=== PATIENT | female | born 1950 | race Caucasian/White ===

== ENCOUNTER → 2016-11-12 | Day surgery (SDC) | payer MEDICARE, MEDICAID ==
[~2016-11-12] VITALS: Ht 152.4 cm; Wt 55.3 kg
[~2016-11-12] MED LIST: AMOXIL500 MG PO; ANTIVERT GENERI25 MG PO; ASPIRIN81 MG PO; ATORVASTATIN CA40 MG PO; CIPRO 500MG TA500 MG PO; CLARITIN 10MG T10 MG PO; CLONAZEPAM1 M1 PO; DARVOCET-N 1001 EACH PO; DICLOFENAC SODI75 M2 PO; HYDROCODONE-APA1 TA1 PO; HYZAAR 12.5 MG-1 TA1 PO; K-DUR 20MEQ TA20 MEQ PO; LIDODERM 5% PA1 EACH TD; MECLIZINE HYD12.5 MG PO; MECLIZINE25 MG PO; MEDROL 4MG. DOSE4 MG PO; MELOXICAM7.5 MG PO; METAXALONE800 MG PO; METFORMIN 500M500 MG PO; MULTI VITAMINS1 TA1 PO; NEURONTIN400 MG PO; NEXIUM40 MG PO; PAXIL CR37.5 MG PO; POTASSIUM CHELA99 MG PO; POTASSIUM CHLO10 ME3 PO; ROBITUSSIN120 ML/BOT PO; TRAMADOL 50MG T1 PAK PO; TRAMADOL HYDROC50 M1 PO; VALIUM2 MG PO; VOLTAREN100 GM TP; ZOFRAN4 MG PO
[2016-11-12 09:50] VITALS: BP 116/50
[2016-11-12 10:36] VITALS: BP 116/50; BP 147/81
--- NOTE | 2016-11-12 10:39 | Procedure Note ---
Procedure detail Date of procedure: 11/12/16 Anesthesiologist: Jose Francisco rain CRNA Complications: None Pre-procedure diagnosis: Bilateral sacroiliitis. Post-procedure diagnosis: Same. Indications for procedure: Patient's a very pleasant 66-year-old white female that we've been treating her pain clinic for chronic cervical neck pain due to cervical disc degeneration. She's had cervical epidural steroid injections in the past with significant improvement. However, today her main complaint is lumbar back pain that she describes as constant, dull, aching. She rates her low back pain a 10/10. She also has extreme point tenderness over the bilateral SI joints. Unfortunately, her only lumbar imaging we have is a MRI from 2011. We will seek approval for an updated lumbar MRI. Also, we'll have her return to our clinic this Tuesday if possible for bilateral SI joint injections. Currently wearing a TENS unit to help with the pain. Typically she does not walk with a cane although today she is using a cane because of pain for stability. Procedure detail: Informed consent was obtained and the risks and benefits of the procedure were explained to the patient. The patient was taken to the procedure room and noninvasive monitors were placed including a noninvasive blood pressure cuff and pulse oximeter. The patient was placed prone on the procedure table. Both hips were cleansed using Betadine as a cleansing solution. C-arm fluoroscopy was used to view the right sacroiliac joint. The skin and subcutaneous tissues were anesthetized using lidocaine 1.5% and a 25-gauge needle. After this, a 22-gauge spinal needle was inserted under fluoroscopic guidance into the inferior aspect of the right sacroiliac joint. Omnipaque dye was injected and good spread was seen throughout the joint. After this, approximately 5 mL of bupivacaine, 0.25% and Depo-Medrol, 40 mg was incrementally injected into the right sacroiliac joint. We then moved to the left sacroiliac joint. The skin and subcutaneous tissues were anesthetized using lidocaine 1.5% and a 25-gauge needle. After this, a 22- gauge spinal needle was inserted under fluoroscopic guidance into the inferior aspect of the left sacroiliac joint. Omnipaque dye was injected and good spread was seen throughout the joint. After this, approximately 5 mL of bupivacaine, 0.25% and Depo-Medrol, 40 mg was incrementally injected into the left sacroiliac joint. The patient tolerated the procedure well with no complications. The patient was observed in the Pain Clinic and then was discharged home neurologically intact. Plan and disposition: Patient was reevaluated 10 minutes post procedure. Patient reports 80-90 percent improvement terms of her bilateral hip pain. She'll continue to follow up with us in the pain clinic for further evaluation. at [id number]
[2016-11-12 10:47] VITALS: BP 134/85
== END ==
LOC: PM 09:33
PROC: 3E0U33Z Introduction of Anti-inflammatory into Joints, Percutaneous Approach (ICD-10-PCS; principal; 2016-11-12)
PROC: 3E0U3BZ Introduction of Anesthetic Agent into Joints, Percutaneous Approach (ICD-10-PCS; 2016-11-12)
DX: M46.1 Sacroiliitis, not elsewhere classified (principal)
CPT/HCPCS: G0260; J1030

== ENCOUNTER → 2016-11-22 | Outpatient (CLI) | payer MEDICARE, MEDICAID ==
--- NOTE | 2016-11-22 22:39 | RADIOLOGY REPORT PS360 ---
DEXA SCAN.-BONE DENSITY STUDY HIPS AND LUMBAR SPINE HISTORY: Postmenopausal female 66-year-old previous fracture when I can't TECHNIQUE: DEXA scan hip and lumbar spine The most complete data summary and color graphic presentation of the today's ( and any prior ) DEXA findings are available in PACS. Definition and treatment guidelines included. COMPARISON: None listed LUMBAR SPINE: Osteopenia Overall mean lumbar L1-L4 T score -2.0 with BMD0 .944 g/cm sq . = Osteopenia L4 vertebral body demonstrates the lowest T score -2.1 with BMD0.945 g/cm sq L1 vertebral body demonstrates a lowest BMD 0.894 with T score -2.0 . . HIPS: Osteopenia Femoral neck density is best predictor of hip fracture risk . Right femoral neck demonstrates the lowest T score -1.9 with BMD0.78 g/cm sq . Today's today's Hip Mean T score -1.6 with BMD0.809 g/cm sq . = Osteopenia. IMPRESSION 1. LUMBAR SPINE: Osteopenia. Overall T score -2.0 2. HIPS: Osteopenia. Overall T score -1.6 WHO criteria for post-menopausal, Women: Normal: T-score at or above -1 SD Osteopenia: T-score between -1 and -2.5 SD Osteoporosis: T-score at or below -2.5 SD
== END ==
LOC: RAD 08:30
DX: Z78.0 Asymptomatic menopausal state (principal)

== ENCOUNTER 2017-07-22 08:50 | Emergency (ER) | payer MEDICARE, MEDICAID ==
[~2017-07-22] VITALS: Ht 152.4 cm; Wt 54.0 kg
--- NOTE | 2017-07-22 08:55 | Emergency Room Report ---
History of Present Illness Time Seen by MD [email or web address] Presenting Problem in Triage Pt arrived:Wheelchair Presenting Problem:PT REPORTS PAIN ON L SIDE OF CHEST FOR "A COUPLE DAYS", PT STATES PAIN RADIATES TO LEGS AND STOMACH INTERMITTENTLY. PT DENIES N/V/D, DIZZINESS, SOA. 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 N Clinical Suspician of Infection? N Mental Status: 1 - Regular (Normal Baseline) Sepsis Risk:Low Sepsis Risk Have you (or family members/close friends) recently traveled outside the [place]? N If Yes, where/when: Have you had exposure to infectious disease within the past month? N TB? Other? Specify: Comment The patient complains of chest pain. She says that she was supposed to have an epidural injection in her neck today by pain management, but they would not do it because she told them she had been having chest pain and they wanted her to have that checked. She says that she has pain in her LEFT anterior chest "in the muscle" off and on for the past couple of days. She says the pain increases with movement. She says it lasts about an hour at a time. She also says that her LEFT thoracic back area is sore as well. She denies trouble breathing, nausea, vomiting, diaphoresis. She denies abdominal pain currently but says that she has a history of vertebral bowel syndrome and had some colon spasms "a few days ago ". She says she has mitral valve prolapse and has seen Dr. Ross. No pain currently. ALLERGIES Coded Allergies: gabapentin (Intermediate, NA-HALLUCINATIONS 09/23/15) Home Medications Active Scripts HYDROCODONE 5MG/APAP 325MG (Hydrocodon-Acetaminophen 5-325) 1 TAB PO DAILY PRN pain #30 TAB Prov: 06/27/17 ONDANSETRON HCL (Zofran 4MG Tab) 4 MG PO Q8HP PRN NAUSEA AND VOMITING #6 TAB Prov: 06/11/17 Reported Medications LOSARTAN/HYDROCHLOROTHIAZIDE (Hyzaar 100-25 Tablet) 1 PO DAILY METFORMIN HCL (Metformin 500MG) 1 TAB PO BID Paroxetine (Paxil Cr) 1 TAB PO DAILY Clonazepam 1 TAB PO TID Loratadine (Claritin 10MG) 10 MG PO DAILY #30 Esomeprazole Magnesium (Nexium 40MG Cap) 40 MG PO DAILY #30 Atorvastatin Calcium 40 MG PO QHS #30 MULTIVITAMIN (One Daily Multivitamin) 1 TAB PO DAILY MECLIZINE HCL (Meclizine Hydrochloride) 12.5 MG PO PRN PRN DIZZINESS History Medical History General CAD? Yes Angina: Yes [place]: No Hypertension? Yes Hyperlipidemia? Yes CHF? No DVT? No PE? No COPD? No Asthma? No Anemia? No GERD? Yes Gastric ulcers? No GI Bleed? No Hernia? No Thyroid Problems? No Hypothyroidism? No CVA? No Seizures? No Diabetes? Yes Insulin Dependent: No Insulin Pump: No Home FSBS? Yes Renal Insuffiency? No End Stage Renal Disease? No UTI? No Stones? No BPH? No GB Disease: Yes Nephritic Syndrome? No Asplenia? No Hepatitis? No Sickle Cell Disease? No Arthritis? Yes Migraines? No Cataracts? Yes Glaucoma? No MRSA? No HIV? No TB? No Anxiety? Yes Depression? Yes Cancer? No More? Yes Additional hx: VERTIGO,MVP Immunization Hx DT/Tetanus NOT SURE Flu LAST YEAR Pneumonia NEVER Surgical Hx Previous Surgery?Y GALL BLADDER OVERACTIVE BALDDER X3 Cataract(s) BLADDER CATARACTS BILAT Family History Family Hx Diabetes Yes CAD Yes Hypertension Yes Hyperlipidemia Yes Cancer No TB No Social History Smoking Hx Packs/day < 1 Pack Alcohol Alcohol: No Additionial History Additional History Stress test 06/09/14 showed low likelihood of stress-induced ischemia. Review of Systems All Other Systems Reviewed and Negative Constitutional denies diaphoresis, denies fever Respiratory denies cough, denies shortness of breath Cardiovascular chest pain Gastrointestinal see HPI, denies nausea, denies vomiting Musculoskeletal back pain Physical Exam Vital Signs Vital Signs Date Time Temp Pulse Resp B/P Pulse O2 O2 Flow FiO2 Ox Delivery Rate 07/22 1022 97.8 63 18 105/60 99 07/22 0941 59 18 94/60 95 07/22 0851 98.0 63 18 133/61 97 General Appearance normal appearance, WD/WN Eye Exam - bilateral eye normal exam, bilateral eye PERRL, bilateral eye EOMI Ear, Nose, Throat hearing grossly normal, normal ENT inspection Neck normal inspection, non-tender, supple, full range of motion Respiratory Status Yes: trachea midline, chest symmetrical, tender on palpation (LEFT anterior, reproducible). No: respiratory distress. Lung Sounds bilateral: normal breath sounds, lungs clear. Cardiovascular normal exam, regular rate/rhythm, no peripheral edema, no gallop, no JVD, no murmur, no rub, normal peripheral pulses Peripheral Pulses Pulses normal Yes Gastrointestinal normal bowel sounds, normal exam, non tender, soft, no organomegaly Back LEFT periscapular tenderness Extremities non-tender, normal range of motion, normal inspection Neurologic alert, normal exam, oriented x 3 Mental status normal mood/affect Skin intact, normal color, warm/dry Medical Decision Making LABS/Meds/Orders Pt receiving controlled substance in ED? No Results/Orders Laboratory Tests 07/22/17 08: Amylase 29, Lipase 139 07/22/17 0855: Sodium 136, Potassium 3.2 L, Chloride 100, Carbon Dioxide 28, BUN 10, Creatinine 0.8, Estimated Creat Clear 58, Estimated GFR (MDRD) 72, Glucose 108 H, Calcium 8.9, Total Bilirubin 0.6, AST 20, ALT 23, Alkaline Phosphatase 70, Creatine Kinase 133, CK-MB (CK-2) Rel Index 0.8, CK and CKMB Interp 1.0, Troponin I < 0.02, Total Protein 7.3, Albumin 3.7, Globulin 3.6 H, Albumin/ Globulin Ratio 1.0 L, WBC 6.9, RBC 4.56, Hgb 11.8 L, Hct 36.0 L, MCV 79.0 L, RDW 13.5, Plt Count 248, MPV 8.2, Gran % 38.5, Gran # 2.7, Lymphocytes % 47.6, Monocytes % 5.8, Eosinophils % 7.4, Basophils % 0.6, Lymphocytes # 3.3, Monocytes # 0.4, Eosinophils # 0.5 H, Basophils # 0.0, PUBS MCHC 33.1, MCH 26.2 L Current Medication Orders Sig/Drew Start time Last Medication Dose Route Stop Time Status Admin Sodium Chloride 10 ML PRN PRN 07/22 900 DCD IV 07/23 858 Orders Procedure Date/time Status LIPASE 07/22 907 Complete AMYLASE 07/22 907 Complete 12 LEAD EKG-LANNY (INITIAL) 07/22 900 Active ELECTROCARDIOGRAM REQUEST 07/22 858 Active IV SALINE LOCK 07/22 858 Active SHRIMP TRAWLER CAPTAIN 07/22 858 Active CBC WITH AUTO DIFF 07/22 858 Complete CARDIAC ENZYMES 07/22 858 Complete CHEM 12 PROFILE 07/22 858 Complete CM/EKG CM/EKG Comments EKG interpreted by Omkar Reyez MD: Rhythm: sinus bradycardia Rate: 58 [place]: normal Ectopy: none Conduction: normal ST Segment Changes: none T Wave Changes: none Q Waves: none No evidence of acute ischemia or injury Prior electrocardiagrams reviewed. No change from prior tracings. XRAY/CT/US XRAY/CT/US XRAY chest Comment X-ray interpreted by radiologist: Slightly elevated LEFT hemidiaphragm with mild LEFT basilar atelectasis Progress - 10:05 AM: I estimate there is LOW risk for PULMONARY EMBOLISM, ACUTE CORONARY SYNDROME, OR THORACIC AORTIC DISSECTION, thus I consider the discharge disposition reasonable. Departure Departure Disposition DC Home or Self Care(routine) Clinical Impression Primary Impression: Atypical chest pain Condition STABLE Referrals Magnus Tesfaye MD (Family) Patient Instructions DI for Atypical Chest Pain Additional Instructions Additional instructions for CHEST PAIN: See your physician as soon as possible for further evaluation. Return immediately if worsening chest pain, vomiting, shortness of breath, fever, coughing of blood. ED Critical Care Critical Care No at 1120
[2017-07-22 09:03] LABS: LYMPH # 3.3 K/mm3 (0.7-4.5); LYMPH % 47.6 % (10-50.0)
[2017-07-22 09:13] LABS: HEMOGLOBIN 11.8 g/dL (12.2-16.2)
[2017-07-22 09:29] LABS: BUN 10 mg/dL (7-18)
[2017-07-22 09:31] LABS: GFR (ESTIMATED) 72 ML/MIN (59-)
--- NOTE | 2017-07-22 09:39 | RADIOLOGY REPORT PS360 ---
CHEST(2 VIEWS-NOT PORTABLE) HISTORY: CHEST PAIN ORDERING PHYSICIAN: Omkar Reyez MD PATIENT AGE: 67 years COMPARISON: To 9:15 FINDINGS: The cardiomediastinal silhouette and pulmonary vascularity are within normal limits. Left hemidiaphragm is somewhat elevated. There is some increased density in the retrocardiac region probably related to vascular crowding and atelectatic changes. Please correlate clinically. Calcified granulomas present in the right midlung laterally. No acute bony anomalies. Mild gaseous distention noted of the colon IMPRESSION: Slightly elevated left hemidiaphragm with mild left basilar atelectasis
[2017-07-22 10:22] VITALS: BP 105/60
== END 2017-07-22 10:22 | disposition home or self-care (01) ==
LOC: ER 08:50
PROVIDERS: Emergency Medicine
DX: R07.89 Other chest pain (principal); I25.10 Atherosclerotic heart disease of native coronary artery without angina pectoris; Z88.6 Allergy status to analgesic agent; Z79.84 Long term (current) use of oral hypoglycemic drugs; I10 Essential (primary) hypertension; K21.9 Gastro-esophageal reflux disease without esophagitis; E11.9 Type 2 diabetes mellitus without complications; F41.8 Other specified anxiety disorders

== ENCOUNTER → 2017-07-22 | Day surgery (SDC) | payer MEDICARE, MEDICAID ==
[~2017-07-22] MED LIST changes: -HYZAAR 12.5 MG-1 TA1 PO; +HYZAAR1 TAB PO
== END ==
LOC: PM 08:33
DX: M54.12 Radiculopathy, cervical region (principal)

== ENCOUNTER → 2017-08-16 | Outpatient (CLI) | payer MEDICARE, MEDICAID ==
--- NOTE | 2017-08-16 19:40 | RADIOLOGY REPORT PS360 ---
PROCEDURE: 2-D M-mode and color Doppler study INDICATIONS FOR THE TEST: Chest pain COPD Heart Murmur Tobacco Smoking Palpitations Fatigue Syncope Edema HypertensionXDiabetes MellitusX Rheumatic Fever SOBXDOE Obesity Hyperlipidemia Family History HD Additional History PATIENT INFORMATION HEIGHT: 61 WEIGHT:120 GENDER: Female B/P:130/70 2-D/M-MODE INTERPRETATION: 2-D MEASUREMENTS OBSERVED VALUES IN CMS Right Ventricular Dimension (RVDd) 1.2 Interventricular Septum (Thickness)(IVsd) .7 Left Ventricular Internal Dimensions(LVIDd) 4.8 Left Ventricular Posterior Wall (Thickness)(LVPWd) .7 Aortic Root 3.1 Aortic Cusp Separation 2.0 Left Atrial Dimensions (LAD) 3.3 2D 1. Left atrium is qualitatively mildly enlarged, left ventricle is normal size, there is mild concentric left ventricular hypertrophy present, visually estimated ejection fraction of 55% with no obvious regional wall motion abnormality. 2. The right atrium and right ventricle are normal size and contractility. 3. The aortic valve is minimally thickened and fibrosed. 4. The mitral and tricuspid valvular minimally thickened. 5. No significant pericardial effusion noted. 6. Pulmonic valve is poorly visualized. DOPPLER INTERROGATION: Doppler interrogation of the aortic, mitral and tricuspid valvular presence of mild mitral and tricuspid regurgitation, calculated right ventricular systolic pressure is 42 mmHg consistent with moderate pulmonary hypertension, grade 1 diastolic dysfunction seen without tissue Doppler evidence of raised left atrial pressure. CONCLUSION: 1. Mildly enlarged left atrium, normal left ventricular size, visually estimated ejection fraction 55% with no obvious regional wall motion abnormality, grade 1 diastolic dysfunction seen without tissue Doppler evidence of raised left atrial pressure. Mild concentric left ventricular hypertrophy seen. 2. Mild mitral and tricuspid regurgitation calculated right ventricular systolic pressure is 42 mmHg consistent with moderate pulmonary hypertension. 3. No significant pericardial effusion noted.
== END ==
LOC: RT 07:50
DX: I34.1 Nonrheumatic mitral (valve) prolapse (principal); I34.0 Nonrheumatic mitral (valve) insufficiency; R06.00 Dyspnea, unspecified; R07.89 Other chest pain

== ENCOUNTER 2017-09-16 07:40 | Day surgery (SDC) | payer MEDICARE, MEDICAID ==
[~2017-09-16] VITALS: Ht 152.4 cm; Wt 54.4 kg
[2017-09-16 08:52] VITALS: BP 111/79
[2017-09-16 10:09] VITALS: BP 111/79
[2017-09-16 10:10] VITALS: BP 135/105
--- NOTE | 2017-09-16 10:16 | Procedure Note ---
Procedure detail Date of procedure: 09/16/17 Anesthesiologist: Pepe Guzmán M.D. Complications: None Pre-procedure diagnosis: Degenerative disc disease of cervical spine with cervical spondylosis and facet arthropathy Post-procedure diagnosis: Same Indications for procedure: This patient is a pleasant 67-year-old white female who is well known to us being treated for neck pain with cervical radiculopathy symptoms and now cervical spondylosis. She has had some benefit from cervical epidural steroid injections however has continued neck pain. She is tender over the facet joints of C5-6, C6-7 and C7-T1. She has increased pain with extension. It does seem that her neck pain is facet mediated. We will do cervical medial branch blocks of C5-6, C6-7 and C7-T1 today. Procedure detail: Informed consent was obtained and the risks and benefits of the procedure was when the patient. Patient was taken to the procedure room. Neck was prepped using ChloraPrep. The skin and septated tissues were anesthetized using lidocaine. I placed a 22-gauge spinal needles into the facet joints of C5-6, C6- 7 and C7-T1 bilaterally. Needle placement was confirmed with dye. After this we injected 3 mL bupivacaine 0.25 percent and Depo-Medrol 13 mg into each facet joint. I used a total of 80 mg Depo-Medrol for bilateral facet joints of C5-6, C6-7 and C7-T1. Patient tolerated the procedure well with no complications. Plan and disposition: We will follow-up with her in 2 weeks. We'll reevaluate her symptoms at that time. at 1016
[2017-09-16 10:24] VITALS: BP 168/92
== END 2017-09-16 10:26 | disposition home or self-care (01) ==
LOC: PM 07:40
PROC: 3E0T3BZ Introduction of Anesthetic Agent into Peripheral Nerves and Plexi, Percutaneous Approach (ICD-10-PCS; principal; 2017-09-16)
PROC: 3E0T33Z Introduction of Anti-inflammatory into Peripheral Nerves and Plexi, Percutaneous Approach (ICD-10-PCS; 2017-09-16)
PROC: BR141ZZ Fluoroscopy of Cervical Facet Joint(s) using Low Osmolar Contrast (ICD-10-PCS; 2017-09-16)
DX: M50.10 Cervical disc disorder with radiculopathy, unspecified cervical region (principal); M47.892 Other spondylosis, cervical region; M12.88 Other specific arthropathies, not elsewhere classified, other specified site; E11.9 Type 2 diabetes mellitus without complications
CPT/HCPCS: J1030; Q9966

== ENCOUNTER 2017-10-11 12:48 | Emergency (ER) | payer MEDICARE, MEDICAID ==
[~2017-10-11] VITALS: Ht 152.4 cm; Wt 54.4 kg
--- NOTE | 2017-10-11 13:16 | Emergency Room Report ---
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 N Clinical Suspician of Infection? N Mental Status: 1 - Regular (Normal Baseline) Sepsis Risk:Low Sepsis Risk Have you (or family members/close friends) recently traveled outside the [place]? N If Yes, where/when: Have you had exposure to infectious disease within the past month? N TB? Other? Specify: Source patient, RN notes reviewed, family, RN/MD Exam Limitations no limitations Comment This is a 67-year-old lady sent to the emergency room from the pain clinic, by Dr. Guzmán, or evaluation of her chest pain, that has been bothering her , off-and-on for the past 3 days. Patient appears to be midsternal, radiating to both shoulders, neck, denies any diaphoresis or dyspnea. Patient denies any previous cardiac problems. Patient is in pain management due to chronic neck pain, thoracic pain, lumbar pain. ALLERGIES Coded Allergies: gabapentin (Intermediate, NA-HALLUCINATIONS 09/23/15) Home Medications Active Scripts HYDROCODONE 5MG/APAP 325MG (Hydrocodon-Acetaminophen 5-325) 1 TAB PO DAILY PRN pain #30 TAB Prov: 10/03/17 Reported Medications LOSARTAN/HYDROCHLOROTHIAZIDE (Hyzaar 100-25 Tablet) 1 PO DAILY METFORMIN HCL (Metformin 500MG) 1 TAB PO BID Paroxetine (Paxil Cr) 1 TAB PO DAILY Clonazepam 1 TAB PO TID Loratadine (Claritin 10MG) 10 MG PO DAILY #30 Esomeprazole Magnesium (Nexium 40MG Cap) 40 MG PO DAILY #30 Atorvastatin Calcium 40 MG PO QHS #30 MULTIVITAMIN (One Daily Multivitamin) 1 TAB PO DAILY History Medical History General CAD? Yes Angina: Yes [place]: No Hypertension? Yes Hyperlipidemia? Yes CHF? No DVT? No PE? No COPD? No Asthma? No Anemia? No GERD? Yes Gastric ulcers? No GI Bleed? No Hernia? No Thyroid Problems? No Hypothyroidism? No CVA? No Seizures? No Diabetes? Yes Insulin Dependent: No Insulin Pump: No Home FSBS? Yes Renal Insuffiency? No End Stage Renal Disease? No UTI? No Stones? No BPH? No GB Disease: Yes Nephritic Syndrome? No Asplenia? No Hepatitis? No Sickle Cell Disease? No Arthritis? Yes Migraines? No Cataracts? Yes Glaucoma? No MRSA? No HIV? No TB? No Anxiety? Yes Depression? Yes Cancer? No More? Yes Additional hx: VERTIGO,MVP Immunization Hx DT/Tetanus NOT SURE Flu LAST YEAR Pneumonia NEVER Surgical Hx Previous Surgery?Y GALL BLADDER OVERACTIVE BALDDER X3 Cataract(s) BLADDER CATARACTS BILAT Family History Family Hx Diabetes Yes CAD Yes Hypertension Yes Hyperlipidemia Yes Cancer No TB No Social History Smoking Hx Smoker: Never Smoker Tobacco: No Packs/day < 1 Pack Alcohol Alcohol: No Review of Systems All Other Systems Reviewed and Negative Cardiovascular chest pain Musculoskeletal see HPI, back pain, neck pain Physical Exam Vital Signs Vital Signs Date Time Temp Pulse Resp B/P Pulse O2 O2 Flow FiO2 Ox Delivery Rate 10/11 1456 98.2 63 18 140/85 97 10/11 1413 63 18 140/85 97 10/11 1252 98.2 72 18 143/84 96 General Appearance normal appearance, WD/WN, no apparent distress Neck normal inspection, non-tender, supple, full range of motion Respiratory Status Yes: trachea midline, chest symmetrical, non tender chest. No: respiratory distress. Lung Sounds bilateral: normal breath sounds, lungs clear. 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 No Comment 1430-upon reevaluation patient appears medically stable, no acute distress. Advised patient results obtained, needs to follow-up with a local measuring machine tender, Dr. Jarek Blue, for mandatory reevaluation. Results/Orders Laboratory Tests 10/11/17 1255: B-Natriuretic Peptide 21 10/11/17 1255: Amylase 40, Lipase 120 10/11/17 1255: Sodium 138, Potassium 3.2 L, Chloride 100, Carbon Dioxide 31, BUN 10, Creatinine 0.8, Estimated Creat Clear 59, Estimated GFR (MDRD) 72, Glucose 176 H, Calcium 9.1, Total Bilirubin 0.3, AST 25, ALT 27, Alkaline Phosphatase 74, Creatine Kinase 157, CK-MB (CK-2) Rel Index 1.1, CK and CKMB Interp 1.8, Troponin I < 0.02, Total Protein 7.2, Albumin 3.9, Globulin 3.3 H, Albumin/ Globulin Ratio 1.2, D-Dimer < 100, WBC 9.4, RBC 4.74, Hgb 12.2, Hct 38.1, MCV 80.4 L, RDW 14.3, Plt Count 236, MPV 8.4, Gran % 57.8, Gran # 5.4, Lymphocytes % 33.3, Monocytes % 3.4, Eosinophils % 4.8, Basophils % 0.7, Lymphocytes # 3.1, Monocytes # 0.3, Eosinophils # 0.5 H, Basophils # 0.1, PUBS MCHC 31.9, MCH 25.6 L Current Medication Orders Sig/Drew Start time Last Medication Dose Route Stop Time Status Admin Ondansetron HCl 0 .STK-MED ONE 10/11 1447 DC .ROUTE Hydromorphone HCl 0 .STK-MED ONE 10/11 1446 DC .ROUTE Hydromorphone HCl 0.25 MG ONCE ONE 10/11 1430 DC IV 10/11 1431 Ondansetron HCl 4 MG ONCE ONE 10/11 1430 DC IV 10/11 1431 Potassium Chloride 0 .STK-MED ONE 10/11 1426 DC PO Potassium Chloride 40 MEQ ONCE ONE 10/11 1400 DC 10/11 PO 10/11 1401 1428 Aspirin 325 MG ONCE ONE 10/11 1315 DC 10/11 PO 10/11 1316 1330 Sodium Chloride 10 ML PRN PRN 10/11 1315 DCD IV 10/12 1312 Aspirin 0 .STK-MED ONE 10/11 1255 DC .ROUTE Orders Procedure Date/time Status LIPASE 10/11 1315 Complete AMYLASE 10/11 1315 Complete D-DIMER 10/11 1314 Complete BRAIN NATRIURETIC PEPTIDE 10/11 1314 Complete ELECTROCARDIOGRAM REQUEST 10/11 1312 Active IV SALINE LOCK 10/11 131 Active 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 of ischemic chgs, no ectopy, normal QRS, normal [place], no EKG for comparison, non-spec. ST/Twave chgs, ST elevation, ST depression, LBBB, RBBB, ectopy, abnormal Q waves XRAY/CT/US XRAY/CT/US XRAY chest XR interpretation by reviewed by me Xray Results no infiltrates, normal heart size, normal lung inflation morgan JERONIMO Score for N-Stemi/Angina JERONIMO N-STEMI SCORE JERONIMO N-STEMI SCORE Response Value Age of patient 65 yrs or more 1 Number of risk factors for CAD Presence of less than 3 0 Prior coronary artery stenosis (seen in angiography) Less than 50% 0 ST-Segment deviation on ECG (>1 min) Absent 0 Prior aspirin intake No ASA in the last 7 days 0 Severe anginal chest pain No or 1 episode in 24h 0 Elevated cardiac markers(CK-MB or troponin) Absent 0 Total 1 Departure Departure Time of Disposition 1444 Disposition DC Home or Self Care(routine) Clinical Impression Primary Impression: Chest pain Qualifiers: Chest pain type: chest pain on breathing Qualified Code: R07.1 - Chest pain on breathing Secondary Impressions: Chronic pain Qualifiers: Chronic pain type: chronic pain syndrome Qualified Code: G89.4 - Chronic pain syndrome Condition STABLE Referrals Ramirez ROBBINS,Pepe Tesfaye MD,Magnus (Family) Jarek Blue MD Patient Instructions DI for Chest Pain, DI for Chronic Pain -- Adult Additional Instructions Please follow-up with Dr. Guzmán regarding her chronic pain needs. Follow-up with Dr. Blue regarding your chest pain. Take all your other previously prescribed medications as instructed. Discharge Counseling Counseled pt/family regarding diagnosis, test results, medications/RX, home care, follow up needs Comment Please follow-up with Dr. Guzmán regarding her chronic pain needs. Follow-up with Dr. Blue regarding your chest pain. Take all your other previously prescribed medications as instructed. ED Critical Care Critical Care No at [id number]
--- NOTE | 2017-10-11 13:16 | Emergency Room Report ---
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 N Clinical Suspician of Infection? N Mental Status: 1 - Regular (Normal Baseline) Sepsis Risk:Low Sepsis Risk Have you (or family members/close friends) recently traveled outside the [place]? N If Yes, where/when: Have you had exposure to infectious disease within the past month? N TB? Other? Specify: Source patient, RN notes reviewed, family, RN/MD Exam Limitations no limitations Comment This is a 67-year-old lady sent to the emergency room from the pain clinic, by Dr. Guzmán, or evaluation of her chest pain, that has been bothering her , off-and-on for the past 3 days. Patient appears to be midsternal, radiating to both shoulders, neck, denies any diaphoresis or dyspnea. Patient denies any previous cardiac problems. Patient is in pain management due to chronic neck pain, thoracic pain, lumbar pain. ALLERGIES Coded Allergies: gabapentin (Intermediate, NA-HALLUCINATIONS 09/23/15) Home Medications Active Scripts HYDROCODONE 5MG/APAP 325MG (Hydrocodon-Acetaminophen 5-325) 1 TAB PO DAILY PRN pain #30 TAB Prov: 10/03/17 Reported Medications LOSARTAN/HYDROCHLOROTHIAZIDE (Hyzaar 100-25 Tablet) 1 PO DAILY METFORMIN HCL (Metformin 500MG) 1 TAB PO BID Paroxetine (Paxil Cr) 1 TAB PO DAILY Clonazepam 1 TAB PO TID Loratadine (Claritin 10MG) 10 MG PO DAILY #30 Esomeprazole Magnesium (Nexium 40MG Cap) 40 MG PO DAILY #30 Atorvastatin Calcium 40 MG PO QHS #30 MULTIVITAMIN (One Daily Multivitamin) 1 TAB PO DAILY History Medical History General CAD? Yes Angina: Yes [place]: No Hypertension? Yes Hyperlipidemia? Yes CHF? No DVT? No PE? No COPD? No Asthma? No Anemia? No GERD? Yes Gastric ulcers? No GI Bleed? No Hernia? No Thyroid Problems? No Hypothyroidism? No CVA? No Seizures? No Diabetes? Yes Insulin Dependent: No Insulin Pump: No Home FSBS? Yes Renal Insuffiency? No End Stage Renal Disease? No UTI? No Stones? No BPH? No GB Disease: Yes Nephritic Syndrome? No Asplenia? No Hepatitis? No Sickle Cell Disease? No Arthritis? Yes Migraines? No Cataracts? Yes Glaucoma? No MRSA? No HIV? No TB? No Anxiety? Yes Depression? Yes Cancer? No More? Yes Additional hx: VERTIGO,MVP Immunization Hx DT/Tetanus NOT SURE Flu LAST YEAR Pneumonia NEVER Surgical Hx Previous Surgery?Y GALL BLADDER OVERACTIVE BALDDER X3 Cataract(s) BLADDER CATARACTS BILAT Family History Family Hx Diabetes Yes CAD Yes Hypertension Yes Hyperlipidemia Yes Cancer No TB No Social History Smoking Hx Smoker: Never Smoker Tobacco: No Packs/day < 1 Pack Alcohol Alcohol: No Review of Systems All Other Systems Reviewed and Negative Cardiovascular chest pain Musculoskeletal see HPI, back pain, neck pain Physical Exam Vital Signs Vital Signs Date Time Temp Pulse Resp B/P Pulse O2 O2 Flow FiO2 Ox Delivery Rate 10/11 1456 98.2 63 18 140/85 97 10/11 1413 63 18 140/85 97 10/11 1252 98.2 72 18 143/84 96 General Appearance normal appearance, WD/WN, no apparent distress Neck normal inspection, non-tender, supple, full range of motion Respiratory Status Yes: trachea midline, chest symmetrical, non tender chest. No: respiratory distress. Lung Sounds bilateral: normal breath sounds, lungs clear. 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 No Comment 1430-upon reevaluation patient appears medically stable, no acute distress. Advised patient results obtained, needs to follow-up with a local line welder, Dr. Jarek Blue, for mandatory reevaluation. Results/Orders Laboratory Tests 10/11/17 1255: B-Natriuretic Peptide 21 10/11/17 1255: Amylase 40, Lipase 120 10/11/17 1255: Sodium 138, Potassium 3.2 L, Chloride 100, Carbon Dioxide 31, BUN 10, Creatinine 0.8, Estimated Creat Clear 59, Estimated GFR (MDRD) 72, Glucose 176 H, Calcium 9.1, Total Bilirubin 0.3, AST 25, ALT 27, Alkaline Phosphatase 74, Creatine Kinase 157, CK-MB (CK-2) Rel Index 1.1, CK and CKMB Interp 1.8, Troponin I < 0.02, Total Protein 7.2, Albumin 3.9, Globulin 3.3 H, Albumin/ Globulin Ratio 1.2, D-Dimer < 100, WBC 9.4, RBC 4.74, Hgb 12.2, Hct 38.1, MCV 80.4 L, RDW 14.3, Plt Count 236, MPV 8.4, Gran % 57.8, Gran # 5.4, Lymphocytes % 33.3, Monocytes % 3.4, Eosinophils % 4.8, Basophils % 0.7, Lymphocytes # 3.1, Monocytes # 0.3, Eosinophils # 0.5 H, Basophils # 0.1, PUBS MCHC 31.9, MCH 25.6 L Current Medication Orders Sig/Drew Start time Last Medication Dose Route Stop Time Status Admin Ondansetron HCl 0 .STK-MED ONE 10/11 1447 DC .ROUTE Hydromorphone HCl 0 .STK-MED ONE 10/11 1446 DC .ROUTE Hydromorphone HCl 0.25 MG ONCE ONE 10/11 1430 DC IV 10/11 1431 Ondansetron HCl 4 MG ONCE ONE 10/11 1430 DC IV 10/11 1431 Potassium Chloride 0 .STK-MED ONE 10/11 1426 DC PO Potassium Chloride 40 MEQ ONCE ONE 10/11 1400 DC 10/11 PO 10/11 1401 1428 Aspirin 325 MG ONCE ONE 10/11 1315 DC 10/11 PO 10/11 1316 1330 Sodium Chloride 10 ML PRN PRN 10/11 1315 DCD IV 10/12 1312 Aspirin 0 .STK-MED ONE 10/11 1255 DC .ROUTE Orders Procedure Date/time Status LIPASE 10/11 1315 Complete AMYLASE 10/11 1315 Complete D-DIMER 10/11 1314 Complete BRAIN NATRIURETIC PEPTIDE 10/11 1314 Complete ELECTROCARDIOGRAM REQUEST 10/11 1312 Active IV SALINE LOCK 10/11 131 Active MERCHANT SEAMAN 10/11 131 Active COMPLETE METABOLIC PANEL 10/11 131 Complete CBC WITH AUTO DIFF 10/11 1312 Complete CARDIAC ENZYMES 10/11 131 Complete 12 LEAD EKG - NO READING 10/11 UNK Active CM/EKG 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 of ischemic chgs, no ectopy, normal QRS, normal [place], no EKG for comparison, non-spec. ST/Twave chgs, ST elevation, ST depression, LBBB, RBBB, ectopy, abnormal Q waves XRAY/CT/US XRAY/CT/US XRAY chest XR interpretation by reviewed by me Xray Results no infiltrates, normal heart size, normal lung inflation morgan JERONIMO Score for N-Stemi/Angina JERONIMO N-STEMI SCORE JERONIMO N-STEMI SCORE Response Value Age of patient 65 yrs or more 1 Number of risk factors for CAD Presence of less than 3 0 Prior coronary artery stenosis (seen in angiography) Less than 50% 0 ST-Segment deviation on ECG (>1 min) Absent 0 Prior aspirin intake No ASA in the last 7 days 0 Severe anginal chest pain No or 1 episode in 24h 0 Elevated cardiac markers(CK-MB or troponin) Absent 0 Total 1 Departure Departure Time of Disposition 1444 Disposition DC Home or Self Care(routine) Clinical Impression Primary Impression: Chest pain Qualifiers: Chest pain type: chest pain on breathing Qualified Code: R07.1 - Chest pain on breathing Secondary Impressions: Chronic pain Qualifiers: Chronic pain type: chronic pain syndrome Qualified Code: G89.4 - Chronic pain syndrome Condition STABLE Referrals Ramirez ROBBINS,Pepe Tesfaye MD,Magnus (Family) Jarek Blue MD Patient Instructions DI for Chest Pain, DI for Chronic Pain -- Adult Additional Instructions Please follow-up with Dr. Guzmán regarding her chronic pain needs. Follow-up with Dr. Blue regarding your chest pain. Take all your other previously prescribed medications as instructed. Discharge Counseling Counseled pt/family regarding diagnosis, test results, medications/RX, home care, follow up needs Comment Please follow-up with Dr. Guzmán regarding her chronic pain needs. Follow-up with Dr. Blue regarding your chest pain. Take all your other previously prescribed medications as instructed. ED Critical Care Critical Care No at [id number]
--- OUTSIDE RECORDS SUMMARY | 2017-10-11 13:31 | External Medical Summary Rpt | CCD ---
Author Author , ANUP Baker ANUP Address Unknown Phone [email or web address] Care Team Providers Care Ladle Patcher Name Role Phone Buster MONTENEGRO MD PSC, A Unavailable Unavailable Stanley MONTENEGRO MD PSC LATHAM NAHED, LATHAM Unavailable Unavailable NAHED LATHAM, ROBYN D, Unavailable Unavailable LATHAM, ROBYN D ALFARIS MOH, ALFARIS Unavailable Unavailable MOH ALFARIS MOH, ALFARIS Unavailable Unavailable MOH COLLEEN BRICEÑO MD, PSC, Unavailable Unavailable COLLEEN BRICEÑO MD, PSC [facility] Unavailable Unavailable [facility] BESSON CHE, BESSON Unavailable Unavailable CHE DAVID ULYSSES, Unavailable Unavailable DAVID ULYSSES DAVID ULYSSES, Unavailable Unavailable DAVID ULYSSES [facility] Unavailable [facility]available [facility] GRANT, GRANT Unavailable Unavailable GRANT ALL, GRANT ALL Unavailable Unavailable BUX, BUX Unavailable Unavailable BUX ANJ, BUX ANJ Unavailable Unavailable [facility], Unavailable Unavailable [facility] CAB, CITY CAB Unavailable Unavailable TIFFANY FUENTES Unavailable Unavailable KEYSHA RYAN, Unavailable Unavailable KEYSHA ALLEN BRITTNEY ALVARADO, Unavailable Unavailable BRITTNEY ALVARADO BRITTNEYJUS CHAVEZLAS, Unavailable Unavailable BRITTNEY, PHYLLIS [facility], Unavailable Unavailable [facility] STELLA VISION, Unavailable Unavailable STELLA VISION DUFF, DUFF Unavailable Unavailable DUFF ULYSSES, DUFF ULYSSES Unavailable Unavailable [facility] Unavailable [place]available [place], [facility] [place] [facility] [place] ROCIO JULIEN, Unavailable Unavailable ROCIO JULIEN ROCIO JULIEN, Unavailable Unavailable ROCIO JULIEN [facility], [facility] Unavailable Unavailable [facility], [facility] Unavailable Unavailable FALLUJI EFRAIN, FALLUJI Unavailable Unavailable EFRAIN FALLUJI EFRAIN, FALLUJI Unavailable Unavailable EFRAIN [facility] Unavailable Unavailable SERVBLUEGRAS, [facility] TRANS [facility] Unavailable Unavailable TRANSPORTATION SER, [facility] FIELD AMB, FIELD AMB Unavailable Unavailable GAY, KALA P, Unavailable Unavailable GAY, KALA P NAWAF FRAZIER, Unavailable Unavailable NAWAF FRAZIER, NINI Unavailable Unavailable RAJ GASTONEY TANMAY, TUNDE Unavailable Unavailable TANMAY TUNDE, LYNETTE S, Unavailable Unavailable TUNDE, LYNETTE S [facility] Unavailable Unavailable HOSPITA, [facility] Unavailable Unavailable HOSPITAL, [facility] Unavailable Unavailable HOSPITA, [facility] TASIA, DON G, Unavailable Unavailable TASIA, DON G [facility] Unavailable Unavailable [place], [facility] Unavailable Unavailable INC, [facility] Unavailable Unavailable HOSPITAL P, [facility] SHARP PACO, SHARP PACO Unavailable Unavailable SHARP PACO, SHARP PACO Unavailable Unavailable SHARP, KIARRA A, Unavailable Unavailable SHARP, KIARRA A [facility], Unavailable Unavailable [facility] Unavailable Unavailable IMAGING ASS, [facility] KILPELA JEA, KILPELA Unavailable Unavailable JEA KILPELA JEA, KILPELA Unavailable Unavailable JEA [facility] Unavailable Unavailable [facility]SC, [facility] Unavailable Unavailable HOLDING, [facility] Unavailable Unavailable HOLDINGS, [facility] Unavailable Unavailable HOLDINGS, [facility], Unavailable Unavailable [facility], Unavailable Unavailable [facility] LAB[facility] DAVID, LABRON Unavailable Unavailable DAVID ANALI CRI, ANALI CRI Unavailable Unavailable ZAK BERMUDEZ, Unavailable Unavailable ZAK BERMUDEZ LANNY JR, LANNY JR Unavailable Unavailable LANNY JR DWI, LANNY Unavailable Unavailable JR DWI LANNY JR DWI, LANNY Unavailable Unavailable JR DWI [facility] Unavailable Unavailable ACTION, [facility] JENN ANTJENN ANT Unavailable Unavailable M E D SUPPLIES, M E D Unavailable Unavailable SUPPLIES RAMESH BRICEÑO MD, RAMESH Unavailable Unavailable KEYANNA SANTIAGO, Unavailable Unavailable NABIL GONG JR, JR Unavailable Unavailable F, NABIL GONZALEZ JR F SUSHANT SMITH, Unavailable Unavailable SUSHANT SMITH MOSES Unavailable Unavailable KERI CHE, KERI CHE Unavailable Unavailable KERI CHE, KERI CHE Unavailable Unavailable PALOMINO GILLIAN, Unavailable Unavailable PALOMINO GILLIAN PALOMINO GILLIAN, Unavailable Unavailable PALOMINO GILLIAN [facility] Unavailable Unavailable LAB, [facility] Unavailable Unavailable LAB, [facility] LAB PETTEY JAM, PETTEY Unavailable Unavailable JAM PICKLESIMER JR PANDA, Unavailable Unavailable PICKLESIMER JR PANDA PICKLESIMER JR PANDA, Unavailable Unavailable PICKLESIMER JR PANDA [facility], Unavailable Unavailable [facility], Unavailable Unavailable [facility] GLORIA MAGAN, GLORIA Unavailable Unavailable MAGAN GLORIA MAGAN, GLORIA Unavailable Unavailable MAGAN BORGES EAR, BORGES Unavailable Unavailable EAR RECIO, ANDREA L, Unavailable Unavailable RECIO, ANDREA L SIMÓN, PRADEEP S, SIMÓN, Unavailable Unavailable PRADEEP S SCIFRES ANG, SCIFRES Unavailable Unavailable ANG SCIFRES ANG, SCIFRES Unavailable Unavailable ANG SHASHY DORITA, SHASHY Unavailable Unavailable DORITA SHASHY DORITA, SHASHY Unavailable Unavailable DORITA SOKAN BAB, SOKAN BAB Unavailable Unavailable [facility] Unavailable Unavailable EQUIP. L, [facility] Unavailable Unavailable [facility], [facility] Unavailable Unavailable EQUIPME, [facility] HANS MILLER E, Unavailable Unavailable HANS MILLER E [facility], Unavailable Unavailable [facility] GILLIAN, Unavailable Unavailable [place] GILLIAN [facility] Unavailable Unavailable [place] [facility]IA, [facility] P[facility]IA VASCELLO NATHEN, Unavailable Unavailable VASCELLO NATHEN VASCELLO NATHEN, Unavailable Unavailable VASCELLO NATHEN [facility] Unavailable Unavailable DEPT [facility], [facility] DEPT [facility] Unavailable Unavailable DEPT [facility] DEPT JOSÉ WEHRMAN III PAMELA, Unavailable Unavailable WEHRMAN III PAMELA WEHRMAN III PAMELA, Unavailable Unavailable WEHRMAN III SONIDO BLOCK, Unavailable Unavailable SONIDO BURR AMB, Unavailable Unavailable [facility], Unavailable Unavailable [facility] ZEE DRAPER, Unavailable Unavailable ZEE DRAPER [facility] Unavailable Unavailable OF [place], [facility] [place] Goins, LAN A Unavailable Unavailable Buster MONTENEGRO WRIGHT, Unavailable Unavailable A C ZIEMBROSKI JR EDW, Unavailable Unavailable CARISA PARR EDW Purpose Continuity of Care Document - 11-02-2007 through 2016 Problems Code Diagnosis DOS Provider Status [id number] ASHD SAC AND FOX NATION 07-22-2017 [place] CORONARY [facility] ARTERY W/O HOSPITAL P ANGINA [place] R0789 OTHER CHEST 07-22-2017 [place] PAIN [facility] P R079 CHEST PAIN 07-22-2017 [place] UNSPECIFIED [facility] IM[facility]ING ASS Z7984 SLITTER PROCESSED FILM 07-22-2017 [place] USE OF ORAL [facility] P HYPOGLYCEMI C DRUGS Z886 ALLERGY 07-22-2017 [facility] STATUS TO [facility] P AGENT STATUS [id number] SPONDYLOSIS 06-27-2017 COLLEEN BRICEÑO, W/O MD, PSC MYELOPATH/R ADICULOPATH Y CERV RGN M5010 CERVICAL 06-27-2017 COLLEEN BRICEÑO, DISC D/O MD, PSC W/RADICULOP ATHY UNS CERV RGN M5412 RADICULOPAT 06-27-2017 [facility] HY CERVICAL [facility] REGION INC M542 CERVICALGIA 04-19-2017 [facility] [id number] OTHER LONG 04-19-2017 [facility] TERM [facility] CURRENT INC DRUG THERAPY M5136 OT 01-03-2017 [facility] INTERVERTEB [facility] RAL DISC INC DEGEN LUMBAR REGION M5116 INTERVERTEB 12-21-2016 [facility] RAL DISC [facility] D/O INC W/RADICULOP ATHY LUMB RGN M461 SACROILIITI 11-12-2016 [facility] S NOT [facility] H[facility] ELSEWHERE INC CLASSIFIED [id number] SPONDYLOSIS 11-09-2016 [place] W/O MEDICAL MYELOPATH/R IMAGING ASS ADICULPATHY LS RGN M5127 OT 11-09-2016 [place] INTERVERTEB MEDICAL RAL DISC IMAGING ASS DISPLACEMEN T LS REGION M545 LOW BACK 11-09-2016 [facility] PAIN [facility] INC H8112 BENIGN 11-08-2016 Buster MITCHELL MD PSC VERTIGO LEFT EAR M5030 OT 11-02-2016 COLLEEN BRICEÑO CERVICAL , PSC DISC DEGENERATIO N UNS CERV REGION M5416 RADICULOPAT 11-02-2016 [facility] HY LUMBAR [facility]ION INC E119 TYPE 2 08-18-2016 [facility] DIABETES HOME MELLITUS MEDICAL WITHOUT EQUIPME COMPLICATIO NS R0602 SHORTNESS 07-26-2016 [facility] PEDIA R0609 OTHER FORMS 07-26-2016 [facility] OF DYSPNEA [facility] INC [id number] OTHER 06-24-2016 SCIFRES ANG SECONDARY CATARACT LEFT EYE M5430 SCIATICA 05-10-2016 COLLEEN BRICEÑO, UNSPECIFIED , [facility] SIDE M797 FIBROMYALGI 05-10-2016 [facility] A [facility] INC M791 MYALGIA 12-22-2015 COLLEEN BRICEÑO MD, [facility] E1149 TYPE 2 11-14-2015 A Stanley MONTENEGRO DIABETES PSC MELLITUS W/OTH DIAB NEURO COMP E782 MIXED 11-14-2015 A Stanley MONTENEGRO HYPERLIPIDE [facility] ZACKERY G894 CHRONIC 11-14-2015 A Stanley MONTENEGRO PAIN PSC SYNDROME Z720 TOBACCO USE 11-14-2015 A Stanley MONTENEGRO MD [facility] M7651 PATELLAR 09-30-2015 [facility] TENDINITIS [facility] RIGHT KNEE INC C79665 PAIN IN 08-29-2015 [place] RIGHT KNEE MEDICAL IMAGING ASS S5539GW UNS INJURY 08-29-2015 [place] RT LOWER MEDICAL LEG INITIAL IMAGING ASS ENCOUNTER 7231 CERVICALGIA 07-09-2015 [facility] 7242 LUMBAGO 07-09-2015 [facility] INC 7210 CERVICAL 06-03-2015 [place] SPONDYLOSIS MEDICAL WITHOUT IMAGING ASS MYELOPATHY 7220 DISPLCMT 06-03-2015 [place] CERV MEDICAL INTERVERT IMAGING ASS DISC WITHOUT MYELOPATHY 7234 BRACHIAL 06-03-2015 [facility] NEURITIS OR [facility] INC RADICULITIS NOS 31990 DIAB 05-29-2015 A Stanley Epps/NEURO PSC MANIFESTS TYPE II/UNS NOT UNCNTRL 2722 MIXED 05-29-2015 A Stanley MONTENEGRO HYPERLIPIDE PSC ZACKERY 3384 CHRONIC 05-29-2015 A Stanley MCKINNEY MD PSC SYNDROME 7291 UNSPECIFIED 05-29-2015 A Stanley MONTENEGRO MYALGIA PSC AND MYOSITIS 12411 PAIN IN 04-10-2015 [place] JOINT, MEDICAL LOWER LEG IMAGING ASS 7224 DEGENERATIO 04-10-2015 [facility] N OF [facility] HOS[facility] CERVICAL INC INTERVERTEB RAL DISC 71319 OSTEOARTHRO 04-07-2015 RAMESH BRICEÑO SIS UNSPEC MD WHETHER GEN/LOC LOWER LEG 41894 DIAB W/O 03-18-2015 ARON ANTONIO COMP TYPE II/UNS NOT STATED UNCNTRL 62751 AFTER-CATAR 03-18-2015 [facility] PACO ACT, OBSCURING VISION 7177 CHONDROMALA 02-26-2015 [facility] OF PHYSICIANS P[place]A GROUP 80250 02-26-2015 [facility] TRANSPORT[facility] ION SER 83603 ABDOMINAL 02-25-2015 A Stanley MCKINNEY MD PSC UNSPECIFIED SITE 7243 SCIATICA 02-17-2015 RAMESH BRICEÑO MD 7804 DIZZINESS 12-13-2014 A Stanley MONTENEGRO AND PSC GIDDINESS 7862 COUGH 12-09-2014 [facility] 51997 OTHER 12-05-2014 A Stanley MONTENEGRO MALAISE AND PSC FATIGUE 61026 OTHER 11-25-2014 A Stanley MONTENEGRO CHRONIC PSC PAIN 40562 APHONIA 11-14-2014 A Stanley MONTENEGRO MD PSC 7245 UNSPECIFIED 10-11-2014 A Stanley MONTENEGRO BACKACHE PSC V0382 NEED PROPH 10-08-2014 [facility] DEPT STREP JOSÉ PNEUMONE 4659 ACUTE URIS 09-16-2014 A Stanley COSME PSC UNSPECIFIED SITE 3572 POLYNEUROPA 09-11-2014 [facility] DI[facility]ES C[facility] SHRUTHI V0481 NEED 08-15-2014 A Stanley MONTENEGRO PROPHYLACTI PSC C VACCINATION &INOCULATIO N FLU 7248 OTHER 07-26-2014 A Stanley MONTENEGRO SYMPTOMS PSC REFERABLE TO BACK 7881 DYSURIA 07-26-2014 A Stanley MONTENEGRO MD PSC 63031 CHEST PAIN 05-29-2014 LANNY PARR UNSPECIFIED DWI 4011 ESSENTIAL 05-16-2014 FALLUJI EFRAIN HYPERTENSIO N, BENIGN 4240 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 EFRAIN VALVE DISORDERS 61233 PRECORDIAL 05-16-2014 FALLUJI EFRAIN PAIN 4019 UNSPECIFIED 05-10-2014 [facility] ESSENTIAL [facility] HYPERTENSIO INC N 4139 OTHER AND 05-10-2014 [facility] UNSPECIFIED [facility] HOS[facility] ANGINA INC PECTORIS 5641 IRRITABLE 05-10-2014 [facility] BOWEL [facility] SYNDROME INC 5758 OTHER 05-10-2014 [facility] SPECIFIED [facility]OS[facility] DISORDER OF INC GALLBLADDER 43610 GENERALIZED 05-10-2014 ALFARIS MOH PAIN 09185 DIAB W/O 04-08-2014 [facility] COMP TYPE II/UNS TYPE UNCNTRL 2724 OTHER AND 04-08-2014 KERI CHE UNSPECIFIED HYPERLIPIDE ZACKERY 49920 GENERALIZED 01-15-2014 KERI CHE ANXIETY DISORDER 2768 HYPOPOTASSE 10-12-2013 KERI CHE ZACKERY 7295 PAIN IN 10-12-2013 LAB DIMAS OF SOFT RONNA TISSUES OF HOLDINGS LIMB 7812 ABNORMALITY 09-26-2013 ROCIO OF GAIT JULIEN 73674 CRAMP OF 09-13-2013 [facility] 6228 OTHER 08-15-2013 PICKLESIMER SPECIFIED JR PANDA NONINFLAMMA TORY DISORDER CERVIX V7231 ROUTINE 08-15-2013 [facility] GYNECOLOGIC JR PANDA AL EXAMINATION V5869 LONG-TERM 06-22-2013 A Stanley MONTENGERO (CURRENT) PSC USE OF OTHER MEDICATIONS 30043 NUCLEAR 04-24-2013 DAVID SCLEROSIS ULYSSES 3669 UNSPECIFIED 04-24-2013 [facility] CATARACT [facility] INC 33660 ABDOMINAL 03-05-2013 A Stanley MCKINNEY, PSC GENERALIZED 66339 DIAB 02-20-2013 DAVID W/OPHTH ULYSSES MANIFESTS TYPE II/UNS NOT UNCNTRL 3688 OTHER 02-20-2013 DAVID SPECIFIED ULYSSES VISUAL DISTURBANCE S 9975 URINARY 02-07-2013 A Stanley MONTENEGRO COMPLICATIO PSC NS NEC V7612 OTHER 12-19-2012 [facility] SCREENING [facility] MAMMOGRAM INC 7080 ALLERGIC 12-18-2012 KERI CHE URTICARIA 18423 SWELLING OF 12-11-2012 [facility] LIMB [facility] INC V7281 PRE-OPERATI 11-14-2012 KERI BOLTON VE CARDIOVASCU LAR EXAMINATION 4660 ACUTE 11-03-2012 KILPELA JEA BRONCHITIS 5990 URINARY 09-08-2012 KILPELA JEA TRACT INFECTION SITE NOT SPECIFIED V720 EXAMINATION 09-07-2012 SCIFRES ANG OF EYES AND VISION 7218 OTHER 08-30-2012 [place] ALLIED MEDICAL DISORDERS IMAGING ASS OF SPINE 04561 DEGEN 08-30-2012 [place] THORACIC/TH MEDICAL ORACOLUMBAR IMAGING ASS INTERVERTEB RAL DISC V571 OTHER 08-30-2012 [facility] PHYSICAL [facility] THERAPY INC 08615 BENIGN 07-10-2012 KERI [place]TON PAROXYSMAL POSITIONAL VERTIGO 3319 UNSPECIFIED 07-07-2012 [place] CEREBRAL MEDICAL DEGENERATIO IMAGING ASS N 7840 HEADACHE 07-07-2012 WEHRMAN III PAMELA 7842 SWELLING 07-07-2012 [place] MASS OR MEDICAL LUMP IN IMAGING ASS HEAD AND NECK 03277 NAUSEA 07-07-2012 WEHRMAN III ALONE PAMELA 4439 UNSPECIFIED 07-06-2012 [place] PERIPHERAL MEDICAL VASCULAR IMAGING ASS DISEASE 7852 UNDIAGNOSED 07-06-2012 FALLUJI EFRAIN CARDIAC MURMURS 07930 OTHER CHEST 07-06-2012 FALLUJI EFRAIN PAIN 66746 ESOPHAGEAL 04-13-2012 GLORIA MAGAN REFLUX E9479 UNSPEC 04-07-2012 GLORIA MAGAN RX/MEDICINA L SBSTNC CAUS ADVRS EFF TX USE 4548 VARICOSE 03-29-2012 GLORIA MAGAN VEINS LOWER EXTREMITIES W/OTH COMPS 74490 UNSPECIFIED 03-16-2012 VASCELLO NATHEN ARTHROPATHY OTHER SPECIFIED SITES 92823 DISPLCMT 03-16-2012 VASCELLO LUMBAR NATHEN INTERVERT DISC W/O MYELOPATHY 42849 SPINAL STEN 03-16-2012 VAS[facility]LLO LUMB REG NATHEN W/O NEUROGENIC CLAUDICATIO N 42993 PLANTAR 03-16-2012 [facility] FIBROMATOSI S 50966 PAIN IN 02-22-2012 GLORIA MAGAN JOINT, MULTIPLE SITES 74917 DEGEN 01-13-2012 [place] LUMBAR/LUMB MEDICAL OSACRAL IMAGING ASS INTERVERTEB RAL DISC 70408 SPASM OF 01-11-2012 GLORIA MAGAN MUSCLE 3559 MONONEURITI 01-05-2012 GLORIA MAGAN S OF UNSPECIFIED SITE 3569 UNSPEC 12-27-2011 GLROIA MAGAN HEREDIT&IDI OPATHIC PERIPHERAL NEUROPATHY 4650 ACUTE 10-30-2011 KERI CHE LARYNGOPHAR YNGITIS 06868 MIXED 10-28-2011 [facility] INCONTINENC AMB E URGE AND STRESS 44421 URINARY 10-28-2011 [facility] FREQUENCY AMB V5399 FITTING AND 10-13-2011 PATHOLOGY & ADJUSTMENT CYTOLOGY OTHER LAB DEVICE V5882 ENCOUNTER 10-13-2011 [place] FITTING&ADJ ANESTHESIA GROUP PSC NON-VASCULA R CATHETER NEC V7283 OTHER 10-12-[address] [facility]SE SPECIFIED COMMUNTIY PRE-OPERATI HOSPITA VE EXAMINATION 35618 URGENCY OF 09-28-2011 [facility] URINATION AMB 50023 OTH COMPS 09-28-2011 [facility] DUE AMB GENITOURINA RY DEVICE IMPLANT&[place] [address] UNSPECIFIED 08-17-2011 A Stanley MONTENEGRO MD PSC CONSTIPATIO N 7873 FLATULENCE 08-17-2011 A Stanley MONTENEGRO ERUCTATION PSC AND GAS PAIN 88613 INSOMNIA 08-12-2011 A Stanley MONTENEGRO UNSPECIFIED PSC 3670 HYPERMETROP 07-30-2011 [place] VISION 04819 UNSPECIFIED 06-08-2011 LISANDRA KEVIN SENSORINEUR AL HEARING LOSS 5305 DYSKINESIA 05-18-2011 [facility] ESOPHAGUS HOSPITA 5368 DYSPEPSIA&O 05-18-2011 [facility] [place] THER SPEC GASTROENT DISORDERS FUNCTION STOMACH 5369 UNSPECIFIED 05-18-2011 [facility] [place] FUNCTIONAL GASTROENT DISORDER OF STOMACH 7871 HEARTBURN 05-18-2011 [facility] [place] GASTR[facility]ENT V7651 SPECIAL 05-18-2011 [place] SCREENING ANESTHESIA FOR GROUP PSC MALIGNANT NEOPLASMS COLON 3813 OTHER&UNSPE 05-17-2011 LISANDRA Angel CHRONIC NONSUPPURAT SANDY OTITIS MEDIA 27913 UNSPECIFIED 05-17-2011 LISANDRA KEVIN TINNITUS 2449 UNSPECIFIED 05-14-2011 A Stanley MONTENEGRO MD PSC HYPOTHYROID ISM 93888 DYSFUNCTION 04-29-2011 A Stanley COSME PSC EUSTACHIAN TUBE 5952 OTHER 04-13-2011 [facility] P 1369 UNSPECIFIED 03-17-2011 [facility] OF INFECTIOUS [place] INC AND PARASITIC DISEASES 6923 [facility] 02-22-2011 A Stanley MONTENEGRO DERMATITIS& PSC OTH ECZEMA-RX&M EDS [facility] W/SKN 230 CARCINOMA 02-11-2011 A Stanley MONTENEGRO IN SITU OF PSC DIGESTIVE ORGANS 6271 POSTMENOPAU 01-15-2011 [facility] B[facility]ED[facility] [place] 7238 OTHER 12-30-2010 PAL[facility] SYNDROMES GILLIAN AFFECTING CERVICAL REGION 7241 PAIN IN 12-16-2010 [place] THORACIC MEDICAL SPINE IMAGING ASS 7244 THORACIC/ELICIA 12-16-2010 [facility] NEURITIS/RA INC DICULITIS UNSPEC 7820 DISTURBANCE 12-16-2010 PALOMINO OF SKIN GILLIAN SENSATION 6259 UNSPEC 12-14-2010 [facility] SYMPTOM AMB ASSOC W/FEMALE GENITAL ORGANS V1302 PERSONAL 12-14-2010 [facility] HISTORY OF AMB URINARY TRACT INFECTION 1121 CANDIDIASIS 12-05-2010 A Stanley MONTENEGRO OF VULVA PSC AND VAGINA 55265 PAIN IN 11-19-2010 [place] JOINT MEDICAL PELVIC IMAGING ASS REGION AND THIGH 29195 UNSPECIFIED 08-20-2010 Buster MONTENEGRO SLEEP PSC DISTURBANCE 91316 OBSTRUCTIVE 09-09-2009 [facility] SLEEP [facility] APNEA 85643 UNSPECIFIED 09-09-2009 [facility] INCONTINENC E 90280 URGE 09-09-2009 ANESTHESIA INCONTINENC ASSOCIATES, E PSC 74069 OTHER 08-26-2009 NEW SPECIFIED [facility]IN[facility] PSC DYSRHYTHMIA S 98341 OTHER 08-18-2009 [facility] LUNG NOT HOSPITAL ELSEWHERE CLASSIFIED 50070 ACUT 07-31-2009 [facility] TIS W/O LES INC RENAL MEDULRY NECROS 00378 UNSPECIFIED 07-31-2009 [facility] P[facility] TIS ASSOCIATES 4580 ORTHOSTATIC 06-16-2009 A Stanley MONTENEGRO MD PSC HYPOTENSION 2511 OTHER 06-11-2009 A Stanley SCHMIDT MD PSC HYPOGLYCEMI A 9115 TRUNK 05-20-2009 A Stanley MONTENEGRO INSECT BITE PSC NONVENOMOUS INFECTED 5950 ACUTE 04-01-2009 [facility] CYSTITIS H UROLOGY PSC 38265 HYPERTONICI 04-01-2009 [facility] TY OF H UROLOGY BLADDER PSC 77824 HEMATURIA 03-25-2009 [facility] UNSPECIFIED MEM HOS[facility] INC 00724 PAIN IN 01-18-2009 [facility] JOINT, MEM HOSP UPPER ARM INC 7292 UNSPECIFIED 11-25-2008 A Stanley MONTENEGRO NEURALGIA PSC NEURITIS AND RADICULITIS 06326 MEMORY LOSS 09-12-2008 PHYLLIS LUGO V726 LABORATORY 09-10-2008 [facility] EXAMINATION [facility] INC 4619 ACUTE 07-24-2008 A Stanley MONTENEGRO SINUSITISMD PSC UNSPECIFIED 68020 SHORTNESS 03-02-2008 [facility] MEDICAL IMAGING ASSOCIATES 96605 OTHER 03-01-2008 [facility], VITREOUS KIARRA A OPACITIES 46077 UNSPECIFIED 02-23-2008 A Stanley MONTENEGRO VIRAL PSC WARTS 40751 UNSPECIFIED 01-09-2008 ZAK BERMUDEZ OBSTRUCTION OF EUSTACHIAN TUBE 470 DEVIATED 01-09-2008 RIZWAN BERMUDEZ SEPTUM 4739 UNSPECIFIED 01-09-2008 LIZ BERMUDEZ 20902 UNSPECIFIED 11-27-2007 Buster MONTENEGRO MD PSC ARTHROPATHY SITE UNSPECIFIED 59075 UNSPECIFIED 11-16-2007 [facility] V6700 FOLLOW-UP 11-16-2007 [facility] EXAM[facility]ATION [facility] FOLLOWING CLINIC OF UNSPEC [facility] 6210 POLYP OF 11-03-2007 [facility] 92261 UNSPECIFIED 11-02-2007 [facility] 6238 OTHER 11-02-2007 [facility] SPECIFIED [place] INC NONINFLAMMA TORY DISORDER VAGINA M25.561 PAIN IN RIGHT KNEE R07.89 OTHER CHEST PAIN Allergies, Adverse Reactions, Alerts Clinical Alert Notifications Alert Diabetes: no A1C in the last 6 months Diabetes: no eye exam in the last 365 days Diabetes: no influenza vaccine in the last 365 days Diabetes: no lipid panel in the last 365 days Diabetes: no urine protein screening in the last 365 days Medications Na ND Rx Da Fi Fi Am Da Di Ph RX Ph St me C No te ll ll ou ys ag ar # ys at rm s nt no ma ic us Or Da si cy ia de te s n re d LO 16 11 12 30 30 00 EA Ac RA 71 -1 -[address] ti TA 40 3- 8- 00 00 SI ve DI 48 20 20 47 DE NE 20 17 17 26 3 75 PH 10 AR MA MG CY TA OF BL CY ET NT HI AN A IN C LO 16 08 10 30 30 00 EA Ac RA 71 -1 -[address] ti TA 40 3- 0- 00 00 SI ve DI 48 20 20 47 DE NE 20 17 17 26 3 75 PH 10 AR MA MG CY TA OF BL CY ET NT HI AN A IN C LO 16 09 30 30 00 EA Ac RA 71 -1 -[address] ti TA 40 4- 3- 00 00 SI ve DI 48 20 20 47 DE NE 20 17 17 26 3 75 PH 10 AR MA MG CY TA OF BL CY ET NT HI AN A IN C LO 16 08 09 30 30 00 EA Ac RA 71 -1 -[address] ti TA 40 4- 8- 00 00 SI ve DI 48 20 20 47 DE NE 20 17 17 26 3 75 PH 10 AR MA MG CY TA OF BL CY ET NT HI AN A IN C LO 16 07 08 30 30 00 EA Ac RA 71 -1 -[address] ti TA 40 4- 1- 00 00 SI ve DI 48 20 20 47 DE NE 20 17 17 26 3 75 PH 10 AR MA MG CY TA OF BL CY ET NT HI AN A IN C LO 16 06 07 30 30 00 EA Ac RA 71 -1 -[address] ti TA 40 5- 4- 00 00 SI ve DI 48 20 20 47 DE NE 20 17 17 26 3 75 PH 10 AR MA MG CY TA OF BL CY ET NT HI AN A IN [facility] 16 03 05 30 30 00 EA Ac RA 71 -1 -[address] ti TA 40 5- 9- 00 00 SI ve DI 48 20 20 47 DE NE 20 17 17 26 3 75 PH 10 AR MA MG CY TA OF BL CY ET NT HI AN A IN [facility] 16 02 02 30 30 00 EA Ac RA 71 -1 -[address] ti TA 40 4- 2- 00 00 SI ve DI 48 20 20 47 DE NE 20 17 17 26 3 75 PH 10 AR MA MG CY TA OF BL CY ET NT HI AN A IN [facility] 16 01 01 30 30 00 EA Ac RA 71 -1 -[address] ti TA 40 4- 7- 00 00 SI ve DI 48 20 20 47 DE NE 20 17 17 26 3 75 PH 10 AR MA MG CY TA OF BL CY ET NT HI AN A IN [facility] 16 12 03 29 30 00 EA Ac RA 71 -1 -[address] ti TA 40 4- 0- 00 00 SI ve DI 48 20 20 47 DE NE 20 17 17 26 3 75 PH 10 AR MA MG CY TA OF BL CY ET NT HI AN A IN [facility] 16 11 01 29 30 00 EA Ac RA 71 -1 -[address] ti TA 40 7- 0- 00 00 SI ve DI 48 20 20 47 DE NE 20 17 17 26 3 75 PH 10 AR MA MG CY TA OF BL CY ET NT HI AN A IN [facility] 16 09 30 30 30 00 EA Ac RA 71 -2 -[address] ti TA 40 2- 0- 00 00 SI ve DI 48 20 20 44 DE NE 20 16 17 54 3 69 PH 10 AR MA MG CY TA OF BL CY ET NT HI AN A IN [facility] 00 12 01 30 10 00 EA Ac CL 53 -2 -[address] ti IZ 61 2- 0- 00 00 SI ve IN 01 20 20 46 DE E 70 16 17 99 12 1 39 PH .5 AR MA MG CY CA OF PL CY ET NT HI AN A IN 00 04 10 11 30 30 EA 22 RI Ac 37 -1 -[address] 15 SH ti 82 8- 8- 00 SI 53 ER ve 00 20 20 DE 69 11 11 RI 3 PH CH AR AR MA D CY OF CY NT HI AN A NE 00 10 10 5 30 30 EA 24 RI Ac XI 18 -1 -[address] 49 SH ti UM 65 3- 3- 00 SI 05 ER ve [address] 03 11 11 RI 1 PH CH 40 AR AR MA D MG CY CA OF PS UL CY E NT HI AN A LI 00 10 10 2 30 30 EA 24 RI Ac PI 07 -1 -[address] 47 SH ti TO 10 2- 2- 00 SI 43 ER ve R 15 20 20 DE 40 72 11 11 RI 3 PH CH MG AR AR MA D TA CY BL ET OF CY NT HI AN A FR 99 03 10 5 10 30 EA 21 RI Ac EE 07 -2 -[address] 30 8- 0- 00 SI 92 ER ve YL 70 20 20 0 DE E 82 11 11 RI LI 7 PH CH TE AR AR MA D TE CY ST OF ST RI CY P NT HI AN A SM 38 03 10 5 10 30 EA 21 RI Ac 39 -2 -[address] 88 SH ti TH 60 8- 0- 00 SI 02 ER ve IN 71 20 20 0 DE 33 11 11 RI LA 9 PH CH NC AR AR ET MA D S CY 26 G OF CY NT HI AN A LO 16 10 10 5 30 30 EA 24 RI Ac SA 71 -1 -[address] 45 SH ti RT 40 0- 0- 00 SI 23 ER ve AN 22 20 20 DE -H [address] 1 PH CH Z AR AR 10 MA D 0- CY 25 OF MG CY TA NT B HI AN A PO 00 06 10 11 30 30 EA 23 RI Ac TA 78 -2 -[address] 12 SH ti SS 15 9- 6- 00 SI 67 ER ve IU 72 20 20 DE M 00 11 11 RI CL 5 PH CH AR AR ER MA D CY 20 OF ME Q CY TA NT BL HI ET AN A ME 00 09 10 1 60 30 EA 23 RI Ac TF 09 -0 -[address] 99 SH ti OR 31 7- 6- 00 SI 08 ER ve CA 04 20 20 DE N 81 11 11 RI HC 0 PH CH L AR AR 50 MA D 0 CY MG OF TA BL CY ET NT HI AN A CL 16 10 10 2 90 30 EA 24 RI Ac ON 72 -0 -[address] 34 SH ti AZ 90 3- 3- 00 SI 27 ER ve EP 13 20 20 DE AM 70 11 11 RI 1 0 PH CH AR AR MG MA D CY TA BL OF ET CY NT HI AN A 00 04 09 11 30 30 EA 22 RI Ac 37 -1 -[address] 15 SH ti 82 8- 0- 00 SI 53 ER ve 00 20 20 DE 69 11 11 RI 3 PH CH AR AR MA D CY OF CY NT HI AN A LI 00 07 09 2 30 30 EA 23 RI Ac PI 07 -1 -[address] 26 SH ti TO 10 2- 2- 00 SI 49 ER ve R 15 20 20 DE 40 72 11 11 RI 3 PH CH MG AR AR MA D TA CY BL ET OF CY NT HI AN A LO 16 07 09 2 30 30 EA 23 RI Ac SA 71 -1 -[address] 24 SH ti RT 40 1- 0- 00 SI 30 ER ve AN 22 20 20 DE -H [address] 1 PH CH Z AR AR 10 MA D 0- CY 25 OF MG CY TA NT B HI AN A RA 53 08 09 11 60 30 EA 23 RI Ac NI 74 -0 -[address] 53 SH ti TI 60 4- 0- 00 SI 20 ER ve DI 25 20 20 DE NE 31 11 11 RI 0 PH CH 15 AR AR 0 MA D MG CY TA OF BL ET CY NT HI AN A ME 00 09 09 1 60 30 EA 23 RI Ac TF 09 -0 -[address] 99 SH ti OR 31 7- 7- 00 SI 08 ER ve CA 04 20 20 DE N 81 11 11 RI HC 0 PH CH L AR AR 50 MA D 0 CY MG OF TA BL CY ET NT HI AN A CL 00 09 09 0 90 30 EA 23 RI Ac ON 37 -0 -[address] 95 SH ti AZ 81 3- 3- 00 SI 78 ER ve EP 91 20 20 DE AM 20 11 11 RI 1 1 PH CH AR AR MG MA D CY TA BL OF ET CY NT HI AN A AM 64 07 08 5 60 30 EA 23 RO Ac IT 76 -2 -[address] 36 BB ti IZ 40 0- 5- 00 SI 26 IN ve A 24 20 20 DE S 24 06 11 11 II 0 PH MC AR EA G MA RL CA CY G PS UL OF ES CY NT HI AN A 00 04 08 11 30 30 EA 22 RI Ac 37 -1 -[address] 15 SH ti 82 8- 2- 00 SI 53 ER ve 00 20 20 DE 69 11 11 RI 3 PH CH AR AR MA D CY OF CY NT HI AN A PO 00 06 08 11 30 30 EA 23 RI Ac TA 78 -2 -[address] 12 SH ti SS 15 9- 7- 00 SI 67 ER ve IU 72 20 20 DE M 00 11 11 RI CL 5 PH CH AR AR ER MA D CY 20 OF ME Q CY TA NT BL HI ET AN A LO 16 07 08 2 30 30 EA 23 RI Ac SA 71 -1 -[address] 24 SH ti RT 40 1- 1- 00 SI 30 ER ve AN 22 20 20 DE -H [address] 1 PH CH Z AR AR 10 MA D 0- CY 25 OF MG CY TA NT B HI AN A LI 00 07 08 2 30 30 EA 23 RI Ac PI 07 -1 -[address] 26 SH ti TO 10 2- 1- 00 SI 49 ER ve R 15 20 20 DE 40 72 11 11 RI 3 PH CH MG AR AR MA D TA CY BL ET OF CY NT HI AN A ME 00 05 08 3 60 30 EA 22 RI Ac TF 09 -0 -[address] 40 SH ti OR 31 5- 6- 00 SI 02 ER ve CA 04 20 20 DE N 81 11 11 RI HC 0 PH CH L AR AR 50 MA D 0 CY MG OF TA BL CY ET NT HI AN A 00 02 08 1 90 30 EA 21 OC Ac 59 -1 -[address] 27 ON ti 10 6- 5- 00 SI 76 NE ve 85 20 20 DE LL 30 11 11 1 PH TYRA AR HN MA CY OF CY NT HI AN A RA 53 08 08 11 60 30 EA 23 RI Ac NI 74 -0 -[address] 53 SH ti TI 60 4- 4- 00 SI 20 ER ve DI 25 20 20 DE NE 31 11 11 RI 0 PH CH 15 AR AR 0 MA D MG CY TA OF BL ET CY NT HI AN A CL 16 05 07 2 90 30 EA 22 RI Ac ON 72 -1 -[address] 47 SH ti AZ 90 1- 0- 00 SI 62 ER ve EP 13 20 20 DE AM 71 11 11 RI 1 6 PH CH AR AR MG MA D CY TA BL OF ET CY NT HI AN A 00 04 07 11 30 30 EA 22 RI Ac 37 -1 -[address] 15 SH ti 82 8- 0- 00 SI 53 ER ve 00 20 20 DE 69 11 11 RI 3 PH CH AR AR MA D CY OF CY NT HI AN A AM 64 07 07 5 60 30 EA 23 RO Ac IT 76 -2 -[address] 36 BB ti IZ 40 0- 0- 00 SI 26 IN ve A 24 20 20 DE S 24 06 11 11 II 0 PH MC AR EA G MA RL CA CY G PS UL OF ES CY NT HI AN A 00 07 07 3 90 30 EA 23 RO Ac 07 -2 -[address] 36 BB ti 46 0- 0- 00 SI 25 IN ve 32 20 20 DE S 61 11 11 II 3 PH AR EA MA RL CY G OF CY NT HI AN A NA 00 07 07 6 17 30 EA 23 SH Ac SO 08 -1 -[address] 34 ti NE 51 8- 8- 00 SI 20 HY ve X 28 20 20 DE 50 80 11 11 RO 1 PH NA MC AR LD G MA G NA CY SA L OF SP RA CY Y NT HI AN A NI 47 06 07 1 30 30 EA 22 AD Ac TR 78 -1 -[address] 93 KI ti OF 10 4- 6- 00 SI 87 NS ve UR 30 20 20 DE AN 30 11 11 TI TO 1 PH MO IN AR TH MA Y MO CY D NO -M OF CR CY 10 NT 0 HI MG AN A MO 65 06 07 0 1. 1 EA 23 RO Ac 64 -2 -[address] 31 BB ti WI 90 3- 5- 0 SI 28 IN ve EP 20 20 20 DE S 17 11 11 II PO 5 PH WD AR EA ER MA RL CY G PA CK OF ET CY NT HI AN A FR 99 03 07 5 10 30 EA 21 RI Ac EE 07 -2 -[address] 30 8- 2- 00 SI 92 ER ve YL 70 20 20 0 DE E 82 11 11 RI LI 7 PH CH TE AR AR MA D TE CY ST OF ST RI CY P NT HI AN A SM 38 03 07 5 10 30 EA 21 RI Ac 39 -2 -[address] 88 SH ti TH 60 8- 2- 00 SI 02 ER ve IN 71 20 20 0 DE 33 11 11 RI LA 9 PH CH NC AR AR ET MA D S CY 26 G OF CY NT HI AN A LI 00 07 07 2 30 30 EA 23 RI Ac PI 07 -1 -[address] 26 SH ti TO 10 2- 2- 00 SI 49 ER ve R 15 20 20 DE 40 72 11 11 RI 3 PH CH MG AR AR MA D TA CY BL ET OF CY NT HI AN A LO 16 07 07 2 30 30 EA 23 RI Ac SA 71 -1 -[address] 24 SH ti RT 40 1- 1- 00 SI 30 ER ve AN 22 20 20 DE -H [address] 1 PH CH Z AR AR 10 MA D 0- CY 25 OF MG CY TA NT B HI AN A ME 00 05 07 3 60 30 EA 22 RI Ac TF 09 -0 -[address] 40 SH ti OR 31 5- 8- 00 SI 02 ER ve CA 04 20 20 DE N 81 11 11 RI HC 0 PH CH L AR AR 50 MA D 0 CY MG OF TA BL CY ET NT HI AN A RA 53 12 07 5 60 30 EA 20 RI Ac NI 74 -0 -[address] 27 SH ti TI 60 6- 5- 00 SI 99 ER ve DI 25 20 20 DE NE 31 10 11 RI 0 PH CH 15 AR AR 0 MA D MG CY TA OF BL ET CY NT HI AN A PO 00 06 06 11 30 30 EA 23 RI Ac TA 78 -2 -[address] 12 SH ti SS 15 9- 9- 00 SI 67 ER ve IU 72 20 20 DE M 00 11 11 RI CL 5 PH CH AR AR ER MA D CY 20 OF ME Q CY TA NT BL HI ET AN A CL 00 05 06 2 90 30 EA 22 RI Ac ON 09 -1 -[address] 47 SH ti AZ 30 1- 0- 00 SI 62 ER ve EP 83 20 20 DE AM 30 11 11 RI 1 1 PH CH AR AR MG MA D CY TA BL OF ET CY NT HI AN A 00 04 06 11 30 30 EA 22 RI Ac 37 -1 -[address] 15 SH ti 82 8- 0- 00 SI 53 ER ve 00 20 20 DE 69 11 11 RI 3 PH CH AR AR MA D CY OF CY NT HI AN A LO 16 04 06 2 30 30 EA 22 RI Ac SA 71 -1 -[address] 10 SH ti RT 40 3- 4- 00 SI 28 ER ve AN 22 20 20 DE -H [address] 1 PH CH Z AR AR 10 MA D 0- CY 25 OF MG CY TA NT B HI AN A NI 47 06 06 1 30 30 EA 22 AD Ac TR 78 -1 -[address] 93 KI ti OF 10 4- 4- 00 SI 87 NS ve UR 30 20 20 DE AN 30 11 11 TI TO 1 PH MO IN AR TH MA Y MO CY D NO -M OF CR CY 10 NT 0 HI MG AN A LI 00 06 06 0 30 30 EA 22 RI Ac PI 07 -1 -[address] 89 SH ti TO 10 0- 0- 00 SI 17 ER ve R 15 20 20 DE 40 72 11 11 RI 3 PH CH MG AR AR MA D TA CY BL ET OF CY NT HI AN A ME 00 05 06 3 60 30 EA 22 RI Ac TF 09 -0 -[address] 40 SH ti OR 31 SI 02 ER ve CA 04 20 20 DE N 81 11 11 RI HC 0 PH CH L AR AR 50 MA D 0 CY MG OF TA BL CY ET NT HI AN A 00 04 05 11 30 30 EA 22 RI Ac 37 -1 -[address] 15 SH ti 82 8 SI 53 ER ve 00 20 20 DE 69 11 11 RI 3 PH CH AR AR MA D CY OF CY NT HI AN A ME 50 05 05 0 20 10 EA 22 RI Ac TR 11 -1 -[address] 58 SH ti ON 10 SI 91 ER ve ID 33 20 20 DE AZ 40 11 11 RI OL 1 PH CH E AR AR 50 MA D 0 CY MG OF TA BL CY ET NT HI AN A NI 47 05 05 0 20 10 EA 22 RI Ac TR 78 -1 -[address] 58 SH ti OF SI 92 ER ve UR 30 20 20 DE AN 30 11 11 RI TO 1 PH CH IN AR AR MA D MO CY NO -M OF CR CY 10 NT 0 HI MG AN A LO 16 04 05 2 30 30 EA 22 RI Ac SA 71 -1 -[address] 10 SH ti RT 40 3 00 SI 28 ER ve AN 22 20 20 DE -H [address] 1 PH CH Z AR AR 10 MA D 0- CY 25 OF MG CY TA NT B HI AN A CL 00 05 05 2 90 30 EA 22 RI Ac ON 09 -[address] 47 SH ti AZ 30 SI 62 ER ve EP 83 20 20 DE AM 30 11 11 RI 1 1 PH CH AR AR MG MA D CY TA BL OF ET CY NT HI AN A DI 00 02 05 5 30 30 EA 21 OC Ac CL 78 -1 -[address] 28 ON ti OF SI 56 NE ve EN 78 20 20 DE LL AC 90 11 11 1 PH TYRA SO AR HN D MA EC CY 75 OF MG CY NT TA HI B AN A RA 53 12 05 5 60 30 EA 20 RI Ac NI 74 -0 -[address] 27 SH ti TI 60 6- 1- 00 SI 99 ER ve DI 25 20 20 DE NE 31 10 11 RI 0 PH CH 15 AR AR 0 MA D MG CY TA OF BL ET CY NT HI AN A ME 00 05 05 3 60 30 EA 22 RI Ac TF 09 -0 -[address] 40 SH ti OR 31 5- 5- 00 SI 02 ER ve CA 04 20 20 DE N 81 11 11 RI HC 0 PH CH L AR AR 50 MA D 0 CY MG OF TA BL CY ET NT HI AN A LI 00 02 04 2 30 30 EA 21 RI Ac PI 07 -0 -[address] 07 SH ti TO 10 3- 7- 00 SI 53 ER ve R 15 20 20 DE 40 72 11 11 RI 3 PH CH MG AR AR MA D TA CY BL ET OF CY NT HI AN A PO 00 03 04 1 30 30 EA 21 RI Ac TA 78 -2 -[address] 79 SH ti SS 15 2- 5- 00 SI 73 ER ve IU 72 20 20 DE M 00 11 11 RI CL 5 PH CH AR AR ER MA D CY 20 OF ME Q CY TA NT BL HI ET AN A NY 51 04 04 0 30 5 EA [address] 67 -2 -[address] 24 SH ti AT 21 5- 5- 00 SI 93 ER ve IN 28 20 20 DE 90 11 11 RI 10 2 PH CH 0, AR AR 00 MA D 0 CY UN IT OF /G M CY CR NT EA HI M AN A CI 16 04 04 0 14 7 EA 22 RI Ac WI 71 -2 -[address] 24 SH ti OF 40 5- 5- 00 SI 94 ER ve LO 65 20 20 DE XA 10 11 11 RI CI 2 PH CH N AR AR HC MA D L CY 25 0 OF MG CY TA NT B HI AN A 00 04 04 11 30 30 EA 22 RI Ac 37 -1 -[address] 15 SH ti 82 8- 8- 00 SI 53 ER ve 00 20 20 DE 69 11 11 RI 3 PH CH AR AR MA D CY OF CY NT HI AN A LO 16 04 04 2 30 30 EA 22 RI Ac SA 71 -1 -[address] 10 SH ti RT 40 3- 3- 00 SI 28 ER ve AN 22 20 20 DE -H [address] 1 PH CH Z AR AR 10 MA D 0- CY 25 OF MG CY TA NT B HI AN A CL 00 02 04 2 90 30 EA 21 RI Ac ON 09 -0 -[address] 05 SH ti AZ 30 1- 1- 00 SI 17 ER ve EP 83 20 20 DE AM 30 11 11 RI 1 1 PH CH AR AR MG MA D CY TA BL OF ET CY NT HI AN A ME 00 02 04 2 60 30 EA 21 RI Ac TF 09 -0 -[address] 11 SH ti OR 31 5- 7- 00 SI 17 ER ve CA 04 20 20 DE N 81 11 11 RI HC 0 PH CH L AR AR 50 MA D 0 CY MG OF TA BL CY ET NT HI AN A SM 38 03 03 5 10 30 EA 21 RI Ac 39 -2 -[address] 88 SH ti TH 60 8- 8- 00 SI 02 ER ve IN 71 20 20 0 DE 33 11 11 RI LA 9 PH CH NC AR AR ET MA D S CY 26 G OF CY NT HI AN A FR 99 03 03 0 1. 1 EA 21 RI Ac EE 07 -2 -[address] 30 8- 8- 0 SI 97 ER ve YL 70 20 20 DE E 80 11 11 RI LI 5 PH CH TE AR AR MA D ME CY TE R OF CY NT HI AN A FR 99 03 03 5 10 30 EA 21 RI Ac EE 07 -2 -[address] 30 8- 8- 00 SI 92 ER ve YL 70 20 20 0 DE E 82 11 11 RI LI 7 PH CH TE AR AR MA D TE CY ST OF ST RI CY P NT HI AN A PO 00 03 03 1 30 30 EA 21 RI Ac TA 78 -2 -[address] 79 SH ti SS 15 2- 2- 00 SI 73 ER ve IU 72 20 20 DE M 00 11 11 RI CL 5 PH CH AR AR ER MA D CY 20 OF ME Q CY TA NT BL HI ET AN A RA 00 12 03 5 60 30 EA 20 RI Ac NI 78 -0 -[address] 27 SH ti TI 11 6- 1- 00 SI 99 ER ve DI 88 20 20 DE NE 31 10 11 RI 0 PH CH 15 AR AR 0 MA D MG CY TA OF BL ET CY NT HI AN A LI 00 02 03 2 30 30 EA 21 RI Ac PI 07 -0 -[address] 07 SH ti TO 10 3- 1- 00 SI 53 ER ve R 15 20 20 DE 40 72 11 11 RI 3 PH CH MG AR AR MA D TA CY BL ET OF CY NT HI AN A 00 01 03 2 30 30 EA 20 RI Ac 37 -1 -[address] 78 SH ti 82 3- 7- 00 SI 73 ER ve 00 20 20 DE 69 11 11 RI 3 PH CH AR AR MA D CY OF CY NT HI AN A LO 16 01 03 2 30 30 EA 20 RI Ac SA 71 -1 -[address] 78 SH ti RT 40 3- 7- 00 SI 74 ER ve AN 22 20 20 DE -H [address] 1 PH CH Z AR AR 10 MA D 0- CY 25 OF MG CY TA NT B HI AN A ME 00 02 03 2 60 30 EA 21 RI Ac TF 09 -0 -[address] 11 SH ti OR 31 5- 9- 00 SI 17 ER ve CA 04 20 20 DE N 81 11 11 RI HC 0 PH CH L AR AR 50 MA D 0 CY MG OF TA BL CY ET NT HI AN A CL 00 02 03 2 90 30 EA 21 RI Ac ON 09 -0 -[address] 05 SH ti AZ 30 1- 9- 00 SI 17 ER ve EP 83 20 20 DE AM 30 11 11 RI 1 1 PH CH AR AR MG MA D CY TA BL OF ET CY NT HI AN A 00 02 03 1 90 30 EA 21 OC Ac 59 -1 -[address] 27 ON ti 10 6- 4- 00 SI 76 NE ve 85 20 20 DE LL 30 11 11 1 PH TYRA AR HN MA CY OF CY NT HI AN A LI 63 03 03 4 30 30 EA 21 OC Ac DO 48 -0 -[address] 51 ON ti DE 10 3- 3- 00 SI 51 NE ve RM 68 20 20 DE LL 70 11 11 5% 6 PH TYRA AR HN PA MA TC CY H OF CY NT HI AN A FL 00 03 03 2 2. 2 EA 21 CL Ac UC 17 -0 -[address] 51 AR ti ON 25 3- 3- 0 SI 70 KE ve AZ 41 20 20 DE OL 27 11 11 DE E 9 PH RE 15 AR K 0 MA J MG CY TA OF BL ET CY NT HI AN A DI 00 02 02 5 30 30 EA 21 OC Ac CL 78 -1 -[address] 28 ON ti OF 11 7- 7- 00 SI 56 NE ve EN 78 20 20 DE LL AC 90 11 11 1 PH TYRA SO AR HN D MA EC CY 75 OF MG CY NT TA HI B AN A 00 01 02 2 30 30 EA 20 RI Ac 37 -1 -[address] 78 SH ti 82 3- 2- 00 SI 73 ER ve 00 20 20 DE 69 11 11 RI 3 PH CH AR AR MA D CY OF CY NT HI AN A LO 16 01 02 2 30 30 EA 20 RI Ac SA 71 -1 -[address] 78 SH ti RT 40 3- 2- 00 SI 74 ER ve AN 22 20 20 DE -H [address] 1 PH CH Z AR AR 10 MA D 0- CY 25 OF MG CY TA NT B HI AN A RA 53 12 02 5 60 30 EA 20 RI Ac NI 74 -0 -[address] 27 SH ti TI 60 6- 5- 00 SI 99 ER ve DI 25 20 20 DE NE 31 10 11 RI 0 PH CH 15 AR AR 0 MA D MG CY TA OF BL ET CY NT HI AN A FL 00 02 02 0 6. 6 EA 21 RI Ac UC 17 -0 -[address] 11 SH ti ON 25 5- 5- 0 SI 16 ER ve AZ 41 20 20 DE OL 27 11 11 RI E 9 PH CH 15 AR AR 0 MA D MG CY TA OF BL ET CY NT HI AN A ME 00 02 02 2 60 30 EA 21 RI Ac TF 09 -0 -[address] 11 SH ti OR 31 5- 5- 00 SI 17 ER ve CA 04 20 20 DE N 81 11 11 RI HC 0 PH CH L AR AR 50 MA D 0 CY MG OF TA BL CY ET NT HI AN A LI 00 02 02 2 30 30 EA 21 RI Ac PI 07 -0 -[address] 07 SH ti TO 10 3- 3- 00 SI 53 ER ve R 15 20 20 DE 40 72 11 11 RI 3 PH CH MG AR AR MA D TA CY BL ET OF CY NT HI AN A CL 00 02 02 2 90 30 EA 21 RI Ac ON 09 -0 -[address] 05 SH ti AZ 30 1- 1- 00 SI 17 ER ve EP 83 20 20 DE AM 30 11 11 RI 1 1 PH CH AR AR MG MA D CY TA BL OF ET CY NT HI AN A 00 01 01 0 30 7 EA 20 RI Ac 59 -2 -[address] 93 SH ti 10 4- 4- 00 SI 04 ER ve 34 20 20 DE 90 11 11 RI 1 PH CH AR AR MA D CY OF CY NT HI AN A NI 00 01 01 0 20 10 EA 20 RI Ac TR 18 -2 -[address] 93 SH ti OF 50 4- 4- 00 SI 02 ER ve UR 12 20 20 DE AN 20 11 11 RI TO 1 PH CH IN AR AR MA D MO CY NO -M OF CR CY 10 NT 0 HI MG AN A 00 01 01 2 30 30 EA 20 RI Ac 37 -1 -[address] 78 SH ti 82 3- 3- 00 SI 73 ER ve 00 20 20 DE 69 11 11 RI 3 PH CH AR AR MA D CY OF CY NT HI AN A LO 16 01 01 2 30 30 EA 20 RI Ac SA 71 -1 -[address] 78 SH ti RT 40 3- 3- 00 SI 74 ER ve AN 22 20 20 DE -H [address] 1 PH CH Z AR AR 10 MA D 0- CY 25 OF MG CY TA NT B HI AN A PO 51 02 01 2 52 20 EA 16 WI Ac LY 99 -1 -[address] 31 ND ti ET 10 0- 8- 00 SI 59 IS ve HY 45 20 20 0 DE CH LE 75 10 11 NE 7 PH AM AR BE GL MA RL YC CY Y OL K OF 33 50 CY NT PO HI WD AN A ME 00 11 01 2 60 30 EA 19 RI Ac TF 09 -0 -[address] 82 SH ti OR 31 4- 5- 00 SI 24 ER ve CA 04 20 20 DE N 81 10 11 RI HC 0 PH CH L AR AR 50 MA D 0 CY MG OF TA BL CY ET NT HI AN A RA 53 12 01 5 60 30 EA 20 RI Ac NI 74 -0 -[address] 27 SH ti TI 60 6- 5- 00 SI 99 ER ve DI 25 20 20 DE NE 30 10 11 RI 5 PH CH 15 AR AR 0 MA D MG CY TA OF BL ET CY NT HI AN A LI 00 10 01 2 30 30 EA 19 RI Ac PI 07 -2 -[address] 71 SH ti TO 10 7- 4- 00 SI 05 ER ve R 15 20 20 DE 40 72 10 11 RI 3 PH CH MG AR AR MA D TA CY BL ET OF CY NT HI AN A CI 16 12 12 0 14 7 EA 20 RI Ac WI 71 -3 -[address] 60 SH ti OF 40 0- 0- 00 SI 40 ER ve LO 65 20 20 DE XA 10 10 10 RI CI 2 PH CH N AR AR HC MA D L CY 25 0 OF MG CY TA NT B HI AN A CL 00 11 12 1 90 30 EA 19 RI Ac ON 09 -0 -[address] 80 SH ti AZ 30 2- 8- 00 SI 19 ER ve EP 83 20 20 DE AM 30 10 10 RI 1 1 PH CH AR AR MG MA D CY TA BL OF ET CY NT HI AN A LO 16 10 12 2 30 30 EA 19 RI Ac SA 71 -1 -[address] 60 SH ti RT 40 9- 4- 00 SI 72 ER ve AN 22 20 20 DE -H [address] 1 PH CH Z AR AR 10 MA D 0- CY 25 OF MG CY TA NT B HI AN A 00 12 12 0 30 30 EA 20 RI Ac 37 -1 -[address] 38 SH ti 82 4- 4- 00 SI 94 ER ve 00 20 20 DE 69 10 10 RI 3 PH CH AR AR MA D CY OF CY NT HI AN A 00 12 12 0 30 8 EA 20 RI Ac 59 -0 -[address] 27 SH ti 10 6- 6- 00 SI 98 ER ve 34 20 20 DE 90 10 10 RI 1 PH CH AR AR MA D CY OF CY NT HI AN A RA 53 12 12 5 60 30 EA 20 RI Ac NI 74 -0 -[address] 27 SH ti TI 60 6- 6- 00 SI 99 ER ve DI 25 20 20 DE NE 30 10 10 RI 5 PH CH 15 AR AR 0 MA D MG CY TA OF BL ET CY NT HI AN A LI 00 10 12 2 30 30 EA 19 RI Ac PI 07 -2 -[address] 71 SH ti TO 10 7- 5- 00 SI 05 ER ve R 15 20 20 DE 40 72 10 10 RI 3 PH CH MG AR AR MA D TA CY BL ET OF CY NT HI AN A ME 00 11 12 2 60 30 EA 19 RI Ac TF 09 -0 -[address] 82 SH ti OR 31 4- 3- 00 SI 24 ER ve CA 04 20 20 DE N 81 10 10 RI HC 0 PH CH L AR AR 50 MA D 0 CY MG OF TA BL CY ET NT HI AN A CL 00 11 11 1 90 30 EA 19 RI Ac ON 09 -0 -[address] 80 SH ti AZ 30 2- 1- 00 SI 19 ER ve EP 83 20 20 DE AM 30 10 10 RI 1 1 PH CH AR AR MG MA D CY TA BL OF ET CY NT HI AN A LO 00 10 11 2 30 30 EA 19 RI Ac SA 09 -1 -[address] 60 SH ti RT 37 9- 7- 00 SI 72 ER ve AN 36 20 20 DE -H [address] 6 PH CH Z AR AR 10 MA D 0- CY 25 OF MG CY TA NT B HI AN A 00 11 11 0 40 10 EA 20 RI Ac 59 -1 -[address] 00 SH ti 10 6- 6- 00 SI 65 ER ve 34 20 20 DE 90 10 10 RI 1 PH CH AR AR MA D CY OF CY NT HI AN A IB 53 08 11 11 90 30 EA 18 RI Ac UP 74 -1 -[address] 68 SH ti RO 60 2- 2- 00 SI 27 ER ve FE 46 20 20 DE N 60 10 10 RI 80 5 PH CH 0 AR AR MG MA D CY TA BL OF ET CY NT HI AN A 00 11 11 0 26 16 EA 19 RI Ac 14 -1 -[address] 95 SH ti 31 2- 2- 00 SI 02 ER ve 47 20 20 DE 70 10 10 RI 5 PH CH AR AR MA D CY OF CY NT HI AN A 00 06 11 5 30 30 EA 17 RI Ac 37 -1 -[address] 96 SH ti 82 4- 1- 00 SI 58 ER ve 00 20 20 DE 69 10 10 RI 3 PH CH AR AR MA D CY OF CY NT HI AN A ME 00 11 11 2 60 30 EA 19 RI Ac TF 09 -0 -[address] 82 SH ti OR 31 4- 4- 00 SI 24 ER ve CA 04 20 20 DE N 81 10 10 RI HC 0 PH CH L AR AR 50 MA D 0 CY MG OF TA BL CY ET NT HI AN A LI 00 10 10 2 30 30 EA 19 RI Ac PI 07 -2 -[address] 71 SH ti TO 10 7- 7- 00 SI 05 ER ve R 15 20 20 DE 40 72 10 10 RI 3 PH CH MG AR AR MA D TA CY BL ET OF CY NT HI AN A ME 00 10 10 0 21 6 EA 19 SO Ac TH 78 -2 -[address] 68 KA ti YL 15 5- 5- 00 SI 16 N ve WI 02 20 20 DE BA ED 20 10 10 BA NI 7 PH TU SO AR ND LO MA E NE CY O 4 OF MG CY DO NT SE HI PK AN A ME 00 10 10 0 12 4 EA 19 SO Ac CL 53 -2 -[address] 68 KA ti IZ 63 5- 5- 00 SI 17 N ve IN 99 20 20 DE BA E 00 10 10 BA 25 1 PH TU AR ND MG MA E CY O TA BL OF ET CY CH NT EW HI AN A DI 00 10 10 0 6. 3 EA 19 SO Ac AZ 17 -2 -[address] 68 KA ti EP 23 5- 5- 0 SI 18 N ve AM 92 20 20 DE BA 2 56 10 10 BA 0 PH TU MG AR ND MA E TA CY O BL ET OF CY NT HI AN A HY 00 10 10 2 30 30 EA 19 RI Ac ZA 00 -1 -[address] 60 SH ti AR 60 9- 9- 00 SI 72 ER ve 74 20 20 DE 10 73 10 10 RI 0- 1 PH CH 25 AR AR MA D TA CY BL ET OF CY NT HI AN A CL 00 09 10 2 90 30 EA 19 RI Ac ON 09 -1 -[address] 11 SH ti AZ 30 3- 6- 00 SI 19 ER ve EP 83 20 20 DE AM 30 10 10 RI 1 1 PH CH AR AR MG MA D CY TA BL OF ET CY NT HI AN A 00 06 10 5 30 30 EA 17 RI Ac 37 -1 -[address] 96 SH ti 82 4- 3- 00 SI 58 ER ve 00 20 20 DE 69 10 10 RI 3 PH CH AR AR MA D CY OF CY NT HI AN A 00 09 10 1 60 30 EA 18 RI Ac 90 -0 -[address] 99 SH ti 45 3- 5- 00 SI 01 ER ve 84 20 20 DE 98 10 10 RI 0 PH CH AR AR MA D CY OF CY NT HI AN A LI 00 09 09 0 30 30 EA 19 RI Ac PI 07 -2 -[address] 24 SH ti TO 10 2- 2- 00 SI 63 ER ve R 15 20 20 DE 40 72 10 10 RI 3 PH CH MG AR AR MA D TA CY BL ET OF CY NT HI AN A HY 00 06 09 3 30 30 EA 18 RI Ac ZA 00 -2 -[address] 04 SH ti AR 60 1- 0- 00 SI 83 ER ve 74 20 20 DE 10 73 10 10 RI 0- 1 PH CH 25 AR AR MA D TA CY BL ET OF CY NT HI AN A 00 06 09 5 30 30 EA 17 RI Ac 37 -1 -[address] 96 SH ti 82 4- 3- 00 SI 58 ER ve 00 20 20 DE 69 10 10 RI 3 PH CH AR AR MA D CY OF CY NT HI AN A CL 00 09 09 2 90 30 EA 19 RI Ac ON 09 -1 -[address] 11 SH ti AZ 30 3- 3- 00 SI 19 ER ve EP 83 20 20 DE AM 30 10 10 RI 1 1 PH CH AR AR MG MA D CY TA BL OF ET CY NT HI AN A RA 53 11 09 11 60 30 EA 15 RI Ac NI 74 -2 -[address] 29 SH ti TI 60 5- 0- 00 SI 79 ER ve DI 25 20 20 DE NE 30 09 10 RI 5 PH CH 15 AR AR 0 MA D MG CY TA OF BL ET CY NT HI AN A NI 00 09 09 0 20 10 EA 18 RI Ac TR 18 -0 -[address] 99 SH ti OF 50 3- 3- 00 SI 00 ER ve UR 12 20 20 DE AN 20 10 10 RI TO 1 PH CH IN AR AR MA D MO CY NO -M OF CR CY 10 NT 0 HI MG AN A ME 00 09 09 1 60 30 EA 18 RI Ac TF 09 -0 -[address] 99 SH ti OR 31 3- 3- 00 SI 01 ER ve CA 04 20 20 DE N 81 10 10 RI HC 0 PH CH L AR AR 50 MA D 0 CY MG OF TA BL CY ET NT HI AN A HY 00 06 08 3 30 30 EA 18 RI Ac ZA 00 -2 -[address] 04 SH ti AR 60 1- 1- 00 SI 83 ER ve 74 20 20 DE 10 73 10 10 RI 0- 1 PH CH 25 AR AR MA D TA CY BL ET OF CY NT HI AN A LI 00 06 08 2 30 30 EA 17 RI Ac PI 07 -1 -[address] 98 SH ti TO 10 5- 8- 00 SI 40 ER ve R 15 20 20 DE 40 72 10 10 RI 3 PH CH MG AR AR MA D TA CY BL ET OF CY NT HI AN A 00 06 08 5 30 30 EA 17 RI Ac 37 -1 -[address] 96 SH ti 82 4- 4- 00 SI 58 ER ve 00 20 20 DE 69 10 10 RI 3 PH CH AR AR MA D CY OF CY NT HI AN A IB 53 08 08 11 90 30 EA 18 RI Ac UP 74 -1 -[address] 68 SH ti RO 60 2- 2- 00 SI 27 ER ve FE 46 20 20 DE N 60 10 10 RI 80 5 PH CH 0 AR AR MG MA D CY TA BL OF ET CY NT HI AN A RA 53 11 08 11 60 30 EA 15 RI Ac NI 74 -2 -[address] 29 SH ti TI 60 5- 9- 00 SI 79 ER ve DI 25 20 20 DE NE 30 09 10 RI 5 PH CH 15 AR AR 0 MA D MG CY TA OF BL ET CY NT HI AN A CL 00 06 08 2 90 30 EA 17 MO Ac ON 09 -0 -[address] 90 SE ti AZ 30 8- 9- 00 SI 51 S ve EP [address] AM 30 10 10 EP 1 1 PH HE AR N MG MA A CY TA BL OF ET CY NT HI AN A ME 00 05 08 3 60 30 EA 17 RI Ac TF 09 -0 -[address] 46 SH ti OR 31 4- 4- 00 SI 55 ER ve CA 04 20 20 DE N 81 10 10 RI HC 0 PH CH L AR AR 50 MA D 0 CY MG OF TA BL CY ET NT HI AN A HY 00 06 07 3 30 30 EA 18 RI Ac ZA 00 -2 -[address] 04 SH ti AR 60 1- 4- 00 SI 83 ER ve 74 20 20 DE 10 73 10 10 RI 0- 1 PH CH 25 AR AR MA D TA CY BL ET OF CY NT HI AN A LI 00 06 07 2 30 30 EA 17 RI Ac PI 07 -1 -[address] 98 SH ti TO 10 5- 9- 00 SI 40 ER ve R 15 20 20 DE 40 72 10 10 RI 3 PH CH MG AR AR MA D TA CY BL ET OF CY NT HI AN A 00 06 07 5 30 30 EA 17 RI Ac 37 -1 -[address] 96 SH ti 82 4- 6- 00 SI 58 ER ve 00 20 20 DE 69 10 10 RI 3 PH CH AR AR MA D CY OF CY NT HI AN A RA 53 11 07 11 60 30 EA 15 RI Ac NI 74 -2 -[address] 29 SH ti TI 60 5- 7- 00 SI 79 ER ve DI 25 20 20 DE NE 30 09 10 RI 5 PH CH 15 AR AR 0 MA D MG CY TA OF BL ET CY NT HI AN A CL 00 06 07 2 90 30 EA 17 MO Ac ON 09 -0 -[address] 90 SE ti AZ 30 8- 7- 00 SI 51 S ve EP [address] AM 30 10 10 EP 1 1 PH HE AR N MG MA A CY TA BL OF ET CY NT HI AN A ME 00 05 07 3 60 30 EA 17 RI Ac TF 09 -0 -[address] 46 SH ti OR 31 4- 6- 00 SI 55 ER ve CA 04 20 20 DE N 81 10 10 RI HC 0 PH CH L AR AR 50 MA D 0 CY MG OF TA BL CY ET NT HI AN A IB 53 06 06 0 90 30 EA 18 RI Ac UP 74 -2 -[address] 11 SH ti RO 60 5- 5- 00 SI 09 ER ve FE 46 20 20 DE N 60 10 10 RI 80 5 PH CH 0 AR AR MG MA D CY TA BL OF ET CY NT HI AN A HY 00 06 06 3 30 30 EA 18 RI Ac ZA 00 -2 -[address] 04 SH ti AR 60 1- 1- 00 SI 83 ER ve 74 20 20 DE 10 73 10 10 RI 0- 1 PH CH 25 AR AR MA D TA CY BL ET OF CY NT HI AN A WI 00 06 06 0 20 5 EA 18 RI Ac OM 78 -2 -[address] 04 SH ti ET 11 1- 1- 00 SI 87 ER ve GALLEGOS 83 20 20 DE ZI 01 10 10 RI NE 0 PH CH AR AR 25 MA D CY MG OF TA BL CY ET NT HI AN A LI 00 06 06 2 30 30 EA 17 RI Ac PI 07 -1 -[address] 98 SH ti TO 10 5- 5- 00 SI 40 ER ve R 15 20 20 DE 40 72 10 10 RI 3 PH CH MG AR AR MA D TA CY BL ET OF CY NT HI AN A 00 06 06 5 30 30 EA 17 RI Ac 37 -1 -[address] 96 SH ti 82 4- 4- 00 SI 58 ER ve 00 20 20 DE 69 10 10 RI 3 PH CH AR AR MA D CY OF CY NT HI AN A RA 53 11 06 11 60 30 EA 15 RI Ac NI 74 -2 -[address] 29 SH ti TI 60 5- 8- 00 SI 79 ER ve DI 25 20 20 DE NE 30 09 10 RI 5 PH CH 15 AR AR 0 MA D MG CY TA OF BL ET CY NT HI AN A CL 00 06 06 2 90 30 EA 17 MO Ac ON 09 -0 -[address] 90 SE ti AZ 30 8- 8- 00 SI 51 S ve EP [address] AM 30 10 10 EP 1 1 PH HE AR N MG MA A CY TA BL OF ET CY NT HI AN A ME 00 05 06 3 60 30 EA 17 RI Ac TF 09 -0 -[address] 46 SH ti OR 31 4- 4- 00 SI 55 ER ve CA 04 20 20 DE N 81 10 10 RI HC 0 PH CH L AR AR 50 MA D 0 CY MG OF TA BL CY ET NT HI AN A LO 00 12 05 5 30 30 EA 15 RI Ac SA 09 -2 -[address] 74 SH ti RT 37 8- 4- 00 SI 85 ER ve AN 36 20 20 DE -H [address] 6 PH CH Z AR AR 10 MA D 0- CY 25 OF MG CY TA NT B HI AN A 00 12 05 5 30 30 EA 15 RI Ac 37 -0 -[address] 47 SH ti 82 8- 3- 00 SI 58 ER ve 00 20 20 DE 69 09 10 RI 3 PH CH AR AR MA D CY OF CY NT HI AN A LI 00 04 05 1 30 30 EA 17 RI Ac PI 07 -1 -[address] 15 SH ti TO 10 2- 3- 00 SI 74 ER ve R 15 20 20 DE 40 72 10 10 RI 3 PH CH MG AR AR MA D TA CY BL ET OF CY NT HI AN A IB 53 09 05 2 90 30 EA 14 RI Ac UP 74 -2 -[address] 34 SH ti RO 60 1- 4- 00 SI 94 ER ve FE 46 20 20 DE N 60 09 10 RI 80 5 PH CH 0 AR AR MG MA D CY TA BL OF ET CY NT HI AN A RA 53 11 05 11 60 30 EA 15 RI Ac NI 74 -2 -[address] 29 SH ti TI 60 5- 4- 00 SI 79 ER ve DI 25 20 20 DE NE 30 09 10 RI 5 PH CH 15 AR AR 0 MA D MG CY TA OF BL ET CY NT HI AN A ME 00 05 05 3 60 30 EA 17 RI Ac TF 09 -0 -[address] 46 SH ti OR 31 4- 4- 00 SI 55 ER ve CA 04 20 20 DE N 81 10 10 RI HC 0 PH CH L AR AR 50 MA D 0 CY MG OF TA BL CY ET NT HI AN A CL 00 05 05 0 90 30 EA 17 MO Ac ON 09 -0 -[address] 44 SE ti AZ 30 3- 3- 00 SI 69 S ve EP [address] AM 30 10 10 EP 1 1 PH HE AR N MG MA A CY TA BL OF ET CY NT HI AN A LO 00 12 04 5 30 30 EA 15 RI Ac SA 09 -2 -[address] 74 SH ti RT 37 8- 3- 00 SI 85 ER ve AN 36 20 20 DE -H [address] 6 PH CH Z AR AR 10 MA D 0- CY 25 OF MG CY TA NT B HI AN A BA 16 04 04 0 30 10 EA 17 RI Ac CL 71 -1 -[address] 23 SH ti OF 40 7- 7- 00 SI 80 ER ve EN 07 20 20 DE 10 10 10 RI 10 6 PH CH AR AR MG MA D CY TA BL OF ET CY NT HI AN A NA 00 04 04 1 30 15 EA 17 RI Ac WI 09 -1 -[address] 23 SH ti OX 30 7- 7- 00 SI 81 ER ve EN 14 20 20 DE 90 10 10 RI 50 1 PH CH 0 AR AR MG MA D CY TA BL OF ET CY NT HI AN A 00 12 04 5 30 30 EA 15 RI Ac 37 -0 -[address] 47 SH ti 82 8- 2- 00 SI 58 ER ve 00 20 20 DE 69 09 10 RI 3 PH CH AR AR MA D CY OF CY NT HI AN A LI 00 04 04 1 30 30 EA 17 RI Ac PI 07 -1 -[address] 15 SH ti TO 10 2- 2- 00 SI 74 ER ve R 15 20 20 DE 40 72 10 10 RI 3 PH CH MG AR AR MA D TA CY BL ET OF CY NT HI AN A LO 45 04 04 5 30 30 EA 17 RI Ac RA 80 -0 -[address] 06 SH ti TA 20 5- 5- 00 SI 81 ER ve DI 65 20 20 DE NE 08 10 10 RI 7 PH CH 10 AR AR MA D MG CY TA OF BL ET CY NT HI AN A ME 00 04 04 0 60 30 EA 17 RI Ac TF 09 -0 -[address] 06 SH ti OR 31 5- 5- 00 SI 83 ER ve CA 04 20 20 DE N 81 10 10 RI HC 0 PH CH L AR AR 50 MA D 0 CY MG OF TA BL CY ET NT HI AN A HY 00 12 03 5 30 30 EA 15 RI Ac ZA 00 -2 -[address] 74 SH ti AR 60 8- 6- 00 SI 85 ER ve 74 20 20 DE 10 73 09 10 RI 0- 1 PH CH 25 AR AR MA D TA CY BL ET OF CY NT HI AN A LI 00 02 03 2 30 30 EA 16 RI Ac PI 07 -1 -[address] 39 SH ti TO 10 6- 6- 00 SI 14 ER ve R 15 20 20 DE 80 82 10 10 RI 3 PH CH MG AR AR MA D TA CY BL ET OF CY NT HI AN A RA 53 11 03 11 60 30 EA 15 RI Ac NI 74 -2 -[address] 29 SH ti TI 60 5- 6- 00 SI 79 ER ve DI 25 20 20 DE NE 30 09 10 RI 5 PH CH 15 AR AR 0 MA D MG CY TA OF BL ET CY NT HI AN A CL 00 03 03 0 90 30 EA 16 MO Ac ON 09 -2 -[address] 95 SE ti AZ 30 6- 6- 00 SI 57 S ve EP [address] AM 30 10 10 EP 1 1 PH HE AR N MG MA A CY TA BL OF ET CY NT HI AN A 00 12 03 5 30 30 EA 15 RI Ac 37 -0 -[address] 47 SH ti 82 8- 4- 00 SI 58 ER ve 00 20 20 DE 69 09 10 RI 3 PH CH AR AR MA D CY OF CY NT HI AN A ME 00 01 03 2 60 30 EA 15 RI Ac TF 09 -0 -[address] 84 SH ti OR 31 5- 5- 00 SI 92 ER ve CA 04 20 20 DE N 81 10 10 RI HC 0 PH CH L AR AR 50 MA D 0 CY MG OF TA BL CY ET NT HI AN A 55 03 03 3 32 8 EA 16 WI Ac 56 -0 -[address] 62 ND ti 68 4- 4- 00 SI 62 IS ve 10 20 20 DE CH 10 10 10 1 PH AM AR BE MA RL CY Y K OF CY NT HI AN A LO 45 01 03 2 30 30 EA 15 RI Ac RA 80 -0 -[address] 84 SH ti TA 20 5- 3- 00 SI 93 ER ve DI 65 20 20 DE NE 08 10 10 RI 7 PH CH 10 AR AR MA D MG CY TA OF BL ET CY NT HI AN A LI 00 02 02 00 30 30 EA 16 RI Ac PI 07 -1 -[address] 39 SH ti TO 10 6- 6- 00 SI 14 ER ve R 15 20 20 DE 80 82 10 10 RI 3 PH CH MG AR AR MA D TA CY BL ET OF CY NT HI AN A 00 12 02 02 30 30 EA 15 RI Ac 37 -0 -[address] 47 SH ti 82 8- 6- 00 SI 58 ER ve 00 20 20 DE 69 09 10 RI 3 PH CH AR AR MA D CY OF CY NT HI AN A PO 51 02 02 00 52 16 EA 16 No Ac LY 99 -1 -[address] 31 t ti ET 10 0- 6- 00 SI 59 Av ve HY 45 20 20 0 DE ai LE 75 10 10 la NE 7 PH bl AR e GL MA YC CY OL OF 33 CY 50 NT HI PO AN WD A BA 00 09 02 02 90 30 EA 14 No Ac CL 17 -1 -[address] 30 t ti OF 24 7- 6 00 SI 06 Av ve EN 09 20 20 DE ai 66 09 10 la 10 0 PH bl AR e MG MA CY TA BL OF ET CY NT HI AN A HY 00 12 02 01 30 30 EA 15 RI Ac ZA 00 -2 -[address] 74 SH ti AR 60 8- 1- 00 SI 85 ER ve 74 20 20 DE 10 73 09 10 RI 0- 1 PH CH 25 AR AR MA D TA CY BL ET OF CY NT HI AN A IB 53 09 02 01 90 30 EA 14 RI Ac UP 74 -2 -[address] 34 SH ti RO 60 1- 1- 00 SI 94 ER ve FE 46 20 20 DE N 60 09 10 RI 80 5 PH CH 0 AR AR MG MA D CY TA BL OF ET CY NT HI AN A CL 00 12 02 01 90 30 EA 15 RI Ac ON 09 -2 -[address] 66 SH ti AZ 30 1- 1- 00 SI 30 ER ve EP 83 20 20 DE AM 30 09 10 RI 1 1 PH CH AR AR MG MA D CY TA BL OF ET CY NT HI AN A CI 16 02 02 00 7. 7 EA 16 RI Ac WI 71 -0 -[address] 25 SH ti OF 40 5- 1- 0 SI 94 ER ve LO 65 20 20 DE XA 20 10 10 RI CI 2 PH CH N AR AR HC MA D L CY 50 0 OF MG CY NT TA HI B AN A LO 45 01 02 01 30 30 EA 15 RI Ac RA 80 -0 -[address] 84 SH ti TA 20 5- 1- 00 SI 93 ER ve DI 65 20 20 DE NE 08 10 10 RI 7 PH CH 10 AR AR MA D MG CY TA OF BL CY ET NT HI AN A 00 02 02 00 60 12 EA 16 RI Ac 09 -0 -[address] 25 SH ti 30 5- 1- 00 SI 95 ER ve 89 20 20 DE 00 10 10 RI 5 PH CH AR AR MA D CY OF CY NT HI AN A ME 00 01 02 01 60 30 EA 15 RI Ac TF 09 -0 -[address] 84 SH ti OR 31 5- 1- 00 SI 92 ER ve CA 04 20 20 DE N 81 10 10 RI HC 0 PH CH L AR AR 50 MA D 0 CY MG OF TA CY BL NT ET HI AN A RA 53 11 01 01 60 30 EA 15 RI Ac NI 74 -2 -[address] 29 SH ti TI 60 5- 8- 00 SI 79 ER ve DI 25 20 20 DE NE 30 09 10 RI 5 PH CH 15 AR AR 0 MA D MG CY TA OF BL CY ET NT HI AN A 00 12 01 01 30 30 EA 15 RI Ac 37 -0 -[address] 47 SH ti 82 8- 8- 00 SI 58 ER ve 00 20 20 DE 69 09 10 RI 3 PH CH AR AR MA D CY OF CY NT HI AN A LI 00 01 01 00 30 30 EA 16 RI Ac PI 07 -1 -[address] 00 SH ti TO 10 8- 8- 00 SI 30 ER ve R 15 20 20 DE 80 82 10 10 RI 3 PH CH MG AR AR MA D TA CY BL ET OF CY NT HI AN A ME 00 01 01 00 60 30 EA 15 RI Ac TF 09 -0 -[address] 84 SH ti OR 31 5- 4- 00 SI 92 ER ve CA 04 20 20 DE N 81 10 10 RI HC 0 PH CH L AR AR 50 MA D 0 CY MG OF TA CY BL NT ET HI AN A LO 45 01 01 00 30 30 EA 15 RI Ac RA 80 -0 -[address] 84 SH ti TA 20 5- 4- 00 SI 93 ER ve DI 65 20 20 DE NE 08 10 10 RI 7 PH CH 10 AR AR MA D MG CY TA OF BL CY ET NT HI AN A NI 00 12 01 00 20 10 EA 15 RI Ac TR 09 -2 -[address] 74 SH ti OF 32 8- 4- 00 SI 86 ER ve UR 13 20 20 DE AN 10 09 10 RI TO 1 PH CH IN AR AR MA D MC CY R 10 OF 0 CY MG NT HI CA AN P A HY 00 12 01 00 30 30 EA 15 RI Ac ZA 00 -2 -[address] 74 SH ti AR 60 8- 4- 00 SI 85 ER ve 74 20 20 DE 10 73 09 10 RI 0- 1 PH CH 25 AR AR MA D TA CY BL ET OF CY NT HI AN A LI 00 08 12 03 30 30 EA 14 RI Ac PI 07 -3 -[address] 05 SH ti TO 10 1- 1- 00 SI 65 ER ve R 15 20 20 DE 80 82 09 09 RI 3 PH CH MG AR AR MA D TA CY BL ET OF CY NT HI AN A CL 00 12 12 00 90 30 EA 15 RI Ac ON 09 -2 -[address] 66 SH ti AZ 30 1- 1- 00 SI 30 ER ve EP 83 20 20 DE AM 30 09 09 RI 1 1 PH CH AR AR MG MA D CY TA BL OF ET CY NT HI AN A 49 12 12 00 60 30 EA 15 RI Ac 34 -1 -[address] 51 SH ti 80 0- 7- 00 SI 62 ER ve 61 20 20 DE 61 09 09 RI 0 PH CH AR AR MA D CY OF CY NT HI AN A FL 00 12 12 00 2. 2 EA 15 RI Ac UC 17 -0 -[address] 44 SH ti ON 25 5- 7- 0 SI 46 ER ve AZ 41 20 20 DE OL 21 09 09 RI E 1 PH CH 15 AR AR 0 MA D MG CY TA OF BL CY ET NT HI AN A 00 12 12 00 30 30 EA 15 RI Ac 37 -0 -[address] 47 SH ti 82 8- 7- 00 SI 58 ER ve 00 20 20 DE 69 09 09 RI 3 PH CH AR AR MA D CY OF CY NT HI AN A HY 00 10 12 02 30 30 EA 14 RI Ac ZA 00 -0 -[address] 54 SH ti AR 60 3- 7- 00 SI 26 ER ve 74 20 20 DE 10 73 09 09 RI 0- 1 PH CH 25 AR AR MA D TA CY BL ET OF CY NT HI AN A LO 45 09 12 03 30 30 EA 14 RI Ac RA 80 -0 -[address] 13 SH ti TA 20 4- 7- 00 SI 36 ER ve DI 65 20 20 DE NE 08 09 09 RI 7 PH CH 10 AR AR MA D MG CY TA OF BL CY ET NT HI AN A ME 00 11 12 00 60 30 EA 15 RI Ac TF 09 -3 -[address] 34 SH ti OR 31 0- 7- 00 SI 55 ER ve CA 04 20 20 DE N 81 09 09 RI HC 0 PH CH L AR AR 50 MA D 0 CY MG OF TA CY BL NT ET HI AN A CI 00 12 12 00 6. 3 EA 15 RI Ac WI 14 -1 -[address] 51 SH ti OF 39 0- 7- 0 SI 64 ER ve LO 92 20 20 DE XA 80 09 09 RI CI 1 PH CH N AR AR HC MA D L CY 50 0 OF MG CY NT TA HI B AN A RA 53 11 12 00 60 30 EA 15 RI Ac NI 74 -2 -[address] 29 SH ti TI 60 5- 3- 00 SI 79 ER ve DI 25 20 20 DE NE 30 09 09 RI 5 PH CH 15 AR AR 0 MA D MG CY TA OF BL CY ET NT HI AN A CL 00 09 12 02 90 30 EA 14 RI Ac ON 09 -0 -[address] 13 SH ti AZ 30 4- 3- 00 SI 37 ER ve EP 83 20 20 DE AM 30 09 09 RI 1 1 PH CH AR AR MG MA D CY TA BL OF ET CY NT HI AN A LI 00 08 11 02 30 30 EA 14 RI Ac PI 07 -3 -[address] 05 SH ti TO 10 1- 9- 00 SI 65 ER ve R 15 20 20 DE 80 82 09 09 RI 3 PH CH MG AR AR MA D TA CY BL ET OF CY NT HI AN A HY 00 10 11 01 30 30 EA 14 RI Ac ZA 00 -0 -[address] 54 SH ti AR 60 3- 9- 00 SI 26 ER ve 74 20 20 DE 10 73 09 09 RI 0- 1 PH CH 25 AR AR MA D TA CY BL ET OF CY NT HI AN A LO 60 09 11 02 30 30 EA 14 RI Ac RA 50 -0 -[address] 13 SH ti TA 50 4- 9- 00 SI 36 ER ve DI 14 20 20 DE NE 70 09 09 RI 8 PH CH 10 AR AR MA D MG CY TA OF BL CY ET NT HI AN A 00 09 11 02 30 30 EA 14 MO Ac 37 -1 -[address] 21 SE ti 82 1- 9- 00 SI 72 S ve [address] 69 09 09 EP 3 PH HE AR N MA A CY OF CY NT HI AN A DE 00 11 11 00 7. 7 CV 30 No Ac TR 00 -1 -1 00 S 09 t ti OL 95 0- 9- 0 PH 15 Av ve 19 20 20 AR ai LA 10 09 09 MA la 4 1 CY bl e MG 23 32 CA PS UL E DO 00 11 11 00 14 7 CV 30 No Ac CU 53 -1 -1 .0 S 09 t ti SA 63 0- 9- 00 PH 16 Av ve TE 75 20 20 AR ai 60 09 09 MA la SO 1 CY bl DI e UM 23 32 10 0 MG CA PS UL E 00 11 11 00 24 4 CV 30 No Ac 40 -1 -1 .0 S 09 t ti 60 0- 9- 00 PH 14 Av ve 35 20 20 AR ai 70 09 09 MA la 5 CY bl e 23 32 BA 00 09 11 01 90 30 EA 14 No Ac CL 17 -1 -[address] 30 t ti OF 24 7- 5- 00 SI 06 Av ve EN 09 20 20 DE ai 66 09 09 la 10 0 PH bl AR e MG MA CY TA BL OF ET CY NT HI AN A 63 10 11 00 24 2 CV 29 No Ac 30 -2 -0 .0 S 47 t ti 40 7- 5- 00 PH 30 Av ve 56 20 20 AR ai 00 09 09 MA la 5 CY bl e 23 32 ME 00 08 11 02 60 30 EA 14 RI Ac TF 09 -2 -[address] 00 SH ti OR 31 7- 5- 00 SI 61 ER ve CA 04 20 20 DE N 81 09 09 RI HC 0 PH CH L AR AR 50 MA D 0 CY MG OF TA CY BL NT ET HI AN A 64 08 11 02 60 30 EA 13 RI Ac 67 -1 -[address] 88 SH ti 90 8- 5- 00 SI 90 ER ve 90 20 20 DE 60 09 09 RI 3 PH CH AR AR MA D CY OF CY NT HI AN A HY 00 10 10 00 30 30 EA 14 RI Ac ZA 00 -0 -[address] 54 SH ti AR 60 3- 2- 00 SI 26 ER ve 74 20 20 DE 10 73 09 09 RI 0- 1 PH CH 25 AR AR MA D TA CY BL ET OF CY NT HI AN A CL 00 09 10 01 90 30 EA 14 RI Ac ON 09 -0 -[address] 13 SH ti AZ 30 4- 2- 00 SI 37 ER ve EP 83 20 20 DE AM 30 09 09 RI 1 1 PH CH AR AR MG MA D CY TA BL OF ET CY NT HI AN A LO 60 09 10 01 30 30 EA 14 RI Ac RA 50 -0 -[address] 13 SH ti TA 50 4- 2- 00 SI 36 ER ve DI 14 20 20 DE NE 70 09 09 RI 8 PH CH 10 AR AR MA D MG CY TA OF BL CY ET NT HI AN A LA 00 10 10 00 47 14 EA [address] 12 -0 -[address] 54 SH ti UL 10 3- 2- 00 SI 27 ER ve OS 57 20 20 0 DE E 71 09 09 RI 10 6 PH CH AR AR GM MA D /1 CY 5 ML OF CY SO NT ELICIA HI TI AN ON A 00 09 10 01 30 30 EA 14 MO Ac 37 -1 -[address] 21 SE ti 82 1- 2- 00 SI 72 S ve [address] 69 09 09 EP 3 PH HE AR N MA A CY OF CY NT HI AN A 00 09 10 00 60 10 EA 14 RI Ac 60 -2 -[address] 46 SH ti 35 9- 8- 00 SI 78 ER ve 46 20 20 DE 82 09 09 RI 8 PH CH AR AR MA D CY OF CY NT HI AN A 64 08 10 01 60 30 EA 13 RI Ac 67 -1 -[address] 88 SH ti 90 8- 8- 00 SI 90 ER ve 90 20 20 DE 60 09 09 RI 3 PH CH AR AR MA D CY OF CY NT HI AN A IB 53 09 10 00 90 30 EA 14 RI Ac UP 74 -2 -[address] 34 SH ti RO 60 1- 8- 00 SI 94 ER ve FE 46 20 20 DE N 60 09 09 RI 80 5 PH CH 0 AR AR MG MA D CY TA BL OF ET CY NT HI AN A ME 00 08 10 01 60 30 EA 14 RI Ac TF 09 -2 -[address] 00 SH ti OR 31 7- 8- 00 SI 61 ER ve CA 04 20 20 DE N 81 09 09 RI HC 0 PH CH L AR AR 50 MA D 0 CY MG OF TA CY BL NT ET HI AN A LI 00 08 10 01 30 30 EA 14 RI Ac PI 07 -3 -[address] 05 SH ti TO 10 1- 8- 00 SI 65 ER ve R 15 20 20 DE 80 82 09 09 RI 3 PH CH MG AR AR MA D TA CY BL ET OF CY NT HI AN A BA 00 09 09 00 90 30 EA 14 No Ac CL 17 -1 -[address] 30 t ti OF 24 7- 4- 00 SI 06 Av ve EN 09 20 20 DE ai 66 09 09 la 10 0 PH bl AR e MG MA CY TA BL OF ET CY NT HI AN A 00 09 09 00 30 30 EA 14 MO Ac 37 -1 -[address] 21 SE ti 82 1- 4- 00 SI 72 S ve [address] 69 09 09 EP 3 PH HE AR N MA A CY OF CY NT HI AN A LO 60 09 09 00 30 30 EA 14 RI Ac RA 50 -0 -[address] 13 SH ti TA 50 4- 0- 00 SI 36 ER ve DI 14 20 20 DE NE 70 09 09 RI 8 PH CH 10 AR AR MA D MG CY TA OF BL CY ET NT HI AN A LI 00 08 09 00 30 30 EA 14 RI Ac PI 07 -3 -[address] 05 SH ti TO 10 1- 0- 00 SI 65 ER ve R 15 20 20 DE 80 82 09 09 RI 3 PH CH MG AR AR MA D TA CY BL ET OF CY NT HI AN A CL 00 09 09 00 90 30 EA 14 RI Ac ON 09 -0 -[address] 13 SH ti AZ 30 4- 0- 00 SI 37 ER ve EP 83 20 20 DE AM 30 09 09 RI 1 1 PH CH AR AR MG MA D CY TA BL OF ET CY NT HI AN A ME 00 08 09 00 60 30 EA 14 RI Ac TF 09 -2 -[address] 00 SH ti OR 31 7- 0- 00 SI 61 ER ve CA 04 20 20 DE N 81 09 09 RI HC 0 PH CH L AR AR 50 MA D 0 CY MG OF TA CY BL NT ET HI AN A HY 00 06 09 03 30 30 EA 13 RI Ac ZA 00 -0 -[address] 01 SH ti AR 60 4- 0- 00 SI 14 ER ve 74 20 20 DE 10 73 09 09 RI 0- 1 PH CH 25 AR AR MA D TA CY BL ET OF CY NT HI AN A 64 08 08 00 60 30 EA 13 RI Ac 67 -1 -[address] 88 SH ti 90 8- 7- 00 SI 90 ER ve 90 20 20 DE 60 09 09 RI 3 PH CH AR AR MA D CY OF CY NT HI AN A 00 05 08 03 30 30 EA 12 RI Ac 37 -1 -[address] 74 SH ti 82 4- 7- 00 SI 23 ER ve 00 20 20 DE 69 09 09 RI 3 PH CH AR AR MA D CY OF CY NT HI AN A ST 00 08 08 00 90 30 EA 13 RI Ac AR 07 -1 -[address] 83 SH ti LI 80 3- 7- 00 SI 07 ER ve X 35 20 20 DE 60 10 09 09 RI 5 PH CH MG AR AR MA D TA CY BL ET OF CY NT HI AN A GL 00 08 08 00 30 30 EA 13 RI Ac IM 09 -0 -[address] 70 SH ti EP 37 3- 3- 00 SI 57 ER ve IR 25 20 20 DE ID 50 09 09 RI E 1 PH CH 2 AR AR MG MA D CY TA BL OF ET CY NT HI AN A CL 00 05 08 02 90 30 EA 12 RI Ac ON 09 -2 -[address] 81 SH ti AZ 30 0- 3- 00 SI 95 ER ve EP 83 20 20 DE AM 30 09 09 RI 1 1 PH CH AR AR MG MA D CY TA BL OF ET CY NT HI AN A LO 60 06 08 02 30 30 EA 13 RI Ac RA 50 -0 -[address] 01 SH ti TA 50 4- 3- 00 SI 15 ER ve DI 14 20 20 DE NE 70 09 09 RI 8 PH CH 10 AR AR MA D MG CY TA OF BL CY ET NT HI AN A HY 00 06 08 02 30 30 EA 13 RI Ac ZA 00 -0 -[address] 01 SH ti AR 60 4- 3- 00 SI 14 ER ve 74 20 20 DE 10 73 09 09 RI 0- 1 PH CH 25 AR AR MA D TA CY BL ET OF CY NT HI AN A IB 53 03 07 02 90 30 EA 12 RI Ac UP 74 -2 -[address] 04 SH ti RO 60 4- 0- 00 SI 27 ER ve FE 46 20 20 DE N 60 09 09 RI 80 5 PH CH 0 AR AR MG MA D CY TA BL OF ET CY NT HI AN A 64 05 07 02 60 30 EA 12 RI Ac 67 -0 -[address] 63 SH ti 90 6- 0- 00 SI 67 ER ve 90 20 20 DE 60 09 09 RI 3 PH CH AR AR MA D CY OF CY NT HI AN A MU 45 07 07 00 22 10 EA 13 RI Ac PI 80 -2 -[address] 57 SH ti RO 20 1- 0- 00 SI 17 ER ve CI 11 20 20 DE N 22 09 09 RI 2% 2 PH CH AR AR OI MA D NT CY ME NT OF CY NT HI AN A 00 05 07 02 30 30 EA 12 RI Ac 37 -1 -[address] 74 SH ti 82 4- 0- 00 SI 23 ER ve 00 20 20 DE 69 09 09 RI 3 PH CH AR AR MA D CY OF CY NT HI AN A LI 00 06 07 01 30 30 EA 13 RI Ac PI 07 -2 -[address] 26 SH ti TO 10 4- 0- 00 SI 22 ER ve R 15 20 20 DE 80 82 09 09 RI 3 PH CH MG AR AR MA D TA CY BL ET OF CY NT HI AN A LO 60 06 07 01 30 30 EA 13 RI Ac RA 50 -0 -[address] 01 SH ti TA 50 4- 6- 00 SI 15 ER ve DI 14 20 20 DE NE 70 09 09 RI 8 PH CH 10 AR AR MA D MG CY TA OF BL CY ET NT HI AN A GL 00 07 07 00 30 30 EA 13 RI Ac IM 09 -0 -[address] 40 SH ti EP 37 7- 6- 00 SI 90 ER ve IR 25 20 20 DE ID 50 09 09 RI E 1 PH CH 2 AR AR MG MA D CY TA BL OF ET CY NT HI AN A HY 00 06 07 01 30 30 EA 13 RI Ac ZA 00 -0 -[address] 01 SH ti AR 60 4- 6- 00 SI 14 ER ve 74 20 20 DE 10 73 09 09 RI 0- 1 PH CH 25 AR AR MA D TA CY BL ET OF CY NT HI AN A CL 00 05 07 01 90 30 EA 12 RI Ac ON 09 -2 -[address] 81 SH ti AZ 30 0- 2- 00 SI 95 ER ve EP 83 20 20 DE AM 30 09 09 RI 1 1 PH CH AR AR MG MA D CY TA BL OF ET CY NT HI AN A LI 00 06 07 00 30 30 EA 13 RI Ac PI 07 -2 -[address] 26 SH ti TO 10 4- 2- 00 SI 22 ER ve R 15 20 20 DE 80 82 09 09 RI 3 PH CH MG AR AR MA D TA CY BL ET OF CY NT HI AN A GL 00 06 06 00 30 30 EA 13 RI Ac IM 09 -0 -[address] 04 SH ti EP 37 6- 8- 00 SI 04 ER ve IR 25 20 20 DE ID 50 09 09 RI E 1 PH CH 2 AR AR MG MA D CY TA BL OF ET CY NT HI AN A 49 05 06 01 60 30 EA 12 RI Ac 88 -0 -[address] 63 SH ti 40 6- 8- 00 SI 67 ER ve 54 20 20 DE 41 09 09 RI 0 PH CH AR AR MA D CY OF CY NT HI AN A HY 00 06 06 00 30 30 EA 13 RI Ac ZA 00 -0 -[address] 01 SH ti AR 60 4- 8- 00 SI 14 ER ve 74 20 20 DE 10 73 09 09 RI 0- 1 PH CH 25 AR AR MA D TA CY BL ET OF CY NT HI AN A LO 60 06 06 00 30 30 EA 13 RI Ac RA 50 -0 -[address] 01 SH ti TA 50 4- 8- 00 SI 15 ER ve DI 14 20 20 DE NE 70 09 09 RI 8 PH CH 10 AR AR MA D MG CY TA OF BL CY ET NT HI AN A 00 05 06 01 30 30 EA 12 RI Ac 37 -1 -[address] 74 SH ti 82 4- 8- 00 SI 23 ER ve 00 20 20 DE 69 09 09 RI 3 PH CH AR AR MA D CY OF CY NT HI AN A NI 00 05 06 00 14 7 EA 12 RI Ac TR 18 -2 -[address] 81 SH ti OF 50 0- 4- 00 SI 94 ER ve UR 12 20 20 DE AN 20 09 09 RI TO 1 PH CH IN AR AR MA D MO CY NO -M OF CR CY NT 10 HI 0 AN MG A CL 00 05 06 00 90 30 EA 12 RI Ac ON 09 -2 -[address] 81 SH ti AZ 30 0- 4- 00 SI 95 ER ve EP 83 20 20 DE AM 30 09 09 RI 1 1 PH CH AR AR MG MA D CY TA BL OF ET CY NT HI AN A LI 00 05 06 00 30 30 EA 12 RI Ac PI 07 -2 -[address] 90 SH ti TO 10 7- 4- 00 SI 37 ER ve R 15 20 20 DE 80 82 09 09 RI 3 PH CH MG AR AR MA D TA CY BL ET OF CY NT HI AN A DO 53 05 06 00 30 30 EA 12 AD Ac XY 48 -2 -[address] 92 KI ti CY 90 8- 4- 00 SI 35 NS ve CL 11 20 20 DE IN 90 09 09 TI E 5 PH MO HY AR TH CL MA Y AT CY D E 10 OF 0 CY MG NT HI CA AN P A 60 05 06 00 30 15 EA 12 AD Ac 50 -2 -[address] 90 KI ti 51 7- 4- 00 SI 25 NS ve 30 20 20 DE 90 09 09 TI 1 PH MO AR TH MA Y CY D OF CY NT HI AN A HY 00 03 05 02 30 30 EA 11 RI Ac ZA 00 -1 -[address] 82 SH ti AR 60 0- 1- 00 SI 12 ER ve 74 20 20 DE 10 73 09 09 RI 0- 1 PH CH 25 AR AR MA D TA CY BL ET OF CY NT HI AN A GL 00 03 05 02 30 30 EA 11 RI Ac IM 09 -1 -[address] 84 SH ti EP 37 0- 1- 00 SI 18 ER ve IR 25 20 20 DE ID 50 09 09 RI E 1 PH CH 2 AR AR MG MA D CY TA BL OF ET CY NT HI AN A IB 53 03 05 01 90 30 EA 12 RI Ac UP 74 -2 -[address] 04 SH ti RO 60 4- 1- 00 SI 27 ER ve FE 46 20 20 DE N 60 09 09 RI 80 5 PH CH 0 AR AR MG MA D CY TA BL OF ET CY NT HI AN A 49 05 05 00 60 30 EA 12 RI Ac 88 -0 -[address] 63 SH ti 40 6- 1- 00 SI 67 ER ve 54 20 20 DE 41 09 09 RI 0 PH CH AR AR MA D CY OF CY NT HI AN A LO 45 03 05 02 30 30 EA 11 RI Ac RA 80 -1 -[address] 82 SH ti TA 20 0- 1- 00 SI 13 ER ve DI 65 20 20 DE NE 08 09 09 RI 7 PH CH 10 AR AR MA D MG CY TA OF BL CY ET NT HI AN A MANUEL 53 05 05 00 14 7 EA 12 RI Ac LF 48 -1 -[address] 74 SH ti AM 90 4- 1- 00 SI 22 ER ve ET 14 20 20 DE HO 60 09 09 RI XA 1 PH CH ZO AR AR LE MA D -T CY MP OF DS CY NT TA HI BL AN ET A 00 05 05 00 30 30 EA 12 RI Ac 37 -1 -[address] 74 SH ti 82 4- 1- 00 SI 23 ER ve 00 20 20 DE 69 09 09 RI 3 PH CH AR AR MA D CY OF CY NT HI AN A ME 00 05 05 00 30 8 EA 12 RI Ac CL 53 -0 -[address] 57 SH ti IZ 63 1- 7- 00 SI 12 ER ve IN 99 20 20 DE E 00 09 09 RI 25 1 PH CH AR AR MG MA D CY TA BL OF ET CY NT CH HI EW AN A LI 00 02 05 02 30 30 EA 11 RI Ac PI 07 -1 -[address] 47 SH ti TO 10 3- 7- 00 SI 54 ER ve R 15 20 20 DE 80 82 09 09 RI 3 PH CH MG AR AR MA D TA CY BL ET OF CY NT HI AN A LO 60 03 04 01 30 30 EA 11 RI Ac RA 50 -1 -[address] 82 SH ti TA 50 0- 3- 00 SI 13 ER ve DI 14 20 20 DE NE 70 09 09 RI 1 PH CH 10 AR AR MA D MG CY TA OF BL CY ET NT HI AN A HY 00 03 04 01 30 30 EA 11 RI Ac ZA 00 -1 -[address] 82 SH ti AR 60 0- 3- 00 SI 12 ER ve 74 20 20 DE 10 73 09 09 RI 0- 1 PH CH 25 AR AR MA D TA CY BL ET OF CY NT HI AN A GL 00 03 04 01 30 30 EA 11 RI Ac IM 09 -1 -[address] 84 SH ti EP 37 0- 3- 00 SI 18 ER ve IR 25 20 20 DE ID 50 09 09 RI E 1 PH CH 2 AR AR MG MA D CY TA BL OF ET CY NT HI AN A CL 00 02 04 02 60 30 EA 11 RI Ac ON 09 -1 -[address] 47 SH ti AZ 30 3- 3- 00 SI 53 ER ve EP 83 20 20 DE AM 30 09 09 RI 1 1 PH CH AR AR MG MA D CY TA BL OF ET CY NT HI AN A 00 02 04 02 30 30 EA 11 RI Ac 37 -1 -[address] 47 SH ti 82 3- 3- 00 SI 55 ER ve 00 20 20 DE 69 09 09 RI 3 PH CH AR AR MA D CY OF CY NT HI AN A IB 53 03 04 00 90 30 EA 12 RI Ac UP 74 -2 -[address] 04 SH ti RO 60 4- 9- 00 SI 27 ER ve FE 46 20 20 DE N 60 09 09 RI 80 5 PH CH 0 AR AR MG MA D CY TA BL OF ET CY NT HI AN A 49 10 04 05 60 30 EA 99 RI Ac 88 -0 -[address] 78 SH ti 40 8- 9- 00 SI 72 ER ve 54 20 20 DE 41 08 09 RI 0 PH CH AR AR MA D CY OF CY NT HI AN A 00 03 04 00 60 10 EA 12 RI Ac 60 -2 -[address] 02 SH ti 35 3- 9- 00 SI 08 ER ve 46 20 20 DE 82 09 09 RI 8 PH CH AR AR MA D CY OF CY NT HI AN A GL 00 03 03 00 30 30 EA 11 RI Ac IM 09 -1 -[address] 84 SH ti EP 37 0- 6- 00 SI 18 ER ve IR 25 20 20 DE ID 50 09 09 RI E 1 PH CH 2 AR AR MG MA D CY TA BL OF ET CY NT HI AN A 00 02 03 01 30 30 EA 11 RI Ac 37 -1 -[address] 47 SH ti 82 3- 6- 00 SI 55 ER ve 00 20 20 DE 69 09 09 RI 3 PH CH AR AR MA D CY OF CY NT HI AN A HY 00 03 03 00 30 30 EA 11 RI Ac ZA 00 -1 -[address] 82 SH ti AR 60 0- 6- 00 SI 12 ER ve 74 20 20 DE 10 73 09 09 RI 0- 1 PH CH 25 AR AR MA D TA CY BL ET OF CY NT HI AN A CL 00 02 03 01 60 30 EA 11 RI Ac ON 09 -1 -[address] 47 SH ti AZ 30 3- 6- 00 SI 53 ER ve EP 83 20 20 DE AM 30 09 09 RI 1 1 PH CH AR AR MG MA D CY TA BL OF ET CY NT HI AN A LO 60 03 03 00 30 30 EA 11 RI Ac RA 50 -1 -[address] 82 SH ti TA 50 0- 6- 00 SI 13 ER ve DI 14 20 20 DE NE 70 09 09 RI 1 PH CH 10 AR AR MA D MG CY TA OF BL CY ET NT HI AN A LI 00 02 03 01 30 30 EA 11 RI Ac PI 07 -1 -[address] 47 SH ti TO 10 3- 6- 00 SI 54 ER ve R 15 20 20 DE 80 82 09 09 RI 3 PH CH MG AR AR MA D TA CY BL ET OF CY NT HI AN A CY 00 03 03 00 60 20 EA 11 RI Ac CL 59 -0 -[address] 71 SH ti OB 15 3- 2- 00 SI 42 ER ve EN 65 20 20 DE ZA 80 09 09 RI WI 1 PH CH IN AR AR E MA D 10 CY MG OF CY TA NT BL HI ET AN A OX 00 03 03 00 60 30 EA 11 RI Ac AP 18 -0 -[address] 71 SH ti RO 50 3- 2- 00 SI 43 ER ve ZI 14 20 20 DE N 10 09 09 RI 60 1 PH CH 0 AR AR MG MA D CY TA BL OF ET CY NT HI AN A CL 00 02 02 00 60 30 EA 11 RI Ac ON 09 -1 -[address] 47 SH ti AZ 30 3- 6- 00 SI 53 ER ve EP 83 20 20 DE AM 30 09 09 RI 1 1 PH CH AR AR MG MA D CY TA BL OF ET CY NT HI AN A 49 10 02 04 60 30 EA 99 RI Ac 88 -0 -[address] 78 SH ti 40 8- 6- 00 SI 72 ER ve 54 20 20 DE 41 08 09 RI 0 PH CH AR AR MA D CY OF CY NT HI AN A LI 00 02 02 00 30 30 EA 11 RI Ac PI 07 -1 -[address] 47 SH ti TO 10 3- 6- 00 SI 54 ER ve R 15 20 20 DE 80 82 09 09 RI 3 PH CH MG AR AR MA D TA CY BL ET OF CY NT HI AN A GL 00 01 02 01 30 30 EA 11 RI Ac IM 09 -0 -[address] 03 SH ti EP 37 9- 6- 00 SI 56 ER ve IR 25 20 20 DE ID 50 09 09 RI E 1 PH CH 2 AR AR MG MA D CY TA BL OF ET CY NT HI AN A 00 02 02 00 30 30 EA 11 RI Ac 37 -1 -[address] 47 SH ti 82 3- 6- 00 SI 55 ER ve 00 20 20 DE 69 09 09 RI 3 PH CH AR AR MA D CY OF CY NT HI AN A LO 60 01 02 01 30 30 EA 11 RI Ac RA 50 -0 -[address] 03 SH ti TA 50 9- 6- 00 SI 55 ER ve DI 14 20 20 DE NE 70 09 09 RI 1 PH CH 10 AR AR MA D MG CY TA OF BL CY ET NT HI AN A 00 01 02 00 30 7 EA 11 RI Ac 60 -2 -[address] 24 SH ti 35 6- 2- 00 SI 14 ER ve 46 20 20 DE 82 09 09 RI 8 PH CH AR AR MA D CY OF CY NT HI AN A HY 00 09 02 05 30 30 EA 99 RI Ac ZA 00 -0 -[address] 37 SH ti AR 60 6- 2- 00 SI 28 ER ve 74 20 20 DE 10 73 08 09 RI 0- 1 PH CH 25 AR AR MA D TA CY BL ET OF CY NT HI AN A SE 00 02 02 00 60 30 EA 11 RI Ac RO 31 -0 -[address] 36 SH ti QU 00 6- 2- 00 SI 97 ER ve EL 27 20 20 DE 81 09 09 RI 50 0 PH CH AR AR MG MA D CY TA BL OF ET CY NT HI AN A 00 07 01 06 30 30 EA 98 RI Ac 37 -2 -[address] 78 SH ti 82 1- 0- 00 SI 69 ER ve 00 20 20 DE 69 08 09 RI 3 PH CH AR AR MA D CY OF CY NT HI AN A HY 00 09 01 04 30 30 EA 99 RI Ac ZA 00 -0 -[address] 37 SH ti AR 60 6- 5- 00 SI 28 ER ve 74 20 20 DE 10 73 08 09 RI 0- 1 PH CH 25 AR AR MA D TA CY BL ET OF CY NT HI AN A CL 00 10 01 02 90 30 EA 99 RI Ac ON 09 -2 -[address] 97 SH ti AZ 30 3- 5- 00 SI 29 ER ve EP 83 20 20 DE AM 30 08 09 RI 1 1 PH CH AR AR MG MA D CY TA BL OF ET CY NT HI AN A 49 10 01 03 60 30 EA 99 RI Ac 88 -0 -[address] 78 SH ti 40 8- 5- 00 SI 72 ER ve 54 20 20 DE 41 08 09 RI 0 PH CH AR AR MA D CY OF CY NT HI AN A LO 60 01 01 00 30 30 EA 11 RI Ac RA 50 -0 -[address] 03 SH ti TA 50 9- 5- 00 SI 55 ER ve DI 14 20 20 DE NE 70 09 09 RI 1 PH CH 10 AR AR MA D MG CY TA OF BL CY ET NT HI AN A GL 00 01 01 00 30 30 EA 11 RI Ac IM 09 -0 -[address] 03 SH ti EP 37 9- 5- 00 SI 56 ER ve IR 25 20 20 DE ID 50 09 09 RI E 1 PH CH 2 AR AR MG MA D CY TA BL OF ET CY NT HI AN A LI 00 01 01 00 30 30 EA 10 RI Ac PI 07 -0 -[address] 97 SH ti TO 10 6- 5- 00 SI 42 ER ve R 15 20 20 DE 80 82 09 09 RI 3 PH CH MG AR AR MA D TA CY BL ET OF CY NT HI AN A 00 07 01 05 30 30 EA 98 RI Ac 37 -2 -[address] 78 SH ti 82 1- 1- 00 SI 69 ER ve 00 20 20 DE 69 08 09 RI 3 PH CH AR AR MA D CY OF CY NT HI AN A CL 00 10 12 01 90 30 EA 99 RI Ac ON 09 -2 -[address] 97 SH ti AZ 30 3- 8- 00 SI 29 ER ve EP 83 20 20 DE AM 30 08 08 RI 1 1 PH CH AR AR MG MA D CY TA BL OF ET CY NT HI AN A 49 10 12 02 60 30 EA 99 RI Ac 88 -0 -[address] 78 SH ti 40 8- 8- 00 SI 72 ER ve 54 20 20 DE 41 08 08 RI 0 PH CH AR AR MA D CY OF CY NT HI AN A LO 60 12 12 00 30 30 EA 10 RI Ac RA 50 -0 -[address] 60 SH ti TA 50 9- 8- 00 SI 21 ER ve DI 14 20 20 DE NE 70 08 08 RI 1 PH CH 10 AR AR MA D MG CY TA OF BL CY ET NT HI AN A GL 00 12 12 00 30 30 EA 10 RI Ac IM 09 -0 -[address] 60 SH ti EP 37 9- 8- 00 SI 20 ER ve IR 25 20 20 DE ID 50 08 08 RI E 1 PH CH 2 AR AR MG MA D CY TA BL OF ET CY NT HI AN A LI 00 12 12 00 30 30 EA 10 RI Ac PI 07 -0 -[address] 56 SH ti TO 10 5- 8- 00 SI 11 ER ve R 15 20 20 DE 80 82 08 08 RI 3 PH CH MG AR AR MA D TA CY BL ET OF CY NT HI AN A HY 00 09 12 03 30 30 EA 99 RI Ac ZA 00 -0 -[address] 37 SH ti AR 60 6- 8- 00 SI 28 ER ve 74 20 20 DE 10 73 08 08 RI 0- 1 PH CH 25 AR AR MA D TA CY BL ET OF CY NT HI AN A IB 53 11 12 00 90 30 EA 10 RI Ac UP 74 -1 -[address] 34 SH ti RO 60 9- 4- 00 SI 69 ER ve FE 46 20 20 DE N 60 08 08 RI 80 5 PH CH 0 AR AR MG MA D CY TA BL OF ET CY NT HI AN A 00 07 11 04 30 30 EA 98 RI Ac 37 -2 -[address] 78 SH ti 82 1- 0- 00 SI 69 ER ve 00 20 20 DE 69 08 08 RI 3 PH CH AR AR MA D CY OF CY NT HI AN A 64 10 11 01 60 30 EA 99 RI Ac 67 -0 -[address] 78 SH ti 90 8- 0- 00 SI 72 ER ve 90 20 20 DE 60 08 08 RI 3 PH CH AR AR MA D CY OF CY NT HI AN A LI 00 10 11 01 30 30 EA 99 RI Ac PI 07 -0 -[address] 70 SH ti TO 10 2- 0- 00 SI 62 ER ve R 15 20 20 DE 80 82 08 08 RI 3 PH CH MG AR AR MA D TA CY BL ET OF CY NT HI AN A HY 00 09 11 02 30 30 EA 99 RI Ac ZA 00 -0 -[address] 37 SH ti AR 60 6- 0- 00 SI 28 ER ve 74 20 20 DE 10 73 08 08 RI 0- 1 PH CH 25 AR AR MA D TA CY BL ET OF CY NT HI AN A GL 00 09 11 02 30 30 EA 99 RI Ac IM 09 -1 -[address] 43 SH ti EP 37 1- 0- 00 SI 57 ER ve IR 25 20 20 DE ID 50 08 08 RI E 1 PH CH 2 AR AR MG MA D CY TA BL OF ET CY NT HI AN A LO 60 06 11 05 30 30 EA 98 RI Ac RA 50 -0 -[address] 26 SH ti TA 50 6- 0- 00 SI 84 ER ve DI 14 20 20 DE NE 70 08 08 RI 1 PH CH 10 AR AR MA D MG CY TA OF BL CY ET NT HI AN A CL 00 10 11 00 90 30 EA 99 RI Ac ON 09 -2 -[address] 97 SH ti AZ 30 3- 7- 00 SI 29 ER ve EP 83 20 20 DE AM 30 08 08 RI 1 1 PH CH AR AR MG MA D CY TA BL OF ET CY NT HI AN A 00 07 10 03 30 30 EA 98 RI Ac 37 -2 -[address] 78 SH ti 82 1- 3- 00 SI 69 ER ve 00 20 20 DE 69 08 08 RI 3 PH CH AR AR MA D CY OF CY NT HI AN A 49 10 10 00 60 30 EA 99 No Ac 88 -0 -[address] 78 t ti 40 8- 3- 00 SI 72 Av ve 54 20 20 DE ai 40 08 08 la 2 PH bl AR e MA CY OF CY NT HI AN A LO 60 06 10 04 30 30 EA 98 No Ac RA 50 -0 -[address] 26 t ti TA 50 6- 3- 00 SI 84 Av ve DI 14 20 20 DE ai NE 70 08 08 la 1 PH bl 10 AR e MA MG CY TA OF BL CY ET NT HI AN A GL 00 09 10 01 30 30 EA 99 No Ac IM 09 -1 -[address] 43 t ti EP 37 1- 3 00 SI 57 Av ve IR 25 20 20 DE ai ID 50 08 08 la E 1 PH bl 2 AR e MG MA CY TA BL OF ET CY NT HI AN A HY 00 09 10 01 30 30 EA 99 No Ac ZA 00 -0 -[address] 37 t ti AR 60 6- 3- 00 SI 28 Av ve 74 20 20 DE ai 10 73 08 08 la 0- 1 PH bl 25 AR e MA TA CY BL ET OF CY NT HI AN A LI 00 10 10 00 30 30 EA 99 No Ac PI 07 -0 -[address] 70 t ti TO 10 9 SI 62 Av ve R 15 20 20 DE ai 80 82 08 08 la 3 PH bl MG AR e MA TA CY BL ET OF CY NT HI AN A CL 00 09 10 00 90 30 EA 99 No Ac ON 09 -2 -[address] 55 t ti AZ 30 2- 9- 00 SI 75 Av ve EP 83 20 20 DE ai AM 30 08 08 la 1 1 PH bl AR e MG MA CY TA BL OF ET CY NT HI AN A 00 09 10 00 12 3 EA 99 No Ac 60 -2 -[address] 63 t ti 35 8- 9- 00 SI 93 Av ve 46 20 20 DE ai 82 08 08 la 8 PH bl AR e MA CY OF CY NT HI AN A 00 07 09 02 30 30 EA 98 No Ac 37 -2 -[address] 78 t ti 82 1- 6- 00 SI 69 Av ve 00 20 20 DE ai 69 08 08 la 3 PH bl AR e MA CY OF CY NT HI AN A LO 60 06 09 03 30 30 EA 98 No Ac RA 50 -0 -[address] 26 t ti TA 50 6- 6- 00 SI 84 Av ve DI 14 20 20 DE ai NE 70 08 08 la 1 PH bl 10 AR e MA MG CY TA OF BL CY ET NT HI AN A HY 00 09 09 00 30 30 EA 99 No Ac ZA 00 -0 -[address] 37 t ti AR 60 6- 6- 00 SI 28 Av ve 74 20 20 DE ai 10 73 08 08 la 0- 1 PH bl 25 AR e MA TA CY BL ET OF CY NT HI AN A GL 00 09 09 00 30 30 EA 99 No Ac IM 09 -1 -[address] 43 t ti EP 37 1- 6- 00 SI 57 Av ve IR 25 20 20 DE ai ID 50 08 08 la E 1 PH bl 2 AR e MG MA CY TA BL OF ET CY NT HI AN A CL 00 08 09 00 90 30 EA 99 No Ac ON 09 -2 -[address] 20 t ti AZ 30 5- 1- 00 SI 99 Av ve EP 83 20 20 DE ai AM 30 08 08 la 1 1 PH bl AR e MG MA CY TA BL OF ET CY NT HI AN A 49 08 09 00 60 30 EA 99 No Ac 88 -2 -[address] 20 t ti 40 5- 1- 00 SI 97 Av ve 54 20 20 DE ai 40 08 08 la 2 PH bl AR e MA CY OF CY NT HI AN A LI 00 08 09 00 30 30 EA 99 No Ac PI 07 -2 -[address] 20 t ti TO 10 5- 1- 00 SI 98 Av ve R 15 20 20 DE ai 80 82 08 08 la 3 PH bl MG AR e MA TA CY BL ET OF CY NT HI AN A HY 00 08 08 00 60 [address] 55 -1 -[address] 12 t ti OX 50 8- 8- 00 SI 29 Av ve YZ 32 20 20 DE ai IN 30 08 08 la E 4 PH bl PA AR e M MA 25 CY MG OF CY CA NT P HI AN A 00 07 08 01 30 30 EA 98 No Ac 37 -2 -[address] 78 t ti 82 1- 8- 00 SI 69 Av ve 00 20 20 DE ai 69 08 08 la 3 PH bl AR e MA CY OF CY NT HI AN A GL 00 05 08 03 30 30 EA 97 No Ac IM 09 -1 -[address] 97 t ti EP 37 3- 8- 00 SI 20 Av ve IR 25 20 20 DE ai ID 50 08 08 la E 1 PH bl 2 AR e MG MA CY TA BL OF ET CY NT HI AN A LO 60 06 08 02 30 30 EA 98 No Ac RA 50 -0 -[address] 26 t ti TA 50 6- 4- 00 SI 84 Av ve DI 14 20 20 DE ai NE 70 08 08 la 1 PH bl 10 AR e MA MG CY TA OF BL CY ET NT HI AN A 00 07 08 00 30 30 EA 98 No Ac 07 -2 -[address] 87 t ti 80 9- 4- 00 SI 94 Av ve 42 20 20 DE ai 01 08 08 la 5 PH bl AR e MA CY OF CY NT HI AN A HY 00 05 08 03 30 30 EA 97 No Ac ZA 00 -0 -[address] 90 t ti AR 60 7- 4- 00 SI 30 Av ve 74 20 20 DE ai 10 73 08 08 la 0- 1 PH bl 25 AR e MA TA CY BL ET OF CY NT HI AN A 49 08 08 10 60 30 EA 94 No Ac 88 -1 -[address] 31 t ti 40 3- 1- 00 SI 75 Av ve 54 20 20 DE ai 40 07 08 la 2 PH bl AR e MA CY OF CY NT HI AN A GL 00 05 08 02 30 30 EA 97 No Ac IM 09 -1 -[address] 97 t ti EP 37 3- 1- 00 SI 20 Av ve IR 25 20 20 DE ai ID 50 08 08 la E 1 PH bl 2 AR e MG MA CY TA BL OF ET CY NT HI AN A CL 00 07 08 00 90 30 EA 98 No Ac ON 09 -2 -[address] 83 t ti AZ 30 5- 1- 00 SI 72 Av ve EP 83 20 20 DE ai AM 30 08 08 la 1 1 PH bl AR e MG MA CY TA BL OF ET CY NT HI AN A 00 07 08 00 30 30 EA 98 No Ac 37 -2 -[address] 78 t ti 82 1- 1- 00 SI 69 Av ve 00 20 20 DE ai 69 08 08 la 3 PH bl AR e MA CY OF CY NT HI AN A LI 00 07 08 00 30 30 EA 98 No Ac PI 07 -2 -[address] 83 t ti TO 10 5- 1- 00 SI 71 Av ve R 15 20 20 DE ai 80 82 08 08 la 3 PH bl MG AR e MA TA CY BL ET OF CY NT HI AN A HY 00 05 07 02 30 30 EA 97 No Ac ZA 00 -0 -[address] 90 t ti AR 60 7- 7- 00 SI 30 Av ve 74 20 20 DE ai 10 73 08 08 la 0- 1 PH bl 25 AR e MA TA CY BL ET OF CY NT HI AN A LO 60 06 07 01 30 30 EA 98 No Ac RA 50 -0 -[address] 26 t ti TA 50 6- 7- 00 SI 84 Av ve DI 14 20 20 DE ai NE 70 08 08 la 1 PH bl 10 AR e MA MG CY TA OF BL CY ET NT HI AN A LI 00 03 07 03 30 30 EA 97 No Ac PI 07 -0 -[address] 09 t ti TO 10 5 3- 00 SI 56 Av ve R 15 20 20 DE ai 80 82 08 08 la 3 PH bl MG AR e MA TA CY BL ET OF CY NT HI AN A CL 00 06 07 00 90 30 EA 98 No Ac ON 09 -1 -[address] 40 t ti AZ 30 7- 3- 00 SI 48 Av ve EP 83 20 20 DE ai AM 30 08 08 la 1 1 PH bl AR e MG MA CY TA BL OF ET CY NT HI AN A GL 00 05 07 01 30 30 EA 97 No Ac IM 09 -1 -[address] 97 t ti EP 37 3- 3- 00 SI 20 Av ve IR 25 20 20 DE ai ID 50 08 08 la E 1 PH bl 2 AR e MG MA CY TA BL OF ET CY NT HI AN A 00 04 07 02 30 30 EA 97 No Ac 07 -1 -[address] 59 t ti 80 2- 3- 00 SI 02 Av ve 42 20 20 DE ai 01 08 08 la 5 PH bl AR e MA CY OF CY NT HI AN A RA 00 08 07 09 60 30 EA 94 No Ac NI 78 -1 -[address] 31 t ti TI 11 3- 3- 00 SI 75 Av ve DI 88 20 20 DE ai NE 31 07 08 la 0 PH bl 15 AR e 0 MA MG CY TA OF BL CY ET NT HI AN A 00 01 07 05 30 30 EA 96 No Ac 37 -1 -[address] 40 t ti 82 8- 3- 00 SI 52 Av ve 00 20 20 DE ai 69 08 08 la 3 PH bl AR e MA CY OF CY NT HI AN A HY 00 05 06 01 30 30 EA 97 No Ac ZA 00 -0 -[address] 90 t ti AR 60 7- 2- 00 SI 30 Av ve 74 20 20 DE ai 10 73 08 08 la 0- 1 PH bl 25 AR e MA TA CY BL ET OF CY NT HI AN A 60 06 06 00 14 7 EA 98 No Ac 50 -0 -[address] 27 t ti 51 6- 2- 00 SI 87 Av ve 30 20 20 DE ai 90 08 08 la 1 PH bl AR e MA CY OF CY NT HI AN A LO 60 06 06 00 30 30 EA 98 No Ac RA 50 -0 -[address] 26 t ti TA 50 6- 2- 00 SI 84 Av ve DI 14 20 20 DE ai NE 70 08 08 la 1 PH bl 10 AR e MA MG CY TA OF BL CY ET NT HI AN A MANUEL 53 05 06 00 14 7 EA 98 No Ac LF 48 -2 -[address] 10 t ti AM 90 3- 5- 00 SI 26 Av ve ET 14 20 20 DE ai HO 60 08 08 la XA 1 PH bl ZO AR e LE MA -T CY MP OF DS CY NT TA HI BL AN ET A 00 04 06 01 30 30 EA 97 No Ac 07 -1 -[address] 59 t ti 80 2- 5- 00 SI 02 Av ve 42 20 20 DE ai 01 08 08 la 5 PH bl AR e MA CY OF CY NT HI AN A 00 01 06 04 30 30 EA 96 No Ac 02 -1 -[address] 40 t ti 93 8- 5- 00 SI 52 Av ve 20 20 20 DE ai 81 08 08 la 3 PH bl AR e MA CY OF CY NT HI AN A HY 00 05 05 00 30 30 EA 97 No Ac ZA 00 -0 -[address] 90 t ti AR 60 7- 2- 00 SI 30 Av ve 74 20 20 DE ai 10 73 08 08 la 0- 1 PH bl 25 AR e MA TA CY BL ET OF CY NT HI AN A 49 08 05 08 60 30 EA 94 No Ac 88 -1 -[address] 31 t ti 40 3- 2- 00 SI 75 Av ve 54 20 20 DE ai 40 07 08 la 2 PH bl AR e MA CY OF CY NT HI AN A LO 60 02 05 03 30 30 EA 96 No Ac RA 50 -0 -[address] 70 t ti TA 50 7- 2- 00 SI 42 Av ve DI 14 20 20 DE ai NE 70 08 08 la 1 PH bl 10 AR e MA MG CY TA OF BL CY ET NT HI AN A LI 00 03 05 02 30 30 EA 97 No Ac PI 07 -0 -[address] 09 t ti TO 10 - 2 00 SI 56 Av ve R 15 20 20 DE ai 80 82 08 08 la 3 PH bl MG AR e MA TA CY BL ET OF CY NT HI AN A GL 00 05 05 00 30 30 EA 97 No Ac IM 09 -1 -[address] 97 t ti EP 37 3- 2- 00 SI 20 Av ve IR 25 20 20 DE ai ID 50 08 08 la E 1 PH bl 2 AR e MG MA CY TA BL OF ET CY NT HI AN A CL 00 05 05 00 90 30 EA 97 No Ac ON 09 -1 -[address] 96 t ti AZ 30 2- 2- 00 SI 48 Av ve EP 83 20 20 DE ai AM 30 08 08 la 1 1 PH bl AR e MG MA CY TA BL OF ET CY NT HI AN A MANUEL 53 04 05 00 14 7 EA 97 No Ac LF 48 -2 -[address] 77 t ti AM 90 8 8 SI 17 Av ve ET 14 20 20 DE ai HO 60 08 08 la XA 1 PH bl ZO AR e LE MA -T CY MP OF DS CY NT TA HI BL AN ET A ME 50 04 05 00 14 7 EA 97 No Ac TR 11 -2 -[address] 77 t ti ON 10 8 8 SI 18 Av ve ID 33 20 20 DE ai AZ 40 08 08 la OL 1 PH bl E AR e 50 MA 0 CY MG OF TA CY BL NT ET HI AN A KE 00 04 05 00 30 5 EA 97 No Ac TO 09 -2 -[address] 74 t ti CO 30 5- 8- 00 SI 58 Av ve NA 84 20 20 DE ai ZO 03 08 08 la LE 0 PH bl AR e 2% MA CY CR EA OF M CY NT HI AN A 00 01 05 03 30 30 EA 96 No Ac 02 -1 -[address] 40 t ti 93 8- 8- 00 SI 52 Av ve 20 20 20 DE ai 81 08 08 la 3 PH bl AR e MA CY OF CY NT HI AN A CL 00 04 05 00 90 30 EA 97 No Ac ON 09 -2 -[address] 71 t ti AZ 30 3- 8- 00 SI 89 Av ve EP 83 20 20 DE ai AM 20 08 08 la 1 PH bl 0. AR e 5 MA MG CY TA OF BL CY ET NT HI AN A OX 00 01 05 01 60 30 EA 96 No Ac AP 18 -2 -[address] 53 t ti RO 50 8- 8- 00 SI 70 Av ve ZI 14 20 20 DE ai N 10 08 08 la 60 1 PH bl 0 AR e MG MA CY TA BL OF ET CY NT HI AN A 00 04 04 00 30 30 EA 97 No Ac 07 -1 -[address] 59 t ti 80 2- 4- 00 SI 02 Av ve 42 20 20 DE ai 01 08 08 la 5 PH bl AR e MA CY OF CY NT HI AN A 49 08 04 07 60 30 EA 94 No Ac 88 -1 -[address] 31 t ti 40 3- 4- 00 SI 75 Av ve 54 20 20 DE ai 40 07 08 la 2 PH bl AR e MA CY OF CY NT HI AN A LO 60 02 04 02 30 30 EA 96 No Ac RA 50 -0 -[address] 70 t ti TA 50 7- 4- 00 SI 42 Av ve DI 14 20 20 DE ai NE 70 08 08 la 1 PH bl 10 AR e MA MG CY TA OF BL CY ET NT HI AN A HY 00 04 04 00 30 30 EA 97 No Ac ZA 00 -0 -[address] 49 t ti AR 60 6- 4- 00 SI 60 Av ve 74 20 20 DE ai 10 73 08 08 la 0- 1 PH bl 25 AR e MA TA CY BL ET OF CY NT HI AN A LI 00 03 04 01 30 30 EA 97 No Ac PI 07 -0 -[address] 09 t ti TO 10 5- 4- 00 SI 56 Av ve R 15 20 20 DE ai 80 82 08 08 la 3 PH bl MG AR e MA TA CY BL ET OF CY NT HI AN A ME 00 04 04 00 21 6 EA 97 No Ac TH 78 -1 -[address] 64 t ti YL 15 7- 4- 00 SI 78 Av ve WI 02 20 20 DE ai ED 20 08 08 la NI 7 PH bl SO AR e LO MA NE CY 4 OF MG CY NT DO HI SE AN PK A GL 00 04 04 00 30 30 EA 97 No Ac IM 09 -[address] 61 t ti EP 37 5- 4- 00 SI 69 Av ve IR 25 20 20 DE ai ID 50 08 08 la E 1 PH bl 2 AR e MG MA CY TA BL OF ET CY NT HI AN A GL 00 01 04 02 30 30 EA 96 No Ac IM 09 -[address] 36 t ti EP 37 5- 7- 00 SI 41 Av ve IR 25 20 20 DE ai ID 50 08 08 la E 1 PH bl 2 AR e MG MA CY TA BL OF ET CY NT HI AN A 00 01 04 02 30 30 EA 96 No Ac 02 -[address] 40 t ti 93 8- 7- 00 SI 52 Av ve 20 20 20 DE ai 81 08 08 la 3 PH bl AR e MA CY OF CY NT HI AN A NA 00 03 04 00 17 25 EA 97 No Ac SO 08 - -[address] 18 t ti NE 51 2- 7- 00 SI 32 Av ve X 28 20 20 DE ai 50 80 08 08 la 1 PH bl MC AR e G MA NA CY SA L OF SP CY RA NT Y HI AN A LY 00 03 04 00 14 7 EA 97 No Ac RI 07 -2 -[address] 38 t ti CA 11 7- 0- 00 SI 05 Av ve 01 20 20 DE ai 75 46 08 08 la 8 PH bl MG AR e MA CA CY PS UL OF E CY NT HI AN A CL 00 01 04 02 90 30 EA 96 No Ac ON 09 -[address] 36 t ti AZ 30 5- 0- 00 SI 42 Av ve EP 83 20 20 DE ai AM 20 08 08 la 1 PH bl 0. AR e 5 MA MG CY TA OF BL CY ET NT HI AN A 49 08 04 06 60 30 EA 94 No Ac 88 -1 -[address] 31 t ti 40 3- 7- 00 SI 75 Av ve 54 20 20 DE ai 40 07 08 la 2 PH bl AR e MA CY OF CY NT HI AN A LO 60 02 04 01 30 30 EA 96 No Ac RA 50 -0 -[address] 70 t ti TA 50 7- 7- 00 SI 42 Av ve DI 14 20 20 DE ai NE 70 08 08 la 1 PH bl 10 AR e MA MG CY TA OF BL CY ET NT HI AN A LI 00 03 04 00 30 30 EA 97 No Ac PI 07 -0 -[address] 09 t ti TO 10 5- 7- 00 SI 56 Av ve R 15 20 20 DE ai 80 82 08 08 la 3 PH bl MG AR e MA TA CY BL ET OF CY NT HI AN A HY 00 01 04 02 30 30 EA 96 No Ac ZA 00 -0 -[address] 24 t ti AR 60 7- 7- 00 SI 13 Av ve 74 20 20 DE ai 10 73 08 08 la 0- 1 PH bl 25 AR e MA TA CY BL ET OF CY NT HI AN A HY 00 01 03 01 30 30 EA 96 No Ac ZA 00 -0 -[address] 24 t ti AR 60 7- 6- 00 SI 13 Av ve 74 20 20 DE ai 10 73 08 08 la 0- 1 PH bl 25 AR e MA TA CY BL ET OF CY NT HI AN A 49 08 03 05 60 30 EA 94 No Ac 88 -1 -[address] 31 t ti 40 3- 6- 00 SI 75 Av ve 54 20 20 DE ai 40 07 08 la 2 PH bl AR e MA CY OF CY NT HI AN A LO 60 02 03 00 30 30 EA 96 No Ac RA 50 -0 -[address] 70 t ti TA 50 7- 6- 00 SI 42 Av ve DI 14 20 20 DE ai NE 70 08 08 la 1 PH bl 10 AR e MA MG CY TA OF BL CY ET NT HI AN A OX 00 01 03 00 60 30 EA 96 No Ac AP 18 -2 -[address] 53 t ti RO 50 8- 6- 00 SI 70 Av ve ZI 14 20 20 DE ai N 10 08 08 la 60 1 PH bl 0 AR e MG MA CY TA BL OF ET CY NT HI AN A CY 00 01 03 00 90 30 EA 96 No Ac CL 59 -2 -[address] 53 t ti OB 15 8- 6- 00 SI 71 Av ve EN 65 20 20 DE ai ZA 80 08 08 la WI 1 PH bl IN AR e E MA 10 CY MG OF CY TA NT BL HI ET AN A GL 00 01 03 01 30 30 EA 96 No Ac IM 09 -1 -[address] 36 t ti EP 37 5- 6- 00 SI 41 Av ve IR 25 20 20 DE ai ID 50 08 08 la E 1 PH bl 2 AR e MG MA CY TA BL OF ET CY NT HI AN A CL 00 01 03 90 30 EA 96 No Ac ON 09 -[address] 36 t ti AZ 30 5- 6- 00 SI 42 Av ve EP 83 20 20 DE ai AM 20 08 08 la 1 PH bl 0. AR e 5 MA MG CY TA OF BL CY ET NT HI AN A LI 00 02 03 30 30 EA 96 No Ac PI 07 -0 -[address] 70 t ti TO 10 7- 6- 00 SI 44 Av ve R 15 20 20 DE ai 80 82 08 08 la 3 PH bl MG AR e MA TA CY BL ET OF CY NT HI AN A 00 11 02 00 30 30 EA 96 No Ac 02 - -[address] 40 t ti 93 8- 6- 00 SI 52 Av ve 20 20 20 DE ai 81 08 08 la 3 PH bl AR e MA CY OF CY NT HI AN A ME 49 02 03 00 60 15 EA 96 No Ac CL 88 -1 -[address] 75 t ti IZ 40 1- 6- 00 SI 92 Av ve IN 03 20 20 DE ai E 50 08 08 la 25 1 PH bl AR e MG MA CY TA BL OF ET CY NT HI AN A DE 00 11 02 99 30 30 EA 96 No Ac TR 00 -2 -[address] 50 t ti OL 95 5- 5- 00 SI 18 Av ve 19 20 20 DE ai LA 10 08 08 la 4 1 PH bl AR e MG MA CY CA PS OF UL CY E NT HI AN A CL 00 01 90 30 EA 96 No Ac ON -[address] 36 t ti AZ 30 5- 5- 00 SI 42 Av ve EP 83 20 20 DE ai AM 20 08 08 la 1 PH bl 0. AR e 5 MA MG CY TA OF BL CY ET NT HI AN A GL 00 01 03 30 30 EA 96 No Ac IM 09 - -[address] 36 t ti EP 37 5- 5- 00 SI 41 Av ve IR 25 20 20 DE ai ID 50 08 08 la E 1 PH bl 2 AR e MG MA CY TA BL OF ET CY NT HI AN A 00 01 03 00 30 30 EA 96 No Ac 02 -1 -[address] 40 t ti 93 8- 5- 00 SI 52 Av ve 20 20 20 DE ai 81 08 08 la 3 PH bl AR e MA CY OF CY NT HI AN A LO 60 11 03 02 30 30 EA 95 No Ac RA 50 -0 -[address] 42 t ti TA 50 5- 4- 00 SI 26 Av ve DI 14 20 20 DE ai NE 70 07 08 la 1 PH bl 10 AR e MA MG CY TA OF BL CY ET NT HI AN A 00 01 03 00 20 4 EA 96 No Ac 59 -0 -[address] 21 t ti 10 4- 4- 00 SI 86 Av ve 34 20 20 DE ai 90 08 08 la 1 PH bl AR e MA CY OF CY NT HI AN A HY 00 01 03 00 30 30 EA 96 No Ac ZA 00 -0 -[address] 24 t ti AR 60 7- 4- 00 SI 13 Av ve 74 20 20 DE ai 10 73 08 08 la 0- 1 PH bl 25 AR e MA TA CY BL ET OF CY NT HI AN A Immunization Name Date Rout CVX Reac Dose Comm Prov Is Faci e tion ent ider Refu lity Give sed n PPSV 12-0 33 [facility] No [facility] 23 9-20 O O VACC 14 DIST DIST INE RICT RICT 2 YRS [facility] OR [facility]DE DEPT DEPT R JOSÉ JOSÉ FOR SUBQ /IM USE IIV3 07-31 141 INGRID No A C 6-20 S WRIG VACC 14 CHE HT INE MD SPLI PSC T VIRU S 0.5 ML DOSA GE IM USE IIV3 07-31 141 LISA No LISA 0-20 REGINA REGINA VACC 13 CO CO INE HEAL HEAL SPLI TH TH T CENT CENT VIRU ER ER S 0.5 ML DOSA GE IM USE IIV3 10 141 LISA No LISA 9-20 REGINA REGINA VACC 12 CO CO INE HEAL HEAL SPLI TH TH T CENT CENT VIRU ER ER S 0.5 ML DOSA GE IM USE IIV3 10-0 141 LISA No LISA 4-20 REGINA REGINA VACC 10 CO CO INE HEAL HEAL SPLI TH TH T CENT CENT VIRU ER ER S 0.5 ML DOSA GE IM USE IIV3 09-3 141 LISA No DHS/ 0-20 REGINA CO VACC 09 CO HEAL INE HEAL TH SPLI TH CENT T CENT RAL VIRU ER BANK S 0.5 ACCT ML DOSA GE IM USE IIV3 10- 141 LISA No DHS/ 0-20 REGINA CO VACC 08 CO HEAL INE HEAL TH SPLI TH CENT T CENT RAL VIRU ER BANK S 0.5 ACCT ML DOSA GE IM USE Results Labs Lab Lab Date Result Refere Interp Status Commen Order Detail nces retati t Range on Glucose capillary blood glucometer (09-16-2017 08:45) Glucose = 100 70-110 complet 017 mg/dl ed capilla 08:[address] Opiates and Oxycodone(GC/MS),U (08-29-2017 08:29) Opiates 10-30-2 Positiv . complet 017 e ed 08:29 Comment: Opiate test includes Codeine, Morphine, Hydromorphone, Hydrocodone. Hydroco 10-30-2 Positiv . complet done 017 e ed 08:29 Hydromo 10-30-2 136 Cutoff= complet rphone 017 ng/mL 100 ed GC/MS, 08:29 Urine Hydromo 10-30-2 Positiv . complet rphone 017 e ed 08:29 Morphin 10-30-2 Negativ Cutoff= complet e 017 e 100 ed 08:29 Codeine 10-30-2 Negativ Cutoff= complet 017 e 100 ed 08:29 Oxycodo 10-30-2 Negativ Cutoff= complet ne/Oxym 017 e 100 ed orph 08:29 Comment: Test includes Oxycodone and Oxymorphone Comment: Performed at: [facility] Comment: [address], [facility], [place] [id number] Comment: Application Consultant: Lynette Gallego MD, Phone: [phone] Hydroco 10-30-2 690 Cutoff= complet done 017 ng/mL 100 ed GC/MS, 08:29 Urine Urine 9-analyte drugs of abuse screening (08-29-2017 08:29) Comment: Positive urine drug screen samples are stored for 7 days. Comment: Contact the Lab if confirmation of positives is needed. Opiates 10-30-2 = <300 complet 017 POSITIV ed measure 08:29 E ng/mL ment (mass/v olume) Comment: This is an UNCONFIRMED result. This result is for medical Comment: purposes and/or treatment only. Methado 10-30-2 = <300 complet ne 017 NEGATIV ed measure 08:29 E ng/mL ment (mass/v olume) Cocaine 10-30-2 = <300 complet 017 NEGATIV ed measure 08:29 E ng/g ment (mass/v olume) Serum 08-29- = 200 complet or 017 POSITIV ng/mL ed plasma 08:29 E ng/mL benzodi azepine s measure m Comment: This is an UNCONFIRMED result. This result is for medical Comment: purposes and/or treatment only. Urine = <200 complet barbitu 017 NEGATIV ed rates 08:29 E ng/mL measure ment by screen Urine NEGATIV <1000 complet ampheta 017 E ed mine 08:29 NEGATIV screeni E L ng test ng/mL Phencyc = <25 complet lidine 017 NEGATIV ed measure 08:29 E ng/mL ment (mass/v olume) 11-hydr NEGATIV <50 complet oxy 017 E ed delta-9 08:29 NEGATIV E L tetrahy ng/mL drocann abinol Drugs identified in Urine by Screen method (08-29-2017 08:29) Ampheta 08-29-2 NEGATIV <1000 complet mine 017 E ed [Presen 08:29 ce] in Urine by Screen method 11-Hydr NEGATIV <50 complet oxy 017 E ed delta-9 08:29 tetrahy drocann abinol [Presen ce] in Unspeci fied specime n Urinalysis macro (dipstick) panel in Urine (06-11-2017 16:08) Appeara CLEAR CLEAR complet nce of 017 ed Urine 16:08 Bilirub NEGATIV NEG complet in 017 E ed [Presen 16:08 ce] in Urine by Test strip Erythro SMALL NEG complet cytes 017 ed [Presen 16:08 ce] in Urine Color YELLOW YELLOW complet of 017 ed Urine 16:08 Ketones NEGATIV NEG complet 017 E ed [Presen 16:08 ce] in Urine by Automat ed test strip Leukocy TRACE NEG Abnorma complet te 017 l ed esteras 16:08 e [Presen ce] in Urine by Automat ed test strip Nitrite NEGATIV NEG complet 017 E ed [Presen 16:08 ce] in Urine by Test strip Urobili 0.2 NEG complet nogen 017 ed [Presen 16:08 ce] in Urine by Test strip Drugs identified in Urine by Screen method (04-19-2017 08:36) Ampheta NEGATIV <1000 complet mine 017 E ed [Presen 08:36 ce] in Urine by Screen method 11-Hydr NEGATIV <50 complet oxy 017 E ed delta-9 08:36 tetrahy drocann abinol [Presen ce] in Unspeci fied specime n Procedures Procedure DOS Code Location Performer Comment ECG 39724 SHIVANI CA JR ROUTINE 7 [facility] W/LEAST P 12 LDS I&R ONLY RADIOLOGI 75713 [facility] EXAM 7 MEDICAL CHEST 2 IMAGING VIEWS ASS FRONTAL&L ATERAL DRUG 22097 SHIVANI PARRSIH SCREENING 7 [facility] OPIOIDS INC INC & OPIATE ANALOGS 5/MORE DRUG TEST 59725 SHIVANI PARRISH PRSMV 7 [facility] QUAL DIR INC INC OPTICAL OBS PER DAY NJX 08159 COLLEEN DUFF DX/THER 7 MD KEYANNA, SBST PSC INTRLMNR CRV/THRC W/IMG GDN NJX 53749 SHIVANI PARRISH DX/THER 7 [facility] SBST INC INC INTRLMNR CRV/THRC W/O IMG GDN NJX 43187 SHIVANI PARRISH DX/THER 7 [facility] SBST INC INC INTRLMNR LMBR/SAC W/O IMG GDN NJX 09676 COLLEEN DUFF DX/THER 7 MD KEYANNA, SBST PSC INTRLMNR [place]BR/S[place] [address] SHIVANI PARRISH JOINT 7 [facility] ARTHRGRPH INC INC Y&/ANES/S TEROID W/AMANDA 3D 61430 SHIVANI PARRISH RENDERING 7 [facility] W/INTERP INC INC & POSTPROCE SS SUPERVISI ON MRI 74427 SHIVANI PARRISH SPINAL 7 [facility] CANAL INC INC LUMBAR W/O CONTRAST MATERIAL DRUG TEST 97264 SHIVANI PARRISH PRSMV 7 [facility] QUAL DIR INC INC OPTICAL OBS PER DAY BLD GLU A4253 ANNA MARIE ANNA MARIE TEST/REAG 6 HOME HOME T STRIPS MEDICAL MEDICAL HOME BLD EQUIPME EQUIPME GLU MON-50 LANCETS A4259 ANNA MARIE ANNA MARIE PER BOX 6 HOME HOME OF 100 MEDICAL MEDICAL EQUIPME EQUIPME ECHO 79688 SHIVANI PARRISH TTHRC R-T 6 [facility] 2D INC INC W/WOM-MOD E COMPL SPEC&COLR D DRUG 85784 SHIVANI SHIVANI SCREEN 6 [facility] LIST A INC INC SINGLE DRUG CLASS METHOD TOBACCO 94809 SCIFRES SCIFRES USE 6 ANG ANG CESSATION INTERMEDI ATE 3-10 MINUTES DRUG 68788 SHIVANI PARRISH SCREEN 6 [facility] LIST A INC INC SINGLE DRUG CLASS METHOD NJX 69114 SHIVANI PARRISH DX/THER 6 [facility] SBST INC INC EPIDURAL/ SUBRACH CERV/[place] NJX 10493 SHIVANI PARRISH DX/THER 6 [facility] SBST INC INC EPIDURAL/ [place] CERV/[place] NJX 32427 COLLEEN RAIN ULYSSES DX/THER 6 MD KEYANNA, SBST PSC EPIDURAL/ SUBRACH CERV/THOR ACIC DILAT 2022F A Stanley BOLTON RETINAL 6 LAN ROBBINS EYE EXAM PSC W/INTERP OPHTHAL/O PTOM BMI DOC G8420 A Stanley BOLTON W/I 6 LAN ROBBINS NORMAL PSC RENEE & NO F/U PLAN REQUIRED FOOT G9226 A Stanley BOLTON EXAMINATI 6 LAN ROBBINS ON PSC PERFORMED NEGATIVE 3061F A Stanley BOLTON MICROALBU 6 LAN ROBBINS MINURIA PSC TEST RESULT DOC&REV PT FALLS 1101F A Stanley BOLTON ASSESS 6 LAN ROBBINS DOCD W/O PSC FALL/INJU RY PAST YEAR GLUCOSE 92800 A Stanley BOLTON QUANTITAT 6 LAN ROBBINS SANDY BLOOD PSC XCPT REAGENT STRIP HEMOGLOBI 78464 A Stanley SAAVEDRA CHE N 6 LAN ROBBINS GLYCOSYLA PSC KYMBERLY A1C ALBUMIN 81697 A Stanley BOLTON URINE 6 LAN ROBBINS MICROALBU PSC MIN SEMIQUANT ITATIVE MOST 3046F A Stanley BOLTON RECENT 6 LAN ROBBINS HEMOGLOBI PSC N A1C LEVEL >9.0% ELIG CLIN G8427 A Stanley BOLOTN ATTSTS 6 LAN ROBBINS DOC M REC PSC OBTD UPD/REV PT MEDS SCREENING G8510 A Stanley SAAVEDRA CHE 6 LAN ROBBINS DEPRESSIO PSC N DOC NEG A F/U PLAN NOT RQR NORMAL G8783 A Stanley BOLTON BLOOD 6 LAN ROBBINS PRESS PSC READING DOC F/U NOT REQUIRED HOME E0607 ANNA MARIE THRASHER BLOOD 6 HOME HOME GLUCOSE MEDICAL MEDICAL MONITOR EQUIPME EQUIPME THERAPEUT 02398 SHIVANI PARRISH IC PX 1/> 5 [facility] AREAS INC INC EACH 15 MIN EXERCISES APPL 30353 SHIVANI TRIPLETT MODALITY 5 [facility] DAVID 1/> AREAS INC 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 E-STIM G0283 SHIVANI TERRAZAS 1/> AREAS 5 [facility] RAJ OTH THAN INC WND CARE PART TX PLAN E-STIM G0283 SHIVANI TERRAZAS 1/> AREAS 5 [facility] RAJ OTH THAN INC WND CARE PART TX PLAN APPL 95928 SHIVANI PARRISH MODALITY 5 [facility] 1/> AREAS INC INC 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 THERAPEUT 39326 SHIVANI PARRISH IC PX 1/> 5 [facility] AREAS INC INC EACH 15 MIN EXERCISES THERAPEUT 77038 SHIVANI PARRISH IC PX 1/> 5 [facility] AREAS INC INC EACH 15 MIN EXERCISES APPL 39392 SHIVANI PARRISH MODALITY 5 [facility] 1/> AREAS INC INC 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 APPL 51216 SHIVANI PARRISH MODALITY 5 [facility] 1/> AREAS INC INC ULTRASOUN D EA 15 MIN E-STIM G0283 SHIVANI PARRISH 1/> AREAS 5 [facility] OTH THAN INC INC WND CARE PART TX PLAN APPL 89692 SHIVANI PARRISH [facility]/> AREAS INC INC ULTRASOUN D EA 15 MIN E-STIM G0283 SHIVANI PARRISH 1/> [facility] OTH THAN INC INC WND CARE PART TX PLAN APPL 63563 SHIVANI PARRISH MODALITY 5 [facility] AREAS INC INC 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 APPL 71521 SHIVANI PARRISH [facility]ALITY 5 [facility] AREAS INC INC 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 THERAPEUT 35659 SHIVANI PARRISH IC PX 1/> 5 [facility] AREAS INC INC EACH 15 MIN EXERCISES E-STIM G0283 SH[facility] P[facility]ISH 1/> [facility]AS [facility] OTH THAN INC INC WND CARE PART TX PLAN THERAPEUT 57622 SHIVANI PARRISH IC PX 1/> 5 [facility] AREAS INC INC EACH 15 MIN EXERCISES APPL 75011 SHIVANI PARRISH MODALITY 5 [facility]/> AREAS INC INC 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 E-STIM G0283 SH[facility] PARRISH 1/> AREAS 5 [facility] OTH THAN INC INC WND CARE PART TX PLAN E-STIM G0283 SHIVANI PARRISH 1/> AREAS 5 [facility] OTH THAN INC INC WND CARE PART TX PLAN APPL 31144 SHIVANI PARRISH MODALITY 5 [facility]/> AREAS INC INC 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 THERAPEUT 38160 SHIVANI PARRISH IC PX 1/> 5 [facility] AREAS INC INC EACH 15 MIN EXERCISES APPL 73215 SHIVANI PARRISH MODALITY 5 [facility]/> AREAS INC INC ULTRASOUN D EA 15 MIN APPL 04882 SHIVANI PARRISH MODALITY 5 [facility]/> AREAS INC INC ULTRASOUN D EA 15 MIN THERAPEUT 25437 SHIVANI PARRISH IC PX 1/> 5 [facility] AREAS INC INC EACH 15 MIN EXERCISES APPL 58431 SHIVANI PARRISH MODALITY 5 [facility] 1/> AREAS INC INC 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 E-STIM G0283 SHIVANI PARRISH 1/> AREAS 5 [facility] OTH THAN INC INC WND CARE PART TX PLAN THERAPEUT 19398 SHIVANI PARRISH IC PX 1/> 5 [facility] AREAS INC INC EACH 15 MIN EXERCISES PHYSICAL 23606 SHIVANI PARRISH THERAPY 5 [facility] EVALUATIO INC INC N RADIOLOGI 37574 [place] GRANT ALL C 5 MEDICAL EXAMINATI IMAGING ON KNEE 3 ASS VIEWS ELECTRICA A4595 EMPI INC EMPI INC L 5 STIMULATO R SUPPLIES 2 LEAD PER MONTH ELECTRICA A4595 EMPI INC EMPI INC L 5 STIMULATO R SUPPLIES 2 LEAD PER MONTH 3D 53875 [place] BR[place] RENDERING 5 [facility] W/INTERP IMAGING & ASS POSTPROCE SS SUPERVISI [place] MRI 80690 [place] SPINAL 5 [facility] CANAL IMAGING CERVICAL ASS W/O CONTRAST MATRL RADIOLOGI 09887 SHIVANI PARRISH C 5 [facility] EXAMINATI INC INC ON KNEE 3 VIEWS ELECTRICA A4595 EMPI INC EMPI INC L 5 STIMULATO R SUPPLIES 2 LEAD PER MONTH OPHTH 51501 [facility] 5 XM&EVAL COMPRHNSV ESTAB PT 1/> ELECTRICA A4595 EMPI INC EMPI INC L 5 STIMULATO R SUPPLIES 2 LEAD PER MONTH RADIOLOGI 56625 [place] BRITTNEY C EXAM 5 [facility] KNEE IMAGING COMPLETE ASS 4/MORE VIEWS NONEMERG A0120 FEDERATED FEDERATED TRNSPRT: 5 [facility] TRANSPORT TRANSPORT MTN ATION SER ATION SER AREA/OTH SYS URINLS 77714 A C KERI CHE DIP 5 LAN ROBBINS STICK/TAB PSC LET REAGNT NON-AUTO MICRSCPY NONEMERG A0120 FEDERATED FEDERATED TRNSPRT: 5 [facility] TRANSPORT TRANSPORT MTN ATION SER [facility] SER AREA/OTH SYS NONEMERG A0120 FEDERATED FEDERATED TRNSPRT: 5 [facility] TRANSPORT TRANSPORT MTN ATION SER [facility] SER AREA/OTH SYS NONEMERGE A0100 FEDERATED FEDERATED NCY 5 TRANSPORT TRANSPORT TRANSPORT ATION; ATION SER ATION SER TAXI ELECTRICA A4595 EMPI INC EMPI INC L 5 STIMULATO R SUPPLIES 2 LEAD PER MONTH RADIOLOGI 46680 SHIVANI SHIVANI C EXAM 5 [facility] CHEST 2 INC INC VIEWS FRONTAL&L ATERAL ELECTRICA A4595 EMPI INC EMPI INC L 5 STIMULATO R SUPPLIES 2 LEAD PER MONTH HEMOGLOBI 74021 A Stanley BOLTON N 5 LAN ROBBINS GLYCOSYLA PSC KYMBERLY A1C BASIC 40812 [facility] METABOLIC 5 DIAGNOSTI DIAGNOSTI PANEL CS CS CALCIUM TOTAL ELECTRICA A4595 EMPI INC EMPI INC L 4 STIMULATO R SUPPLIES 2 LEAD PER MONTH PPSV23 61488 [facility] VACCINE 2 [facility] YRS OR HLTH DEPT HLTH DEPT OLDER FOR [facility] JOSÉ SUBQ/IM USE NONEMERG A0120 FEDERATED FEDERATED TRNSPRT: 4 TRANS [facility] TRANSPORT SERVBLUEG MTN [facility] SER [facility] AREA/OTH SYS IIV3 26702 A Stanley BOLTON VACCINE 4 LAN ROBBINS SPLIT PSC VIRUS 0.5 ML DOSAGE IM USE IM ADM 34842 A Stanley BOLTON PRQ ID 4 LAN ROBBINS SUBQ/IM PSC NJXS 1 VACCINE URINLS 05289 A Stanley BOLTON DIP 4 LAN ROBBINS STICK/TAB PSC LET REAGNT NON-AUTO MICRSCPY NONEMERG A0120 FEDERATED FEDERATED TRNSPRT: 4 TRANS [facility]-BUS TRANSPORT SERVBLUEG MTN [facility] AREA/OTH SYS MYOCARDIA 07897 BRITTNEY BRITTNEY L SPECT 4 ALVARAD[facility] ALVARADO MULTIPLE STUDIES CV STRS 95607 SHIVANI PARRISH TST 4 [facility] XERS&/OR INC INC RX CONT ECG TRCG ONLY INJECTION J2785 SHIVANI PARRISH 4 [facility] REGADENOS INC INC ON 0.1 MG ECHO 71174 SHIVANI PARRISH TTHRC R-T 4 [facility] 2D INC INC W/WOM-MOD E COMPL SPEC&COLR D CV STRS 62820 LANNY CA JR TST 4 DWI DWI XERS&/OR RX CONT ECG I&R ONLY ELECTRICA A4595 EMPI INC EMPI INC L 4 STIMULATO R SUPPLIES 2 LEAD PER MONTH THERAPEUT 13592 KERI CELAYA CHE IC 4 PROPHYLAC TIC/DX INJECTION SUBQ/IM INJECTION J1885 KERI CELAYA CHE 4 KETOROLAC TROMETHAM INE PER 15 MG BASIC 85208 [facility] METABOLIC 4 DIAGNOSTI DIAGNOSTI PANEL CS CS CALCIUM TOTAL HEMOGLOBI 00472 KERI CELAYA CHE N 4 GLYCOSYLA KYMBERLY A1C GLUCOSE 48875 KERI CELAYA CHE QUANTITAT 4 SANDY BLOOD XCPT REAGENT STRIP TRANSFERA 84652 KERI CELAYA CHE SE 4 ALANINE AMINO ALT SGPT TRANSFERA 20158 KERI CELAYA CHE SE 4 ASPARTATE AMINO AST SGOT ELECTRICA A4595 EMPI INC EMPI INC L 4 STIMULATO R SUPPLIES 2 LEAD PER MONTH NONEMERG A0120 FEDERATED FEDERATED TRNSPRT: 4 TRANS MINI-BUS TRANSPORT SERVBLUEG MTN ATION SER JASMIN AREA/OTH SYS ELECTRICA A4595 EMPI INC EMPI INC L 4 STIMULATO R SUPPLIES 2 LEAD PER MONTH THERAPEUT 99883 KERI CHE KERI CHE IC 4 PROPHYLAC TIC/DX INJECTION SUBQ/IM INJECTION J1885 KERI CHE KERI CHE 4 KETOROLAC TROMETHAM INE PER 15 MG ELECTRICA A4595 EMPI INC EMPI INC L 4 STIMULATO R SUPPLIES 2 LEAD PER MONTH GLUCOSE 92253 KERI CELAYA CHE QUANTITAT 4 SANDY BLOOD XCPT REAGENT STRIP ELECTRICA A4595 EMPI INC EMPI INC L 4 STIMULATO R SUPPLIES 2 LEAD PER MONTH HEMOGLOBI 69055 KERI CELAYA CHE N 4 GLYCOSYLA KYMBERLY A1C ELECTRICA A4595 EMPI INC EMPI INC L 3 STIMULATO R SUPPLIES 2 LEAD PER MONTH POTASSIUM 25021 LAB DIMAS LAB DIMAS SERUM 3 OF RONNA PLASMA/WH RONNA HOLDINGS OLE BLOOD HOLDINGS ELECTRICA A4595 EMPI INC EMPI INC L 3 STIMULATO R SUPPLIES 2 LEAD PER MONTH BASIC 07818 [facility] METABOLIC 3 DIAGNOSTI DIAGNOSTI PANEL CS CS CALCIUM TOTAL ELECTRICA A4595 EMPI INC EMPI INC L 3 STIMULATO R SUPPLIES 2 LEAD PER MONTH URNLS DIP 80873 TIFFANY ALLEN 3 CORRINA CORRINA STICK/TAB LET RGNT NON-AUTO W/O MICRSCP CYTP C/V 87615 PICKLESIM PICKLESIM AUTO THIN 3 ER JR PANDA ER JR PANDA LYR PREPJ SCR MNL RESCR PHYS IIV3 28830 SHIVANI PARRISH VACCINE [address] [facility] VIRUS 0.5 ML DOSAGE IM USE ELECTRICA A4595 EMPI INC EMPI INC L 3 STIMULATO R SUPPLIES 2 LEAD PER MONTH TRANSFERA 50588 A Stanley BOLTON SE 3 LAN ROBBINS [place] [address] A Stanley BOLTON TRIGLYCER 3 LAN ROBBINS IDES PSC TRANSFERA 40888 A Stanley BOLTON SE 3 LAN ROBBINS ASPARTATE PSC AMINO AST SGOT COLLECTIO 74026 A Stanley BOLTON N VENOUS 3 LAN ROBBINS BLOOD PSC VENIPUNCT URE LIPOPROTE 62154 A Stanley BOLTON IN DIR 3 LAN ROBBINS EMMANUEL HIGH PSC DENSITY CHOLESTER OL BASIC 91116 A Stanley BOLTON METABOLIC 3 LAN ROBBINS PANEL PSC CALCIUM TOTAL GLUCOSE 85237 A Stanley BOLTON QUANTITAT 3 LAN ROBBINS SANDY BLOOD PSC XCPT REAGENT STRIP CHOLESTER 51871 A Stanley BOLTON OL 3 LAN ROBBINS SERUM/WHO PSC LE BLOOD TOTAL ELECTRICA A4595 EMPI INC EMPI INC L 3 STIMULATO R SUPPLIES 2 LEAD PER MONTH HEMOGLOBI 33653 Buster BOLTON N 3 LAN ROBBINS GLYCOSYLA PSC KYMBERLY A1C ALBUMIN 65086 Buster BOLTON URINE 3 LAN ROBBINS MICROALBU PSC MIN SEMIQUANT ITATIVE PHYSICAL 48472 SHIVANI PARRISH THERAPY 3 [facility] EVALUATIO INC INC N POSTERIOR V2632 SHIVANI AVALOSON CHAMBER 3 [facility] INTRAOCUL INC INC AR LENS GLUC BLD 58273 SHIVANI PARRISH GLUC MNTR 3 [facility] DEV INC INC CLEARED FDA SPEC HOME USE CATARACT 61086 SHIVANI PARRISH REMOVAL 3 [facility] INSERTION INC INC OF LENS CATARACT 42909 SHIVANI PARRISH REMOVAL 3 [facility] INSERTION INC INC OF LENS GLUC BLD 12211 SHIVANI PARRISH GLUC MNTR 3 [facility] DEV INC INC CLEARED FDA SPEC HOME USE OPH BMTRY 96305 [facility] 3 ULYSSES ULYSSES ECHOGRAPY A-SCAN IO LENS PWR JUAN POSTERIOR V2632 SHIVANI PARRISH CHAMBER 3 [facility] INTRAOCUL INC INC AR LENS ELECTRICA A4595 EMPI INC EMPI INC L 3 STIMULATO R SUPPLIES 2 LEAD PER MONTH OPHTH 53289 [facility] 3 ULYSSES ULYSSES XM&EVAL COMPRHNSV ESTAB PT 1/> OPH BMTRY 22690 [facility] 3 ULYSSES ULYSSES ECHOGRAPY A-SCAN IO LENS PWR JUAN ELECTRICA A4595 EMPI INC EMPI INC L 3 STIMULATO R SUPPLIES 2 LEAD PER MONTH URINLS 97586 Buster SANDERS DIP 3 LAN ROBBINS JEA STICK/TAB PSC LET REAGNT NON-AUTO MICRSCPY HEMOGLOBI 07301 SHIVANI PARRISH N 3 [facility] GLYCOSYLA INC INC KYMBERLY A1C NONEMERG A0120 LKLP LKLP TRNSPRT: 3 [facility] MINI-BUS ACTION ACTION [facility] AREA/OTH SYS CYANOCOBA 88319 SHIVANI PARRISH MICHELLE 3 [facility] VITAMIN INC INC B-12 COMPUTER- 51344 BRITTNEY BRITTNEY AIDED 3 ALVARADO ALVARADO DETECTION SCREENING MAMMOGRAP HY NONEMERG A0120 [facility] TRNSPRT: 3 [facility] MINI-BUS ACTION ACTION [facility]/OT SYS SCREENING G0202 BRITTNEY BRITTNEY 3 ALVARADO ALVARADO MAMMOGRAP HY RONALD INCL CAD WHEN PERFORMD INJ J0702 KERI CHE KERI CHE BETAMETHA 3 SONE ACETATE & PHOSPHATE 3 MG THERAPEUT 68840 KERI CHE KERI CHE IC 3 PROPHYLAC TIC/DX INJECTION SUBQ/IM DUP-SCAN 93709 SHIVANI PARRISH XTR VEINS 3 [facility] INC INC UNILATERA L/LIMITED STUDY TRANSFERA 71399 KILPELA KILPELA SE 3 JEA JEA ALANINE AMINO ALT SGPT LIPID 09266 KILPELA KILPELA PANEL 3 JEA JEA TRANSFERA 37188 KILPELA KILPELA SE 3 JEA JEA ASPARTATE AMINO AST SGOT BASIC 27011 LAB DIMAS LAB DIMAS METABOLIC 3 RONNA RONNA PANEL [employer]INGS CALCIUM TOTAL HEMOGLOBI 43150 KILPELA KILPELA N 3 JEA YAZMIN GLYCOSYLA KYMBERLY A1C GLUCOSE 16075 KILPELA KILPELA QUANTITAT 3 JEA JEA SANDY BLOOD XCPT REAGENT STRIP URINLS 27069 KILPELA KILPELA DIP 3 JEA JEA STICK/TAB LET REAGNT NON-AUTO MICRSCPY NONEMERG A0120 [facility] TRNSPRT: 2 [facility] MINI-BUS ACTION ACTION [facility] AREA/OTH SYS OPH BMTRY 44775 [facility] 2 ULYSSES ULYSSES ECHOGRAPY A-SCAN IO LENS PWR JUAN OPHTH 29261 [facility] 2 ULYSSES ULYSSES XM&EVAL COMPRE NEW PT 1/> VST COMPREHEN 64587 SHIVANI PARRISH SIVE 2 [facility] METABOLIC INC INC PANEL BLOOD 56535 SHIVANI PARRISH COUNT 2 [facility] COMPLETE INC INC AUTO&[place] [address] SHIVANI PARRISH INFUSION 2 [facility] THERAPY/P INC INC ROPHYLAXI S /DX 1ST TO 1 HR THERAPEUT 82617 SHIVANI PARRISH IC 2 [facility] INJECTION INC INC IV PUSH EACH NEW DRUG URINLS 92189 KILPELA KILPELA DIP 2 JEA JEA STICK/TAB LET REAGNT NON-AUTO MICRSCPY OPHTH 19139 [facility] SCIFRES MEDICAL 2 ANG ANG XM&EVAL COMPRHNSV ESTAB PT 1/> DETERMINA 52450 SCIFRES SCIFRES TION 2 ANG ANG REFRACTIV E STATE INDIV 25397 [facility] PSYCTX 2 REG REG MEN OFFICE/OU MH/MR [facility] INC TPATIENT BOARD 20-30 MIN 3D 79139 SHIVANI PARRISH RENDERING 2 [facility] W/INTERP INC INC & POSTPROCE SS SUPERVISI ON MRI 93298 SHIVANI PARRISH SPINAL 2 [facility] CANAL INC INC THORACIC W/O CONTRAST MATRL APPL 71309 SHIVANI PARRISH MODALITY 2 [facility] 1/> AREAS INC INC ELEC STIMJ EA 15 MIN MRI 61237 SHIVANI PARRISH SPINAL 2 [facility] CANAL INC INC CERVICAL W/O CONTRAST MATRL NONEMERG A0120 LKLP LKLP TRNSPRT: 2 [facility] ACTION ACTION MTN AREA/OTH SYS URINLS 66327 KERI CHE KERI CHE DIP 2 STICK/TAB LET REAGNT NON-AUTO MICRSCPY IIV3 86835 SHIVANI PARRISH VACCINE 2 [facility] VIRUS 0.5 ML DOSAGE IM USE ECG 99716 SHIVANI GONZALEZ ROUTINE 2 [facility] ER W/LEAST P 12 LDS I&R ONLY CREATINE 41205 SHIVANI PARRISH KINASE MB 2 [facility] FRACTION INC INC ONLY 3D 69800 SHIVANI PARRISH RENDERING 2 [facility] W/INTERP INC INC & POSTPROCE SS SUPERVISI ON ECG 50366 SHIVANI PARRISH ROUTINE 2 [facility] ECG INC INC W/LEAST 12 LDS TRCG ONLY W/O I&R COMPREHEN 65174 SHIVANI PARRISH SIVE 2 [facility] METABOLIC INC INC PANEL CREATINE 36383 SHIVANI PARRISH KINASE 2 [place] [address] SHIVANI PARRISH HEAD/BRAI 2 [facility] N W/[place] [address] MARCOS LUGO MAXILLOFA 2 MEDICAL [facility] CIAL W/[place] [address] SHIVANIKARAN PARRISH INFUSION 2 [facility] THERAPY/P INC INC ROPHYLAXI S /DX 1ST TO 1 HR THERAPEUT 67214 SHIVANI PARRISH IC 2 [facility] INJECTION INC INC IV PUSH EACH NEW DRUG BLOOD 49611 SHIVANIKARAN AVALOSON COUNT 2 [facility] COMPLETE INC INC AUTO&[place] [address] SHIVANI PARRISH TROPONIN 2 [facility] QUANTITAT INC INC SANDY N-INVAS 26120 SHIVANI PARRISH PHYSIOLOG 2 [facility] IC STD INC INC LXTR ART COMPL BI MYOCARDIA 85264 SHIVANI PARRISH L SPECT 2 [facility] MULTIPLE INC INC STUDIES CV STRS 71210 [facility] TST 2 PHYSICIAN PHYSICIAN XERS&/OR S GROUP S GROUP RX CONT ECG W/O I&R CV STRS 51211 SHIVANI PARRISH TST 2 [facility] XERS&/OR INC INC RX CONT ECG TRCG ONLY CV STRS 02200 SHIVANI GONZALEZ TST 2 [facility] XERS&/OR HOSPITAL RX CONT P ECG I&R ONLY NON-INVAS 27474 MARCOS LUGO 2 MEDICAL [facility] PHYSIOLOG IMAGING IC STD ASS EXTREMITY ART 2 LEVEL ECHO 29358 SHIVANI PARRISH TTHRC R-T 2 [facility] 2D INC INC W/WOM-MOD E COMPL SPEC&COLR D TECHNETIU A9500 SHIVANI Nath TC-99M 2 [facility] SESTAMIBI INC INC DX PER STUDY DOSE NONEMERG A0120 LKLP LKLP TRNSPRT: 2 [facility] MINI-BUS ACTION ACTION MTN AREA/OTH SYS NONEMERG A0120 LKLP LKLP TRNSPRT: 2 [facility] MINI-BUS ACTION ACTION MTN AREA/OTH SYS INDIV 67469 [facility] PSYCTX 2 REG REG MEN OFFICE/OU MH/MR [facility] INC TPATIENT BOARD 20-30 MIN APPL 65075 SHIVANI PARRISH MODALITY 2 [facility] 1/> AREAS INC INC ELEC STIMJ UNATTENDE D APPLICATI 39741 SHIVANI PARRISH ON 2 [facility] MODALITY INC INC 1/> AREAS HOT/COLD PACKS APPLICATI 59113 SHIVANI PARRISH ON 2 [facility] MODALITY INC INC 1/> AREAS HOT/COLD PACKS APPL 16739 SHIVANI PARRISH MODALITY 2 [facility] 1/> AREAS INC INC TRACTION MECHANICA L THERAPEUT 40571 SHIVANI PARRISH IC PX 1/> 2 [facility] AREAS INC INC EACH 15 MIN EXERCISES THERAPEUT 89180 SHIVANI PARRISH IC PX 1/> 2 [facility] AREAS INC INC EACH 15 MIN EXERCISES APPL 87682 SHIVANI PARRISH MODALITY 2 [facility] 1/> AREAS INC INC ELEC STIMJ UNATTENDE D APPLICATI 06532 SHIVANI PARRISH ON 2 [facility] MODALITY INC INC 1/> AREAS HOT/COLD PACKS APPLICATI 42499 SHIVANI PARRISH ON 2 [facility] MODALITY INC INC 1/> AREAS HOT/COLD PACKS NONEMERG A0120 LKLP LKLP TRNSPRT: 2 [facility] MINI-BUS ACTION ACTION MTN AREA/OTH SYS APPL 37094 SHIVANI PARRISH MODALITY 2 [facility] 1/> AREAS INC INC ELEC STIMJ UNATTENDE D APPL 68163 SHIVANI SHIVANI MODALITY 2 [facility] 1/> AREAS INC INC TRACTION MECHANICA L APPL 60470 SHIVANI SHIVANI MODALITY 2 [facility] 1/> AREAS INC INC TRACTION MECHANICA L APPL 96483 SHIVANI SHIVANI MODALITY 2 [facility] 1/> AREAS INC INC ELEC STIMJ UNATTENDE D THERAPEUT 28263 SHIVANI SHIVANI IC PX 1/> 2 [facility] AREAS INC INC EACH 15 MIN EXERCISES APPLICATI 67760 SHIVANI PARRISH ON 2 [facility] MODALITY INC INC 1/> AREAS HOT/COLD PACKS APPLICATI 33306 SHIVANI PARRISH ON 2 [facility] MODALITY INC INC 1/> AREAS HOT/COLD PACKS APPL 23640 SHIVANI SHIVANI MODALITY 2 [facility] 1/> AREAS INC INC ELEC STIMJ UNATTENDE D APPL 08403 SHIVANI SHIVANI MODALITY 2 [facility] 1/> AREAS INC INC TRACTION MECHANICA L PHYSICAL 82183 SHIVANI SHIVANI THERAPY 2 [facility] EVALUATIO INC INC N NONEMERG A0120 LKLP LKLP TRNSPRT: 2 [facility] MINI-BUS ACTION ACTION MTN AREA/OTH SYS RHYTHM 74759 SHIVANI PARRISH ECG 1-3 2 [facility] LEADS INC INC TRACING ONLY W/O I&[place] [address] SHIVANI PARRISH TROPONIN 2 [facility] QUANTITAT INC INC SANDY BLOOD 96946 SHIVANI PARRISH COUNT 2 [facility] COMPLETE INC INC AUTO&AUTO DIFRNTL WBC RADIOLOGI 36879 SHIVANI PARRISH C 2 [facility] EXAMINATI INC INC ON CHEST SINGLE VIEW FRONTAL CREATINE 71035 SHIVANI PARRISH KINASE 2 [facility] TOTAL INC INC COMPREHEN 85964 SHIVANI PARRISH SIVE 2 [facility] METABOLIC INC INC PANEL ECG 21329 SHIVANI PARRISH ROUTINE 2 [facility] ECG INC INC W/LEAST 12 LDS TRCG ONLY W/O I&R ECG 62617 CLEMENTINA MCRAE ROUTINE 2 CHE CHE ECG W/LEAST 12 LDS I&R ONLY CREATINE 18052 SHIVANI PARRISH KINASE MB 2 [facility] FRACTION INC INC ONLY TRANSFERA 94211 [facility] SE 2 DIAGNOSTI DIAGNOSTI ASPARTATE CS CS AMINO AST SGOT LIPID 20040 [facility] PANEL 2 DIAGNOSTI DIAGNOSTI CS CS COLLECTIO 31405 GLORIA GLORIA N VENOUS 2 MAGAN MAGAN BLOOD VENIPUNCT URE BASIC 35890 [facility] METABOLIC 2 DIAGNOSTI DIAGNOSTI PANEL CS CS CALCIUM TOTAL HEMOGLOBI 18950 [facility] N 2 DIAGNOSTI DIAGNOSTI GLYCOSYLA CS CS KYMBERLY A1C NONEMERG A0120 [facility] TRNSPRT: 2 [facility] MINI-BUS ACTION ACTION MTN AREA/OTH SYS NONEMERG A0120 [facility] TRNSPRT: 2 [facility] MINI-BUS ACTION ACTION MTN AREA/OTH SYS NONEMERG A0120 [facility] TRNSPRT: 2 [facility] MINI-BUS ACTION ACTION MTN AREA/OTH SYS NONEMERG A0120 [facility] TRNSPRT: 2 [facility] MINI-BUS ACTION ACTION MTN AREA/OTH SYS MRI 80290 [facility] SPINAL 2 MEDICAL [facility] CANAL IMAGING LUMBAR ASS W/O CONTRAST MATERIAL MRI 98432 SHIVANI PARRISH SPINAL 2 [facility] CANAL INC INC LUMBAR W/O & W/CONTR MATRL 3D 48759 SHIVANI PARRISH RENDERING 2 [facility] W/INTERP INC INC & POSTPROCE SS SUPERVISI ON CREATININ 10798 SHIVANI PARRISH E BLOOD 2 [facility] INC INC INJECTION A9576 SHIVANI PARRISH 2 [facility] GADOTERID INC INC [place] [address] SHIVANI PARRISH UREA 2 [facility] NITROGEN INC INC QUANTITAT SANDY LIPID 77932 [facility] PANEL 2 DIAGNOSTI DIAGNOSTI CS CS TRANSFERA 95405 [facility] SE 2 DIAGNOSTI DIAGNOSTI ASPARTATE CS CS AMINO AST SGOT THERAPEUT 98647 SHIVANI PARRISH IC 2 [facility] PROPHYLAC INC INC TIC/DX INJECTION SUBQ/IM COLLECTIO 07168 GLORIA GLORIA N VENOUS 2 MAGAN MAGAN BLOOD VENIPUNCT URE INJECTION J0595 SHIVANI PARRISH 2 [facility] BUTORPHAN INC INC OL TARTRATE 1 MG BASIC 50961 [facility] METABOLIC 2 DIAGNOSTI DIAGNOSTI PANEL CS CS CALCIUM TOTAL HEMOGLOBI 13250 [facility] N 2 DIAGNOSTI DIAGNOSTI GLYCOSYLA CS CS KYMBERLY A1C EMMANUEL 67940 [facility] WINDIS[facility] POST-VOID 1 AMB AMB ING RESIDUAL URINE&/BL ADDER CAP URNLS DIP 54026 [facility] WINDISCH 1 AMB AMB STICK/TAB LET RGNT NON-AUTO W/O MICRSCP REVJ/RMVL 85389 [facility] WINDISCH 1 AMB AMB PERIPHERA L NEUROSTIM ULATOR ELECTRODE ANES 66725 [place] CHIP INTEG 1 ANESTHESI I JR EDW EXTREMITI A GROUP ES ANT PSC TRUN[place] & [place] L[place] [address] PATHOLOGY PATHOLOGY SURG 1 & & PATHOLOGY CYTOLOGY CYTOLOGY GROSS LAB LAB EXAMINATI ON ONLY ECG 73155 [facility] ROUTINE 1 N N ECG COMMUNTIY COMMUNTIY W/LEAST HOSPITA HOSPITA 12 LDS TRCG ONLY W/O I&R COLLECTIO 64680 [facility] N VENOUS 1 N N BLOOD COMMUNTIY COMMUNTIY VENIPUNCT HOSPITA HOSPITA URE RADIOLOGI 84128 [facility] JUAN FRANCISOC Angel EXAM 1 RADIOLOGY GILLIAN CHEST 2 VIEWS FRONTAL&L ATERAL BLOOD 71198 [facility] COUNT 1 N N COMPLETE COMMUNTIY COMMUNTIY AUTO&AUTO HOSPITA HOSPITA DIFRNTL WBC BASIC 20664 [facility] METABOLIC 1 N N PANEL COMMUNTIY COMMUNTIY CALCIUM HOSPITA HOSPITA TOTAL EMMANUEL 22131 [facility] POST-VOID 1 AMB AMB ING RESIDUAL URINE&/BL ADDER CAP URNLS DIP 38605 [facility] 1 AMB AMB STICK/TAB LET RGNT NON-AUTO W/O MICRSCP OPHTH 91834 [facility] MEDICAL 1 VISION XM&EVAL COMPRHNSV ESTAB PT 1/> NONEMERGE A0100 [facility] NCY 1 COMMUNITY TRANSPORT ACTION ATION; TAXI NONEMERGE A0100 [facility] NCY 1 COMMUNITY TRANSPORT ACTION ATION; TAXI COLONOSCO 37041 [facility] PY FLX DX 1 [place] EAR W/COLLJ GASTROENT SPEC [place] PFRMD EGD 60068 [facility] TRANSORAL 1 [place] E[place] BIOPSY GASTROENT SINGLE/MU LTIPLE GLUC BLD 26175 [facility] GLUC MNTR 1 N N DEV [facility] CLEARED HOSPITA HOSPITA FDA SPEC HOME USE ANTIBODY 11564 [facility] HELICOBAC [address] [facility] PYLORI HOSPITA HOSPITA RINGERS J7120 [facility] LACTATE 1 N N INFUSION [facility] UP TO HOSPITA HOSPITA 1000 CC ANES 53633 [place]ENN ANT LOWER 1 ANESTHESI INTESTINE A GROUP PSC ENDOSCOPY DISTAL DUODENUM LIPID 65528 [facility] PANEL 1 DIAGNOSTI DIAGNOSTI CS CS TRANSFERA 07149 [facility] SE 1 DIAGNOSTI DIAGNOSTI ASPARTATE CS CS AMINO AST SGOT HEMOGLOBI 72051 [facility] QUEST N 1 DIAGNOSTI DIAGNOSTI GLYCOSYLA CS CS KYMBERLY A1C BASIC 26959 [facility] METABOLIC 1 DIAGNOSTI DIAGNOSTI PANEL CS CS CALCIUM TOTAL NONEMERGE A0100 [facility] NCY 1 COMMUNITY TRANSPORT ACTION ATION; TAXI NONEMERGE A0100 [facility] NC[facility] 1 COMMUNITY TRANSPORT ACTION ATION; TAXI NONEMERGE A0100 [facility] NCY 1 COMMUNITY TRANSPORT ACTION ATION; TAXI 3D 03488 [place] [facility] 1 [facility] IMAGING W/INTERP& [place] [address] [facility]OM[facility] & 1 [facility] PELVIS IMAGING W/O ASS CONTRAST MATERIAL URNLS DIP 63778 SHIVANI [place]ATH[place] 1 [facility] STICK/[facility] HOSPITAL LET RGNT P NON-AUTO W/O MICRSCP INSJ 43145 SHIVANI LATH[place] NON-NDWEL 1 [facility] BLADDER P CATHETER NONEMERGE A0100 [facility] 1 COMMUNITY TRANSPORT ACTION ATION; TAXI URINLS 66381 A C [place] A DIP 1 [facility] STICK/TAB PSC LET REAGNT NON-AUTO MICRSCPY CULTURE 11638 [facility] BACTERIAL 1 [place] QUANTTATI VE COLONY COUNT URINE CULTURE 82892 [facility] BCT 1 [place] ISOL&PRSM PTV ID ISOLATE EA URINE CULTURE 32408 [facility] TYPING 1 [place] IMMUNOLOG IC OTH/THN IMMUNOFLU ORES OVA&JACKSON 16769 [facility] ITES 1 [place] DIRECT SMEARS CONCENTRA TION & ID NONEMERGE A0100 [facility] 1 COMMUNITY TRANSPORT ACTION ATION; TAXI NONEMERGE A0100 [place] [address] COMMUNITY TRANSPORT ACTION ATION; TAXI NONEMERGE A0100 [place] [address] COMMUNITY TRANSPORT ACTION ATION; TAXI CYTP C/V 89176 PATHOLOGY PATHOLOGY AUTO THIN 1 & & LYR CYTOLOGY CYTOLOGY PREPJ SCR LAB LAB MNL RESCR PHYS SUSCEPTIB 15523 [facility] LTY STDY 1 [place] ANTIMICRB IAL MICRO/AGA R DILUTJ URINLS 49311 A C MONTENEGRO A DIP 1 [facility] [place] STICK/TAB PSC LET REAGNT NON-AUTO MICRSCPY CULTURE 32847 [facility] BCT 1 [place] ISOL&PRSM PTV ID ISOLATE EA URINE CULTURE 97767 [facility] BACTERIAL 1 [facility] QUANTTATI VE COLONY COUNT URINE CUL BACT 30340 [facility] AEROBIC 1 [facility] ADDL METHS DEFINITIV E EA ISOL BASIC 65733 [facility] MET[facility]OLIC 1 [facility] [facility] PANEL CALCIUM TOTAL HEMOGLOBI 36136 [facility] N 1 [facility] GLYCOSYLA KYMBERLY A1C LIPID 27701 [facility] PANEL 1 [facility] TRANSFERA 04628 [facility] SE 1 [facility] [place] [address] [facility] THYROID 1 [facility] STIMULATI NG HORMONE TSH CREATINE 70774 SHIVANI PARRISH KINASE MB 1 [facility] FRACTION INC INC ONLY ECG 01054 SHIVANI BESSON ROUTINE 1 [facility] W/LEAST P 12 LDS I&R ONLY IAADI 27914 SH[facility] INFLUENZA 1 [facility] B VIRUS INC INC IAADI 71923 SH[facility]ISH INFFLUENZ 1 [facility] A A VIRUS INC INC ECG 74661 SHIVANI PARRISH ROUTINE 1 [facility] ECG INC INC W/LEAST 12 LDS TRCG ONLY W/O I&R COMPREHEN 11250 SHIVANI PARRISH SIVE 1 [facility] METABOLIC INC INC PANEL CREATINE 65924 SHIVANI PARRISH KINASE 1 [facility] [place] [address] SHIVANI PARRISH TROPONIN 1 [facility] QUANTITAT INC INC SANDY GLUC BLD 84324 SHIVANI PARRISH GLUC MNTR 1 [facility] DEV INC INC CLEARED FDA SPEC HOME USE RADIOLOGI 85125 [place] C EXAM 1 [facility] CHEST 2 IMAGING VIEWS ASS FRONTAL&L ATERAL BLOOD 36813 SHIVANI PARRISH COUNT 1 [facility] COMPLETE INC INC AUTO&AUTO DIFRNTL WBC SALINE 40332 [facility] W/COLOR DOPPLER CATH & 24809 [facility] SALINE/CO 1 [facility] R/HYSTERO SALPI NONEMERGE A0100 [facility] 1 COMMUNITY TRANSPORT ACTION ATION; TAXI NONEMERGE A0100 [facility] 1 COMMUNITY TRANSPORT ACTION ATION; TAXI 3D 40060 [facility] REND[facility] 1 [facility] W/INTERP IMAGING & [place] [address] [facility] CERVICAL 1 [facility] SPINE W/O IMAGING CONTRAST ASS MATERIAL 3D 04237 SHIVANI PARRISH RENDERING 1 [facility] INC INC W/INTERP& [place] [address] [facility] THORACIC 1 [facility] SPINE W/O IMAGING CONTRAST ASS MATERIAL EMMANUEL 60940 WINDISCH WINDISCH POST-VOID 1 AMB AMB ING RESIDUAL URINE&/BL ADDER CAP URINLS 89823 A C MONTENEGRO A DIP 1 LAN ROBBINS STICK/TAB [place] [address] [facility] YANGBRITTNEY HEAD/BRAI 1 [facility] N W/O IMAGING CONTRAST ASS MATERIAL CT LUMBAR 29660 [facility] SPINE 1 [facility] W/O IMAGING CONTRAST ASS MATERIAL 3D 38452 [facility] RENDERING 1 [facility] W/INTERP IMAGING & [place] 3D 66627 SHIVANI PARRISH RENDERING 1 [facility] HOS[facility] INC INC W/INTERP& POSTPROC DIFF WORK STATION NDL EMG 4 21434 PALOMINO PALOMINO XTR W/WO 1 GILLIAN FRENCH RELATED PARASPINA L AREAS NRV CNDJ 57101 PALOMINO PALOMINO AMPLT&LAT 1 GILLIAN FRENCH ENCY EA NRV MOTOR W/F-WAVE STD NRV CNDJ 10321 PALOMINO PALOMINO AMPLITUDE 1 GILLIAN FRENCH & LATENCY EACH NERVE SENSORY CULTURE 88602 [facility] BCT 1 [employer] [facility] [employer] [facility] ISOL&PRSM PTV ID ISOLATE EA URINE CULTURE 96103 [facility] BACTERIAL 1 [facility] [facility] [employer] [facility] QUANTTATI VE COLONY COUNT URINE URINLS 04309 A C MONTENEGRO A DIP 1 MONTENEGRO MD STICK/TAB PSC LET REAGNT NON-AUTO MICRSCPY RADIOLOGI 73241 [facility] YANGBRITTNEY C EXAM 1 [facility] PELVIS IMAGING COMPL ASS MINIMUM 3 VIEWS NONEMERGE A0100 [facility] NC[facility] 1 COMMUNITY TRANSPORT ACTION ATION; TAXI URINLS 62782 A C MONTENEGRO A DIP 0 MONTENEGRO MD STICK/TAB PSC LET REAGNT NON-AUTO MICRSCPY CULTURE 97804 [facility] BACTERIAL 0 [facility] [employer] [facility] QUANTTATI VE COLONY COUNT URINE CUL BACT 50939 [facility] AEROBIC 0 [employer] [facility] [employer] [facility] ADDL METHS DEFINITIV E EA ISOL CULTURE 47668 [facility] BCT 0 [employer] [facility] [employer] [facility] ISOL&PRSM PTV ID ISOLATE EA URINE SUSCEPTIB 91253 [facility] LTY STDY 0 [employer] [facility] [employer] [facility] ANTIMICRB IAL MICRO/AGA R DILUTJ CANALITH 79145 SHASHY SHASHY REPOSITIO 0 DORITA WALLACEG PROCEDURE COMPRE 12525 REGSHDavid FINNEYSHY AUDIOMETR 0 DORITA KEVIN Y THRESHOLD EVAL SP RECOGNIJ DISTORT 90270 SHASHY SHASHY PRODUCT 0 DORITA KEVIN EVOKED OTOACOUST IC EMISNS LIMITD TYMPANOME 97835 REGSHY SHASHY TRY 0 DORITA KEVIN CANE E0105 ANNA MARIE HTRASHER QUAD/3-WI 0 HOME MED HOME MED NATHALIE ALL EQUIP. L EQUIP. L MATL ADJUSTBL/ FIX W/TIPS NONEMERGE A0100 [facility] 0 COMMUNITY TRANSPORT ACTION ATION; TAXI BLOOD 44764 [facility] PARRISH COUNT 0 [facility] COMPLETE INC INC AUTO&[place] [address] SHIVANI PARRISH TROPONIN 0 [facility] QUANTITAT INC INC SANDY CREATINE 75629 SHIVANI PARRISH KINASE MB 0 [facility] [place] [address] SHIVANI PARRISH AMYLASE 0 [facility] INC INC ECG 41919 SHIVANI MCRAE ROUTINE 0 [facility] W/LEAST P 12 LDS I&[place] [address] SHIVANI PARRISH INFUSION 0 [facility] THER INC INC PROPH ADDL SEQUENTIA L TO 1 HR COMPREHEN 85571 SH[facility]ANI PARRISH SIVE 0 [facility] METABOLIC INC INC PANEL ECG 05655 SHIVANI PARRISH ROUTINE 0 [facility] ECG INC INC W/LEAST 12 LDS TRCG ONLY W/O I&R CREATINE 35283 SH[facility]ANI P[facility]ISH KINASE 0 [facility] [place] [address] SHIVANI PARRISH LIPASE 0 [facility] INC INC IIV3 95904 SHIVANI PARRISH VACCINE 0 [facility] VIRUS 0.5 ML DOSAGE IM USE LANCETS A4259 M E D M E D PER BOX 0 SUPPLIES SUPPLIES OF 100 BLD GLU A4253 M E D M E D TEST/REAG 0 SUPPLIES SUPPLIES T STRIPS HOME BLD GLU MON-50 NONEMERGE A0100 [facility] 0 COMMUNITY TRANSPORT ACTION ATION; TAXI URINLS 65217 A C MONTENEGRO A DIP 0 MONTENEGRO MD STICK/TAB PSC LET REAGNT NON-AUTO MICRSCPY CULTURE 65636 [facility] BACTERIAL 0 [place] QUANTTATI VE COLONY COUNT URINE CULTURE 35597 [facility] BCT 0 [place] ISOL&PRSM PTV ID ISOLATE EA URINE LANCETS A4259 M E D M E D PER BOX 0 SUPPLIES SUPPLIES OF 100 BLD GLU A4253 M E D M E D TEST/REAG 0 SUPPLIES SUPPLIES T STRIPS HOME BLD GLU MON-50 URNLS DIP 87019 WINDISCH WINDISCH 0 AMB AMB STICK/TAB LET RGNT AUTO W/O MICROSCOP Y ELEC INGE 19920 [facility] NSTIM 0 AMB AMB PLS GEN CPLX SC/PERPH W/PRGRMG EMMANUEL 22481 [facility] POST-VOID 0 AMB AMB ING RESIDUAL URINE&/BL ADDER CAP LIPID 95202 [facility] PANEL 0 [facility] TRANSFERA 32673 [facility] SE 0 [facility] ASPARTATE AMINO AST SGOT BASIC 18187 [facility] METABOLIC 0 [facility] PANEL CALCIUM TOTAL HEMOGLOBI 73679 [facility] N 0 [facility] GLYCOSYLA KYMBERLY A1C BLD GLU A4253 M E D M E D TEST/REAG 0 SUPPLIES SUPPLIES T STRIPS HOME BLD GLU LANCETS A4259 M E D M E D PER BOX 0 SUPPLIES SUPPLIES OF 100 NONEMERGE A0100 [facility] NCY 0 COMMUNITY TRANSPORT ACTION ATION; TAXI LANCETS A4259 M E D M E D PER BOX 0 SUPPLIES SUPPLIES OF 100 BLD GLU A4253 M E D M E D TEST/REAG 0 SUPPLIES SUPPLIES T STRIPS HOME BLD GLU TUE-50 OPHTH 90298 STELLA SHARP, MEDICAL 0 VISION KIARRA A XM&EVAL COMPRHNSV ESTAB PT 1/> LANCETS A4259 M E D M E D PER BOX 0 SUPPLIES SUPPLIES OF 100 BLD GLU A4253 M E D M E D TEST/REAG 0 SUPPLIES SUPPLIES T STRIPS HOME BLD GLU 50 CYTP C/V 95840 PATHOLOGY PATHOLOGY AUTO THIN 0 & & LYR CYTOLOGY CYTOLOGY PREPJ SCR LAB LAB MNL RESCR PHYS BLD GLU A4253 M E D M E D TEST/REAG 0 SUPPLIES SUPPLIES T STRIPS HOME BLD GLU 50 LANCETS A4259 M E D M E D PER BOX 0 SUPPLIES SUPPLIES OF 100 HEMOGLOBI 77812 [facility] N 0 [facility] GLYCOSYLA KYMBERLY A1C BASIC 63228 [facility] METABOLIC 0 [facility] PANEL CALCIUM TOTAL TRANSFERA 87990 [facility] SE 0 [facility] ASPARTATE AMINO AST SGOT LIPID 80994 [facility] PANEL 0 [facility] LANCETS A4259 M E D M E D PER BOX 0 SUPPLIES SUPPLIES OF 100 BLD GLU A4253 M E D M E D TEST/REAG 0 SUPPLIES SUPPLIES T STRIPS HOME BLD GLU MON-50 CULTURE 62809 LAB DIMSA LAB DIMAS BACTERIAL 0 [employer] QUANTTATI VE COLONY COUNT URINE EMMANUEL 62144 BONNY DRAPER, POST-VOID 0 ZEE ZEE ING K K RESIDUAL URINE&/BL ADDER CAP URINLS 37402 A Buster MOBLEY DIP 0 LAN Angel STICK/TAB PSC LET REAGNT NON-AUTO MICRSCPY URNLS DIP 77107 BONNY DRAPER, 0 ZEE ZEE STICK/TAB K K LET RGNT NON-AUTO W/O MICRSCP URINLS 27233 A Buster MOBLEY DIP 0 LAN Angel STICK/TAB PSC LET REAGNT NON-AUTO MICRSCPY CULTURE 27608 LAB DIMAS LAB DIMAS BACTERIAL 0 [employer] QUANTTATI VE COLONY COUNT URINE URINLS 80068 Buster FARIAS DIP 9 LAN Angel STICK/TAB PSC LET REAGNT NON-AUTO MICRSCPY BLD GLU A4253 M E D M E D TEST/REAG 9 SUPPLIES SUPPLIES T STRIPS HOME BLD GLU MON-50 LANCETS A4259 M E D M E D PER BOX 9 SUPPLIES SUPPLIES OF 100 URINLS 49051 Buster FARIAS DIP 9 LAN Angel STICK/TAB PSC LET REAGNT NON-AUTO MICRSCPY URINLS 58998 Buster FARIAS DIP 9 LAN Angel STICK/TAB PSC LET REAGNT NON-AUTO MICRSCPY URNLS DIP 15179 BONNY DRAPER 9 ZEE ZEE STICK/TAB K K LET RGNT NON-AUTO W/O MICRSCP EMMANUEL 28509 BONNY DRAPER, POST-VOID 9 ZEE ZEE ING K K RESIDUAL URINE&/BL ADDER CAP BLD GLU A4253 M E D M E D TEST/REAG 9 SUPPLIES SUPPLIES T STRIPS HOME BLD GLU MON-50 LANCETS A4259 M E D M E D PER BOX 9 SUPPLIES SUPPLIES OF [address] CITRATE 0.1 MG INJECTION J0[address] CEFOXITIN SODIUM 1 G ANES 96289 ANESTHESI JAGDISH FRAZIER 9 A NAWAF KOHLI & ASSOCIATE NRV HEAD S, PSC NECK&POST ERIOR TRUNK INFUSION J7040 [address] SALINE SOLUTION STERILE POTASSIUM [address] PLASMA/WH OLE BLOOD GLUCOSE [address] REAGENT STRIP INSERTION 34151 BONNY DRAPER, /RPLCMT 9 ZEE ZEE PERIPHERA K K L/GASTRIC NPGR ELEC INGE [address] PLS GEN SMPL SC/PERPH W/PRGRMG ELEC IGNE 40712 [facility] ZEE ZEE PLS GEN K K CPLX SC/PERPH W/PRGRMG INJECTION J[address] [place] HCL PER 1 MG URNLS DIP 99749 BONNY DRAPER, 9 ZEE ZEE STICK/TAB K K LET RGNT NON-AUTO W/O MICRSCP EMMANUEL 85081 BONNY DRAPER, POST-VOID 9 ZEE ZEE ING K K RESIDUAL URINE&/BL ADDER CAP INC 30650 BONNY DRAPER, IMPLTJ 9 ZEE ZEE NEUROSTIM K K ULATOR ELTRD SACRAL NERVE INFUSION J7040 [address] SALINE SOLUTION STERILE ECG [address] [facility] ROUTINE [facility] ECG W/LEAST 12 LDS TRCG ONLY W/O I&R POTASSIUM 14746 [facility] SERUM [address] [place] [address] PLASMA/WH OLE BLOOD GLUCOSE 61283 [facility] BLOOD [address] [place] [address] REAGENT STRIP PRQ 88408 [facility] IMPLTJ [address] [place] [address] NEUROSTIM ELTRD SACRAL NRVE W/IMAGING ANESTHESI 48950 ANESTHESI HEMAL, Buster LUMBAR 9 A ANDREA L [facility] ASSOCIATE NOS S, PSC INJECTION J2250 [address] [place] HCL PER 1 MG ECG 50780 NEW [place]N, ROUTINE 9 [place] [facility] ECG CLINIC W/LEAST PSC 12 LDS I&R ONLY INJECTION J0694 [address] CEFOXITIN SODIUM 1 G INJECTION J3010 [address] CITRATE 0.1 MG BLOOD 14429 [facility] COUNT 9 N N COMPLETE [facility] AUTO&AUTO [facility] DIFRNTL WBC CULTURE 85931 [facility] BACTERIAL 9 N N [facility] VE COLONY COUNT URINE BASIC 15597 [facility] METABOLIC 9 N N PANEL [facility] TOTAL RADIOLOGI 24167 [facility] [place] DOZIER EXAM 9 RADIOLOGY DON G CHEST 2 VIEWS FRONTAL&L ATERAL COLLECTIO 60942 [facility] N VENOUS 9 N N BLOOD [facility] 18480 [facility] ROUTINE 9 N N ECG [facility] W/LEAST HOSPITAL HOSPITAL 12 LDS TRCG ONLY W/O I&R BLD GLU A4253 M E D M E D TEST/REAG 9 SUPPLIES SUPPLIES T STRIPS HOME BLD GLU MON-50 LANCETS A4259 M E D M E D PER BOX 9 SUPPLIES SUPPLIES OF 100 URINLS 14963 Buster FARIAS DIP 9 LAN Angel STICK/TAB [place] [address] SHIVANI AVALOSON INFUSION 9 [facility] THERAPY INC INC PROPHYLAX IS/DX EA HOUR URNLS DIP 95525 [facility] PARRISH 9 [facility] STICK/TAB INC INC LET REAGENT AUTO MICROSCOP Y CULTURE 19675 SHIVANI PARRISH BACTERIAL 9 [facility] INC [place] [address] SHIVANI PARRISH INFUSION 9 [facility] THERAPY/P INC INC ROPHYLAXI S /DX 1ST TO 1 HR BLOOD 90625 SH[facility]ANI PARRISH COUNT 9 [facility] COMPLETE INC INC AUTO&AUTO DIFRNTL WBC COMPREHEN 98106 SH[facility]ANI PARRISH SIVE 9 [facility] METABOLIC INC INC PANEL IIV3 82807 [facility]/CO SHIVANI VACCINE 9 [facility] VIRUS 0.5 BANK ACCT ML DOSAGE IM USE COMPLEX 00990 BONNY DRAPER, UROFLOMET 9 ZEE ZEE RY K K URNLS DIP 24814 BONNY DRAPER, 9 ZEE ZEE STICK/TAB K K LET RGNT NON-AUTO W/O MICRSCP BLADDER 66290 BONNY DRAPER, PRESSURE 9 ZEE ZEE MEASUREME K K NT DURING FILLING EMG STDS 74784 BONNY DRAPER, ANAL/URTL 9 ZEE ZEE SPHNCTR K K OTH/THN NDL VOIDING 02913 BONNY DRAPER, PRESS 9 ZEE ZEE STDS BLDR K K VOIDING PRESS ANY TQ VOID 40511 BONNY DRAPER, PRESSURE 9 ZEE ZEE STUDIES K K INTRAABDO BRITTANY EMMANUEL 55078 BONNY DRAPER, POST-VOID 9 ZEE ZEE ING K K RESIDUAL URINE&/BL ADDER CAP CYSTOURET 02718 BONNY DRAPER, HROSCOPY 9 ZEE ZEE K K NORMAL A4256 M E D M E D LOW AND 9 SUPPLIES SUPPLIES HIGH CALIBRATO R SOLUTION/ CHIPS BLD GLU A4253 M E D M E D TEST/REAG 9 SUPPLIES SUPPLIES T STRIPS HOME BLD GLU MON-50 LANCETS A4259 M E D M E D PER BOX 9 SUPPLIES SUPPLIES OF 100 LANCETS A4259 M E D M E D PER BOX 9 SUPPLIES SUPPLIES OF 100 BLD GLU A4253 M E D M E D TEST/REAG 9 SUPPLIES SUPPLIES T STRIPS HOME BLD GLU MON-50 GLUCOSE 89693 Buster FARIAS QUANTITAT 9 LAN Angel SANDY BLOOD PSC XCPT REAGENT STRIP GLUCOSE 71706 Buster FARIAS QUANTITAT 9 LAN Angel SANDY BLOOD PSC XCPT REAGENT STRIP GLUCOSE 31860 Buster FARIAS POST 9 LAN Angel GLUCOSE PSC DOSE TRANSFERA 06728 Buster FARIAS SE 9 LAN Angel ASPARTATE PSC AMINO AST SGOT TRANSFERA 70227 Buster FARIAS SE 9 LAN Angel ALANINE PSC AMINO ALT SGPT LIPID 77776 Buster FARIAS PANEL 9 LAN Angel PSC GLUCOSE 65807 Buster FARIAS QUANTITAT 9 LAN Angel SANDY BLOOD PSC XCPT REAGENT STRIP LANCETS A4259 M E D M E D PER BOX 9 SUPPLIES SUPPLIES OF 100 BLD GLU A4253 M E D M E D TEST/REAG 9 SUPPLIES SUPPLIES T STRIPS HOME BLD GLU MON-50 EMMANUEL 47703 PRISCILAISCHBONNY, POST-VOID 9 ZEE ZEE ING K K RESIDUAL URINE&/BL ADDER CAP BLD GLU A4253 M E D M E D TEST/REAG 9 SUPPLIES SUPPLIES T STRIPS HOME BLD GLU MON-50 LANCETS A4259 M E D M E D PER BOX 9 SUPPLIES SUPPLIES OF 100 NORMAL A4256 M E D M E D LOW AND 9 SUPPLIES SUPPLIES HIGH CALIBRATO R SOLUTION/ CHIPS CULTURE 18573 SHIVANI PARRISH BACTERIAL 9 [facility] INC INC QUANTTATI VE COLONY COUNT URINE URINLS 10024 Buster FARIAS DIP 9 LAN Angel STICK/TAB PSC LET REAGNT NON-AUTO MICRSCPY BLD GLU A4253 M E D M E D TEST/REAG 9 SUPPLIES SUPPLIES T STRIPS HOME BLD GLU MON-50 LANCETS A4259 M E D M E D PER BOX 9 SUPPLIES SUPPLIES OF 100 URINLS 96508 Buster FARIAS DIP 9 LAN Angel STICK/TAB PSC LET REAGNT NON-AUTO MICRSCPY BASIC 06205 LAB DIMAS LAB DIMAS METABOLIC 9 [employer] PANEL [employer]ING HOLDING CALCIUM TOTAL HEMOGLOBI 77848 LAB DIMAS LAB DIMAS N 9 [employer] GLYCOSYLA HOLDING HOLDING KYMBERLY A1C COLLECTIO 26713 Buster FARIAS VENOUS 9 LAN Angel BLOOD PSC VENIPUNCT URE LIPID 77314 LAB DIMAS LAB DIMAS PANEL 9 [employer] TRANSFERA 58247 LAB DIMAS LAB DIMAS SE 9 [employer] ASPARTATE HOLDING HOLDING AMINO AST SGOT MEDICAL 16035 SHIVANI PARRISH NUTRITION 9 [facility] INC INC RE-ASSMT& IVNTJ INDIV EA 15 M MEDICAL 42850 SHIVANI PARRISH NUTRITION 9 [facility] INC INC ASSMT&IVN TJ INDIV EACH 15 CA BLD GLU A4253 M E D M E D TEST/REAG 9 SUPPLIES SUPPLIES T STRIPS HOME BLD GLU MON-50 LANCETS A4259 M E D M E D PER BOX 9 SUPPLIES SUPPLIES OF 100 GLUCOSE 27623 Buster FARIAS QUANTITAT 9 LAN Angel SANDY BLOOD PSC XCPT REAGENT STRIP SCREENING 71301 [place] BRITT[place], MEDICAL PHYLLIS MAMMOGRAP IMAGING HY 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 COMPUTER- 37280 [place] BRITT[place], AIDED 9 MEDICAL PHYLLIS DETECTION IMAGING ASSOCIATE SCREENING S MAMMOGRAP HY NORMAL A4256 M E D M E D LOW AND 9 SUPPLIES SUPPLIES HIGH CALIBRATO R SOLUTION/ CHIPS LANCETS A4259 M E D M E D PER BOX 9 SUPPLIES SUPPLIES OF 100 BLD GLU A4253 M E D M E D TEST/REAG 9 SUPPLIES SUPPLIES T STRIPS HOME BLD GLU MON-50 CYTP C/V 90998 PATHOLOGY PATHOLOGY AUTO THIN 9 & & LYR CYTOLOGY CYTOLOGY PREPJ SCR LAB LAB MNL RESCR PHYS URNLS DIP [address] J STICK/TAB CLINIC OF LET RGNT NON-AUTO [place] W/O PLLC MICRSCP BLD GLU A4253 M E D M E D TEST/REAG 9 SUPPLIES SUPPLIES T STRIPS HOME BLD GLU MON-50 LANCETS A4259 M E D M E D PER BOX 9 SUPPLIES SUPPLIES OF 100 HEMOGLOBI 93054 LAB DIMAS LAB DIMAS N 9 [employer] GLYCOSYLA HOLD[employer] HOLDING KYMBERLY A1C BASIC 28635 LAB DIMAS LAB DIMAS METABOLIC 9 [employer]IC [employer] PANEL HOLDING HOLDING CALCIUM TOTAL TRANSFERA 29351 LAB DIMAS LAB DIMAS SE 9 [employer] ASPARTATE HOLDING HOLDING AMINO AST SGOT COLLECTIO 02887 Buster FARIAS VENOUS 9 LAN Angel BLOOD PSC VENIPUNCT URE LIPID 31335 LAB DIMAS LAB DIMAS PANEL 9 [employer] LANCETS A4259 M E D M E D PER BOX 9 SUPPLIES SUPPLIES OF 100 BLD GLU A4253 M E D M E D TEST/REAG 9 SUPPLIES SUPPLIES T STRIPS HOME BLD GLU MON-50 BLD GLU A4253 M E D M E D TEST/REAG 8 SUPPLIES SUPPLIES T STRIPS HOME BLD GLU MON-50 NORMAL A4256 M E D M E D LOW AND 8 SUPPLIES SUPPLIES HIGH CALIBRATO R SOLUTION/ CHIPS LANCETS A4259 M E D M E D PER BOX 8 SUPPLIES SUPPLIES OF 100 GLUCOSE 56760 Buster FARIAS QUANTITAT 8 LAN Angel SANDY BLOOD PSC XCPT REAGENT STRIP MRI BRAIN 63539 PHYLLIS LUGO, BRAIN 8 BRITTNEY PHYLLIS STEM W/O W/CONTRAS T MATERIAL CREATININ 04618 SHIVANI PARRISH E BLOOD 8 [place] [address] SHIVANI PARRISH UREA 8 [facility] NITROGEN INC INC QUANTITAT SANDY IIV3 98288 [facility]/CO SHIVANI VACCINE 8 [facility] VIRUS 0.5 BANK ACCT ML DOSAGE IM USE ECG 30773 SHIVANI MCKEMIE ROUTINE 8 [facility] NABIL Angus W/LEAST PROF SERV 12 LDS I&R ONLY RHYTHM 90589 SHIVANI PARRISH ECG 1-3 8 [facility] LEADS INC INC TRACING ONLY W/O I&R CREATINE 27635 SHIVANI PARRISH KINASE MB 8 [facility] FRACTION INC INC ONLY ECG 06943 SH[facility] PARRISH ROUTINE 8 [facility] ECG INC INC W/LEAST 12 LDS TRCG ONLY W/O I&R CREATINE 94796 SH[facility]ANI PARRISH KINASE 8 [facility] TOTAL INC INC RADIOLOGI 29603 SH[facility] C 8 [facility] EXAMINATI INC INC ON CHEST SING[place] FRONTAL BASIC 04784 SHIVANI PARRISH METABOLIC 8 [facility] [place] [address] SHIVANI PARRISH TROPONIN 8 [facility] QUANTITAT INC INC SANDY BLOOD 52043 SHIVANI PARRISH COUNT 8 [facility] COMPLETE INC INC AUTO&AUTO DIFRNTL WBC BASIC 61327 LAB DIMAS LAB DIMAS METABOLIC 8 [employer] AMERIC PANEL HOLDING HOLDING CALCIUM TOTAL HEMOGLOBI 79228 LAB DIMAS LAB DIMAS N 8 AMERIC AMERIC GLYCOSYLA HOLDING HOLDING KYMBERLY A1C COLLECTIO 00256 Busetr FARIAS VENOUS 8 LAN Angel BLOOD PSC VENIPUNCT URE TRANSFERA 09315 LAB DIMAS LAB DIMAS SE 8 AMERIC AMERIC ASPARTATE HOLDING HOLDING AMINO AST SGOT LIPID 29719 LAB DIMAS LAB DIMAS PANEL 8 AMERIC AMERIC HOLDING [place] MRI [address] PHYLLIS C BRITTNEY, SPINAL 8 BRITTNEY PHYLLIS CANAL LUMBAR W/O CONTRAST MATERIAL URINLS 22434 A Buster MOBLEY DIP 8 LAN Angel STICK/TAB PSC LET REAGNT NON-AUTO MICRSCPY CULTURE 98951 LAB DIMAS LAB DIMAS BACTERIAL 8 AMERIC [employer] HOLDING HOLDING QUANTTATI VE COLONY COUNT URINE URINLS 63646 A Stanley MONTENEGRO A DIP 8 LAN Angel STICK/TAB PSC LET REAGNT NON-AUTO MICRSCPY RADIOLOGI 66555 Stanley KUO EXAM 8 MEDICAL PHYLLIS CHEST 2 IMAGING VIEWS ASSOCIATE FRONTAL&L S ATERAL OPHTH 02016 ARON SHARP, [facility] 8 KIARRA A KIARRA A XM&EVAL COMPRHNSV ESTAB PT 1/> URINLS 43354 Buster FARIAS DIP 8 LAN Angel STICK/TAB PSC LET REAGNT NON-AUTO MICRSCPY SHAVING 41114 Buster FARIAS SKIN 8 LAN Angel LESION 1 PSC TRUNK/ARM /LEG DIAM 0.5CM/< COLLECTIO 27688 Buster FARIAS N VENOUS 8 LAN Angel BLOOD PSC VENIPUNCT URE ACOUSTIC 42374 AIDAN BERMUDEZ, REFLEX 8 ZAK Da Silva THRESHOLD TYMPANOME 99569 AIDAN BERMUDEZ TRY 8 ZAK Da Silva COMPRE 91195 AIDAN BERMUDEZ, AUDIOMETR 8 ZAK Avinash ZAK Da Silva [place] [address] [place] LU[place], MAXILLOFA 8 MEDICAL SUSHANT Meyer CIAL W/O IMAGING CONTRAST ASSOCIATE MATERIAL S 3D 13334 [place] LU[place], RENDERING 8 MEDICAL SUSHANT P IMAGING W/INTERP& ASSOCIATE POSTPROC S [place]FF [place] NFUS [address]85 [facility] THER 8 [facility] PROPH/DX INC INC EA [place] THER 57890 [facility] PROPH/DX 8 [facility] NJX EA INC INC SEQL IV PUSH SBST/DRUG HYSTEROSC 98185 [facility]ERNARDINO ALLEN BX 8 [facility] &/POLYP C W/[place] [address] PATHOLOGY PATHOLOGY SURG 8 & & PATHOLOGY CYTOLOGY CYTOLOGY LAB LAB GROSS&TANMAY ROSCOPIC EXAM GLUC BLD 03333 SH[facility] GLUC MNTR 8 [facility] DEV INC INC [place] [address] [facility] THER 8 [facility] PROPH/DX INC INC 1ST >1 HR HYSTEROSC 6812 [facility] OPY 8 [facility] INC INC OTHER 6829 [facility] EXCISION 8 [facility] OR INC INC DESTRUCTI ON LESION UTERUS OTHER 6909 [facility] DILATION 8 [facility] AND INC INC CURETTAGE OF UTERUS BLOOD 92449 [facility] TYPING 8 [facility] SEROLOGIC INC INC RH (D) BLOOD 88336 [facility] COUNT 8 [facility] COMPLETE INC INC AUTO&AUTO DIFRNTL WBC BASIC 29240 [facility] METABOLIC 8 [facility] PANEL INC INC CALCIUM TOTAL ANTIBODY 01060 [facility] SCREEN 8 [facility] RBC EACH INC INC SERUM TECHNIQUE BLOOD 60281 [facility] TYPING 8 [facility] SEROLOGIC INC INC ABO IADNA 87855 [employer] ANGELA, HERPES 8 [place] INC HANS Tran SOMPLX VIRUS AMPLIFIED PROBE TQ Encounters Encounter Start End Date Code Location Performer Type Date HOSPITAL [facility] - 7 7 [facility] OUTPATIEN [facility] T OFFICE 04852 COLLEEN NEAL 7 7 MD KEYANNA, T VISIT [facility] 10 MINUT[facility] HOSPITAL SH[facility] 7 7 [facility] T OFFICE 67818 SHIVANI OUTPATIEN 7 7 [facility] T VISIT INC 10 MINUTES HOSPITAL [facility] - 7 7 [facility] T OFFICE 60681 SHIVANI OUTPATIEN 7 7 [facility] T VISIT INC 10 MINUTES HOSPITAL SH[facility] - 7 7 [facility] OUTPATIEN [facility] T HOSPITAL SHIVANI - 7 7 [facility] OUTPATIEN [facility] [facility] - 7 7 [facility] OUTPATIEN [facility] SH[facility] 7 7 [facility] T OFFICE 41394 Buster NEAL 7 7 LAN ROBBINS T VISIT PSC 15 MINUTES [facility]OSP[facility] - 7 7 [facility] T OFFICE 74194 [facility] OUTPATIEN 7 7 [facility] T VISIT INC 10 MINUTES OFFICE 15275 COLLEEN RAIN OUTPATIEN 7 7 MD KEYANNA, T VISIT PSC 15 MINUTES [facility] - 6 6 [facility] T OFFICE 41891 COLLEEN ANALI CRI OUTPATIEN 6 6 MD KEYANNA, T VISIT PSC 15 MINUTES [facility] - 6 6 [facility] - [facility] 6 [facility] T OFFICE 07398 COLLEENMALI BRIONES CRI OUTPATIEN 6 6 MD KEYANNA, T VISIT PSC 15 MINUTES [facility] - 6 6 [facility] T OFFICE 74348 COLLEENMALI BRICEÑO ANJ OUTPATIEN 6 6 MD KEYANNA, T VISIT PSC 10 MINUTES OFFICE 35163 Buster BOLTON OUTPATIEN 6 6 LAN ROBBINS T VISIT PSC 25 MINUTES OFFICE 40940 COLLEEN BRICEÑO ANJ OUTPATIEN 6 6 MD KEYANNA, T VISIT PSC 10 MINUTES [facility] - [facility] 5 [facility] T [facility] 5 5 [facility] - 5 5 [facility] T OFFICE 80159 Buster SAAVEDRA CHE OUTPATIEN 5 5 LAN ROBBINS T VISIT PSC 25 MINUTES [facility] - 5 5 [facility] T [facility] - 5 5 [facility] T OFFICE 43042 [facility] OUTPATIEN 5 5 [facility] T VISIT INC 10 MINUTES OFFICE 65996 [facility] PETTEY OUTPATIEN 5 5 PHYSICIAN OFELIA T NEW 30 S GROUP MINUTES [facility] - 5 5 [facility] T OFFICE 00487 A C KERI CHE OUTPATIEN 5 5 LAN ROBBINS T VISIT PSC 15 MINUTES [facility] - 5 5 [facility] INC T OFFICE 08794 MADAR BUX BUX ANJ OUTPATIEN 5 5 T VISIT 10 MINUTES OFFICE 97167 MADAR BUX BUX ANJ OUTPATIEN 5 5 T VISIT 10 MINUTES [facility] - 5 5 [facility] T [facility] - 5 5 [facility] T OFFICE 45374 [facility] OUTPATIEN 5 5 [facility] T VISIT 5 INC MINUTES OFFICE 41584 MADAR BUX BUX ANJ OUTPATIEN 5 5 T [facility] MINUTES OFFICE 40616 A Stanley BOLTON OUTPATIEN 5 5 LAN ROBBINS T VISIT PSC 15 MINUTES [facility]OSP[facility] - 5 5 [facility] T OFFICE 91651 A C AMB OUTPATIEN 5 5 LAN ROBBINS T VISIT PSC 15 MINUTES OFFICE 93885 A C TOMMY OUTPATIEN 5 5 LAN ARCE T VISIT PSC 15 MINUTES OFFICE 05558 A Stanley BOLTON OUTPATIEN 5 5 LAN ROBBINS T VISIT PSC 15 MINUTES OFFICE 35697 A C FIELD AMB OUTPATIEN 5 5 LAN ROBBINS T VISIT PSC 15 MINUTES OFFICE 24745 A Stanley CABEZASES CHE OUTPATIEN 5 5 LAN ROBBINS T VISIT PSC 15 MINUTES OFFICE 80786 A Stanley CABEZASES CHE OUTPATIEN 4 4 LAN ROBBINS T VISIT PSC 15 MINUTES OFFICE 88062 A Stanley CABEZASES CHE OUTPATIEN 4 4 LAN ROBBINS T VISIT PSC 15 MINUTES OFFICE 67354 JUDAISMAndra CHAN OUTPATIEN 4 4 NEUROLOGY JULIEN T VISIT CENTER 15 SHRUTHI MINUTES OFFICE 43724 A Stanley CABEZASES CHE OUTPATIEN 4 4 LAN ROBBINS T VISIT PSC 15 MINUTES [facility] - 4 4 [facility] T OFFICE 60908 KERI CHE CABEZASES CHE OUTPATIEN 4 4 T VISIT 15 MINUTES OFFICE 57815 FALLUJI FALLUJI OUTPATIEN 4 4 EFRAIN ZUNIGA T VISIT 25 MINUTES [facility]OSP[facility] - 4 4 [facility] INC T EMERGENCY 45001 [facility] 4 4 [facility] DEPARTMEN INC T VISIT LOW/MODER SEVERITY EMERGENCY 32307 ALFARIS ALFARIS 4 4 [facility] DEPARTMEN T VISIT MODERATE SEVERITY OFFICE 69890 KERI CHE CABEZASES CHE OUTPATIEN 4 4 T VISIT 15 MINUTES OFFICE 39631 KERI CHE CABEZASES CHE OUTPATIEN 4 4 T VISIT 15 MINUTES OFFICE 80575 KERI CHE KERI CHE OUTPATIEN 4 4 T VISIT 15 MINUTES OFFICE 68722 KERI CHE CABEZASES CHE OUTPATIEN 4 4 T VISIT 15 MINUTES OFFICE 92878 KERI CHE CABEZASES CHE OUTPATIEN 4 4 T VISIT 15 MINUTES OFFICE 41565 KERI CHE CABEZASES CHE OUTPATIEN 3 3 T VISIT 15 MINUTES OFFICE 30181 ROCIO ROCIO OUTPATIEN 3 3 JULIEN JULIEN T VISIT 25 MINUTES OFFICE 62012 KERI CALVINES CHE OUTPATIEN 3 3 T VISIT 15 MINUTES [facility] 93396 ALLENMarc ALLEN PREVENTIV 3 3 CORRINA CORRINA E MED EST PATIENT 40-64YRS OFFICE 92358 A C KERI CHE OUTPATIEN 3 3 LAN ROBBINS T VISIT PSC 15 MINUTES [facility]OSP[facility] - 3 3 [facility] OUTPATIEN INC T [facility] - 3 3 [facility]EN INC T [facility] - 3 3 [facility] OUTPATIEN INC T OFFICE 18775 A C KILPELA OUTPATIEN 3 3 LAN ARCE T VISIT PSC 15 MINUTES OFFICE 61440 A C KILPELA OUTPATIEN 3 3 LAN ARCE T VISIT PSC 15 MINUTES OFFICE 64415 A C KILPELA OUTPATIEN 3 3 LAN ARCE T VISIT PSC 15 MINUTES [facility]OSP[facility] - 3 3 [facility] OUTPATIEN INC T OFFICE 06304 ROCIO ROCIO OUTPATIEN 3 3 JULIEN JULIEN T VISIT 25 MINUTES HOSP[facility] - 3 3 [facility] OUTPATIEN INC T OFFICE 51617 KERIMATY CALVINES CHE OUTPATIEN 3 3 T VISIT 15 MINUTES OFFICE 99160 KERI CHE CABEZASES CHE OUTPATIEN 3 3 T VISIT 15 MINUTES [facility] - 3 3 [facility] OUTPATIEN INC T OFFICE 28397 KERI CHE CABEZASES CHE OUTPATIEN 3 3 T VISIT 15 MINUTES OFFICE 18697 KILPELA KILPELA OUTPATIEN 3 3 YAZMIN ARCE T VISIT 15 MINUTES OFFICE 83221 KERI CELAYA CHE OUTPATIEN 2 2 T VISIT 15 MINUTES EMERGENCY 83156 JUAN MAYBERRY DEPT 2 2 EMERGENCY VISIT SERVICES HIGH SEVERITY& THREAT FUN EMERGENCY 86655 [facility] 2 2 [facility] T VISIT MODERATE SEVERITY [facility]OSP[facility] - 2 2 [facility] T OFFICE 59835 JANETTPELA KILPELA OUTPATIEN 2 2 YAZMIN ARCE T VISIT 15 MINUTES [facility]OSP[facility] - 2 2 [facility] T OFFICE 18347 [facility] OUTPATIEN 2 2 EFRAIN ZUNIGA T VISIT 25 MINUTES OFFICE 23596 ROCIO ROCIO OUTPATIEN 2 2 JULIEN JULIEN T VISIT 25 MINUTES OFFICE 97765 KERIMATY CALVINES CHE OUTPATIEN 2 2 T VISIT 15 MINUTES OFFICE 09054 KERIMATY CALVINES CHE OUTPATIEN 2 2 T VISIT 15 MINUTES [facility]OSP[facility] - 2 2 [facility] OUTPATIEN [facility] T EMERGENCY 40521 [facility] 2 2 [facility] T VISIT HIGH/URGE NT SEVERITY EMERGENCY 19065 HARLEY SOUZA DEPT 2 2 III PAMELA III PAMELA VISIT HIGH SEVERITY& THREAT [facility] - 2 2 [facility] T OFFICE 92703 [facility] 2 ALFREDO ZUNIGA ION CARDIOLOG NEW/ESTAB Y CLINIC PATIENT 60 MIN OFFICE 82253 KERI CHE KERI CHE OUTPATIEN 2 2 T VISIT 15 MINUTES [facility] - [facility] 2 [facility] 2 [facility] T OFFICE 48709 GLORIA GLORIA OUTPATIEN 2 2 MAGAN MAGAN T VISIT 15 MINUTES OFFICE 80293 ROCIO ROCIO OUTPATIEN 2 2 JULIEN JULIEN T VISIT 25 MINUTES [facility]OSP[facility] - 2 2 [facility] OUTPATIEN INC T EMERGENCY 85919 JUAN GRIFFITHS DEPT 2 2 EMERGENCY TANMAY VISIT SERVICES HIGH SEVERITY& THREAT FUNJ EMERGENCY 40906 [facility] 2 2 [facility] DEPARTMEN INC T VISIT MODERATE SEVERITY OFFICE 19580 GLORIA GLORIA OUTPATIEN 2 2 MAGAN MAGAN T VISIT 15 MINUTES OFFICE 24812 VASCELLO VASCELLO OUTPATIEN 2 2 NATHEN NATHEN T NEW 30 MINUTES OFFICE 50318 [facility] 2 2 [facility] T VISIT 25 MINUTES [facility] 2 HOSPITAL OUTPATI T OFFICE 97707 GLORIA GLORIA OUTPATIEN 2 2 MAGAN MAGAN T VISIT 15 MINUTES OFFICE 26767 GLORIA GLORIA OUTPATIEN 2 2 MAGAN MAGAN T VISIT 15 MINUTES [facility] - 2 2 [facility]PATIEN INC T OFFICE 44268 GLORIA GLORIA OUTPATIEN 2 2 MAGAN MAGAN T VISIT 15 MINUTES OFFICE 64179 GLORIA GLORIA OUTPATIEN 2 2 MAGAN MAGAN T VISIT 15 MINUTES EMERGENCY 07244 [facility] 2 2 [facility] DEPARTMEN INC T VISIT MODERATE SEVERITY EMERGENCY 47263 JUAN GRIFFITHS 2 2 EMERGENCY TANMAY DEPARTMEN SERVICES T VISIT HIGH/URGE NT SEVERITY [facility] - 2 2 [facility] OUTPATIEN INC T OFFICE 75196 GLORIA GLORIA OUTPATIEN 2 2 MAGAN MAGAN T VISIT 15 MINUTES OFFICE 15600 ROCIO ROCIO OUTPATIEN 2 2 JULIEN JULIEN T NEW 60 MINUTES OFFICE 00775 GLORIA GLORIA OUTPATIEN 2 2 MAGAN MAGAN T VISIT 10 MINUTES OFFICE 61538 KERI CHE KERI CHE OUTPATIEN 1 1 T VISIT 15 MINUTES OFFICE 44251 GLORIA GLORIA OUTPATIEN 1 1 MAGAN MAGAN T VISIT 15 MINUTES [facility] [place] [address] 1 N OUTPATIEN COMMUNTIY T HOSPITA OFFICE 07586 WINDISCH WINDISCH OUTPATIEN 1 1 AMB AMB T VISIT 40 MINUTES OFFICE 47246 ALLEN ALLEN OUTPATIEN 1 1 CORRINA CORRINA T VISIT 15 MINUTES OFFICE 87457 A C GLORIA OUTPATIEN 1 1 LAN ROBBINS MAGAN T VISIT PSC 15 MINUTES OFFICE 28133 A C GLORIA OUTPATIEN 1 1 LAN ROBBINS MAGAN T VISIT PSC 10 MINUTES OFFICE 58363 A C GLORIA OUTPATIEN 1 1 LAN ROBBINS MAGAN T VISIT PSC 15 MINUTES OFFICE 67655 LISANDRA FRY OUTPATIEN 1 1 DORITA KEVIN T VISIT 25 MINUTES [facility] [place] [address]654 1 N OUTPATIEN COMMUNITY T HOSPITA OFFICE 99740 LISANDRA FRY OUTPATIEN 1 1 DORITA KEVIN T NEW 30 MINUTES OFFICE 13897 A C MONTENEGRO A OUTPATIEN 1 1 LAN ROBBINS T VISIT 5 PSC MINUTES OFFICE 78278 A C LAN A OUTPATIEN 1 1 LAN ROBBINS T VISIT PSC 15 MINUTES OFFICE 62336 [facility] [place] OUTPATIEN 1 1 [facility] T VISIT HOSPITAL 25 P MINUTES HOSP[facility] - 1 1 [facility] OUTPATIEN INC T OFFICE 50857 [facility] [place] OUTPATIEN 1 1 [facility] 40 P MINUTES OFFICE 65559 A C MONTENEGRO A OUTPATIEN 1 1 LAN ROBBINS T VISIT PSC 15 MINUTES OFFICE 13489 PALOMINO PALOMINO OUTPATIEN 1 1 [facility] T VISIT 15 MINUTES OFFICE 56784 A C MONTENEGRO A OUTPATIEN 1 1 LAN ROBBINS T VISIT PSC 10 MINUTES PERIODIC 29705 [facility] PREVENTIV 1 1 [facility] CORRINA E MED EST CLINIC OF PATIENT DAISHA 40-64YRS OFFICE 99100 A Stanley MONTENEGRO A OUTPATIEN 1 1 LAN ROBBINS T VISIT PSC 15 MINUTES OFFICE 75208 A C OUTPATIEN 1 1 LAN ROBBINS T VISIT 5 PSC MINUTES OFFICE 56283 A C LAN A OUTPATIEN 1 1 LAN ROBBINS T VISIT PSC 15 MINUTES EMERGENCY 02022 [facility] 1 1 [facility] DEPARTMEN [facility] T VISIT MODERATE SEVERITY EMERGENCY 23438 JUAN RIGGINS [facility] DEPT 1 1 EMERGENCY VISIT SERVICES HIGH SEVERITY& THREAT [facility] - 1 1 [facility] OUTPATIEN INC T OFFICE 52599 PALOMINO PALOMINO OUTPATIEN 1 1 [facility] T VISIT 25 MINUTES OFFICE 88986 PALOMINO PALOMINO OUTPATIEN 1 1 [facility] T VISIT 25 MINUTES [facility]OSP[facility] - 1 1 [facility] OUTPATIEN INC T OFFICE 33304 WINDISCH WINDISCH OUTPATIEN 1 1 AMB AMB T VISIT 40 MINUTES OFFICE 09125 A C MONTENEGRO A OUTPATIEN 1 1 LAN ROBBINS T VISIT PSC 15 MINUTES [facility]OSP[facility] - 1 1 [facility] OUTPATIEN INC T OFFICE 14950 PALOMINO PALOMINO CONSULTAT 1 1 GILLIAN LOVING NEW/ESTAB PATIENT 80 MIN OFFICE 44740 A Stanley MONTENEGRO A OUTPATIEN 1 1 LAN ROBBINS T VISIT PSC 15 MINUTES HOSPITAL [facility] - 1 1 [facility] OUTPATIEN INC T OFFICE 49852 A Stanley MONTENEGRO A OUTPATIEN 0 0 LAN ROBBINS T VISIT PSC 15 MINUTES OFFICE 83107 LISANDRA FRY OUTPATIEN 0 0 DORITA KEVIN T VISIT 25 MINUTES OFFICE 03096 A Stanley MONTENEGRO A OUTPATIEN 0 0 LAN ROBBINS T VISIT PSC 15 MINUTES OFFICE 16702 A Stanley Goins OUTPATIEN 0 0 LAN ROBBINS T VISIT PSC 15 MINUTES OFFICE 42258 LISANDRA FRY CONSULTAT 0 0 DORITA LOVING NEW/ESTAB PATIENT 60 MIN OFFICE 82105 A Stanley MONTENEGRO A OUTPATIEN 0 0 LAN ROBBINS T VISIT PSC 15 MINUTES EMERGENCY 41853 [facility] 0 0 [facility] HIGH/URGE NT SEVERITY EMERGENCY 63303 JUAN MAYBERRY DEPT 0 0 EMERGENCY VISIT SERVICES HIGH SEVERITY& THREAT [facility] - 0 0 [facility] OUTPATIEN INC T OFFICE 87746 A Stanley MONTENEGRO A OUTPATIEN 0 0 LAN ROBBINS T VISIT PSC 15 MINUTES OFFICE 13531 A Stanley Goins OUTPATIEN 0 0 LAN ROBBINS T VISIT PSC 15 MINUTES OFFICE 20030 [facility] OUTPATIEN 0 0 HEALTH CORRINA T VISIT CLINIC OF 15 DAISHA MINUTES OFFICE 77364 A Stanley Goins OUTPATIEN 0 0 LAN ROBBINS T VISIT PSC 15 MINUTES OFFICE 62760 A Stanley Goins OUTPATIEN 0 0 LAN ROBBINS T VISIT PSC 15 MINUTES OFFICE 75136 A Stanley OUTPATIEN 0 0 LAN ROBBINS T VISIT 5 PSC MINUTES OFFICE 59498 A Buster MOBLEY OUTPATIEN 0 0 LAN ROBBINS C T VISIT PSC 15 MINUTES OFFICE 46677 A Buster MOBLEY OUTPATIEN 0 0 LAN ROBBINS C T VISIT PSC 15 MINUTES PERIODIC 38863 WOMEN'S ALLEN, PREVENTIV 0 0 [facility] EST CLINIC OF PATIENT 40-64YRS [facility] OFFICE 64067 A Buster MOBLEY OUTPATIEN 0 0 LAN ROBBINS C T VISIT PSC 15 MINUTES OFFICE 44151 A Buster MOBLEY OUTPATIEN 0 0 LAN ROBBINS C T VISIT 5 PSC MINUTES OFFICE 51342 WINDISCH, WINDISCH, OUTPATIEN 0 0 ZEE ZEE T VISIT K K 25 MINUTES OFFICE 91972 A Buster MOBLEY OUTPATIEN 0 0 LAN ROBBINS C T VISIT PSC 15 MINUTES OFFICE 68917 A Buster MOBLEY OUTPATIEN 0 0 LAN ROBBINS C T VISIT PSC 15 MINUTES OFFICE 59042 Buster FARIAS OUTPATIEN 0 0 LAN ROBBINS C T VISIT PSC 15 MINUTES OFFICE 23506 A Buster MOBLEY OUTPATIEN 0 0 LAN ROBBINS C T VISIT PSC 15 MINUTES OFFICE 94198 Buster FARIAS OUTPATIEN 9 9 LAN ROBBINS C T VISIT PSC 15 MINUTES OFFICE 70213 A Buster MOBLEY OUTPATIEN 9 9 LAN ROBBINS C T VISIT PSC 15 MINUTES OFFICE 64552 Buster FARIAS OUTPATIEN 9 9 MONTENEGRO MD C T VISIT PSC 15 MINUTES HOSPITAL [facility] - 9 [facility] 9 9 [facility] 9 9 [facility] OFFICE 39291 Buster FARIAS OUTPATIEN 9 9 LAN Angel T VISIT PSC 15 MINUTES EMERGENCY 83166 JUAN GAY, DEPT 9 9 EMERGENCY KALA P VISIT SERVICES HIGH SEVERITY& ASSOCIATE THREAT S FUN EMERGENCY 33415 [facility] 9 9 [facility] DEPARTMEN INC T VISIT HIGH/URGE NT SEVERITY [facility]OSPITAL [facility] - 9 9 [facility] OUTPATIEN INC T OFFICE 91356 BONNY DRAPER OUTPATIEN 9 9 EZE KOCH T VISIT K K 25 MINUTES OFFICE 63578 Buster FARIAS OUTPATIEN 9 9 LAN Angel T VISIT PSC 10 MINUTES OFFICE 39496 Buster FARIAS OUTPATIEN 9 9 LAN Angel T VISIT PSC 10 MINUTES OFFICE 28624 Buster FARIAS OUTPATIEN 9 9 LAN Angel T VISIT 5 PSC MINUTES OFFICE 82239 Buster FARIAS OUTPATIEN 9 9 LAN Angel T VISIT PSC 10 MINUTES OFFICE 06083 Buster FARIAS OUTPATIEN 9 9 LAN Angel T VISIT PSC 15 MINUTES OFFICE 63013 Buster FARIAS OUTPATIEN 9 9 LAN Angel T VISIT PSC 15 MINUTES OFFICE 82031 BONNY DRAPER, CONSULTAT 9 9 ZEE KOCH ION K K NEW/ESTAB PATIENT 40 MIN OFFICE 02828 ÁNGEL WAGNER 9 9 [facility] ROBYN Lipscomb T VISIT UROLOGY 25 PSC MINUTES HOSPITAL [facility] - 9 9 [facility] OUTPATIEN INC T OFFICE 26325 ISSAC WAGNER 9 9 [facility] ROBYN LOVING UROLOGY NEW/ESTAB PSC PATIENT 40 MIN OFFICE 58551 Buster FARIAS OUTPATIEN 9 9 LAN Angel T VISIT PSC 15 MINUTES OFFICE 87100 Buster FARIAS OUTPATIZAN 9 9 LAN Angel T VISIT PSC 15 MINUTES OFFICE 58034 Buster FARIAS OUTPATIEN 9 9 LAN Angel T VISIT 5 PSC MINUTES HOSPITAL [facility] - 9 9 [facility] OUTPATIEN INC T OFFICE 91945 Buster FARIAS OUTPATIZAN 9 9 LAN Angel T VISIT PSC 15 MINUTES HOSPITAL [facility] - 9 9 [facility] OUTPATIEN INC T OFFICE 41769 Buster FARIAS OUTPATIZAN 9 9 LAN Angel T VISIT PSC 15 MINUTES HOSPITAL [facility] - 9 9 [facility] OUTPATIEN INC T OFFICE 64970 Buster FARIAS OUTPATIZAN 9 9 LAN Angel T VISIT PSC 15 MINUTES HOSPITAL [facility] - 9 9 [facility] OUTPATIEN INC T EMERGENCY 33541 JUAN GRIFFITHS, 9 9 EMERGENCY [facility] SERVICES T VISIT HIGH/URGE ASSOCIATE NT S SEVERITY EMERGENCY 75094 [facility] 9 9 [facility] DEPARTMEN INC T VISIT LOW/MODER SEVERITY PERIODIC 02009 [facility] 9 9 [facility] EST CLINIC OF PATIENT 40-64YRS [facility] OFFICE 45092 Buster FARIAS OUTPATIZAN 9 9 LAN Angel T VISIT PSC 15 MINUTES OFFICE 35568 Buster FARIAS OUTPATIEN 9 9 LAN Angel T VISIT PSC 15 MINUTES OFFICE 69794 Buster FARIAS OUTPATIEN 9 9 LAN Angel T VISIT 5 PSC MINUTES OFFICE 76514 Buster FARIAS OUTPATIEN 8 8 LAN Angel T VISIT PSC 15 MINUTES HOSPITAL [facility] - 8 8 [facility] OUTPATIEN INC T OFFICE 14040 Buster FARIAS OUTPATIEN 8 8 LAN Angel T VISIT PSC 10 MINUTES OFFICE 07149 Buster FARIAS OUTPATIEN 8 8 LAN Angel T VISIT PSC 15 MINUTES HOSPITAL [facility] - 8 8 [facility] OUTPATIEN INC T EMERGENCY 94254 [facility] 8 8 [facility] DEPARTMEN INC T VISIT MODERATE SEVERITY EMERGENCY 31772 RONEL BURR, 8 8 [facility] T VISIT ON HIGH/URGE NT SEVERITY OFFICE 95004 Buster FARIAS OUTPATIEN 8 8 LAN Angel T VISIT PSC 15 MINUTES OFFICE 11302 Buster FARIAS OUTPATIEN 8 8 LAN Angel T VISIT 5 PSC MINUTES OFFICE 73692 Buster FARIAS OUTPATIEN 8 8 LAN Angel T VISIT PSC 15 MINUTES OFFICE 32957 Buster FARIAS OUTPATIEN 8 8 LAN Angel T VISIT PSC 15 MINUTES OFFICE 21511 Buster FARIAS OUTPATIEN 8 8 LAN Angel T VISIT PSC 15 MINUTES HOSPITAL [facility] - 8 8 [facility] OUTPATIEN INC T OFFICE 49431 Buster FARIAS OUTPATIEN 8 8 LAN Angel T VISIT PSC 15 MINUTES OFFICE 18995 Buster FARIAS OUTPATIEN 8 8 LAN Angel T VISIT PSC 15 MINUTES OFFICE 77966 Buster FARIAS OUTPATIEN 8 8 LAN Silverman VISIT 5 PSC MINUTES OFFICE 41286 Buster FARIAS OUTPATIEN 8 8 LAN Angel T VISIT PSC 15 MINUTES OFFICE 84770 Buster FARIAS OUTPATIEN 8 8 LAN Angel T VISIT PSC 15 MINUTES OFFICE 89644 Buster FARIAS OUTPATIEN 8 8 LAN Angel T VISIT PSC 15 MINUTES OFFICE 33875 AIDAN BERMUDEZ OUTPATIEN 8 8 ZAK Da Silva T VISIT 15 MINUTES HOSPITAL [facility] - 8 8 [facility] OUTPATIEN INC T OFFICE 13752 AIDAN BERMUDEZ OUTPATIEN 8 8 ZAK Silverman NEW 30 MINUTES OFFICE 37199 Buster FARIAS OUTPATIEN 8 8 LAN Angel T VISIT PSC 15 MINUTES OFFICE 14558 Buster FARIAS OUTPATIEN 8 8 LAN Angel T VISIT PSC 15 MINUTES OFFICE 15323 [facility] ALLEN, OUTPATIEN 8 8 HEALTH KEYSHA J T VISIT CLINIC OF 15 MINUTES [facility] - 8 8 [facility] OUTPATIEN [facility] SH[facility] - 8 8 [facility] OUTPATIEN INC T OFFICE 53100 [facility]EN'[facility] ALLEN, OUTPATIEN 8 8 HEALTH KEYSHA J T VISIT CLINIC OF 15 MINUTES [facility]
--- OUTSIDE RECORDS SUMMARY | 2017-10-11 13:31 | External Medical Summary Rpt | CCD ---
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 D EA 15 MIN APPL 09656 SHIVANI PARRISH MODALITY 5 [facility] 1/> AREAS INC INC ULTRASOUN D EA 15 MIN THERAPEUT 33985 SHIVANI PARRISH IC PX 1/> 5 [facility] AREAS INC INC EACH 15 MIN EXERCISES APPL 24044 SHIVANI PARRISH MODALITY 5 [facility] 1/> AREAS INC INC 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 E-STIM G0283 SHIVANI PARRISH 1/> AREAS 5 [facility] OTH THAN INC INC WND CARE PART TX PLAN THERAPEUT 49013 SHIVANI PARRISH IC PX 1/> 5 [facility] AREAS INC INC EACH 15 MIN EXERCISES PHYSICAL 88290 SHIVANI PARRISH THERAPY 5 [facility] EVALUATIO INC INC N RADIOLOGI 84494 [place]IR[place]IA GRANT ALL C 5 MEDICAL EXAMINATI IMAGING ON KNEE 3 ASS VIEWS ELECTRICA A4595 EMPI INC EMPI INC L 5 STIMULATO R SUPPLIES 2 LEAD PER MONTH ELECTRICA A4595 EMPI INC EMPI INC L 5 STIMULATO R SUPPLIES 2 LEAD PER MONTH 3D 74902 [place] BRITTNEY RENDERING 5 MEDICAL [facility] W/INTERP IMAGING & ASS POSTPROCE SS SUPERVISI ON MRI 65117 [place] BRITTNEY SPINAL 5 MEDICAL [facility] CANAL IMAGING CERVICAL ASS W/O CONTRAST MATRL RADIOLOGI 85158 SHIVANI PARRISH C 5 [facility] EXAMINATI INC INC ON KNEE 3 VIEWS ELECTRICA A4595 EMPI INC EMPI INC L 5 STIMULATO R SUPPLIES 2 LEAD PER MONTH OPHTH 18013 [facility] 5 XM&EVAL COMPRHNSV ESTAB PT 1/> ELECTRICA A4595 EMPI INC EMPI INC L 5 STIMULATO R SUPPLIES 2 LEAD PER MONTH RADIOLOGI 47896 [place] BRITTNEY C EXAM 5 MEDICAL [facility] KNEE IMAGING COMPLETE ASS 4/MORE VIEWS NONEMERG A0120 FEDERATED FEDERATED TRNSPRT: 5 [facility] TRANSPORT TRANSPORT MTN ATION SER ATION SER AREA/OTH SYS URINLS 77938 A C KERI CHE DIP 5 LAN ROBBINS STICK/TAB PSC LET REAGNT NON-AUTO MICRSCPY NONEMERG A0120 FEDERATED FEDERATED TRNSPRT: 5 [facility] TRANSPORT TRANSPORT MTN ATION SER [facility] AREA/OTH SYS NONEMERG A0120 FEDERATED FEDERATED TRNSPRT: 5 [facility] TRANSPORT TRANSPORT MTN ATION SER [facility] AREA/OTH SYS NONEMERGE A0100 FEDERATED FEDERATED NCY 5 TRANSPORT TRANSPORT TRANSPORT ATION; ATION SER ATION SER TAXI ELECTRICA A4595 EMPI INC EMPI INC L 5 STIMULATO R SUPPLIES 2 LEAD PER MONTH RADIOLOGI 55375 SHIVANI SHIVANI C EXAM 5 [facility] CHEST 2 INC INC VIEWS FRONTAL&L ATERAL ELECTRICA A4595 EMPI INC EMPI INC L 5 STIMULATO R SUPPLIES 2 LEAD PER MONTH HEMOGLOBI 36266 A Stanley BOLTON N 5 LAN ROBBINS GLYCOSYLA PSC KYMBERLY A1C BASIC 02812 [facility] METABOLIC 5 DIAGNOSTI DIAGNOSTI PANEL CS CS CALCIUM TOTAL ELECTRICA A4595 EMPI INC EMPI INC L 4 STIMULATO R SUPPLIES 2 LEAD PER MONTH PPSV23 52175 [facility] VACCINE 2 [facility] YRS OR HLTH DEPT HLTH DEPT OLDER FOR [facility] JOSÉ SUBQ/IM USE NONEMERG A0120 FEDERATED FEDERATED TRNSPRT: 4 TRANS [facility] TRANSPORT SERVBLUEG MTN [facility] AREA/OTH SYS IIV3 88210 A Stanley BOLTON VACCINE 4 LAN ROBBINS SPLIT PSC VIRUS 0.5 ML DOSAGE IM USE IM ADM 20595 A Stanley BOLTON PRQ ID 4 LAN ROBBINS SUBQ/IM PSC NJXS 1 VACCINE URINLS 61435 A Stanley BOLTON DIP 4 LAN ROBBINS STICK/TAB PSC LET REAGNT NON-AUTO MICRSCPY NONEMERG A0120 FEDERATED FEDERATED TRNSPRT: 4 TRANS [facility] TRANSPORT SERVBLUEG MTN [facility] AREA/OTH SYS MYOCARDIA 09774 BRITTNEY BRITTNEY L SPECT 4 ALVARADO ALVARADO MULTIPLE STUDIES CV STRS 48072 SHIVANI PARRISH TST 4 [facility] XERS&/OR INC INC RX CONT ECG TRCG ONLY INJECTION J2785 SHIVANI PARRISH 4 [facility] REGADENOS INC INC ON 0.1 MG ECHO 68082 SHIVANI PARRISH TTHRC R-T 4 [facility] 2D INC INC W/WOM-MOD E COMPL SPEC&COLR D CV STRS 81427 LANNY CA JR TST 4 DWI DWI XERS&/OR RX CONT ECG I&R ONLY ELECTRICA A4595 EMPI INC EMPI INC L 4 STIMULATO R SUPPLIES 2 LEAD PER MONTH THERAPEUT 10622 KERI CELAYA CHE IC 4 PROPHYLAC TIC/DX INJECTION SUBQ/IM INJECTION J1885 KERI CELAYA CHE 4 KETOROLAC TROMETHAM INE PER 15 MG BASIC 69145 [facility] METABOLIC 4 DIAGNOSTI DIAGNOSTI PANEL CS CS CALCIUM TOTAL HEMOGLOBI 20878 KERI CELAYA CHE N 4 GLYCOSYLA KYMBERLY A1C GLUCOSE 77484 KERI CELAYA CHE QUANTITAT 4 SANDY BLOOD XCPT REAGENT STRIP TRANSFERA 90724 KERI CELAYA CHE SE 4 ALANINE AMINO ALT SGPT TRANSFERA 63310 KERI CELAYA CHE SE 4 ASPARTATE AMINO AST SGOT ELECTRICA A4595 EMPI INC EMPI INC L 4 STIMULATO R SUPPLIES 2 LEAD PER MONTH NONEMERG A0120 FEDERATED FEDERATED TRNSPRT: 4 TRANS MIN[facility]-BUS TRANSPORT SERVBLUEG MTN ATION SER JASMIN AREA/OTH SYS ELECTRICA A4595 EMPI INC EMPI INC L 4 STIMULATO R SUPPLIES 2 LEAD PER MONTH THERAPEUT 42509 KERI CHE KERI CHE IC 4 PROPHYLAC TIC/DX INJECTION SUBQ/IM INJECTION J1885 KERI CHE KERI CHE 4 KETOROLAC TROMETHAM INE PER 15 MG ELECTRICA A4595 EMPI INC EMPI INC L 4 STIMULATO R SUPPLIES 2 LEAD PER MONTH GLUCOSE 23981 KERI CELAYA CHE QUANTITAT 4 SANDY BLOOD XCPT REAGENT STRIP ELECTRICA A4595 EMPI INC EMPI INC L 4 STIMULATO R SUPPLIES 2 LEAD PER MONTH HEMOGLOBI 30290 KERI CELAYA CHE N 4 GLYCOSYLA KYMBERLY A1C ELECTRICA A4595 EMPI INC EMPI INC L 3 STIMULATO R SUPPLIES 2 LEAD PER MONTH POTASSIUM 98563 LAB DIMAS LAB DIMAS SERUM 3 OF RONNA PLASMA/WH RONNA HOLDINGS OLE BLOOD HOLDINGS ELECTRICA A4595 EMPI INC EMPI INC L 3 STIMULATO R SUPPLIES 2 LEAD PER MONTH BASIC 00586 [facility] METABOLIC 3 DIAGNOSTI DIAGNOSTI PANEL CS CS CALCIUM TOTAL ELECTRICA A4595 EMPI INC EMPI INC L 3 STIMULATO R SUPPLIES 2 LEAD PER MONTH URNLS DIP 40485 TIFFANY ALLEN 3 CORRINA CORRINA STICK/TAB LET RGNT NON-AUTO W/O MICRSCP CYTP C/V 86980 PICKLESIM PICKLESIM AUTO THIN 3 ER JR PANDA ER JR PANDA LYR PREPJ SCR MNL RESCR PHYS IIV3 63986 SHIVANI PARRISH VACCINE 3 [facility] VIRUS 0.5 ML DOSAGE IM USE ELECTRICA A4595 EMPI INC EMPI INC L 3 STIMULATO R SUPPLIES 2 LEAD PER MONTH TRANSFERA 03990 A Stanley BOLTON SE 3 LAN ROBBINS [place] [address] A Stanley BOLTON TRIGLYCER 3 LAN ROBBINS IDES PSC TRANSFERA 13108 A Stanley BOLTON SE 3 LAN ROBBINS ASPARTATE PSC AMINO AST SGOT COLLECTIO 86170 A Stanley BOLTON N VENOUS 3 LAN ROBBINS BLOOD PSC VENIPUNCT URE LIPOPROTE 99785 A Stanley BOLTON IN DIR 3 LAN ROBBINS EMMANUEL HIGH PSC DENSITY CHOLESTER OL BASIC 27165 A Stanley BOLTON METABOLIC 3 LAN ROBBINS PANEL PSC CALCIUM TOTAL GLUCOSE 41199 A Stanley BOLTON QUANTITAT 3 LAN ROBBINS SANDY BLOOD PSC XCPT REAGENT STRIP CHOLESTER 83456 A Stanley BOLTON OL 3 LAN ROBBINS SERUM/WHO PSC LE BLOOD TOTAL ELECTRICA A4595 EMPI INC EMPI INC L 3 STIMULATO R SUPPLIES 2 LEAD PER MONTH HEMOGLOBI 58160 Buster BOLTON N 3 LAN ROBBINS GLYCOSYLA PSC KYMBERLY A1C ALBUMIN 81211 Buster BOLTON URINE 3 LAN ROBBINS MICROALBU PSC MIN SEMIQUANT ITATIVE PHYSICAL 22031 SHIVANI PARRISH THERAPY 3 [facility] EVALUATIO INC INC N POSTERIOR V2632 SHIVANI AVALOSON CHAMBER 3 [facility] INTRAOCUL INC INC AR LENS GLUC BLD 42191 SHIVANI PARRISH GLUC MNTR 3 [facility] DEV INC INC CLEARED FDA SPEC HOME USE CATARACT 08499 SHIVANI PARRISH REMOVAL 3 [facility] INSERTION INC INC OF LENS CATARACT 45690 SHIVANI PARRISH REMOVAL 3 [facility] INSERTION INC INC OF LENS GLUC BLD 29039 SHIVANI PARRISH GLUC MNTR 3 [facility] DEV INC INC CLEARED FDA SPEC HOME USE OPH BMTRY 45538 [facility] 3 ULYSSES ULYSSES ECHOGRAPY A-SCAN IO LENS PWR JUAN POSTERIOR V2632 SHIVANI PARRISH CHAMBER 3 [facility] INTRAOCUL INC INC AR LENS ELECTRICA A4595 EMPI INC EMPI INC L 3 STIMULATO R SUPPLIES 2 LEAD PER MONTH OPHTH 98204 [facility] 3 ULYSSES ULYSSES XM&EVAL COMPRHNSV ESTAB PT 1/> OPH BMTRY 51013 [facility] 3 ULYSSES ULYSSES ECHOGRAPY A-SCAN IO LENS PWR JUAN ELECTRICA A4595 EMPI INC EMPI INC L 3 STIMULATO R SUPPLIES 2 LEAD PER MONTH URINLS 84385 Buster SANDERS DIP 3 LAN ROBBINS JEA STICK/TAB PSC LET REAGNT NON-AUTO MICRSCPY HEMOGLOBI 24341 SHIVANI PARRISH N 3 [facility] GLYCOSYLA INC INC KYMBERLY A1C NONEMERG A0120 LKLP LKLP TRNSPRT: 3 [facility] MINI-BUS ACTION ACTION [facility] AREA/OTH SYS CYANOCOBA 61677 SHIVANI PARRISH MICHELLE 3 [facility] VITAMIN INC INC B-12 COMPUTER- 61799 BRITTNEY BIRTTNEY AIDED 3 ALVARADO ALVARADO DETECTION SCREENING MAMMOGRAP HY NONEMERG A0120 [facility] TRNSPRT: 3 [facility] MINI-BUS ACTION ACTION [facility]/OT SYS SCREENING G0202 BRITTNEY BRITTNEY 3 ALVARADO ALVARADO MAMMOGRAP HY RONALD INCL CAD WHEN PERFORMD INJ J0702 KERI CHE KERI CHE BETAMETHA 3 SONE ACETATE & PHOSPHATE 3 MG THERAPEUT 70457 KERI CHE KERI CHE IC 3 PROPHYLAC TIC/DX INJECTION SUBQ/IM DUP-SCAN 34052 SHIVANI PARRISH XTR VEINS 3 [facility] INC INC UNILATERA L/LIMITED STUDY TRANSFERA 70472 KILPELA KILPELA SE 3 JEA JEA ALANINE AMINO ALT SGPT LIPID 95306 KILPELA KILPELA PANEL 3 JEA JEA TRANSFERA 18008 KILPELA KILPELA SE 3 JEA JEA ASPARTATE AMINO AST SGOT BASIC 57252 LAB DIMAS LAB DIMAS METABOLIC 3 RONNA RONNA PANEL [employer] CALCIUM TOTAL HEMOGLOBI 64764 KILPELA KILPELA N 3 JEA YAZMIN GLYCOSYLA KYMBERLY A1C GLUCOSE 40071 KILPELA KILPELA QUANTITAT 3 JEA JEA SANDY BLOOD XCPT REAGENT STRIP URINLS 27295 KILPELA KILPELA DIP 3 JEA JEA STICK/TAB LET REAGNT NON-AUTO MICRSCPY NONEMERG A0120 [facility] TRNSPRT: 2 [facility] MINI-BUS ACTION ACTION [facility] AREA/OTH SYS OPH BMTRY 23154 [facility] 2 ULYSSES ULYSSES ECHOGRAPY A-SCAN IO LENS PWR JUAN OPHTH 63720 [facility] 2 ULYSSES ULYSSES XM&EVAL COMPRE NEW PT 1/> VST COMPREHEN 23301 SHIVANI PARRISH SIVE 2 [facility] METABOLIC INC INC PANEL BLOOD 87351 SHIVANI PARRISH COUNT 2 [facility] COMPLETE INC INC AUTO&[place] [address] SHIVANI PARRISH INFUSION 2 [facility] THERAPY/P INC INC ROPHYLAXI S /DX 1ST TO 1 HR THERAPEUT 31422 SHIVANI PARRISH IC 2 [facility] INJECTION INC INC IV PUSH EACH NEW DRUG URINLS 96777 KILPELA KILPELA DIP 2 JEA JEA STICK/TAB LET REAGNT NON-AUTO MICRSCPY OPHTH 15649 [facility] SCIFRES MEDICAL 2 ANG ANG XM&EVAL COMPRHNSV ESTAB PT 1/> DETERMINA 29854 SCIFRES SCIFRES TION 2 ANG ANG REFRACTIV E STATE INDIV 30750 [facility] PSYCTX 2 REG REG MEN OFFICE/OU MH/MR [facility] INC TPATIENT BOARD 20-30 MIN 3D 53279 SHIVANI PARRISH RENDERING 2 [facility] W/INTERP INC INC & POSTPROCE SS SUPERVISI ON MRI 73773 SHIVANI PARRISH SPINAL 2 [facility] CANAL INC INC THORACIC W/O CONTRAST MATRL APPL 94660 SHIVANI PARRISH MODALITY 2 [facility] 1/> AREAS INC INC ELEC STIMJ EA 15 MIN MRI 67817 SHIVANI PARRISH SPINAL 2 [facility] CANAL INC INC CERVICAL W/O CONTRAST MATRL NONEMERG A0120 LKLP LKLP TRNSPRT: 2 [facility] ACTION ACTION MTN AREA/OTH SYS URINLS 36794 KERI CHE KERI CHE DIP 2 STICK/TAB LET REAGNT NON-AUTO MICRSCPY IIV3 24571 SHIVANI PARRISH VACCINE 2 [facility] VIRUS 0.5 ML DOSAGE IM USE ECG 15256 SHIVANI GONZALEZ ROUTINE 2 [facility] W/LEAST P 12 LDS I&R ONLY CREATINE 97211 SHIVANI PARRISH KINASE MB 2 [facility] FRACTION INC INC ONLY 3D 38994 SHIVANI PARRISH RENDERING 2 [facility] W/INTERP INC INC & POSTPROCE SS SUPERVISI ON ECG 31630 SHIVANI PARRISH ROUTINE 2 [facility] ECG INC INC W/LEAST 12 LDS TRCG ONLY W/O I&R COMPREHEN 37226 SHIVANI PARRISH SIVE 2 [facility] METABOLIC INC INC PANEL CREATINE 34940 SHIVANI PARRISH KINASE 2 [facility] [place] [address] SHIVANI PARRISH HEAD/BRAI 2 [facility] N W/[place] [address] MARCOS LUGO MAXILLOFA 2 MEDICAL [facility] CIAL W/[place] [address] SHIVANIKARAN PARRISH INFUSION 2 [facility] THERAPY/P INC INC ROPHYLAXI S /DX 1ST TO 1 HR THERAPEUT 38428 SHIVANI PARRISH IC 2 [facility] INJECTION INC INC IV PUSH EACH NEW DRUG BLOOD 20787 SHIVANIKARAN AVALOSON COUNT 2 [facility] COMPLETE INC INC AUTO&[place] [address] SHIVANI PARRISH TROPONIN 2 [facility] QUANTITAT INC INC SANDY N-INVAS 86212 SHIVANI PARRISH PHYSIOLOG 2 [facility] IC STD INC INC LXTR ART COMPL BI MYOCARDIA 73624 SHIVANI PARRISH L SPECT 2 [facility] MULTIPLE INC INC STUDIES CV STRS 83804 [facility] TST 2 PHYSICIAN PHYSICIAN XERS&/OR S GROUP S GROUP RX CONT ECG W/O I&R CV STRS 19683 SHIVANI PARRISH TST 2 [facility] XERS&/OR INC INC RX CONT ECG TRCG ONLY CV STRS 08634 SHIVANI GONZALEZ TST 2 [facility] XERS&/OR HOSPITAL RX CONT P ECG I&R ONLY NON-INVAS 53824 MARCOS LUGO 2 MEDICAL ALVARADO PHYSIOLOG IMAGING IC STD ASS EXTREMITY ART 2 LEVEL ECHO 97581 SHIVANI PARRISH TTHRC R-T 2 [facility] 2D INC INC W/WOM-MOD E COMPL SPEC&COLR D TECHNETIU A9500 SHIVANI Nath TC-99M 2 [facility] SESTAMIBI INC INC DX PER STUDY DOSE NONEMERG A0120 LKLP LKLP TRNSPRT: 2 [facility] MINI-BUS ACTION ACTION MTN AREA/OTH SYS NONEMERG A0120 LKLP LKLP TRNSPRT: 2 [facility] MINI-BUS ACTION ACTION MTN AREA/OTH SYS INDIV 79959 [facility] PSYCTX 2 REG REG MEN OFFICE/OU MH/MR [facility] INC TPATIENT BOARD 20-30 MIN APPL 62800 SHIVANI PARRISH MODALITY 2 [facility] 1/> AREAS INC INC ELEC STIMJ UNATTENDE D APPLICATI 91066 SHIVANI PARRISH ON 2 [facility] MODALITY INC INC 1/> AREAS HOT/COLD PACKS APPLICATI 10684 SHIVANI PARRISH ON 2 [facility] MODALITY INC INC 1/> AREAS HOT/COLD PACKS APPL 10419 SHIVANI PARRISH MODALITY 2 [facility] 1/> AREAS INC INC TRACTION MECHANICA L THERAPEUT 60247 SHIVANI PARRISH IC PX 1/> 2 [facility] AREAS INC INC EACH 15 MIN EXERCISES THERAPEUT 10325 SHIVANI PARRISH IC PX 1/> 2 [facility] AREAS INC INC EACH 15 MIN EXERCISES APPL 42633 SHIVANI PARRISH MODALITY 2 [facility] 1/> AREAS INC INC ELEC STIMJ UNATTENDE D APPLICATI 71982 SHIVANI PARRISH ON 2 [facility] MODALITY INC INC 1/> AREAS HOT/COLD PACKS APPLICATI 52811 SHIVANI PARRISH ON 2 [facility] MODALITY INC INC 1/> AREAS HOT/COLD PACKS NONEMERG A0120 LKLP LKLP TRNSPRT: 2 [facility] MINI-BUS ACTION ACTION MTN AREA/OTH SYS APPL 34897 SHIVANI PARRISH MODALITY 2 [facility] 1/> AREAS INC INC ELEC STIMJ UNATTENDE D APPL 39355 SHIVANI SHIVANI MODALITY 2 [facility] 1/> AREAS INC INC TRACTION MECHANICA L APPL 87450 SHIVANI SHIVANI MODALITY 2 [facility] 1/> AREAS INC INC TRACTION MECHANICA L APPL 14041 SHIVANI SHIVANI MODALITY 2 [facility] 1/> AREAS INC INC ELEC STIMJ UNATTENDE D THERAPEUT 20883 SHIVANI SHIVANI IC PX 1/> 2 [facility] AREAS INC INC EACH 15 MIN EXERCISES APPLICATI 72342 SHIVANI PARRISH ON 2 [facility] MODALITY INC INC 1/> AREAS HOT/COLD PACKS APPLICATI 23155 SHIVANI PARRISH ON 2 [facility] MODALITY INC INC 1/> AREAS HOT/COLD PACKS APPL 50388 SHIVANI SHIVANI MODALITY 2 [facility] 1/> AREAS INC INC ELEC STIMJ UNATTENDE D APPL 54271 SHIVANI SHIVANI MODALITY 2 [facility] 1/> AREAS INC INC TRACTION MECHANICA L PHYSICAL 80612 SHIVANI SHIVANI THERAPY 2 [facility] EVALUATIO INC INC N NONEMERG A0120 LKLP LKLP TRNSPRT: 2 [facility] MINI-BUS ACTION ACTION MTN AREA/OTH SYS RHYTHM 28386 SHIVANI PARRISH ECG 1-3 2 [facility] LEADS INC INC TRACING ONLY W/O I&[place] [address] SHIVANI PARRISH TROPONIN 2 [facility] QUANTITAT INC INC SANDY BLOOD 87503 SHIVANI PARRISH COUNT 2 [facility] COMPLETE INC INC AUTO&AUTO DIFRNTL WBC RADIOLOGI 53533 SHIVANI PARRISH C 2 [facility] EXAMINATI INC INC ON CHEST SINGLE VIEW FRONTAL CREATINE 50592 SHIVANI PARRISH KINASE 2 [facility] TOTAL INC INC COMPREHEN 10868 SHIVANI PARRISH SIVE 2 [facility] METABOLIC INC INC PANEL ECG 07424 SHIVANI PARRISH ROUTINE 2 [facility] ECG INC INC W/LEAST 12 LDS TRCG ONLY W/O I&R ECG 07909 CLEMENTINA MCRAE ROUTINE 2 CHE CHE ECG W/LEAST 12 LDS I&R ONLY CREATINE 06280 SHIVANI PARRISH KINASE MB 2 [facility] FRACTION INC INC ONLY TRANSFERA 28573 [facility] SE 2 DIAGNOSTI DIAGNOSTI ASPARTATE CS CS AMINO AST SGOT LIPID 83066 [facility] PANEL 2 DIAGNOSTI DIAGNOSTI CS CS COLLECTIO 77642 GLORIA GLORIA N VENOUS 2 MAGAN MAGAN BLOOD VENIPUNCT URE BASIC 03901 [facility] METABOLIC 2 DIAGNOSTI DIAGNOSTI PANEL CS CS CALCIUM TOTAL HEMOGLOBI 52203 [facility] N 2 DIAGNOSTI DIAGNOSTI GLYCOSYLA CS CS KYMBERLY A1C NONEMERG A0120 [facility] TRNSPRT: 2 [facility] MINI-BUS ACTION ACTION MTN AREA/OTH SYS NONEMERG A0120 [facility] TRNSPRT: 2 [facility] MINI-BUS ACTION ACTION MTN AREA/OTH SYS NONEMERG A0120 [facility] TRNSPRT: 2 [facility] MINI-BUS ACTION ACTION MTN AREA/OTH SYS NONEMERG A0120 [facility] TRNSPRT: 2 [facility] MINI-BUS ACTION ACTION MTN AREA/OTH SYS MRI 72967 [facility] SPINAL 2 MEDICAL [facility] CANAL IMAGING LUMBAR ASS W/O CONTRAST MATERIAL MRI 85916 SHIVANI PARRISH SPINAL 2 [facility] CANAL INC INC LUMBAR W/O & W/CONTR MATRL 3D 00548 SHIVANI APRRISH RENDERING 2 [facility] W/INTERP INC INC & POSTPROCE SS SUPERVISI ON CREATININ 77552 SHIVANI PARRISH E BLOOD 2 [facility] INC INC INJECTION A9576 SHIVANI PARRISH 2 [facility] GADOTERID INC INC [place] [address] SHIVANI PARRISH UREA 2 [facility] NITROGEN INC INC QUANTITAT SANDY LIPID 65909 [facility] PANEL 2 DIAGNOSTI DIAGNOSTI CS CS TRANSFERA 32584 [facility] SE 2 DIAGNOSTI DIAGNOSTI ASPARTATE CS CS AMINO AST SGOT THERAPEUT 56783 SHIVANI PARRISH IC 2 [facility] PROPHYLAC INC INC TIC/DX INJECTION SUBQ/IM COLLECTIO 02539 GLORIA GLORIA N VENOUS 2 MAGAN MAGAN BLOOD VENIPUNCT URE INJECTION J0595 SHIVANI PARRISH 2 [facility] BUTORPHAN INC INC OL TARTRATE 1 MG BASIC 26061 [facility] METABOLIC 2 DIAGNOSTI DIAGNOSTI PANEL CS CS CALCIUM TOTAL HEMOGLOBI 46894 [facility] QUEST N 2 DIAGNOSTI DIAGNOSTI GLYCOSYLA CS CS KYMBERLY A1C EMMANUEL 74552 [facility] W[facility] POST-VOID 1 AMB AMB ING RESIDUAL URINE&/BL ADDER CAP URNLS DIP 56014 [facility] W[facility]IS[facility] 1 AMB AMB STICK/TAB LET RGNT NON-AUTO W/O MICRSCP REVJ/RMVL 51507 [facility] W[facility] 1 AMB AMB PERIPHERA L NEUROSTIM ULATOR ELECTRODE ANES 70391 [place] CHIP INTEG 1 ANESTHESI I JR EDW EXTREMITI A GROUP ES ANT PSC TRUN[place] & [place] L[place] [address] PATHOLOGY PATHOLOGY SURG 1 & & PATHOLOGY CYTOLOGY CYTOLOGY GROSS LAB LAB EXAMINATI ON ONLY ECG 22893 [facility] ROUTINE 1 N N ECG COMMUNTIY COMMUNTIY W/LEAST HOSPITA HOSPITA 12 LDS TRCG ONLY W/O I&R COLLECTIO 62428 [facility] N VENOUS 1 N N BLOOD COMMUNTIY COMMUNTIY VENIPUNCT HOSPITA HOSPITA URE RADIOLOGI 87270 [facility] JUAN FRANCISCO Angel EXAM 1 RADIOLOGY GILLIAN CHEST 2 VIEWS FRONTAL&L ATERAL BLOOD 66824 [facility] COUNT 1 N N COMPLETE COMMUNTIY COMMUNTIY AUTO&AUTO HOSPITA HOSPITA DIFRNTL WBC BASIC 60055 [facility] METABOLIC 1 N N PANEL COMMUNTIY COMMUNTIY CALCIUM HOSPITA HOSPITA TOTAL EMMANUEL 31264 [facility] POST-VOID 1 AMB AMB ING RESIDUAL URINE&/BL ADDER CAP URNLS DIP 01848 [facility] 1 AMB AMB STICK/TAB LET RGNT NON-AUTO W/O MICRSCP OPHTH 75683 [facility] MEDICAL 1 VISION XM&EVAL COMPRHNSV ESTAB PT 1/> NONEMERGE A0100 [facility] CAB NCY 1 COMMUNITY TRANSPORT ACTION ATION; TAXI NONEMERGE A0100 [facility] CAB NCY 1 COMMUNITY TRANSPORT ACTION ATION; TAXI COLONOSCO 73313 [facility] PY FLX DX 1 [place] E[place] W/COLLJ GASTROENT SPEC WHEN PFRMD EGD 65703 [facility] TRANSORAL 1 [place] BIOPSY GASTROENT SINGLE/MU LTIPLE GLUC BLD 29954 [facility] GLUC MNTR 1 N N DEV [facility] CLEARED HOSPITA HOSPITA FDA SPEC HOME USE ANTIBODY 00558 [facility] HELICOBAC 1 N N TER [facility] HOSPITA RINGERS J7120 [facility] LACTATE 1 N N INFUSION [facility] UP TO HOSPITA HOSPITA 1000 CC ANES 38684 [place] JENN ANT LOWER 1 ANESTHESI INTESTINE A GROUP PSC ENDOSCOPY DISTAL DUODENUM LIPID 64600 [facility]ST PANEL 1 DIAGNOSTI DIAGNOSTI CS CS TRANSFERA 12295 [facility]ST SE 1 DIAGNOSTI DIAGNOSTI ASPARTATE CS CS AMINO AST SGOT HEMOGLOBI 58974 [facility] QUEST N 1 DIAGNOSTI DIAGNOSTI GLYCOSYLA CS CS KYMBERLY A1C BASIC 16702 [facility] METABOLIC 1 DIAGNOSTI DIAGNOSTI PANEL CS CS CALCIUM TOTAL NONEMERGE A0100 [facility] CAB NC[facility] 1 COMMUNITY TRANSPORT ACTION ATION; TAXI NONEMERGE A0100 [facility] CAB NCY 1 COMMUNITY TRANSPORT ACTION ATION; TAXI NONEMERGE A0100 [facility] CAB NCY 1 COMMUNITY TRANSPORT ACTION ATION; TAXI 3D 27012 [place] [facility] 1 [facility] IMAGING W/INTERP& [place] [address] [facility] [place] ABDOMEN & 1 [facility] PELVIS IMAGING W/O ASS CONTRAST MATERIAL URNLS DIP 24019 SHIVANI [place] 1 [facility] STICK/[facility] LET RGNT P NON-AUTO W/O MICRSCP INSJ 14939 SHIVANI [place] NON-NDWEL 1 [facility] BLADDER P CATHETER NONEMERGE A0100 [facility] 1 COMMUNITY TRANSPORT ACTION ATION; TAXI URINLS 95334 A C [place] A DIP 1 [facility] STICK/TAB PSC LET REAGNT NON-AUTO MICRSCPY CULTURE 99638 [facility] BACTERIAL 1 [employer] QUANTTATI VE COLONY COUNT URINE CULTURE 79190 [facility] BCT 1 [employer] ISOL&PRSM PTV ID ISOLATE EA URINE CULTURE 77065 [facility] TYPING 1 [employer] IMMUNOLOG IC OTH/THN IMMUNOFLU ORES OVA&JACKSON 92208 [facility] ITES 1 [employer] DIRECT SMEARS CONCENTRA TION & ID NONEMERGE A0100 [facility] 1 COMMUNITY TRANSPORT ACTION ATION; TAXI NONEMERGE A0100 [place] [address] COMMUNITY TRANSPORT ACTION ATION; TAXI NONEMERGE A0100 [place] [address] COMMUNITY TRANSPORT ACTION ATION; TAXI CYTP C/V 91048 PATHOLOGY PATHOLOGY AUTO THIN 1 & & LYR CYTOLOGY CYTOLOGY PREPJ SCR LAB LAB MNL RESCR PHYS SUSCEPTIB 05050 [facility] LTY STDY 1 [employer] ANTIMICRB IAL MICRO/AGA R DILUTJ URINLS 97311 A C MONTENEGRO A DIP 1 LAN ROBBINS STICK/TAB PSC LET REAGNT NON-AUTO MICRSCPY CULTURE 31155 [facility] BCT 1 [employer] ISOL&PRSM PTV ID ISOLATE EA URINE CULTURE 30786 [facility] BACTERIAL 1 [facility] QUANTTATI VE COLONY COUNT URINE CUL BACT 29790 [facility] AEROBIC 1 [facility] ADDL METHS DEFINITIV E EA ISOL BASIC 39194 [facility] METABOLIC 1 [facility] PANEL CALCIUM TOTAL HEMOGLOBI 45481 [facility] N 1 [facility] GLYCOSYLA KYMBERLY A1C LIPID 15940 [facility] PANEL 1 [facility] TRANSFERA 47717 [facility] SE 1 [facility] [place] [address] [facility] THYROID 1 [facility] STIMULATI NG HORMONE TSH CREATINE 23096 HSIVANI PARRISH KINASE MB 1 [facility] FRACTION INC INC ONLY ECG 59681 SHIVANI BESSON ROUTINE 1 [facility] W/LEAST P 12 LDS I&R ONLY IAADI 97136 SHIVANI PARRISH INFLUENZA 1 [facility] B VIRUS INC INC IAADI 63078 SHIVANI PARRISH INFFLUENZ 1 [facility] A A VIRUS INC INC ECG 04275 SHIVANI PARRISH ROUTINE 1 [facility] ECG INC INC W/LEAST 12 LDS TRCG ONLY W/O I&R COMPREHEN 19289 SHIVANI PARRISH SIVE 1 [facility] METABOLIC INC INC PANEL CREATINE 19448 SHIVANI PARRISH KINASE 1 [facility] [place] [address] SHIVANI PARRISH TROPONIN 1 [facility] QUANTITAT INC INC SANDY GLUC BLD 26455 SHIVANI PARRISH GLUC MNTR 1 [facility] DEV INC INC CLEARED FDA SPEC HOME USE RADIOLOGI 79395 VIR[place]IA BRITTNEY C EXAM 1 [facility] CHEST 2 IMAGING VIEWS ASS FRONTAL&L ATERAL BLOOD 47816 SHIVANI PARRISH COUNT 1 [facility] COMPLETE INC INC AUTO&AUTO DIFRNTL WBC SALINE 94640 [facility] INFUS 1 [facility] DAISHA W/COLOR DOPPLER CATH & 82098 [facility] SALINE/CO 1 [facility] R/HYSTERO SALPI NONEMERGE A0100 [facility] CAB NCY 1 COMMUNITY TRANSPORT ACTION ATION; TAXI NONEMERGE A0100 [facility] 1 COMMUNITY TRANSPORT ACTION ATION; TAXI 3D 36990 [facility]END[facility] 1 [facility] W/INTERP IMAGING & [place] [address] [facility] CERVICAL 1 [facility] SPINE W/O IMAGING CONTRAST ASS MATERIAL 3D 80007 SHIVANI PARRISH RENDERING 1 [facility] INC INC W/INTERP& [place] [address] [facility] THORACIC 1 [facility] SPINE W/O IMAGING CONTRAST ASS MATERIAL EMMANUEL 31148 WINDISCH WINDISCH POST-VOID 1 AMB AMB ING RESIDUAL URINE&/BL ADDER CAP URINLS 91003 A C MONTENEGRO A DIP 1 LAN ROBBINS STICK/TAB [place] [address] [facility] YANGBRITTNEY HEAD/BRAI 1 [facility] N W/O IMAGING CONTRAST ASS MATERIAL CT LUMBAR 00887 [facility] SPINE 1 [facility] W/O IMAGING CONTRAST ASS MATERIAL 3D 59676 [facility] BR[facility] RENDERING 1 [facility] W/INTERP IMAGING & [place] 3[place] [address] SHIVANI PARRISH RENDERING 1 [facility]OS[facility] INC INC W/INTERP& POSTPROC DIFF WORK STATION NDL EMG 4 81029 PALOMINO PALOMINO XTR W/WO 1 GILLIAN FRENCH RELATED PARASPINA L AREAS NRV CNDJ 97771 PALOMINO PALOMINO AMPLT&LAT 1 GILLIAN FRENCH ENCY EA NRV MOTOR W/F-WAVE STD NRV CNDJ 45729 PALOMINO PALOMINO AMPLITUDE 1 GILLIAN FRENCH & LATENCY EACH NERVE SENSORY CULTURE 05833 [facility] BCT 1 [employer] [facility] [employer] [facility] ISOL&PRSM PTV ID ISOLATE EA URINE CULTURE 80635 [facility] BACTERIAL 1 [employer] [facility] [employer] [facility] QUANTTATI VE COLONY COUNT URINE URINLS 20723 A C MONTENEGRO A DIP 1 MONTENEGRO MD STICK/TAB PSC LET REAGNT NON-AUTO MICRSCPY RADIOLOGI 33780 [facility] YANGBRITTNEY C EXAM 1 [facility] PELVIS IMAGING COMPL ASS MINIMUM 3 VIEWS NONEMERGE A0100 [facility] NC[facility] 1 COMMUNITY TRANSPORT ACTION ATION; TAXI URINLS 03233 A C MONTENEGRO A DIP 0 MONTENEGRO MD STICK/TAB PSC LET REAGNT NON-AUTO MICRSCPY CULTURE 61045 [facility] BACTERIAL 0 [facility] [employer] [facility] QUANTTATI VE COLONY COUNT URINE CUL BACT 84625 [facility] AEROBIC 0 [employer] [facility] [employer] [facility] ADDL METHS DEFINITIV E EA ISOL CULTURE 67823 [facility] BCT 0 [employer] [facility] [employer] [facility] ISOL&PRSM PTV ID ISOLATE EA URINE SUSCEPTIB 99307 [facility] LTY STDY 0 [employer] [facility] [employer] [facility] ANTIMICRB IAL MICRO/AGA R DILUTJ CANALITH 86924 SHASHY SHASHY REPOSITIO 0 DORITA WALLACEG PROCEDURE COMPRE 23799 REGSHDavid FINNEYSHY AUDIOMETR 0 DORITA KEVIN Y THRESHOLD EVAL SP RECOGNIJ DISTORT 12788 SHASHY SHASHY PRODUCT 0 DORITA KEVIN EVOKED OTOACOUST IC EMISNS LIMITD TYMPANOME 50167 REGSHY SHASHY TRY 0 DORITA KEVIN CANE E0105 ANNA MARIE THRASHER QUAD/3-AK 0 HOME MED HOME MED NATHALIE ALL EQUIP. L EQUIP. L MATL ADJUSTBL/ FIX W/TIPS NONEMERGE A0100 [place] [employer] [facility] NCY 0 COMMUNITY TRANSPORT ACTION ATION; TAXI BLOOD 77940 SHIVANI PARRISH COUNT 0 [facility] COMPLETE INC INC AUTO&[place] [address] SHIVANI PARRISH TROPONIN 0 [facility] QUANTITAT INC INC SANDY CREATINE 20279 SHIVANI PARRISH KINASE MB 0 [facility] [place] [address] SHIVANI PARRISH AMYLASE 0 [facility] INC INC ECG 23495 SHIVANI MCRAE ROUTINE 0 [facility] W/LEAST P 12 LDS I&[place] [address] SHIVANI PARRISH INFUSION 0 [facility] THER INC INC PROPH ADDL SEQUENTIA L TO 1 HR COMPREHEN 04597 SHIVANI PARRISH SIVE 0 [facility] METABOLIC INC INC PANEL ECG 25091 SHIVANI PARRISH ROUTINE 0 [facility] ECG INC INC W/LEAST 12 LDS TRCG ONLY W/O I&R CREATINE 76538 SHIVANI PARRISH KINASE 0 [facility] [place] [address] SHIVANI PARRISH LIPASE 0 [facility] INC INC IIV3 32928 SHIVANI PARRSIH VACCINE 0 [facility] VIRUS 0.5 ML DOSAGE IM USE LANCETS A4259 M E D M E D PER BOX 0 SUPPLIES SUPPLIES OF 100 BLD GLU A4253 M E D M E D TEST/REAG 0 SUPPLIES SUPPLIES T STRIPS HOME BLD GLU MON-50 NONEMERGE A0100 [facility] CAB NCY 0 COMMUNITY TRANSPORT ACTION ATION; TAXI URINLS 74139 A C MONTENEGRO A DIP 0 MONTENEGRO MD STICK/TAB PSC LET REAGNT NON-AUTO MICRSCPY CULTURE 61873 [facility] BACTERIAL 0 [employer] QUANTTATI VE COLONY COUNT URINE CULTURE 43437 [facility] BCT 0 [employer] ISOL&PRSM PTV ID ISOLATE EA URINE LANCETS A4259 M E D M E D PER BOX 0 SUPPLIES SUPPLIES OF 100 BLD GLU A4253 M E D M E D TEST/REAG 0 SUPPLIES SUPPLIES T STRIPS HOME BLD GLU MON-50 URNLS DIP 22860 WINDISCH WINDISCH 0 AMB AMB STICK/TAB LET RGNT AUTO W/O MICROSCOP Y ELEC INGE 89637 [facility] NSTIM 0 AMB AMB PLS GEN CPLX SC/PERPH W/PRGRMG EMMANUEL 42485 [facility] POST-VOID 0 AMB AMB ING RESIDUAL URINE&/BL ADDER CAP LIPID 71541 [facility] PANEL 0 [facility] TRANSFERA 08473 [facility] SE 0 [facility] ASPARTATE AMINO AST SGOT BASIC 38002 [facility] METABOLIC 0 [facility] PANEL CALCIUM TOTAL HEMOGLOBI 42482 [facility] N 0 [facility] GLYCOSYLA KYMBERLY A1C BLD GLU A4253 M E D M E D TEST/REAG 0 SUPPLIES SUPPLIES T STRIPS HOME BLD GLU LANCETS A4259 M E D M E D PER BOX 0 SUPPLIES SUPPLIES OF 100 NONEMERGE A0100 [facility] CAB NCY 0 COMMUNITY TRANSPORT ACTION ATION; TAXI LANCETS A4259 M E D M E D PER BOX 0 SUPPLIES SUPPLIES OF 100 BLD GLU A4253 M E D M E D TEST/REAG 0 SUPPLIES SUPPLIES T STRIPS HOME BLD GLU TUE-50 OPHTH 68454 STELLA SHARP, MEDICAL 0 VISION KIARRA A XM&EVAL COMPRHNSV ESTAB PT 1/> LANCETS A4259 M E D M E D PER BOX 0 SUPPLIES SUPPLIES OF 100 BLD GLU A4253 M E D M E D TEST/REAG 0 SUPPLIES SUPPLIES T STRIPS HOME BLD GLU 50 CYTP C/V 27150 PATHOLOGY PATHOLOGY AUTO THIN 0 & & LYR CYTOLOGY CYTOLOGY PREPJ SCR LAB LAB MNL RESCR PHYS BLD GLU A4253 M E D M E D TEST/REAG 0 SUPPLIES SUPPLIES T STRIPS HOME BLD GLU 50 LANCETS A4259 M E D M E D PER BOX 0 SUPPLIES SUPPLIES OF 100 HEMOGLOBI 86148 [facility] N 0 [facility] GLYCOSYLA YKMBERLY A1C BASIC 43937 [facility] METABOLIC 0 [facility] PANEL CALCIUM TOTAL TRANSFERA 35697 [facility] SE 0 [facility] ASPARTATE AMINO AST SGOT LIPID 99562 [facility] PANEL 0 [facility] LANCETS A4259 M E D M E D PER BOX 0 SUPPLIES SUPPLIES OF 100 BLD GLU A4253 M E D M E D TEST/REAG 0 SUPPLIES SUPPLIES T STRIPS HOME BLD GLU MON-50 CULTURE 15660 LAB DIMAS LAB DIMAS BACTERIAL 0 [employer] QUANTTATI VE COLONY COUNT URINE EMMANUEL 30045 BONNY DRAPER, POST-VOID 0 ZEE ZEE ING K K RESIDUAL URINE&/BL ADDER CAP URINLS 65834 A Buster MOBLEY DIP 0 LAN Angel STICK/TAB PSC LET REAGNT NON-AUTO MICRSCPY URNLS DIP 27617 BONNY DRAPER, 0 ZEE ZEE STICK/TAB K K LET RGNT NON-AUTO W/O MICRSCP URINLS 28222 A Buster MOBLEY DIP 0 LAN Angel STICK/TAB PSC LET REAGNT NON-AUTO MICRSCPY CULTURE 57330 LAB DIMAS LAB DIMAS BACTERIAL 0 [employer] QUANTTATI VE COLONY COUNT URINE URINLS 57720 Buster FARIAS DIP 9 LAN Angel STICK/TAB PSC LET REAGNT NON-AUTO MICRSCPY BLD GLU A4253 M E D M E D TEST/REAG 9 SUPPLIES SUPPLIES T STRIPS HOME BLD GLU MON-50 LANCETS A4259 M E D M E D PER BOX 9 SUPPLIES SUPPLIES OF 100 URINLS 97827 Buster FARIAS DIP 9 LAN Angel STICK/TAB PSC LET REAGNT NON-AUTO MICRSCPY URINLS 99427 Buster FARIAS DIP 9 LAN Angel STICK/TAB PSC LET REAGNT NON-AUTO MICRSCPY URNLS DIP 45867 BONNY DRAPER 9 ZEE ZEE STICK/TAB K K LET RGNT NON-AUTO W/O MICRSCP EMMANUEL 21128 BONNY DRAPER, POST-VOID 9 ZEE ZEE ING K K RESIDUAL URINE&/BL ADDER CAP BLD GLU A4253 M E D M E D TEST/REAG 9 SUPPLIES SUPPLIES T STRIPS HOME BLD GLU MON-50 LANCETS A4259 M E D M E D PER BOX 9 SUPPLIES SUPPLIES OF [address] CITRATE 0.1 MG INJECTION J0[address] CEFOXITIN SODIUM 1 G ANES 59262 ANESTHESI JAGDISH FRAZIER 9 A NAWAF KOHLI & ASSOCIATE NRV HEAD S, PSC NECK&POST ERIOR TRUNK INFUSION J7040 [address] SALINE SOLUTION STERILE POTASSIUM [address] PLASMA/WH OLE BLOOD GLUCOSE [address] REAGENT STRIP INSERTION 94843 BONNY DRAPER, /RPLCMT 9 ZEE ZEE PERIPHERA K K L/GASTRIC NPGR ELEC INGE [address] PLS GEN SMPL SC/PERPH W/PRGRMG ELEC INGE 60177 [facility] 9 ZEE ZEE PLS GEN K K CPLX SC/PERPH W/PRGRMG INJECTION J[address] [place] HCL PER 1 MG URNLS DIP 86978 BONNY DRAPER, 9 ZEE ZEE STICK/TAB K K LET RGNT NON-AUTO W/O MICRSCP EMMANUEL 75674 BONNY DRAPER, POST-VOID 9 ZEE ZEE ING K K RESIDUAL URINE&/BL ADDER CAP INC 92071 BONNY DRAPER, IMPLTJ 9 ZEE ZEE NEUROSTIM K K ULATOR ELTRD SACRAL NERVE INFUSION J7040 [address] SALINE SOLUTION STERILE ECG [address] [facility]O ROUTINE 9 [facility] ECG W/LEAST 12 LDS TRCG ONLY W/O I&R POTASSIUM 17168 [facility] SERUM [address] [place] [address] PLASMA/WH OLE BLOOD GLUCOSE 32185 [facility] BLOOD [address] [place] [address] REAGENT STR[place] PRQ [address] [facility] IMPLTJ [address] [place] [address] NEUROSTIM ELTRD SACRAL NRVE W/IMAGING ANESTHESI 54451 ANESTHESI HEMAL, Buster LUMBAR 9 A ANDREA L [facility] NOS S, PSC INJECTION J2250 [address] [place] HCL PER 1 MG ECG 62871 NEW SIM[place]N, ROUTINE 9 [place] [facility] ECG CLINIC W/LEAST PSC 12 LDS I&R ONLY INJECTION J0694 [address] CEFOXITIN SODIUM 1 G INJECTION J3010 [address] CITRATE 0.1 MG BLOOD 06245 [facility] COUNT 9 N N COMPLETE [facility] AUTO&AUTO [facility] DIFRNTL WBC CULTURE 46844 [facility] BACTERIAL 9 N N [facility] VE COLONY COUNT URINE BASIC 24355 [facility] METABOLIC 9 N N PANEL [facility] TOTAL RADIOLOGI 17588 [facility] [place] DOZIER EXAM 9 RADIOLOGY DON G CHEST 2 VIEWS FRONTAL&L ATERAL COLLECTIO 71329 [facility] N VENOUS 9 N N BLOOD [facility] 74203 [facility] ROUTINE 9 N N ECG [facility] W/LEAST HOSPITAL HOSPITAL 12 LDS TRCG ONLY W/O I&R BLD GLU A4253 M E D M E D TEST/REAG 9 SUPPLIES SUPPLIES T STRIPS HOME BLD GLU MON-50 LANCETS A4259 M E D M E D PER BOX 9 SUPPLIES SUPPLIES OF 100 URINLS 56294 Buster FARIAS DIP 9 LAN Angel STICK/TAB [place] [address] SHIVANI AVALOSON INFUSION 9 [facility] THERAPY INC INC PROPHYLAX IS/DX EA HOUR URNLS DIP 93673 SHIVANI PARRISH 9 [facility] STICK/TAB INC INC LET REAGENT AUTO MICROSCOP Y CULTURE 30138 SHIVANI PARRISH BACTERIAL 9 [facility] INC [place] [address] SHIVANI PARRISH INFUSION 9 [facility] THERAPY/P INC INC ROPHYLAXI S /DX 1ST TO 1 HR BLOOD 67458 SHIVANI PARRISH COUNT 9 [facility] COMPLETE INC INC AUTO&AUTO DIFRNTL WBC COMPREHEN 47465 SHIVANI PARRISH SIVE 9 [facility] METABOLIC INC INC PANEL IIV3 42641 [facility]/CO SHIVANI VACCINE 9 [facility] VIRUS 0.5 BANK ACCT ML DOSAGE IM USE COMPLEX 43225 BONNY DRAPER, UROFLOMET 9 ZEE ZEE RY K K URNLS DIP 09630 BONNY DRAPER, 9 ZEE ZEE STICK/TAB K K LET RGNT NON-AUTO W/O MICRSCP BLADDER 45334 BONNY DRAPER, PRESSURE 9 ZEE ZEE MEASUREME K K NT DURING FILLING EMG STDS 20450 BONNY DRAPER, ANAL/URTL 9 ZEE ZEE SPHNCTR K K OTH/THN NDL VOIDING 26477 BONNY DRAPER, PRESS 9 ZEE ZEE STDS BLDR K K VOIDING PRESS ANY TQ VOID 50825 BONNY DRAPER, PRESSURE 9 ZEE ZEE STUDIES K K INTRAABDO BRITTANY EMMANUEL 21682 BONNY DRAPER, POST-VOID 9 ZEE ZEE ING K K RESIDUAL URINE&/BL ADDER CAP CYSTOURET 53722 BONNY DRAPER, HROSCOPY 9 ZEE ZEE K [...] T STRIPS HOME BLD GLU MON-50 GLUCOSE 62257 Buster FARIAS QUANTITAT 9 LAN Angel SANDY BLOOD PSC XCPT REAGENT STRIP GLUCOSE 82931 Buster FARIAS QUANTITAT 9 LAN Angel SANDY BLOOD PSC XCPT REAGENT STRIP GLUCOSE 07583 Buster FARIAS POST 9 LAN Angel GLUCOSE PSC DOSE TRANSFERA 39458 Buster FARIAS SE 9 LAN Angel ASPARTATE PSC AMINO AST SGOT TRANSFERA 53212 Buster FARIAS SE 9 LAN Angel ALANINE PSC AMINO ALT SGPT LIPID 26094 Buster FARIAS PANEL 9 LAN Angel PSC GLUCOSE 67787 Buster FARIAS QUANTITAT 9 LAN Angel SANDY BLOOD PSC XCPT REAGENT STRIP LANCETS A4259 M E D M E D PER BOX 9 SUPPLIES SUPPLIES OF 100 BLD GLU A4253 M E D M E D TEST/REAG 9 SUPPLIES SUPPLIES T STRIPS HOME BLD GLU MON-50 EMMANUEL 67521 PRISCILAISCHBONNY, POST-VOID 9 ZEE ZEE ING K [...] SUPPLIES HIGH CALIBRATO R SOLUTION/ CHIPS CULTURE 90823 SHIVANI PARRISH BACTERIAL 9 [facility] INC INC QUANTTATI VE COLONY COUNT URINE URINLS 39694 Buster FARIAS DIP 9 LAN Angel STICK/TAB PSC LET REAGNT NON-AUTO MICRSCPY BLD GLU A4253 M E D M E D TEST/REAG 9 SUPPLIES SUPPLIES T STRIPS HOME BLD GLU MON-50 LANCETS A4259 M E D M E D PER BOX 9 SUPPLIES SUPPLIES OF 100 URINLS 64697 Buster FARIAS DIP 9 LAN Angel STICK/TAB PSC LET REAGNT NON-AUTO MICRSCPY BASIC 95224 LAB DIMAS LAB DIMAS METABOLIC 9 [employer] CALCIUM TOTAL HEMOGLOBI 15694 LAB DIMAS LAB DIMAS N 9 [employer] HOLDING KYMBERLY A1C COLLECTIO 38729 Buster FARIAS VENOUS 9 LAN Angel BLOOD PSC VENIPUNCT URE LIPID 40966 LAB DIMAS LAB DIMAS PANEL 9 [employer] TRANSFERA 78213 LAB DIMAS LAB DIMAS SE 9 [employer] ASPARTATE HOLD[employer] HOLDING AMINO AST SGOT MEDICAL 83604 SHIVANI PARRISH NUTRITION 9 [facility] INC INC RE-ASSMT& IVNTJ INDIV EA 15 M MEDICAL 72362 SHIVANI PARRISH NUTRITION 9 [facility] INC INC ASSMT&IVN TJ INDIV EACH 15 RI BLD GLU A4253 M E D M E D TEST/REAG 9 SUPPLIES SUPPLIES T STRIPS HOME BLD GLU MON-50 LANCETS A4259 M E D M E D PER BOX 9 SUPPLIES SUPPLIES OF 100 GLUCOSE 23852 Buster FARIAS QUANTITAT 9 LAN Angel SANDY BLOOD PSC XCPT REAGENT STRIP SCREENING 04557 [place] BRITTNEY, MEDICAL PHYLLIS MAMMOGRAP IMAGING HY 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 COMPUTER- 77573 [place] BRITTNEY, AIDED 9 MEDICAL PHYLLIS DETECTION IMAGING [...] STRIPS HOME BLD GLU MON-50 CYTP C/V 05781 PATHOLOGY PATHOLOGY AUTO THIN 9 & & LYR CYTOLOGY CYTOLOGY PREPJ SCR LAB LAB MNL RESCR PHYS URNLS DIP [address] J STICK/TAB CLINIC OF LET RGNT NON-AUTO [place] W/O PLLC MICRSCP BLD GLU A4253 M E D M E D TEST/REAG 9 SUPPLIES SUPPLIES T STRIPS HOME BLD GLU MON-50 LANCETS A4259 M E D M E D PER BOX 9 SUPPLIES SUPPLIES OF 100 HEMOGLOBI 73241 LAB DIMAS LAB DIMAS N 9 [employer] GLYCOSYLA [employer] HOLDING KYMBERLY A1C BASIC 59272 LAB DIMAS LAB DIMAS METABOLIC 9 [employer] PAN[employer] HOLD[employer] CALCIUM TOTAL TRANSFERA 14078 LAB DIMAS LAB DIMAS SE 9 [employer] ASPARTATE HOLD[employer] HOLDING AMINO AST SGOT COLLECTIO 52796 Buster FARIAS VENOUS 9 LAN Angel BLOOD PSC VENIPUNCT URE LIPID 84615 LAB DIMAS LAB DIMAS PANEL 9 AMERIC [...] BOX 8 SUPPLIES SUPPLIES OF 100 GLUCOSE 11842 Buster FARIAS QUANTITAT 8 LAN Angel SANDY BLOOD PSC XCPT REAGENT STRIP MRI BRAIN 10987 PHYLLIS LUGO, BRAIN 8 BRITTNEY PHYLLIS STEM W/O W/CONTRAS T MATERIAL CREATININ 49013 SHIVANI PARRISH E BLOOD 8 [place] [address] SHIVANI PARRISH UREA 8 [facility] NITROGEN INC INC QUANTITAT SANDY IIV3 65604 [facility] SHIVANI VACCINE 8 [facility] VIRUS 0.5 BANK ACCT ML DOSAGE IM USE ECG 74142 SHIVANI MCKEMIE ROUTINE 8 [facility] NABIL Angus W/LEAST PROF SERV 12 LDS I&R ONLY RHYTHM 49516 SHIVANI PARRISH ECG 1-3 8 [facility] LEADS INC INC TRACING ONLY W/O I&R CREATINE 16459 SHIVANI PARRISH KINASE MB 8 [facility] FRACTION INC INC ONLY ECG 12793 SHIVANI PARRISH ROUTINE 8 [facility] ECG INC INC W/LEAST 12 LDS TRCG ONLY W/O I&R CREATINE 35718 SHIVANI PARRISH KINASE 8 [facility] TOTAL INC INC RADIOLOGI 64250 SHIVANI PARRISH C 8 [facility] EXAMINATI INC INC ON CHEST SINGLE VIEW FRONTAL BASIC 07828 SHIVANI PARRISH METABOLIC 8 [facility] [place] [address] SHIVANI PARRISH TROPONIN 8 [facility] QUANTITAT INC INC SANDY BLOOD 09435 SHIVANI PARRISH COUNT 8 [facility] COMPLETE INC INC AUTO&AUTO DIFRNTL WBC BASIC 20175 LAB DIMAS LAB DIMAS METABOLIC 8 [employer] CALCIUM TOTAL HEMOGLOBI 49433 LAB DIMAS LAB DIMAS N 8 [employer]YC[employer] HOLDING KYMBERLY A1C COLLECTIO 30161 Buster FARIAS VENOUS 8 LAN Angel BLOOD PSC VENIPUNCT URE TRANSFERA 37388 LAB DIMAS LAB DIMAS SE 8 [employer] ASPARTATE [employer] HOLDING AMINO AST SGOT LIPID 91038 LAB DIMAS LAB DIMAS PANEL 8 [employer] MRI 39526 PHYLLIS C BRITTNEY, SPINAL 8 BRITTNEY PHYLLIS CANAL LUMBAR W/O CONTRAST MATERIAL URINLS 22109 A Buster MOBLEY DIP 8 LAN Angel STICK/TAB PSC LET REAGNT NON-AUTO MICRSCPY CULTURE 86087 LAB DIMAS LAB DIMAS BACTERIAL 8 [employer] HOLDING HOLDING QUANTTATI VE COLONY COUNT URINE URINLS 50799 A Stanley MONTENEGRO A DIP 8 LAN Angel STICK/TAB PSC LET REAGNT NON-AUTO MICRSCPY RADIOLOGI 70113 Stanley KUO EXAM 8 MEDICAL PHYLLIS CHEST 2 IMAGING VIEWS ASSOCIATE FRONTAL&L S ATERAL OPHTH 84340 ARON SHARP, [facility] 8 KIARRA A KIARRA A XM&EVAL COMPRHNSV ESTAB PT 1/> URINLS 20150 Buster FARIAS DIP 8 LAN Angel STICK/TAB PSC LET REAGNT NON-AUTO MICRSCPY SHAVING 21957 Buster FARIAS SKIN 8 LAN Angel LESION 1 PSC TRUNK/ARM /LEG DIAM 0.5CM/< COLLECTIO 31265 Buster FARIAS N VENOUS 8 LAN Angel BLOOD PSC VENIPUNCT URE ACOUSTIC 01907 AIDAN BERMUDEZ, REFLEX 8 ZAK Da Silva THRESHOLD TYMPANOME 40238 AIDAN BERMUDEZ TRY 8 ZAK Da Silva COMPRE 68416 AIDAN BERMUDEZ, AUDIOMETR 8 ZAK Avinash ZAK Da Silva [place] [address] VIRGINIA LUIS, MAXILLOFA 8 MEDICAL SUSHANT Meyer CIAL W/O IMAGING CONTRAST ASSOCIATE MATERIAL S 3D 91740 VIRGINIA LUIS, RENDERING 8 MEDICAL SUSHANT P IMAGING W/INTERP& ASSOCIATE POSTPROC [place]FF [place] [address] [facility] THER 8 [facility] PROPH/DX INC INC EA [place] THER 93907 SHIAVNI [facility] PROPH/DX 8 [facility] NJX EA INC INC SEQL IV PUSH SBST/DRUG HYSTEROSC 67994 WOMEN'S BERNARDINO ALLEN BX 8 [facility] OF &/POLYP C W/[place] [address] PATHOLOGY PATHOLOGY SURG 8 & & PATHOLOGY CYTOLOGY CYTOLOGY LAB LAB GROSS&TANMAY ROSCOPIC EXAM GLUC BLD 00978 SHIVANI [facility] GLUC MNTR 8 [facility] DEV INC INC [place] [address] SHIV[facility] THER 8 [facility] PROPH/DX INC INC 1ST >1 HR HYSTEROSC 6812 [facility] OPY 8 [facility] INC INC OTHER 6829 [facility] EXCISION 8 [facility] OR INC INC DESTRUCTI ON LESION UTERUS OTHER 6909 SH[facility] DILATION 8 [facility] AND INC INC CURETTAGE OF UTERUS BLOOD 41423 SH[facility] TYPING 8 [facility] SEROLOGIC INC INC RH (D) BLOOD 25070 [facility] COUNT 8 [facility] COMPLETE INC INC AUTO&AUTO DIFRNTL WBC BASIC 32022 SH[facility] METABOLIC 8 [facility] PANEL INC INC CALCIUM TOTAL ANTIBODY 71174 SH[facility] SCREEN 8 [facility] RBC EACH INC INC SERUM TECHNIQUE BLOOD 16501 SH[facility]ANI [facility] TYPING 8 [facility] HOSP SEROLOGIC INC INC ABO IADNA 96595 [employer] ANGELA, HERPES 8 [place] INC HANS Tran SOMPLX VIRUS AMPLIFIED PROBE TQ Encounters Encounter Start End Date Code Location Performer Type Date [facility] - 7 7 [facility] T OFFICE 04761 COLLEEN NEAL 7 7 MD KEYANNA, T VISIT [facility] 10 MINUT[facility] 7 [facility] T OFF[facility] 36913 [facility] OUTPATIEN 7 [facility] T OFF[facility] 82915 [facility]PATI[facility] 7 [facility] 10 MINUTES [facility] - 7 [facility] - 7 [facility] - [facility] - [facility] T OFFICE 97245 Buster NEAL 7 7 LAN ROBBINS T VISIT PSC 15 MINUTES [facility] T OFFICE 58498 [facility] OUTPATIEN 7 7 [facility] T V[facility]IT INC 10 MINUTES OFFICE 92747 COLLEEN RAIN OUTPATIEN 7 7 MD KEYANNA, T VISIT PSC 15 MINUTES [facility] 6 [facility] 6 6 [facility] T OFFICE 52060 COLLEEN ANALI CRI OUTPATIEN 6 6 MD KEYANNA, T VISIT PSC 15 MINUTES [facility] - 6 6 [facility] 6 6 [facility] T OFFICE 04392 COLLEENMALI BRIONES CRI OUTPATIEN 6 6 MD KEYANNA, T VISIT PSC 15 MINUTES [facility] - 6 6 [facility] T OFFICE 49837 COLLEENMALI BRICEÑO ANJ OUTPATIEN 6 6 MD KEYANNA, T VISIT PSC 10 MINUTES OFFICE 22577 Buster BOLTON OUTPATIEN 6 6 LAN ROBBINS T VISIT PSC 25 MINUTES OFFICE 57878 COLLEEN BRICEÑO ANJ OUTPATIEN 6 6 MD KEYANNA, T VISIT PSC 10 MINUTES [facility] 5 [facility] 5 5 [facility] 5 5 [facility] T OFFICE 27779 Buster SAAVEDRA CHE OUTPATIEN 5 5 LAN ROBBINS T VISIT PSC 25 MINUTES [facility] - 5 5 [facility] T [facility] - 5 5 [facility] INC T OFFICE 57508 [facility] OUTPATIEN 5 5 [facility] T VISIT INC 10 MINUTES OFFICE 23471 [facility] PETTEY OUTPATIEN 5 5 PHYSICIAN OFELIA T NEW 30 S GROUP MINUTES [facility] - 5 5 [facility] T OFFICE 24201 A C KERI CHE OUTPATIEN 5 5 LAN ROBBINS T VISIT PSC 15 MINUTES [facility] - [facility] 5 [facility] T OFFICE 51399 MADAR BUX BUX ANJ OUTPATIEN 5 5 T VISIT 10 MINUTES OFFICE 92932 MADAR BUX BUX ANJ OUTPATIEN 5 5 T VISIT 10 MINUTES [facility] - 5 5 [facility] T [facility] - 5 5 [facility] T OFFICE 04477 [facility] OUTPATIEN 5 5 [facility] T VISIT 5 INC MINUTES OFFICE 29633 MADAR BUX BUX ANJ OUTPATIEN 5 5 T [facility] MINUTES OFFICE 81493 A Stanley BOLTON OUTPATIEN 5 5 LAN ROBBINS T VISIT PSC 15 MINUTES [facility]OSP[facility] - 5 5 [facility] INC T OFFICE 64660 A C AMB OUTPATIEN 5 5 LAN ROBBINS T VISIT PSC 15 MINUTES OFFICE 68953 A C TOMMY OUTPATIEN 5 5 LAN ARCE T VISIT PSC 15 MINUTES OFFICE 83295 A Stanley BOLTON OUTPATIEN 5 5 LAN ROBBINS T VISIT PSC 15 MINUTES OFFICE 59764 A C FIELD AMB OUTPATIEN 5 5 LAN ROBBINS T VISIT PSC 15 MINUTES OFFICE 83345 A Stanley CABEZASES CHE OUTPATIEN 5 5 LAN ROBBINS T VISIT PSC 15 MINUTES OFFICE 50378 A Stanley CABEZASES CHE OUTPATIEN 4 4 LAN ROBBINS T VISIT PSC 15 MINUTES OFFICE 31833 A Stanley CABEZASES CHE OUTPATIEN 4 4 LAN ROBBINS T VISIT PSC 15 MINUTES OFFICE 33969 EPISCOPALAndra CHAN OUTPATIEN 4 4 NEUROLOGY [facility]EN [facility] 15 SHRUTHI MINUTES OFFICE 18014 A Stanley CABEZASES CHE OUTPATIEN 4 4 LAN ROBBINS T VISIT PSC 15 MINUTES [facility] - [facility] 4 [facility] T OFFICE 19747 KERI CHE CABEZASES CHE OUTPATIEN 4 4 T VISIT 15 MINUTES OFFICE 42019 FALLUJI FALLUJI OUTPATIEN 4 4 EFRAIN ZUNIGA T VISIT 25 MINUTES [facility]OSP[facility] - 4 4 [facility] T EMERGENCY 72122 [facility] 4 4 [facility] [place] [facility] DEPARTMEN INC T VISIT LOW/MODER SEVERITY EMERGENCY 72994 ALFARIS ALFARIS 4 4 [facility] DEPARTMEN T VISIT MODERATE SEVERITY OFFICE 77223 KERI CHE CABEZASES CHE OUTPATIEN 4 4 T VISIT 15 MINUTES OFFICE 77612 KERI CHE CABEZASES CHE OUTPATIEN 4 4 T VISIT 15 MINUTES OFFICE 36239 KERI CHE KERI CHE OUTPATIEN 4 4 T VISIT 15 MINUTES OFFICE 46173 KERI CHE CABEZASES CHE OUTPATIEN 4 4 T VISIT 15 MINUTES OFFICE 87986 KERI CHE CABEZASES CHE OUTPATIEN 4 4 T VISIT 15 MINUTES OFFICE 22509 KERI CHE CABEZASES CHE OUTPATIEN 3 3 T VISIT 15 MINUTES OFFICE 43900 ROCIO ROCIO OUTPATIEN 3 3 JULIEN JULIEN T VISIT 25 MINUTES OFFICE 00604 KERI CALVINES CHE OUTPATIEN 3 3 T VISIT 15 MINUTES [facility] 44301 ALLENMarc ALLEN PREVENTIV 3 3 CORRINA CORRINA E MED EST PATIENT 40-64YRS OFFICE 95211 A C KERI CHE OUTPATIEN 3 3 LAN ROBBINS T VISIT PSC 15 MINUTES [facility]OSPITAL [facility] - 3 3 [facility] [place] [place] [facility] OUTPATIEN INC T [facility] - 3 3 [facility] [place] INC T [facility] - 3 3 [facility] [place] [place] [facility] OUTPATIEN INC T OFFICE 13170 A C KILPELA OUTPATIEN 3 3 LAN ARCE T VISIT PSC 15 MINUTES OFFICE 78110 A C KILPELA OUTPATIEN 3 3 LAN ARCE T VISIT PSC 15 MINUTES OFFICE 57234 A C KILPELA OUTPATIEN 3 3 LAN ARCE T VISIT PSC 15 MINUTES HOSPITAL [facility] - 3 3 [facility] [place] [place] [facility] OUTPATIEN INC T OFFICE 17421 ROCIO ROCIO OUTPATIEN 3 3 JULIEN JULIEN T VISIT 25 MINUTES HOSPITAL [facility] - 3 3 [facility] [place] [place] OUTPATIEN INC T OFFICE 36553 KERIMATY CALVINES CHE OUTPATIEN 3 3 T VISIT 15 MINUTES OFFICE 45903 KERI CHE CABEZASES CHE OUTPATIEN 3 3 T VISIT 15 MINUTES [facility] - 3 3 [facility] [place] [place] [facility] OUTPATIEN INC T OFFICE 37001 KERI CHE CABEZASES CHE OUTPATIEN 3 3 T VISIT 15 MINUTES OFFICE 84327 KILPELA KILPELA OUTPATIEN 3 3 YAZMIN ARCE T VISIT 15 MINUTES OFFICE 31706 KERI CELAYA CHE OUTPATIEN 2 2 T VISIT 15 MINUTES EMERGENCY 54199 JUAN MAYBERRY DEPT 2 2 EMERGENCY VISIT SERVICES HIGH SEVERITY& THREAT FUN EMERGENCY 38556 [facility] 2 2 [facility] [place] [place] [facility] T VISIT MODERATE SEVERITY [facility] 2 2 [facility] T OFFICE 80459 JANETTPELA KILPELA OUTPATIEN 2 2 YAZMIN ARCE T VISIT 15 MINUTES [facility] 2 2 [facility] T OFFICE 36544 [facility] OUTPATI[facility] 2 2 EFRAIN ZUNIGA T VISIT 25 MINUTES OFFICE 59086 ROCIO ROCIO OUTPATIEN 2 2 JULIEN JULIEN T VISIT 25 MINUTES OFFICE 93440 KERIMATY CALVINES CHE OUTPATIEN 2 2 T VISIT 15 MINUTES OFFICE 61690 KERIMATY CALVINES CHE OUTPATIEN 2 2 T VISIT 15 MINUTES HOSP[facility] - 2 2 [facility] OUT[facility] T EMERGENCY 30965 [facility] 2 2 [facility] T VISIT HIGH/URGE NT SEVERITY EMERGENCY 94434 [facility] SOUZA DEPT 2 2 III PAMELA III PAMELA VISIT HIGH SEVERITY& THREAT [facility] SH[facility] - 2 2 [facility] T OFFICE 33671 [facility] CON[facility]AT 2 2 ALFREDO ZNUIGA ION CARDIOLOG NEW/ESTAB Y CLINIC PATIENT 60 MIN OFFICE 64090 KERI CHE KERI CHE OUTPATIEN 2 2 T VISIT 15 MINUTES [facility] - 2 2 [facility] T [facility] - 2 2 [facility] T OFFICE 23770 GLORIA GLORIA OUTPATIEN 2 2 MAGAN MAGAN T VISIT 15 MINUTES OFFICE 13814 ROCIO ROCIO OUTPATIEN 2 2 JULIEN JULIEN T VISIT 25 MINUTES [facility]OSP[facility] - 2 2 [facility] [place] [place] OUTPATIEN INC T EMERGENCY 80590 JUAN GRIFFITHS DEPT 2 2 EMERGENCY TANMAY VISIT SERVICES HIGH SEVERITY& THREAT FUNJ EMERGENCY 64042 [facility] 2 2 [facility] [place] [place] DEPARTMEN INC T VISIT MODERATE SEVERITY OFFICE 30495 GLORIA GLORIA OUTPATIEN 2 2 MAGAN MAGAN T VISIT 15 MINUTES OFFICE 87913 VASCELLO VASCELLO OUTPATIEN 2 2 NATHEN NATHEN T NEW 30 MINUTES OFFICE 07039 [facility] 2 H[facility] T VISIT 25 MINUTES [facility] 2 2 HOSPITAL OUTPATI T OFFICE 74864 GLORIA GLORIA OUTPATIEN 2 2 MAGAN MAGAN T VISIT 15 MINUTES OFFICE 65541 GLORIA GLORIA OUTPATIEN 2 2 MAGAN MAGAN T VISIT 15 MINUTES [facility] - 2 2 [facility] T OFFICE 07057 GLORIA GLORIA OUTPATIEN 2 2 MAGAN MAGAN T VISIT 15 MINUTES OFFICE 79101 GLORIA GLORIA OUTPATIEN 2 2 MAGAN MAGAN T VISIT 15 MINUTES EMERGENCY 08453 [facility] 2 2 [facility] DEPARTMEN INC T VISIT MODERATE SEVERITY EMERGENCY 15385 JUAN GRIFFITHS 2 2 EMERGENCY TANMAY DEPARTMEN SERVICES T VISIT HIGH/URGE NT SEVERITY [facility]PITAL [facility] - 2 2 [facility] T OFFICE 29361 GLORIA GLORIA OUTPATIEN 2 2 MAGAN MAGAN T VISIT 15 MINUTES OFFICE 14266 ROCIO ROCIO OUTPATIEN 2 2 JULIEN JULIEN T NEW 60 MINUTES OFFICE 33941 GLORIA GLORIA OUTPATIEN 2 2 MAGAN MAGAN T VISIT 10 MINUTES OFFICE 09488 KERI CHE KERI CHE OUTPATIEN 1 1 T VISIT 15 MINUTES OFFICE 97582 GLORIA GLORIA OUTPATIEN 1 1 MAGAN MAGAN T VISIT 15 MINUTES [facility] [place] 17251 1 N OUTPATIEN COMMUNTIY T HOSPITA OFFICE 93266 WINDISCH WINDISCH OUTPATIEN 1 1 AMB AMB T VISIT 40 MINUTES OFFICE 64727 ALLEN ALLEN OUTPATIEN 1 1 CORRINA CORRINA T VISIT 15 MINUTES OFFICE 13963 A C GLORIA OUTPATIEN 1 1 LAN ROBBINS MAGAN T VISIT PSC 15 MINUTES OFFICE 12570 A C GLORIA OUTPATIEN 1 1 LAN ROBBINS MAGAN T VISIT PSC 10 MINUTES OFFICE 87117 A C GLORIA OUTPATIEN 1 1 LAN ROBBINS MAGAN T VISIT PSC 15 MINUTES OFFICE 32792 LISANDRA FRY OUTPATIEN 1 1 DORITA KEVIN T VISIT 25 MINUTES [facility] [place] 17251 1 N OUTPATIEN COMMUNITY T HOSPITA OFFICE 21103 LISANDRA FRY OUTPATIEN 1 1 DORITA KEVIN T NEW 30 MINUTES OFFICE 81167 A C MONTENEGRO A OUTPATIEN 1 1 LAN ROBBINS T VISIT 5 PSC MINUTES OFFICE 63713 A C LAN A OUTPATIEN 1 1 LAN ROBBINS T VISIT PSC 15 MINUTES OFFICE 12441 [facility] OUTPATIEN 1 1 [facility] T VISIT HOSPITAL 25 P MINUTES HOSPITAL [facility] - 1 1 [facility] [place] [place] [facility] OUTPATIEN INC T OFFICE 05925 SHIV[facility] [place]ATH[place] OUTPATIEN 1 1 [facility] VISIT HOSPITAL 40 P MINUTES OFFICE 21028 A C MONTENEGRO A OUTPATIEN 1 1 LAN ROBBINS T VISIT PSC 15 MINUTES OFFICE 61250 PALOMINO PALOMINO OUTPATIEN 1 1 [facility] T VISIT 15 MINUTES OFFICE 07933 A C MONTENEGRO A OUTPATIEN 1 1 LAN ROBBINS T VISIT PSC 10 MINUTES PERIODIC 76604 WOMEN'S ALLEN PREVENTIV 1 1 [facility] CORRINA E MED EST CLINIC OF PATIENT DAISHA 40-64YRS OFFICE 41992 A Stanley MONTENEGRO A OUTPATIEN 1 1 LAN ROBBINS T VISIT PSC 15 MINUTES OFFICE 73822 A C OUTPATIEN 1 1 LAN ROBBINS T VISIT 5 PSC MINUTES OFFICE 14041 A C LAN A OUTPATIEN 1 1 LAN ROBBINS T VISIT PSC 15 MINUTES EMERGENCY 83163 [facility] 1 1 [facility] [place] [place] [facility] DEPARTMEN [facility] T VISIT MODERATE SEVERITY EMERGENCY 60547 JUAN RIGGINS [facility] DEPT 1 1 EMERGENCY VISIT SERVICES HIGH SEVERITY& THREAT [facility] SHIVANI - 1 1 [facility] OUTPATIEN INC T OFFICE 89525 PALOMINO PALOMINO OUTPATIEN 1 1 [facility] T VISIT 25 MINUTES OFFICE 42127 PALOMINO PALOMINO OUTPATIEN 1 1 [facility] T VISIT 25 MINUTES HOSPITAL [facility] - 1 1 [facility] OUTPAT[facility]EN INC T OFFICE 70154 WINDISCH WINDISCH OUTPATIEN 1 1 AMB AMB T VISIT 40 MINUTES OFFICE 24997 A C MONTENEGRO A OUTPATIEN 1 1 LAN ROBBINS T VISIT PSC 15 MINUTES [facility]OSPITAL [facility] - 1 1 [facility] [place] [place] [facility] OUTPATIEN INC T OFFICE 95560 PALOMINO PALOMINO CONSULTAT 1 1 GILLIAN LOVING NEW/ESTAB PATIENT 80 MIN OFFICE 81397 A Stanley MONTENEGRO A OUTPATIEN 1 1 LAN ROBBINS T VISIT PSC 15 MINUTES HOSPITAL [facility] - 1 1 [facility] [place] [place] [facility] OUTPATIEN INC T OFFICE 72505 A Stanley MONTENEGRO A OUTPATIEN 0 0 LAN ROBBINS T VISIT PSC 15 MINUTES OFFICE 81956 LISANDRA FRY OUTPATIEN 0 0 DORITA KEVIN T VISIT 25 MINUTES OFFICE 09904 A Stanley MONTENEGRO A OUTPATIEN 0 0 LAN ROBBINS T VISIT PSC 15 MINUTES OFFICE 33809 A Stanley Goins OUTPATIEN 0 0 LAN ROBBINS T VISIT PSC 15 MINUTES OFFICE 43518 LISANDRA FRY CONSULTAT 0 0 DORITA LOVING NEW/ESTAB PATIENT 60 MIN OFFICE 07795 A Stanley MONTENEGRO A OUTPATIEN 0 0 LAN ROBBINS T VISIT PSC 15 MINUTES EMERGENCY 18959 [facility] 0 0 [facility] [place] [place] [facility]IGH/URGE NT SEVERITY EMERGENCY 95277 JUAN MAYBERRY DEPT 0 0 EMERGENCY VISIT SERVICES HIGH SEVERITY& THREAT [facility] - 0 0 [facility] OUTPATIEN INC T OFFICE 43567 A Stanley MONTENEGRO A OUTPATIEN 0 0 LAN ROBBINS T VISIT PSC 15 MINUTES OFFICE 32196 A Stanley Goins OUTPATIEN 0 0 LAN ROBBINS T VISIT PSC 15 MINUTES OFFICE 27890 WOMEN'S ALLEN OUTPATIEN 0 0 [facility] T VISIT CLINIC OF 15 DAISHA MINUTES OFFICE 08027 A Stanley Goins OUTPATIEN 0 0 LAN ROBBINS T VISIT PSC 15 MINUTES OFFICE 05318 A Stanley Goins OUTPATIEN 0 0 LAN ROBBINS T VISIT PSC 15 MINUTES OFFICE 61454 A Stanley OUTPATIEN 0 0 LAN ROBBINS T VISIT 5 PSC MINUTES OFFICE 29735 A Buster MOBLEY OUTPATIEN 0 0 LAN ROBBINS C T VISIT PSC 15 MINUTES OFFICE 33736 A Buster MOBLEY OUTPATIEN 0 0 LAN ROBBINS C T VISIT PSC 15 MINUTES PERIODIC 59646 WOMEN'S ALLEN, PREVENTIV 0 0 [facility] EST CLINIC OF PATIENT 40-64YRS [facility] OFFICE 20383 A Buster MOBLEY OUTPATIEN 0 0 LAN ROBBINS C T VISIT PSC 15 MINUTES OFFICE 57385 A Buster MOBLEY OUTPATIEN 0 0 LAN ROBBINS C T VISIT 5 PSC MINUTES OFFICE 94290 WINDISCH, WINDISCH, OUTPATIEN 0 0 ZEE ZEE T VISIT K K 25 MINUTES OFFICE 60196 A Buster MOBLEY OUTPATIEN 0 0 LAN ROBBINS C T VISIT PSC 15 MINUTES OFFICE 95799 A Buster MOBLEY OUTPATIEN 0 0 LAN ROBBINS C T VISIT PSC 15 MINUTES OFFICE 78193 Buster FARIAS OUTPATIEN 0 0 LAN ROBBINS C T VISIT PSC 15 MINUTES OFFICE 00560 A Buster MOBLEY OUTPATIEN 0 0 LAN ROBBINS C T VISIT PSC 15 MINUTES OFFICE 23389 Buster FARIAS OUTPATIEN 9 9 LAN ROBBINS C T VISIT PSC 15 MINUTES OFFICE 59311 A Buster MOBLEY OUTPATIEN 9 9 LAN ROBBINS C T VISIT PSC 15 MINUTES OFFICE 03504 Buster FARIAS OUTPATIEN 9 9 MONTENEGRO MD C T VISIT PSC 15 MINUTES HOSPITAL [facility] - 9 [facility] 9 9 [facility] 9 9 [facility] OFFICE 44158 Buster FARIAS OUTPATIEN 9 9 LAN Angel T VISIT PSC 15 MINUTES EMERGENCY 02205 JUAN GAY, DEPT 9 9 EMERGENCY KALA P VISIT SERVICES HIGH SEVERITY& ASSOCIATE THREAT S FUN EMERGENCY 96834 [facility] 9 9 [facility] DEPARTMEN INC T VISIT HIGH/URGE NT SEVERITY HOSPITAL [facility] - 9 9 [facility] OUTPATIEN INC T OFFICE 93788 BONNY DRAPER OUTPATIEN 9 9 ZEE KOCH T VISIT K K 25 MINUTES OFFICE 68459 Buster FARIAS OUTPATIEN 9 9 LAN Angel T VISIT PSC 10 MINUTES OFFICE 60073 Buster FARIAS OUTPATIEN 9 9 LAN Angel T VISIT PSC 10 MINUTES OFFICE 92689 Buster FARIAS OUTPATIEN 9 9 LAN Angel T VISIT 5 PSC MINUTES OFFICE 97903 Buster FARIAS OUTPATIEN 9 9 LAN Angel T VISIT PSC 10 MINUTES OFFICE 22034 Buster FARIAS OUTPATIEN 9 9 LAN Angel T VISIT PSC 15 MINUTES OFFICE 26053 Buster FARIAS OUTPATIEN 9 9 LAN Angel T VISIT PSC 15 MINUTES OFFICE 01813 BONNY DRAPER, CONSULTAT 9 9 ZEE KOCH ION K K NEW/ESTAB PATIENT 40 MIN OFFICE 93096 ÁNGEL WAGNER 9 9 [facility] ROBYN Lipscomb T VISIT UROLOGY 25 PSC MINUTES HOSPITAL [facility] - 9 9 [facility] OUTPATIEN INC T OFFICE 10103 ISSAC WAGNER 9 9 [facility] ROBYN LOVING UROLOGY NEW/ESTAB PSC PATIENT 40 MIN OFFICE 76110 Buster FARIAS OUTPATIEN 9 9 LAN Angel T VISIT PSC 15 MINUTES OFFICE 69489 Buster FARIAS OUTPATIZAN 9 9 LAN Angel T VISIT PSC 15 MINUTES OFFICE 68035 Buster FARIAS OUTPATIEN 9 9 LAN Angel T VISIT 5 PSC MINUTES HOSPITAL [facility] - 9 9 [facility] [place] [facility] OUTPATIEN INC T OFFICE 25884 Buster FARIAS OUTPATIZAN 9 9 LAN Angel T VISIT PSC 15 MINUTES HOSPITAL [facility] - 9 9 [facility] OUTPATIEN INC T OFFICE 86742 Buster FRAIAS OUTPATIZAN 9 9 LAN Angel T VISIT PSC 15 MINUTES HOSPITAL [facility] - 9 9 [facility] [place] [place] [facility] OUTPATIEN INC T OFFICE 14137 Buster FARIAS OUTPATIZAN 9 9 LAN Angel T VISIT PSC 15 MINUTES HOSPITAL [facility] - 9 9 [facility] [place] [place] OUTPATIEN INC T EMERGENCY 63367 JUAN GRIFFITHS, [address] [facility] T VISIT HIGH/URGE ASSOCIATE NT S SEVERITY EMERGENCY 55096 [facility] 9 9 [facility] [place] [place] [facility] DEPARTMEN INC T VISIT LOW/MODER SEVERITY PERIODIC 73740 [facility] 9 9 [facility] EST CLINIC OF PATIENT 40-64YRS [facility] OFFICE 75201 Buster FARIAS OUTPATIZAN 9 9 LAN Angel T VISIT PSC 15 MINUTES OFFICE 63875 Buster FARIAS OUTPATIEN 9 9 LAN Angel T VISIT PSC 15 MINUTES OFFICE 09272 Buster FARIAS OUTPATIEN 9 9 LAN Angel T VISIT 5 PSC MINUTES OFFICE 74490 Buster FARIAS OUTPATIEN 8 8 LAN Angel T VISIT PSC 15 MINUTES HOSPITAL SH[facility] - 8 8 [facility] [place] [facility] OUTPATIEN INC T OFFICE 25693 Buster FARIAS OUTPATIEN 8 8 LAN Angel T VISIT PSC 10 MINUTES OFFICE 79935 Buster FARIAS OUTPATIEN 8 8 LAN Angel T VISIT PSC 15 MINUTES HOSPITAL SH[facility] - 8 8 [facility] [place] [facility] OUTPATIEN INC T EMERGENCY 48659 [facility] 8 8 [facility] DEPARTMEN INC T VISIT MODERATE SEVERITY EMERGENCY 02115 RONEL BURR, 8 8 [facility] T VISIT ON HIGH/URGE NT SEVERITY OFFICE 03370 Buster FARIAS OUTPATIEN 8 8 LAN Angel T VISIT PSC 15 MINUTES OFFICE 62222 Buster FARIAS OUTPATIEN 8 8 LAN Angel T VISIT 5 PSC MINUTES OFFICE 91965 Buster FARIAS OUTPATIEN 8 8 LAN Angel T VISIT PSC 15 MINUTES OFFICE 31407 Buster FARIAS OUTPATIEN 8 8 LAN Angel T VISIT PSC 15 MINUTES OFFICE 29625 Buster FARIAS OUTPATIEN 8 8 LAN Angel T VISIT PSC 15 MINUTES HOSPITAL [facility] - 8 8 [facility] [place] [facility] OUTPATIEN INC T OFFICE 38143 Buster FARIAS OUTPATIEN 8 8 LAN Angel T VISIT PSC 15 MINUTES OFFICE 30174 Buster FARIAS OUTPATIEN 8 8 LAN Angel T VISIT PSC 15 MINUTES OFFICE 99274 Buster FARIAS OUTPATIEN 8 8 LAN Silverman VISIT 5 PSC MINUTES OFFICE 83468 Buster FARIAS OUTPATIEN 8 8 LAN Angel T VISIT PSC 15 MINUTES OFFICE 98457 Buster FARIAS OUTPATIEN 8 8 LAN Angel T VISIT PSC 15 MINUTES OFFICE 89876 Buster FARIAS OUTPATIEN 8 8 LAN Angel T VISIT PSC 15 MINUTES OFFICE 87152 AIDAN BERMUDEZ OUTPATIEN 8 8 ZAK Da Silva T VISIT 15 MINUTES HOSPITAL [facility] - 8 8 [facility] OUTPATIEN INC T OFFICE 64967 AIDAN BERMUDEZ OUTPATIEN 8 8 ZAK Silverman NEW 30 MINUTES OFFICE 62601 Buster FARIAS OUTPATIEN 8 8 LAN Angel T VISIT PSC 15 MINUTES OFFICE 38864 Buster FARIAS OUTPATIEN 8 8 LAN Angel T VISIT PSC 15 MINUTES OFFICE 51034 WOMEN'S ALLEN, OUTPATIEN 8 8 HEALTH KEYSHA J T VISIT CLINIC OF 15 MINUTES [facility] SHIVANI - 8 8 [facility]EN [facility] SH[facility] - 8 8 [facility] OUTPATIEN INC T OFFICE 36522 WOMEN'S ALLEN, OUTPATIEN 8 8 HEALTH KEYSHA J T VISIT CLINIC OF 15 MINUTES [facility]
[2017-10-11 13:36] LABS: HEMOGLOBIN 12.2 g/dL (12.2-16.2); LYMPH # 3.1 K/mm3 (0.7-4.5); LYMPH % 33.3 % (10-50.0)
[2017-10-11 13:46] LABS: BUN 10 mg/dL (7-18)
[2017-10-11 13:47] LABS: GFR (ESTIMATED) 72 ML/MIN (59-)
--- OUTSIDE RECORDS SUMMARY | 2017-10-11 13:58 | External Medical Summary Rpt | CCD ---
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 11 12 00 [...] NT HI AN A 00 11 11 00 24 4 CV 30 No Ac 40 -1 -1 .0 S 09 t ti 60 0- 9- 00 PH 14 Av ve 35 20 20 AR ai 70 09 09 MA la 5 CY bl e 23 32 DE 00 11 11 00 7. 7 [...] 0 MG CA PS UL E 00 09 11 02 30 30 EA 14 MO Ac 37 -1 -[address] 21 SE ti 82 1- 9- 00 SI 72 S ve [address] 69 09 09 EP 3 PH HE AR N MA A CY OF CY NT HI AN A BA 00 09 11 01 90 30 [...] 7- 5- 00 SI 61 ER ve WY 04 20 20 DE N 81 09 [...] NT ELICIA HI TI AN ON A CL 00 09 10 01 90 30 EA 14 RI Ac ON 09 -0 -[address] 13 SH ti AZ 30 4- 2- 00 SI 37 ER ve EP 83 20 20 DE AM 30 09 09 RI 1 1 PH CH AR AR MG MA D CY TA BL OF ET CY NT HI AN A 00 09 10 01 30 30 [...] 7- 8- 00 SI 61 ER ve WY 04 20 20 DE N 81 09 [...] 7- 0- 00 SI 61 ER ve WY 04 20 20 DE N 81 09 [...] ET CY NT HI AN A 64 08 [...] NT OF CY NT HI AN A IB [...] CY NT HI AN A GL 00 07 [...] CY NT HI AN A 00 05 06 [...] ET NT HI AN A LI 00 05 [...] NT HI AN A CL 00 05 06 00 90 30 EA 12 RI Ac ON 09 -2 -[address] 81 SH ti AZ 30 0- 4- 00 SI 95 ER ve EP 83 20 20 DE AM 30 09 09 RI 1 1 PH CH AR AR MG MA D CY TA BL OF ET CY NT HI AN A NI [...] NT 10 HI 0 AN MG A DO 53 05 06 00 30 [...] D OF CY NT HI AN A GL [...] ET CY NT HI AN A 00 05 05 00 30 30 [...] ET NT HI AN A IB 53 03 [...] ET OF CY NT HI AN A MANUEL 53 05 [...] NT TA HI BL AN ET A 49 05 05 00 60 30 EA 12 RI Ac 88 -0 -[address] 63 SH ti 40 6- 1- 00 SI 67 ER ve 54 20 20 DE 41 09 09 RI 0 PH CH AR AR MA D CY OF CY NT HI AN A LI 00 02 05 02 [...] CY NT CH HI EW AN A CL 00 02 04 02 [...] OF CY NT HI AN A 00 02 03 01 30 30 EA 11 RI Ac 37 -1 -[address] 47 SH ti 82 3- 6- 00 SI 55 ER ve 00 20 20 DE 69 09 09 RI 3 PH CH AR AR MA D CY OF CY NT HI AN A CY 00 03 03 00 60 20 EA 11 RI Ac CL 59 -0 -[address] 71 SH ti OB 15 3- 2- 00 SI 42 ER ve EN 65 20 20 DE ZA 80 09 09 RI KS 1 PH CH IN AR AR E [...] CY ET NT HI AN A 49 10 02 04 60 30 EA 99 RI Ac 88 -0 -[address] 78 SH ti 40 8- 6- 00 SI 72 ER ve 54 20 20 DE 41 08 09 RI 0 PH CH AR AR MA D CY OF CY NT HI AN A SE [...] CY NT HI AN A 00 01 02 [...] CY NT HI AN A GL 00 12 [...] ET NT HI AN A IB 53 11 [...] ST 43 t ti EP 37 1- 3- 00 SI 57 Av ve IR 25 [...] .0 ST 70 t ti TO 10 2- 9- 00 SI 62 Av ve R 15 20 [...] .0 ST 43 t ti EP 37 - 6 00 SI 57 Av ve IR 25 20 20 DE ai ID 50 08 08 la E 1 PH bl 2 AR e MG MA CY TA BL OF ET CY NT HI AN A 49 08 09 00 60 30 EA 99 No Ac 88 -2 -[address] 20 t ti 40 SI 97 Av ve 54 20 20 DE ai 40 08 08 la 2 PH bl AR e MA CY OF CY NT HI AN A LI 00 08 09 00 30 30 EA 99 No Ac PI 07 -2 -[address] 20 t ti TO 10 SI 98 Av ve R 15 20 20 DE ai 80 82 08 08 la 3 PH bl MG AR e MA TA CY BL ET OF CY NT HI AN A CL 00 08 09 00 90 30 EA 99 No Ac ON 09 -2 -[address] 20 t ti AZ 30 SI 99 Av ve EP 83 20 20 DE ai AM 30 08 08 la 1 1 PH bl AR e MG MA CY TA BL OF ET CY NT HI AN A GL 00 05 08 03 30 30 EA 97 No Ac IM 09 -1 -[address] 97 t ti EP 37 3 8 00 SI 20 Av ve IR 25 20 20 DE ai ID 50 08 08 la E 1 PH bl 2 AR e MG MA CY TA BL OF ET CY NT HI AN A HY 00 08 08 00 60 10 EA [address] 55 -1 -[address] 12 t ti OX 50 8 SI 29 Av ve YZ 32 20 [...] ET NT HI AN A HY 00 05 [...] ET NT HI AN A HY 00 05 [...] ST 09 t ti TO 10 5- 3- 00 SI 56 Av ve R [...] ET CY NT HI AN A RA 00 [...] BL CY ET NT HI AN A 60 06 06 00 14 7 EA 98 No Ac 50 -0 -[address] 27 t ti 51 6- 2- 00 SI 87 Av ve 30 20 20 DE ai 90 08 08 la 1 PH bl AR e MA CY OF CY NT HI AN A MANUEL 53 05 [...] TA HI BL AN ET A 00 01 06 04 30 30 EA 96 No Ac 02 -1 -[address] 40 t ti 93 8- 5- 00 SI 52 Av ve 20 20 20 DE ai 81 08 08 la 3 PH bl AR e MA CY OF CY NT HI AN A 00 04 06 01 30 30 [...] ST 09 t ti TO 10 5 2- 00 SI 56 Av ve R 15 [...] CY OF CY NT HI AN A KE 00 04 05 00 30 5 EA 97 No Ac TO 09 -2 -[address] 74 t ti CO 30 8 SI 58 Av ve NA 84 20 20 DE ai ZO 03 08 08 la LE 0 PH bl AR e 2% MA CY CR EA OF M CY NT HI AN A MANUEL 53 04 05 00 14 7 EA 97 No Ac LF 48 -2 -[address] 77 t ti AM 90 8 8 00 SI 17 Av ve ET 14 20 20 DE ai HO 60 08 08 la XA 1 PH bl ZO AR e LE MA -T CY MP OF DS CY NT TA HI BL AN ET A 00 01 05 03 30 30 EA 96 No Ac 02 -1 -[address] 40 t ti 93 8- 8- 00 SI 52 Av ve 20 20 20 DE ai 81 08 08 la 3 PH bl AR e MA CY OF CY NT HI AN A ME 50 04 05 00 14 7 EA 97 No Ac TR 11 -2 -[address] 77 t ti ON 10 SI 18 Av ve ID 33 20 20 DE ai AZ 40 08 08 la OL 1 PH bl E AR e 50 MA 0 CY MG OF TA CY BL NT ET HI AN A CL 00 04 05 00 90 30 EA 97 No Ac ON 09 -2 -[address] 71 t ti AZ 30 3 8- 00 SI 89 Av ve EP [...] 7- 4- 00 SI 78 Av ve KS 02 20 20 DE ai ED 20 08 08 la NI 7 PH bl SO AR e LO MA NE CY 4 OF MG CY NT DO HI SE AN PK A LO 60 02 04 02 30 [...] OF CY NT HI AN A 00 04 [...] CY NT HI AN A GL 00 04 04 00 30 30 EA 97 No Ac IM 09 -1 -[address] 61 t ti EP [...] EA 96 No Ac IM 09 -1 -[address] 36 t ti EP 37 5- 7- 00 SI 41 Av ve IR 25 20 20 DE ai ID 50 08 08 la E 1 PH bl 2 AR e MG MA CY TA BL OF ET CY NT HI AN A 00 01 04 02 30 30 EA 96 No Ac 02 -1 -[address] 40 t ti 93 8- 7- 00 SI 52 Av ve 20 20 20 DE ai 81 08 08 la 3 PH bl AR e MA CY OF CY NT HI AN A NA 00 03 04 00 17 25 EA 97 No Ac SO 08 -1 -[address] 18 t ti NE [...] EA 96 No Ac ON 09 -1 -[address] 36 t ti AZ [...] ET NT HI AN A HY 00 01 [...] ET OF CY NT HI AN A OX 00 01 [...] HI AN A CY 00 01 03 90 30 EA 96 No Ac CL 59 -2 -[address] 53 t ti OB 15 8- 6- 00 SI 71 Av ve EN 65 20 20 DE ai ZA 80 08 08 la KS 1 PH bl IN AR e E MA 10 CY MG OF CY TA NT BL HI ET AN A CL 00 01 03 90 30 EA 96 No Ac ON 09 -1 -[address] 36 t ti AZ 30 5- 6- 00 SI 42 Av ve EP 83 20 20 DE ai AM 20 08 08 la 1 PH bl 0. AR e 5 MA MG CY TA OF BL CY ET NT HI AN A HY 00 01 [...] HI AN A LI 00 02 03 00 30 30 EA 96 No Ac PI 07 -0 -[address] 70 t ti TO 10 7- 6- 00 SI 44 Av ve R 15 20 20 DE ai 80 82 08 08 la 3 PH bl MG AR e MA TA CY BL ET OF CY NT HI AN A 00 01 03 01 30 30 EA 96 No Ac 02 [...] ET NT HI AN A GL 00 03 30 30 EA 96 No Ac IM -1 -[address] 36 t ti EP 37 5- 6- 00 SI 41 Av ve IR 25 20 20 DE ai ID 50 08 08 la E 1 PH bl 2 AR e MG MA CY TA BL OF ET CY NT HI AN A CL 00 03 90 30 EA 96 No Ac ON -[address] 36 t ti AZ 30 5- 5- 00 SI 42 Av ve EP 83 20 20 DE ai AM 20 08 08 la 1 PH bl 0. AR e 5 MA MG CY TA OF BL CY ET NT HI AN A 00 11 02 99 30 30 EA 96 No Ac 02 [...] UL CY E NT HI AN A GL 00 11 02 99 30 30 EA 96 No Ac IM 09 -1 -[address] 36 t ti EP 37 5- 5- 00 SI 41 Av ve IR 25 20 20 DE ai ID 50 08 08 la E 1 PH bl 2 AR e MG MA CY TA BL OF ET CY NT HI AN A 00 03 00 20 4 EA 96 No [...] ET NT HI AN A HY 00 01 [...] JOSÉ JOSÉ FOR SUBQ /IM USE IIV3 10- 141 INGRID No A C 6-20 S WRIG VACC 14 CHE HT INE MD SPLI PSC T VIRU S 0.5 ML DOSA GE IM USE IIV3 10- 141 LISA No LISA 0-20 REGINA REGINA VACC 13 CO CO INE HEAL HEAL SPLI TH TH T CENT CENT VIRU ER ER S 0.5 ML DOSA GE IM USE IIV3 10- 141 LISA No LISA 9-20 REGINA REGINA [...] ACCT ML DOSA GE IM USE IIV3 10-3 141 LISA No DHS/ 0-20 REGINA CO VACC 08 CO HEAL INE HEAL TH SPLI TH CENT T CENT RAL VIRU ER BANK S 0.5 ACCT ML DOSA GE IM USE Procedures Procedure DOS Code Location Performer Comment ECG 44109 SHIVANI CA JR ROUTINE 7 [facility] W/LEAST P 12 LDS I&R ONLY RADIOLOGI 58841 [facility] C EXAM 7 MEDICAL CHEST 2 IMAGING VIEWS ASS FRONTAL&L ATERAL DRUG TEST 11661 SHIVANI PARRISH PRSMV 7 [facility] QUAL DIR INC INC OPTICAL OBS PER DAY DRUG 72254 SHIVANI PARRISH SCREENING 7 [facility] OPIOIDS INC INC & OPIATE ANALOGS 5/MORE NJX 18352 SHIVANI PARRISH DX/THER 7 [facility] SBST INC INC INTRLMNR CRV/THRC W/[place] IMG GDN NJX 17759 COLLEEN DUFF DX/THER 7 MD KEYANNA, SBST PSC INTRLMNR CRV/THRC W/IMG [place]DN NJX 42510 COLLEEN DUFF DX/THER 7 MD KEYANNA, SBST PSC INTRLMNR LMBR/SAC W/IMG GDN NJX 20697 SHIVANI PARIRSH DX/THER 7 [facility] SBST INC INC INTRLMNR LMBR/SAC [place] [address] SHIVANI PARRISH JOINT 7 [facility] ARTHRGRPH INC INC Y&/ANES/S TEROID W/AMANDA 3D 51512 SHIVANI PARRISH RENDERING 7 [facility] W/INTERP INC INC & POSTPROCE SS SUPERVISI [place] MRI 68057 SHIVANI PARRISH SPINAL 7 [facility] CANAL INC INC LUMBAR W/O CONTRAST MATERIAL DRUG TEST 74325 SHIVANI PARRISH PRSMV 7 [facility] QUAL DIR INC INC OPTICAL OBS PER DAY LANCETS A4259 ANNA MARIE THRASHER PER BOX 6 HOME HOME OF 100 MEDICAL MEDICAL EQUIPME EQUIPME BLD GLU A4253 ANNA MARIE THRASHER TEST/REAG 6 HOME HOME T STRIPS MEDICAL MEDICAL HOME BLD EQUIPME EQUIPME GLU MON-50 ECHO 07645 SHIVANI PARRISH TTHRC R-T 6 [facility] 2D INC INC W/WOM-MOD E COMPL SPEC&COLR D DRUG 66603 SHIVANI P[facility]ISH SCREEN 6 [facility] LIST A INC INC SINGLE DRUG CLASS METHOD TOBACCO 07411 SCIFRES SCIFRES USE 6 ANG ANG CESSATION INTERMEDI ATE 3-10 MINUTES DRUG 03458 SHIVANI P[facility]ISH SCREEN 6 [facility] LIST A INC INC SINGLE DRUG CLASS METHOD NJX 36667 SHIVANI PARRISH DX/THER 6 [facility] SBST INC INC EPIDURAL/ SUBRACH CERV/THOR ACIC NJX 34309 SHIVANI PARRISH DX/THER 6 [facility] SBST INC INC EPIDURAL/ SUBRACH CERV/THOR ACIC NJX 48402 COLLEEN RAIN ULYSSES DX/THER 6 MD KEYANNA, SBST PSC EPIDURAL/ SUBRACH CERV/THOR ACIC DILAT 2022F A Stanley BOLTON RETINAL 6 LAN ROBBINS EYE EXAM PSC W/INTERP OPHTHAL/O PTOM ALBUMIN 94226 A Stanley BOLTON URINE 6 LAN [facility] MICROALBU PSC MIN SEMIQUANT ITATIVE NEGATIVE 3061F A Stanley BOLTON MICROALBU 6 LAN ROBBINS MINURIA PSC TEST RESULT DOC&REV NORMAL G8783 A Stanley BOLTON BLOOD 6 LAN [facility] PRESS PSC READING DOC F/U NOT REQUIRED MOST 3046F A Stanley BOLTON RECENT 6 LAN [facility]INS HEMOGLOBI PSC N A1C LEVEL >9.0% GLUCOSE 59691 A Stanley BOLTON QUANTITAT 6 LAN [facility] SANDY BLOOD PSC XCPT REAGENT STRIP HEMOGLOBI 41335 A Stanley BOLTON N 6 LAN ROB[facility]INS GLYCOSYLA PSC KYMBERLY A1C PT FALLS 1101F A Stanley BOLTON ASSESS 6 LAN ROB[facility]INS DOCD W/O PSC FALL/INJU RY PAST YEAR BMI DOC G8420 A Stanley BOLTON W/I 6 LAN [facility]INS NORMAL PSC RENEE & NO F/U PLAN REQUIRED FOOT G9226 A Stanley BOLTON EXAMINATI 6 LAN ROB[facility]INS ON PSC PERFORMED ELIG CLIN G8427 A Stanley BOLTON ATTSTS 6 LAN ROB[facility]INS DOC M REC PSC OBTD UPD/REV PT MEDS SCREENING G8510 A Stanley BOLTON 6 LAN ROB[facility]INS DEPRESSIO PSC N DOC NEG A F/U PLAN NOT RQR HOME E0607 ANNA MARIE ANNA MARIE BLOOD 6 HOME HOME GLUCOSE MEDICAL MEDICAL MONITOR EQUIPME EQUIPME E-STIM G0283 SHIVANI TERRAZAS 1/> AREAS 5 [facility] RAJ OTH THAN INC WND CARE PART TX PLAN APPL 48162 SHIVANI TRIPLETT MODALITY 5 [facility] DAVID 1/> AREAS INC 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 THERAPEUT 40703 SHIVANI PARRISH IC PX 1/> 5 [facility] AREAS INC INC EACH 15 MIN EXERCISES THERAPEUT 87613 SHIVANI PARRISH IC PX 1/> 5 [facility] AREAS INC INC EACH 15 MIN EXERCISES APPL 71342 SHIVANI PARRISH MODALITY 5 [facility] 1/> AREAS INC INC 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 E-STIM G0283 SHIVANI TERRAZAS 1/> AREAS 5 [facility] RAJ OTH THAN INC WND CARE PART TX PLAN E-STIM G0283 SHIVANI PARRISH 1/> AREAS 5 [facility] OTH THAN INC INC WND CARE PART TX PLAN APPL 65541 SHIVANI PARRISH MODALITY 5 [facility] 1/> AREAS INC INC 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 THERAPEUT 79189 SHIVANI PARRISH IC PX 1/> 5 [facility] AREAS INC INC EACH 15 MIN EXERCISES APPL 47380 SHIVANI PARRISH MODALITY 5 [facility] 1/> AREAS INC INC ULTRASOUN D EA 15 MIN APPL 22822 SHIVANI PARRISH MODALITY 5 [facility] 1/> AREAS INC INC ULTRASOUN D EA 15 MIN APPL 84831 SHIVANI PARRISH MODALITY 5 [facility] 1/> AREAS INC INC 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 E-STIM G0283 SHIVANI PARRISH 1/> AREAS 5 [facility] OTH THAN INC INC WND CARE PART TX PLAN E-STIM G0283 SHIVANI PARRISH 1/> AREAS 5 [facility] OTH THAN INC INC WND CARE PART TX PLAN APPL 61954 SHIVANI PARRISH MODALITY 5 [facility] 1/> AREAS INC INC 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 THERAPEUT 96872 SHIVANI PARRISH IC PX 1/> 5 [facility] AREAS INC INC EACH 15 MIN EXERCISES APPL 98526 SHVIANI PARRISH MODALITY 5 [facility] 1/> AREAS INC INC 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 THERAPEUT 01800 SHIVANI PARRISH IC PX 1/> 5 [facility] AREAS INC INC EACH 15 MIN EXERCISES E-STIM G0283 SHIVANI PARRISH 1/> AREAS 5 [facility] OTH THAN INC INC WND CARE PART TX PLAN E-STIM G0283 SHIVANI PARRISH 1/> AREAS 5 [facility] OTH THAN INC INC WND CARE PART TX PLAN THERAPEUT 89341 SHIVANI PARRISH IC PX 1/> 5 [facility] AREAS INC INC EACH 15 MIN EXERCISES APPL 04118 SHIVANI SHIVANI MODALITY 5 [facility] 1/> AREAS INC INC 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 APPL 62691 SHIVANI PARRISH MODALITY 5 [facility] 1/> AREAS INC INC ULTRASOUN D EA 15 MIN APPL 48359 SHIVANI PARRISH MODALITY 5 [facility] 1/> AREAS INC INC ULTRASOUN D EA 15 MIN THERAPEUT 69570 SHIVANI PARRISH IC PX 1/> 5 [facility] AREAS INC INC EACH 15 MIN EXERCISES APPL 22454 SHIVANI PARIRSH MODALITY 5 [facility] 1/> AREAS INC INC 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 E-STIM G0283 SHIVANI SHIVANI 1/> AREAS 5 [facility] OTH THAN INC INC WND CARE PART TX PLAN PHYSICAL 80210 SHIVANI PARRISH THERAPY 5 [facility] EVALUATIO INC INC N THERAPEUT 29870 SHIVANI SHIVANI IC PX 1/> 5 [facility] AREAS INC INC EACH 15 MIN EXERCISES RADIOLOGI 05422 [facility] C 5 MEDICAL EXAMINATI IMAGING ON KNEE 3 ASS VIEWS ELECTRICA A4595 EMPI INC EMPI INC L 5 STIMULATO R SUPPLIES 2 LEAD PER MONTH ELECTRICA A4595 EMPI INC EMPI INC L 5 STIMULATO R SUPPLIES 2 LEAD PER MONTH 3D 39530 [facility] REND[facility] 5 MEDICAL ALVARADO W/INTERP IMAGING & ASS POSTPROCE SS SUPERVISI ON MRI 19679 [facility] SPINAL 5 MEDICAL ALVAR[place] CANAL IMAGING CERVICAL ASS W/O CONTRAST MATRL RADIOLOGI 95617 SHIVANI PARRISH C 5 [facility] EXAMINATI INC INC ON KNEE 3 VIEWS ELECTRICA A4595 EMPI INC EMPI INC L 5 STIMULATO R SUPPLIES 2 LEAD PER MONTH OPHTH 80181 [facility] 5 XM&EVAL COMPRHNSV ESTAB PT 1/> ELECTRICA A4595 Lawn[employer] INC EMPI INC L 5 STIMULATO R SUPPLIES 2 LEAD PER MONTH RADIOLOGI 09134 [place] [facility] C EXAM 5 MEDICAL ALVARADO KNEE IMAGING COMPLETE ASS 4/MORE VIEWS NONEMERG A0120 FEDERATED FEDERATED TRNSPRT: 5 [facility]SP[facility] TRANSPORT MTN ATION SER ATION SER AREA/OTH SYS URINLS 12007 Buster SAAVEDRA CHE DIP 5 LAN ROBBINS STICK/TAB PSC LET REAGNT NON-AUTO MICRSCPY NONEMERG A0120 FEDERATED FEDERATED TRNSPRT: 5 [facility] TRANSPORT TRANSPORT MTN ATION SER ATION SER AREA/OTH SYS NONEMERG A0120 FEDERATED FEDERATED TRNSPRT: 5 [facility] TRANSPORT TRANSPORT MTN ATION SER ATION SER AREA/OTH SYS ELECTRICA A4595 LawnStarterI artandseek EMPI INC L 5 STIMULATO R SUPPLIES 2 LEAD PER MONTH NONEMERGE A0100 FEDERATED FEDERATED NCY 5 TRANSPORT TRANSPORT TRANSPORT ATION; ATION SER ATION SER TAXI RADIOLOGI 66582 SHIVANI PARRISH C EXAM 5 [facility] CHEST 2 INC INC VIEWS FRONTAL&L ATERAL ELECTRICA A4595 EMPI INC EMPI INC L 5 STIMULATO R SUPPLIES 2 LEAD PER MONTH HEMOGLOBI 10931 A Stanley BOLTON N 5 LAN ROBBINS GLYCOSYLA PSC KYMBERLY A1C BASIC 29540 [facility] METABOLIC 5 DIAGNOSTI DIAGNOSTI PANEL CS CS CALCIUM TOTAL ELECTRICA A4595 EMPI INC EMPI INC L 4 STIMULATO R SUPPLIES 2 LEAD PER MONTH PPSV23 78042 [facility] VACCINE 2 4 [facility] YRS OR HLTH DEPT HLTH DEPT OLDER FOR JOSÉ JOSÉ SUBQ/IM USE NONEMERG A0120 FEDERATED FEDERATED TRNSPRT: 4 TRANS [facility] ADM 42979 A Stanley BOLTON PRQ ID 4 LAN ROBBINS SUBQ/IM PSC NJXS 1 VACCINE IIV3 59597 A Stanley BOLTON VACCINE 4 LAN ROBBINS SPLIT PSC VIRUS 0.5 ML DOSAGE IM USE URINLS 24616 A Stanley BOLTON DIP 4 LAN ROBBINS STICK/TAB PSC LET REAGNT NON-AUTO MICRSCPY ECHO 60487 SHIVANI PARRISH TTHRC R-T 4 [facility] 2D INC INC W/WOM-MOD E COMPL SPEC&COLR D MYOCARDIA 59293 BRITTNEY BRITTNEY L SPECT 4 ALVARADO ALVARDAO MULTIPLE STUDIES CV STRS 61605 SHIVANI PARRISH TST 4 [facility] XERS&/OR INC INC RX CONT ECG TRCG ONLY CV STRS 49932 LANNY CA JR TST 4 DWI DWI XERS&/OR RX CONT ECG I&R ONLY NONEMERG A0120 FEDERATED FEDERATED TRNSPRT: 4 TRANS [facility] TRANSPORT [facility] SYS INJECTION J2785 SHIVANI PARRISH 4 [facility] REGADENOS INC INC ON 0.1 MG ELECTRICA A4595 EMPI INC EMPI INC L 4 STIMULATO R SUPPLIES 2 LEAD PER MONTH INJECTION J1885 KERI CELAYA CHE 4 KETOROLAC TROMETHAM INE PER 15 MG THERAPEUT 62228 KERI BOLTON IC 4 PROPHYLAC TIC/DX INJECTION SUBQ/IM BASIC 41293 [facility] METABOLIC 4 DIAGNOSTI DIAGNOSTI PANEL CS CS CALCIUM TOTAL GLUCOSE 15774 KERI BOLTON QUANTITAT 4 SANDY BLOOD XCPT REAGENT STRIP TRANSFERA 84180 KERI BOLTON SE 4 ALANINE AMINO ALT SGPT TRANSFERA 67176 KERI BOLTON SE 4 ASPARTATE AMINO AST SGOT HEMOGLOBI 29376 KERI BOLTON N 4 GLYCOSYLA KYMBERLY A1C ELECTRICA A4595 EMPI INC EMPI INC L 4 STIMULATO R SUPPLIES 2 LEAD PER MONTH NONEMERG A0120 FEDERATED FEDERATED TRNSPRT: 4 TRANS MINI-BUS TRANSPORT SERVBLUEG MTN ATION SER JASMIN AREA/OTH SYS ELECTRICA A4595 EMPI INC EMPI INC L 4 STIMULATO R SUPPLIES 2 LEAD PER MONTH INJECTION J1885 KERI CELAYA CHE 4 KETOROLAC TROMETHAM INE PER 15 MG THERAPEUT 88689 KERI BOLTON IC 4 PROPHYLAC TIC/DX INJECTION SUBQ/IM ELECTRICA A4595 EMPI INC EMPI INC L 4 STIMULATO R SUPPLIES 2 LEAD PER MONTH GLUCOSE 03476 KERI BOLTON QUANTITAT 4 SANDY BLOOD XCPT REAGENT STRIP ELECTRICA A4595 EMPI INC EMPI INC L 4 STIMULATO R SUPPLIES 2 LEAD PER MONTH HEMOGLOBI 49546 KERI BOLTON N 4 GLYCOSYLA KYMBERLY A1C ELECTRICA A4595 EMPI INC EMPI INC L 3 STIMULATO R SUPPLIES 2 LEAD PER MONTH POTASSIUM 08884 LAB DIMAS LAB DIMAS SERUM 3 OF RONNA PLASMA/WH RONNA HOLDINGS OLE BLOOD HOLDINGS ELECTRICA A4595 EMPI INC EMPI INC L 3 STIMULATO R SUPPLIES 2 LEAD PER MONTH BASIC 92790 [facility] METABOLIC 3 DIAGNOSTI DIAGNOSTI PANEL CS CS CALCIUM TOTAL ELECTRICA A4595 EMPI INC EMPI INC L 3 STIMULATO R SUPPLIES 2 LEAD PER MONTH CYTP C/V 45353 PICKLESIM PICKLESIM AUTO THIN 3 ER JR PANDA ER JR PANDA LYR PREPJ SCR MNL RESCR PHYS URNLS DIP 65323 TIFFANY ALLEN 3 CORRINA CORRINA STICK/TAB LET RGNT NON-AUTO W/O MICRSCP IIV3 94090 SHIVANI PARRISH VACCINE 3 [facility] VIRUS 0.5 ML DOSAGE IM USE ELECTRICA A4595 EMPI INC EMPI INC L 3 STIMULATO R SUPPLIES 2 LEAD PER MONTH TRANSFERA 67643 A Stanley SAAVEDRA CHE SE 3 LAN ROBBINS [place] [address] A Stanley BOLTON TRIGLYCER 3 LAN ROBBINS IDES PSC TRANSFERA 79932 A Stanley BLOTON SE 3 LAN ROBBINS ASPARTATE PSC AMINO AST SGOT LIPOPROTE 47338 A Stanley BOLTON IN DIR 3 LAN ROBBINS EMMANUEL HIGH PSC DENSITY CHOLESTER OL BASIC 12732 A Stanley BOLTON METABOLIC 3 LAN ROBBINS PANEL PSC CALCIUM TOTAL GLUCOSE 52725 A Stanley BOLTON QUANTITAT 3 LAN ROBBINS SANDY BLOOD PSC XCPT REAGENT STRIP CHOLESTER 26279 A Stanley BOLTON OL 3 LAN ROBBINS SERUM/WHO PSC LE BLOOD TOTAL COLLECTIO 62734 A Stanley BOLTON N VENOUS 3 LAN ROBBINS BLOOD PSC VENIPUNCT URE ELECTRICA A4595 EMPI INC EMPI INC L 3 STIMULATO R SUPPLIES 2 LEAD PER MONTH HEMOGLOBI 64014 A Stanley BOLTON N 3 LAN ROBBINS GLYCOSYLA PSC KYMBERLY A1C ALBUMIN 93386 A Stanley BOLTON URINE 3 LAN ROBBINS MICROALBU PSC MIN SEMIQUANT ITATIVE PHYSICAL 52362 SHIVANI PARRISH THERAPY 3 [facility] EVALUATIO INC INC N GLUC BLD 09011 SHIVANI PARRISH GLUC MNTR 3 [facility] DEV INC INC CLEARED FDA SPEC HOME USE POSTERIOR V2632 SHIVANI P[facility] CHAMBER 3 [facility] INTRAOCUL INC INC AR LENS CATARACT 04297 SH[facility] REMOVAL 3 [facility] INSERTION INC INC OF LENS CATARACT 70771 [facility] REMOVAL 3 [facility] INSERTION INC INC OF LENS POSTERIOR V2632 [facility] CHAMBER 3 [facility] INTRAOCUL INC INC AR LENS GLUC BLD 55643 SH[facility] GLUC MNTR 3 [facility] DEV INC INC CLEARED FDA SPEC HOME USE OPH BMTRY 74519 [facility] US 3 ULYSSES ULYSSES ECHOGRAPY A-SCAN IO LENS PWR JUAN ELECTRICA A4595 EMPI INC EMPI INC L 3 STIMULATO R SUPPLIES 2 LEAD PER MONTH OPHTH 49206 [facility] MEDICAL 3 ULYSSES ULYSSES XM&EVAL COMPRHNSV ESTAB PT 1/> OPH BMTRY 01760 [facility] US 3 ULYSSES ULYSSES ECHOGRAPY A-SCAN IO LENS PWR JUAN ELECTRICA A4595 EMPI INC EMPI INC L 3 STIMULATO R SUPPLIES 2 LEAD PER MONTH URINLS 21793 A C KILPELA DIP 3 LAN ROBBINS JEA STICK/TAB PSC LET REAGNT NON-AUTO MICRSCPY CYANOCOBA 48995 SHIVANI SHIVANI MICHELLE 3 [facility] VITAMIN INC INC B-12 NONEMERG A0120 LKLP LKLP TRNSPRT: 3 [facility] ACTION [facility] AREA/OTH SYS HEMOGLOBI 74855 SHIVANI SHIVANI N 3 [facility] GLYCOSYLA INC INC KYMBERLY A1C NONEMERG A0120 LKLP LKLP TRNSPRT: 3 [facility] AREA/OTH SYS SCREENING G0202 BRITTNEY BRITTNEY 3 ALVARADO ALVARADO MAMMOGRAP HY RONALD INCL CAD WHEN PERFORMD 38982 BRITTNEY BRITTNEY AIDED 3 ALVARADO ALVARADO DETECTION SCREENING MAMMOGRAP HY THERAPEUT 89356 KERI CALVINES CHE IC 3 PROPHYLAC TIC/DX INJECTION SUBQ/IM INJ J0702 KERI CELAYA CHE BETAMETHA 3 SONE ACETATE & PHOSPHATE 3 MG DUP-SCAN 79537 SHIVANI PARRISH XTR VEINS 3 [facility] INC INC UNILATERA L/LIMITED STUDY LIPID 21493 KILPELA KILPELA PANEL 3 YAZMIN YAZMIN BASIC 90530 LAB DIMAS LAB DIMAS METABOLIC 3 RONNA RONNA PANEL HOLDINGS HOLDINGS CALCIUM TOTAL GLUCOSE 71361 KILPELA KILPELA QUANTITAT 3 YAZMIN ARCE SANDY BLOOD XCPT REAGENT STRIP TRANSFERA 59947 KILPELA KILPELA SE 3 YAZMIN EBONYBuster ALANINE AMINO ALT SGPT TRANSFERA 79484 KILPELA KILPELA SE 3 YAZMIN ARCE ASPARTATE AMINO AST SGOT HEMOGLOBI 85937 KILPELA KILPELA N 3 YAZMIN ARCE GLYCOSYLA KYMBERLY A1C URINLS 39501 KILPELA KILPELA DIP 3 JEBuster JEA STICK/TAB LET REAGNT NON-AUTO MICRSCPY OPH BMTRY 76094 [facility] 2 ULYSSES ULYSSES ECHOGRAPY A-SCAN IO LENS PWR JUAN OPHTH 73846 [facility] 2 ULYSSES ULYSSES XM&EVAL COMPRE NEW PT 1/> VST NONEMERG A0120 LKLP LKLP TRNSPRT: 2 [facility] AREA/OT SYS BLOOD 30864 SH[facility]ANI [facility] COUNT 2 [facility] COMPLETE INC INC AUTO&AUTO DIFRNTL WBC COMPREHEN 53016 [facility] SIVE 2 [facility] [place] [address] [facility] INFUSION 2 [facility] THERAPY/P INC INC ROPHYLAXI S /DX 1ST TO 1 HR THERAPEUT 30154 [facility] IC 2 [facility] INJECTION INC INC IV PUSH EACH NEW DRUG URINLS 73863 KILPELA KILPELA DIP 2 JEBuster JEA STICK/TAB LET REAGNT NON-AUTO MICRSCPY DETERMINA 47305 SCIFRES SCIFRES TION 2 ANG ANG REFRACTIV E STATE OPHTH [address] SCIFRES SCIFRES MEDICAL 2 ANG ANG XM&EVAL COMPRHNSV ESTAB PT 1/> INDIV 25680 [facility] PSYCTX 2 REG REG MEN OFFICE/OU MH/MR HLTH INC TPATIENT BOARD 20-30 MIN 3D 84976 SHIVANI PARR[facility] RENDERING 2 [facility] W/INTERP INC INC & POSTPROCE SS SUPERVISI ON MRI 46200 SHIVANI SHIVANI SPINAL 2 [facility] CANAL INC INC THORACIC W/O CONTRAST MATRL APPL 27219 SHIVANI SHIVANI MODALITY 2 [facility] 1/> AREAS INC INC ELEC STIMJ EA 15 MIN MRI 46913 SHIVANI P[facility]ISH SPINAL 2 [facility] CANAL INC INC CERVICAL W/O CONTRAST MATRL NONEMERG A0120 LKLP LKLP TRNSPRT: 2 [facility] Nanalysis MINI-BUS ACTION ACTION MTN AREA/OTH SYS URINLS 31139 KERI CHE KERI CHE DIP 2 STICK/TAB LET REAGNT NON-AUTO MICRSCPY IIV3 91756 SHIVANI PARRISH VACCINE 2 [facility] VIRUS 0.5 ML DOSAGE IM USE ECG 15750 SHIVANI MCKEMIE ROUTINE 2 [facility] W/LEAST P 12 LDS I&R ONLY CREATINE 97100 SHIVANI PARRISH KINASE 2 [facility] TOTAL INC INC 3D 49390 SHIVANI PARRISH RENDERING 2 [facility] W/INTERP INC INC & POSTPROCE SS SUPERVISI ON ECG 82309 SHIVANI PARRISH ROUTINE 2 [facility] ECG INC INC W/LEAST 12 LDS TRCG ONLY W/O I&[place] [address] SHIVANI PARRISH HEAD/BRAI 2 [facility] N W/[place] [address] [facility] [facility] MAXILLOFA 2 [facility] CIAL W/O IMAGING CONTRAST ASS MATERIAL THERAPEUT 93803 SHIVANI PARRISH IC 2 [facility] INJECTION [place] [address] SHIAVNI PARRISH INFUSION 2 [facility] THERAPY/P INC INC ROPHYLAXI S /DX 1ST TO 1 HR CREATINE 40076 SHIVANI PARRISH KINASE MB 2 [facility] FRACTION INC INC ONLY BLOOD 63134 SHIVANI PARRISH COUNT 2 [facility] COMPLETE INC INC AUTO&[place] [address] SHIVANI PARRISH TROPONIN 2 [facility] QUANTITAT INC INC SANDY COMPREHEN 85430 SHIVANI PARRISH SIVE 2 [facility] METABOLIC INC INC PANEL CV STRS 96980 SHIVANI LISA TST 2 [facility] XERS&/OR HOSPITAL RX CONT P ECG I&R ONLY NON-INVAS 22259 MARCOS LUGO 2 [facility] PHYSIOLOG IMAGING IC STD ASS EXTREMITY ART 2 LEVEL TECHNETIU A9500 SHIVANI Nath TC-99M 2 [facility] SESTAMIBI INC INC DX PER STUDY DOSE ECHO 35286 SHIVANI PARRISH TTHRC R-T 2 [facility] 2D INC INC W/WOM-MOD E COMPL SPEC&COLR D N-INVAS 46796 SHIVANI PARRISH PHYSIOLOG 2 [facility] IC STD INC INC LXTR ART COMPL BI CV STRS 06025 SHIVANI PARRISH TST 2 [facility] XERS&/OR INC INC RX CONT ECG TRCG ONLY CV STRS 13102 [facility] TST 2 PHYSICIAN PHYSICIAN XERS&/OR S GROUP S GROUP RX CONT ECG W/O I&R MYOCARDIA 28203 SHIVANI PARRISH L SPECT 2 [facility] MULTIPLE INC INC STUDIES NONEMERG A0120 LKLP LKLP TRNSPRT: 2 COMMUNITY COMMUNITY MINI-BUS ACTION ACTION [facility] AREA/OT SYS NONEMERG A0120 LKLP LKLP TRNSPRT: 2 [facility] COMMUNITY MINI-BUS ACTION ACTION [facility] AREA/OTH SYS INDIV 81294 [facility] PSYCTX 2 REG REG MEN OFFICE/OU MH/MR [facility] INC TPATIENT BOARD 20-30 MIN APPLICATI 20849 SHIVANI PARRISH ON 2 [facility] MODALITY INC INC 1/> AREAS HOT/COLD PACKS APPL 89283 SHIVANI PARRISH MODALITY 2 [facility] 1/> AREAS INC INC ELEC STIMJ UNATTENDE D APPL 61752 SHIVANI PARRISH MODALITY 2 [facility] 1/> AREAS INC INC TRACTION MECHANICA L APPLICATI 94202 SHIVANI PARRISH ON 2 [facility] MODALITY INC INC 1/> AREAS HOT/COLD PACKS THERAPEUT 63054 SHIVANI SHIVANI IC PX 1/> 2 [facility] AREAS INC INC EACH 15 MIN EXERCISES THERAPEUT 41798 SHIVANI SHIVANI IC PX 1/> 2 [facility] AREAS INC INC EACH 15 MIN EXERCISES APPLICATI 82189 SHIVANI PARRISH ON 2 [facility] MODALITY INC INC 1/> AREAS HOT/COLD PACKS APPL 89007 SHIVANI PARRISH MODALITY 2 [facility] 1/> AREAS INC INC ELEC STIMJ UNATTENDE D APPL 04097 SHIVANI PARRISH MODALITY 2 [facility] 1/> AREAS INC INC ELEC STIMJ UNATTENDE D NONEMERG A0120 LKLP LKLP TRNSPRT: 2 COMMUNITY COMMUNITY MINI-BUS ACTION ACTION MTN AREA/OTH SYS APPL 80604 SHIVANI PARRISH MODALITY 2 [facility] 1/> AREAS INC INC TRACTION MECHANICA L APPLICATI 52917 SHIVANI PARRISH ON 2 [facility] MODALITY INC INC 1/> AREAS HOT/COLD PACKS APPLICATI 72699 SHIVANI PARRISH ON 2 [facility] MODALITY INC INC 1/> AREAS HOT/COLD PACKS THERAPEUT 62718 SHIVANI PARRISH IC PX 1/> 2 [facility] AREAS INC INC EACH 15 MIN EXERCISES APPL 14218 SHIVANI PARRISH MODALITY 2 [facility] 1/> AREAS INC INC TRACTION MECHANICA L APPL 52349 SHIVANI PARRISH MODALITY 2 [facility] 1/> AREAS INC INC ELEC STIMJ UNATTENDE D APPL 04457 SHIVANI PARRISH MODALITY 2 [facility] 1/> AREAS INC INC ELEC STIMJ UNATTENDE D APPL 50209 SHIVANI PARRISH MODALITY 2 [facility] 1/> AREAS INC INC TRACTION MECHANICA L APPLICATI 78948 SHIVANI PARRISH ON 2 [facility] MODALITY INC INC 1/> AREAS HOT/COLD PACKS PHYSICAL 06592 SHIVANI PARRISH THERAPY 2 [facility] EVALUATIO INC INC N NONEMERG A0120 LKLP LKLP TRNSPRT: 2 [facility] COMMUNITY MINI-BUS ACTION ACTION MTN AREA/OTH SYS RHYTHM 59095 SHIVANI PARRISH ECG 1-3 2 [facility] LEADS INC INC TRACING ONLY W/O I&R RADIOLOGI 35144 SHIVANI PARRISH C 2 [facility] EXAMINATI INC INC ON CHEST SINGLE VIEW FRONTAL ECG 98843 CLEMENTINA MCRAE ROUTINE 2 CHE CHE ECG W/LEAST 12 LDS I&R ONLY ECG 22067 SHIVANIKARAN PARRISH ROUTINE 2 [facility] ECG INC INC W/LEAST 12 LDS TRCG ONLY W/O I&R CREATINE 84666 SHIVANI PARRISH KINASE 2 [facility] TOTAL INC INC CREATINE 99655 SHIVANI SHIVANI KINASE MB 2 [facility] FRACTION INC INC ONLY COMPREHEN 85919 SHIVANI PARRISH SIVE 2 [facility] [place] [address] SHIVANI PARRISH TROPONIN 2 [facility] QUANTITAT INC INC SANDY BLOOD 42610 SHIVANI PARRISH COUNT 2 [facility] COMPLETE INC INC AUTO&AUTO DIFRNTL WBC HEMOGLOBI 53095 [facility] N 2 DIAGNOSTI DIAGNOSTI GLYCOSYLA CS CS KYMBERLY A1C TRANSFERA 00152 [facility] SE 2 DIAGNOSTI DIAGNOSTI ASPARTATE CS CS AMINO AST SGOT LIPID 20836 [facility] PANEL 2 DIAGNOSTI DIAGNOSTI CS CS BASIC 02849 [facility] METABOLIC 2 DIAGNOSTI DIAGNOSTI PANEL CS CS CALCIUM TOTAL COLLECTIO 65346 GLORIA GLORIA N VENOUS 2 MAGAN MAGAN BLOOD VENIPUNCT URE NONEMERG A0120 LKLP LK TRNSPRT: 2 [facility] MINI-BUS ACTION ACTION MTN AREA/OTH SYS NONEMERG A0120 LKLP LK TRNSPRT: 2 [facility] [place] ACTION ACTION MTN AREA/OTH SYS NONEMERG A0120 LKLP LK TRNSPRT: 2 [facility] [place] ACTION ACTION MTN AREA/OTH SYS NONEMERG A0120 LK LK TRNSPRT: 2 [facility] [place] ACTION ACTION MTN AREA/OTH SYS MRI 52591 MARCOS LUGO SPINAL 2 [facility] CANAL IMAGING LUMBAR ASS W/O CONTRAST MATERIAL MRI 57168 SHIVANI PARRISH SPINAL 2 [facility] CANAL INC INC LUMBAR W/O & [place] [address] SHIVANI PARRISH UREA 2 [facility] NITROGEN INC INC QUANTITAT SANDY 3D 07100 SHIVANI PARRISH RENDERING 2 [facility] W/INTERP INC INC & POSTPROCE SS SUPERVISI ON CREATININ 60074 SHIVANI PARRISH E BLOOD 2 [facility] INC INC INJECTION A9576 SHIVANI PARRISH 2 [facility] GADOTERID INC INC OL PROHANCE MULTIPACK PER ML THERAPEUT 66631 SHIVANI PARRISH IC 2 [facility] PROPHYLAC INC INC TIC/DX INJECTION SUBQ/IM LIPID 42184 [facility] PANEL 2 DIAGNOSTI DIAGNOSTI CS BASIC 95922 [facility] METABOLIC 2 DIAGNOSTI DIAGNOSTI PANEL CS CALCIUM TOTAL COLLECTIO 26475 GLORIA GLORIA N VENOUS 2 MAGAN MAGAN BLOOD VENIPUNCT URE INJECTION J0595 SHIVANI PARRISH 2 [facility] BUTORPHAN INC INC OL TARTRATE 1 MG HEMOGLOBI 33384 [facility] QUEST N 2 DIAGNOSTI DIAGNOSTI GLYCOSYLA CS KYMBERLY A1C TRANSFERA 01192 [facility] SE 2 DIAGNOSTI DIAGNOSTI ASPARTATE CS AMINO AST SGOT URNLS DIP 88806 WINDISCH WINDISCH 1 AMB AMB STICK/TAB LET RGNT NON-AUTO W/O MICRSCP EMMANUEL 24082 WINDISCH WINDISCH POST-VOID 1 AMB AMB ING RESIDUAL URINE&/BL ADDER CAP ANES 17031 [place] ZIEMBROS[facility] INTEG 1 ANESTHESI I JR EDW EXTREMITI A GROUP ES ANT PSC TRUNK & PERINEUM NOS REVJ/RMVL 26180 WINDISCH WINDISCH 1 AMB AMB PERIPHERA L [place] [address] PATHOLOGY PATHOLOGY SURG 1 & & PATHOLOGY CYTOLOGY CYTOLOGY GROSS LAB LAB EXAMINATI ON ONLY RADIOLOGI 39450 CNTR[facility] [place] LUTZ C EXAM 1 RADIOLOGY GILLIAN CHEST 2 VIEWS FRONTAL&L ATERAL BLOOD 51484 [facility] COUNT 1 N N COMPLETE COMMUNTIY COMMUNTIY AUTO&AUTO HOSPITA HOSPITA DIFRNTL WBC COLLECTIO 38216 [facility] N VENOUS 1 N N BLOOD COMMUNTIY COMMUNTIY VENIPUNCT HOSPITA HOSPITA URE BASIC 35088 [facility] METABOLIC 1 N N PANEL COMMUNTIY COMMUNTIY CALCIUM HOSPITA HOSPITA TOTAL ECG 69877 [facility] ROUTINE 1 N N ECG COMMUNTIY COMMUNTIY W/LEAST HOSPITA HOSPITA 12 LDS TRCG ONLY W/O I&R EMMANUEL 70951 WINDIS[facility] WINDISCH POST-VOID 1 AMB AMB ING RESIDUAL URINE&/BL ADDER CAP URNLS DIP 90272 WINDISCH WINDISCH 1 AMB AMB STICK/TAB LET RGNT NON-AUTO W/O MICRSCP OPHTH 16220 STELLA SHARP [facility] 1 VISION XM&EVAL COMPRHNSV ESTAB PT 1/> NONEMERGE A[address] [facility] CAB NCY 1 COMMUNITY TRANSPORT ACTION ATION; TAXI NONEMERGE A[address] [facility] CAB NCY 1 COMMUNITY TRANSPORT ACTION ATION; [facility]AXI GLUC BLD 87701 [facility] GLUC MNTR 1 N N DEV COMMUNITY COMMUNITY CLEARED HOSPITA HOSPITA FDA SPEC HOME USE COLONOSCO 15258 [place] PY FLX DX 1 [place] EAR W/COLLJ GASTROENT SPEC WHEN PFRMD ANES 27853 [place] JENN ANT LOWER 1 ANESTHESI INTESTINE A GROUP PSC ENDOSCOPY DISTAL DUODENUM ANTIBODY 85567 [facility] HELICOBAC [address] [facility] COMMUNITY [place] H[place]PITA HOSPITA EGD 45384 [place] TRANSORAL 1 [place] EAR BIOPSY GASTROENT SINGLE/MU LTIPLE RINGERS J7120 [facility] LACTATE 1 N N INFUSION [facility] COMMUNITY UP TO HOSPITA HOSPITA 1000 CC TRANSFERA 86850 [facility] SE 1 DIAGNOSTI DIAGNOSTI ASPARTATE CS CS AMINO AST SGOT BASIC 63310 [facility] METABOLIC 1 DIAGNOSTI DIAGNOSTI PANEL CS CS CALCIUM TOTAL LIPID 74223 [facility] PANEL 1 DIAGNOSTI DIAGNOSTI CS CS HEMOGLOBI 27844 [facility]ST N 1 DIAGNOSTI DIAGNOSTI GLYCOSYLA CS CS KYMBERLY A1C NONEMERGE A[address] [facility] CAB NCY 1 COMMUNITY TRANSPORT ACTION ATION; TAXI NONEMERGE A[address] [facility] CAB SCY 1 COMMUNITY TRANSPORT ACTION ATION; TAXI NONEMERGE A0100 [facility] CAB SCY 1 COMMUNITY TRANSPORT ACTION ATION; TAXI 3D 70780 [facility] RENDERING 1 [facility] IMAGING W/INTERP& [place] [address] [facility] ABDOMEN & 1 [facility] PELVIS IMAGING W/O ASS CONTRAST MATERIAL URNLS DIP 98617 SHIVANI LATHAM 1 [facility] STICK/UAB MEDICAL [facility]ST LET RGNT P NON-AUTO W/O MICRSCP INSJ 62855 SHIVANI LATHAM NON-NDWEL 1 [facility] BLADDER P CATHETER NONEMERGE A[address] [facility] CAB SCY 1 COMMUNITY TRANSPORT ACTION ATION; TAXI URINLS 79899 A C LAN A DIP 1 LAN ROBBINS STICK/TAB PSC LET REAGNT NON-AUTO MICRSCPY CULTURE 91421 [facility] BCT 1 [place] [facility] [place] [facility] ISOL&PRSM PTV ID ISOLATE EA URINE CULTURE 10323 [facility] TYPING 1 [facility] IMMUNOLOG IC OTH/THN IMMUNOFLU ORES CULTURE 11930 [facility] BACTERIAL 1 [facility] QUANTTATI VE COLONY COUNT URINE OVA&JACKSON 24225 [facility] ITES 1 [facility] DIRECT SMEARS CONCENTRA TION & ID NONEMERGE A[address] [facility] CAB SCY 1 COMMUNITY TRANSPORT ACTION ATION; TAXI NONEMERGE A[address] [facility] CAB SCY 1 COMMUNITY TRANSPORT ACTION ATION; TAXI NONEMERGE A0100 [facility] COMMUNITY TRANSPORT ACTION ATION; TAXI CYTP C/V 84709 PATHOLOGY PATHOLOGY AUTO THIN 1 & & LYR CYTOLOGY CYTOLOGY PREPJ SCR LAB LAB MNL RESCR PHYS CULTURE 92708 [facility] BACTERIAL 1 [facility] QUANTTATI VE COLONY COUNT URINE CULTURE 57703 [facility] BCT 1 [facility] ISOL&PRSM PTV ID ISOLATE EA URINE CUL BACT 63884 [facility] AEROBIC 1 [facility] ADDL METHS DEFINITIV E EA ISOL URINLS 40762 A C MONTENEGRO A DIP 1 LAN ROBBINS STICK/TAB PSC LET REAGNT NON-AUTO MICRSCPY SUSCEPTIB 15115 [facility] LTY STDY 1 [facility] ANTIMICRB IAL MICRO/AGA R DILUTJ HEMOGLOBI 02294 [facility] N 1 [facility] GLYCOSYLA KYMBERLY A1C BASIC 00165 [facility] METABOLIC 1 [facility] PANEL CALCIUM TOTAL LIPID 46320 [facility] PANEL 1 [facility] TRANSFERA 07225 [facility] SE 1 [facility] [place] [address] [facility] THYROID 1 [facility] STIMULATI NG HORMONE TSH CREATINE 24545 SHIVANI PARRISH KINASE MB 1 [facility] FRACTION INC INC ONLY BLOOD 58744 SHIVANI PARRISH COUNT 1 [facility] COMPLETE INC INC AUTO&[place] [address] SHIVANI PARRISH TROPONIN 1 [facility] QUANTITAT INC INC SANDY IAADI 47424 SHIVANI PARRISH INFLUENZA 1 [facility] B VIRUS INC INC IAADI 85022 SHIVANI PARRISH INFFLUENZ 1 [facility] A A VIRUS INC INC RADIOLOGI 12651 MARCOS BRITTNEY C EXAM 1 [facility] CHEST 2 IMAGING VIEWS ASS FRONTAL&L ATERAL CREATINE 74816 SHIVANI PARRISH KINASE 1 [facility] TOTAL INC INC ECG 47880 SHIVANI CLEMENTINA ROUTINE 1 [facility] W/LEAST P 12 LDS I&R ONLY ECG 53852 SHIVANI PARRISH ROUTINE 1 [facility] ECG INC INC W/LEAST 12 LDS TRCG ONLY W/O I&R GLUC BLD 51659 SHIVANI PARRISH GLUC MNTR [address] [facility] DEV INC INC CLEARED FDA SPEC HOME USE COMPREHEN 22038 SHIVANI PARRISH SIVE 1 [facility] METABOLIC INC INC PANEL NONEMERGE A[address] [facility] CAB NCY 1 COMMUNITY TRANSPORT ACTION ATION; TAXI SALINE 91196 [facility] INFUS 1 [facility] W/COLOR DOPPLER CATH & 57385 [facility] SALINE/CO 1 [facility] R/HYSTERO SALPI NONEMERGE A[address] [facility] CAB NCY 1 COMMUNITY TRANSPORT ACTION ATION; [place] [address] MARCOS BRITTNEY THORACIC 1 [facility] SPINE W/O IMAGING CONTRAST ASS MATERIAL 3D 69162 MARCOS BRITTNEY RENDERING 1 [facility] W/INTERP IMAGING & ASS POSTPROC[place] 3D 82394 SHIVANI PARRISH RENDERING 1 [facility] INC INC W/INTERP& [place] [address] MARCOS BRITTNEY CERVICAL 1 [facility] SPINE W/O IMAGING CONTRAST ASS MATERIAL EMMANUEL 52058 WINDISCH WINDISCH POST-VOID 1 AMB AMB ING RESIDUAL URINE&/BL ADDER CAP URINLS 22541 A C MONTENEGRO A DIP 1 LAN ROBBINS STICK/TAB [place] [address] MARCOS LUGO HEAD/BRAI 1 [facility] N W/O IMAGING CONTRAST ASS MATERIAL 3D 70453 MARCOS LUGO RENDERING 1 [facility] W/INTERP IMAGING & ASS POSTPROC[place] 3D 56901 SHIVANI PARRISH RENDERING 1 [facility] INC INC W/INTERP& POSTPROC DIFF WORK STATION CT LUMBAR 68472 MARCOS BRITTNEY SPINE 1 [facility] W/O IMAGING CONTRAST ASS MATERIAL NDL EMG 4 31900 PALOMINO PALOMINO XTR W/WO 1 GILLIAN GILLIAN RELATED PARASPINA L AREAS NRV CNDJ 09284 PALOMINO PALOMINO AMPLT&LAT 1 GILLIAN GILLIAN ENCY EA NRV MOTOR W/F-WAVE STD NRV CNDJ 23557 PALOMINO PALOMINO AMPLITUDE 1 GILLIAN GILLIAN & LATENCY EACH NERVE SENSORY CULTURE 78972 [facility] 1 [employer] ISOL&PRSM PTV ID ISOLATE EA URINE CULTURE 47441 [facility] BACTERIAL 1 [employer] QUANTTATI VE COLONY COUNT URINE URINLS 32096 A C MONTENEGRO A DIP 1 LAN ROBBINS STICK/TAB PSC LET REAGNT NON-AUTO MICRSCPY RADIOLOGI 83229 [facility] Y[facility] C EXAM 1 [facility] PELVIS IMAGING COMPL ASS MINIMUM 3 VIEWS NONEMERGE A0100 [facility] NCY 1 COMMUNITY TRANSPORT ACTION ATION; TAXI URINLS 06148 A C MONTENEGRO A DIP 0 MONTENEGRO STICK/TAB PSC LET REAGNT NON-AUTO MICRSCPY CULTURE 00996 [facility] BACTERIAL 0 [employer] QUANTTATI VE COLONY COUNT URINE CUL BACT 74911 [facility] AEROBIC 0 [facility] ADDL METHS DEFINITIV E EA ISOL CULTURE 66973 [facility] BCT 0 [facility] ISOL&PRSM PTV ID ISOLATE EA URINE SUSCEPTIB 28179 [facility] LTY STDY 0 [facility] ANTIMICRB IAL MICRO/AGA R DILUTJ CANALITH 48396 LISANDRA FRY REPOSITIO 0 DORITA DORITA NURIS PROCEDURE COMPRE 02177 LISANDRA FRY AUDIOMETR 0 DORITA KEVIN Y THRESHOLD EVAL SP RECOGNIJ TYMPANOME 19006 LISANDRA FRY TRY 0 DORITA DORITA DISTORT 04681 LISANDRA FRY PRODUCT 0 DORITA KEVIN EVOKED OTOACOUST IC EMISNS LIMITD CANE E0105 ANNA MARIE THRASHER QUAD/3-KS 0 HOME MED HOME MED NATHALIE ALL EQUIP. L EQUIP. L MATL ADJUSTBL/ FIX W/TIPS NONEMERGE A0100 [facility] NCY 0 COMMUNITY TRANSPORT ACTION ATION; TAXI COMPREHEN 47427 SHIVANI PARRISH SIVE 0 [facility] METABOLIC INC INC PANEL ECG 02513 SHIVANI PARRISH ROUTINE 0 [facility] ECG INC INC W/LEAST 12 LDS TRCG ONLY W/O I&R CREATINE 50462 SHIVANI PARRISH KINASE 0 [facility] [place] [address] SHIVANI PARRISH LIPASE 0 [facility] INC INC ECG 78033 SHIVANI BESSON ROUTINE 0 [facility] W/LEAST P 12 LDS I&[place] [address] SHIVANI PARRISH INFUSION 0 [facility] THER INC INC PROPH ADDL SEQUENTIA L TO [address] [place] [address] SHIVANI PARRISH TROPONIN 0 [facility] QUANTITAT INC INC SANDY BLOOD 46380 SHIVANI PARRISH COUNT 0 [facility] COMPLETE INC INC AUTO&AUTO DIFRNTL WBC CREATINE 91376 SHIVANI PARRISH KINASE MB 0 [facility] [place] [address] SHIVANI PARRISH AMYLASE 0 [facility] INC INC IIV3 38366 SHIVANI PARRISH VACCINE 0 [facility] VIRUS 0.5 ML DOSAGE IM USE BLD GLU A4253 M E D M E D TEST/REAG 0 SUPPLIES SUPPLIES T STRIPS HOME BLD GLU MON-50 LANCETS A4259 M E D M E D PER BOX 0 SUPPLIES SUPPLIES OF 100 NONEMERGE A0100 [facility] NCY 0 COMMUNITY TRANSPORT ACTION ATION; TAXI URINLS 82957 A C MONTENEGRO A DIP 0 MONTENEGRO MD STICK/TAB PSC LET REAGNT NON-AUTO MICRSCPY CULTURE 82258 [facility] BACTERIAL 0 [employer] [facility] QUANTTATI VE COLONY COUNT URINE CULTURE 67534 [facility] BCT 0 [facility] ISOL&PRSM PTV ID ISOLATE EA URINE LANCETS A4259 M E D M E D PER BOX 0 SUPPLIES SUPPLIES OF 100 BLD GLU A4253 M E D M E D TEST/REAG 0 SUPPLIES SUPPLIES T STRIPS HOME BLD GLU MON-50 URNLS DIP 24330 WINDISCH WINDISCH 0 AMB AMB STICK/TAB LET RGNT AUTO W/O MICROSCOP Y ELEC INGE 42905 WINDISCH WINDISCH NSTIM 0 AMB AMB PLS GEN CPLX SC/PERPH W/PRGRMG EMMANUEL 86635 [facility]ID 0 AMB AMB ING RESIDUAL URINE&/BL ADDER CAP BASIC 37413 [facility] METABOLIC 0 [employer] [facility] PANEL CALCIUM TOTAL LIPID 53123 [facility] PANEL 0 [employer] [facility] HEMOGLOBI 90672 [facility] N 0 [employer] [facility] GLYCOSYLA KYMBERLY A1C TRANSFERA 12786 [facility] SE 0 [facility] ASPARTATE AMINO AST SGOT BLD GLU A4253 M E D M E D TEST/REAG 0 SUPPLIES SUPPLIES T STRIPS HOME BLD GLU MON-50 LANCETS A4259 M E D M E D PER BOX 0 SUPPLIES SUPPLIES OF 100 LANCETS A4259 M E D M E D PER BOX 0 SUPPLIES SUPPLIES OF 100 BLD GLU A4253 M E D M E D TEST/REAG 0 SUPPLIES SUPPLIES T STRIPS HOME BLD GLU MON-50 NONEMERGE A0100 [place] NCY 0 COMMUNITY TRANSPORT ACTION ATION; TAXI OPHTH 19643 STELLA SHARP, [facility] 0 VISION KIARRA A XM&EVAL COMPRHNSV ESTAB PT 1/> BLD GLU A4253 M E D M E D TEST/REAG 0 SUPPLIES SUPPLIES T STRIPS HOME BLD GLU TUE-50 LANCETS A4259 M E D M E D PER BOX 0 SUPPLIES SUPPLIES OF 100 CYTP C/V 64739 PATHOLOGY PATHOLOGY AUTO THIN 0 & & LYR CYTOLOGY CYTOLOGY PREPJ SCR LAB LAB MNL RESCR PHYS BLD GLU A4253 M E D M E D TEST/REAG 0 SUPPLIES SUPPLIES T STRIPS HOME BLD GLU MON-50 LANCETS A4259 M E D M E D PER BOX 0 SUPPLIES SUPPLIES OF 100 TRANSFERA 39089 [facility] 0 [facility] ASPARTATE AMINO AST SGOT HEMOGLOBI 56693 [facility] N 0 [facility] GLYCOSYLA KYMBERLY A1C LIPID 37267 [facility] PANEL 0 [facility] BASIC 93581 [facility] METABOLIC 0 [facility] PANEL CALCIUM TOTAL LANCETS A4259 M E D M E D PER BOX 0 SUPPLIES SUPPLIES OF 100 BLD GLU A4253 M E D M E D TEST/REAG 0 SUPPLIES SUPPLIES T STRIPS HOME BLD GLU MON-50 CULTURE 21220 LAB DIMAS LAB DIMAS BACTERIAL 0 [employer] VE COLONY COUNT URINE EMMANUEL 80839 PRISCILAISCH, BONNY, POST-VOID 0 ZEE ZEE ING K K RESIDUAL URINE&/BL ADDER CAP URINLS 35353 Buster FARIAS DIP 0 LAN nAgel STICK/TAB PSC LET REAGNT NON-AUTO MICRSCPY URNLS DIP 86505 BONNY DRAPER, 0 ZEE ZEE STICK/TAB K K LET RGNT NON-AUTO W/O MICRSCP CULTURE 77293 LAB DIMAS LAB DIMAS BACTERIAL 0 [employer] QUANTTATI VE COLONY COUNT URINE URINLS 70659 A Buster MOBLEY DIP 0 LAN Angel STICK/TAB PSC LET REAGNT NON-AUTO MICRSCPY URINLS 58643 Buster FARIAS DIP 9 LAN Angel STICK/TAB PSC LET REAGNT NON-AUTO MICRSCPY BLD GLU A4253 M E D M E D TEST/REAG 9 SUPPLIES SUPPLIES T STRIPS HOME BLD GLU MON-50 LANCETS A4259 M E D M E D PER BOX 9 SUPPLIES SUPPLIES OF 100 URINLS 45790 Buster FARIAS DIP 9 LAN Angel STICK/TAB PSC LET REAGNT NON-AUTO MICRSCPY URINLS 07710 Buster FARIAS DIP 9 LAN Angel STICK/TAB PSC LET REAGNT NON-AUTO MICRSCPY EMMANUEL 13505 BONNY DRAPER, POST-VOID 9 ZEE ZEE ING K K RESIDUAL URINE&/BL ADDER CAP URNLS DIP 30761 BONNY DRAPER 9 ZEE ZEE STICK/TAB K K LET RGNT NON-AUTO W/O MICRSCP LANCETS A4259 M E D M E D PER BOX 9 SUPPLIES SUPPLIES OF 100 BLD GLU A4253 M E D M E D TEST/REAG 9 SUPPLIES SUPPLIES T STRIPS HOME BLD GLU MON-[address] SALINE SOLUTION STERILE ELEC INGE 37155 BONNY DRAPER NSTIM 9 ZEE ZEE PLS GEN K K CPLX SC/PERPH W/PRGRMG INJECTION J3[address] CITRATE 0.1 MG GLUCOSE 48938 [facility] BLOOD [address] [place] [address] REAGENT STRIP INJECTION J0694 [address] CEFOXITIN SODIUM 1 G ELEC INGE 67434 [facility] NS[address] PLS GEN SMPL SC/PERPH W/PRGRMG ANES 03817 ANESTHESI JAGDISH FRAZIER 9 A NAWAF KOHLI & ASSOCIATE NRV HEAD S, PSC NECK&POST ERIOR TRUNK POTASSIUM [address] PLASMA/WH OLE BLOOD INSERTION 27296 BONNY DRAPER, /RPLCMT 9 ZEE ZEE PERIPHERA K K L/GASTRIC NPGR INJECTION J2250 [address] [place] HCL PER 1 MG EMMANUEL 22114 BONNY DRAPER, POST-VOID 9 ZEE ZEE ING K K RESIDUAL URINE&/BL ADDER CAP URNLS DIP 54577 BONNY DRAPER, 9 ZEE ZEE STICK/TAB K K LET RGNT NON-AUTO W/O MICRSCP INJECTION J3010 [address] CIT[place] 0.1 MG INJECTION J0694 [address] CEFOXITIN SODIUM 1 G GLUCOSE [address] REAGENT STRIP INFUSION J7040 [address] SALINE SOLUTION STERILE ECG [address] ECG W/LEAST 12 LDS TRCG ONLY W/O I&R ANESTHESI 34240 ANESTHESI HEMAL, Buster LUMBAR 9 A ANDREA L REGION ASSOCIATE NOS S, PSC POTASSIUM [address] PLASMA/WH OLE BLOOD ECG 72258 NEW SIMÓN, ROUTINE 9 [place] PRADEEP S ECG CLINIC W/LEAST PSC 12 LDS I&R ONLY INC 23750 BONNY DRAPER, IMPLTJ 9 ZEE ZEE NEUROSTIM K K ULATOR ELTRD SACRAL NERVE PRQ 20527 [facility] IMPLT[address] NEUROSTIM ELTRD SACRAL NRVE W/IMAGING INJECTION [id number] [address] [place] HCL PER 1 MG COLLECTIO 81952 [facility] N VENOUS 9 N N BLOOD [facility] URE BASIC 56569 [facility] METABOLIC 9 N N PANEL [facility] TOTAL ECG 17266 [facility] ROUTINE 9 N N ECG [facility] W/LEAST [facility] 12 LDS TRCG ONLY W/O I&R RADIOLOGI 49266 CNTR[facility] Stanley WINN EXAM 9 RADIOLOGY DON G CHEST 2 VIEWS FRONTAL&L ATERAL BLOOD 34839 [facility] COUNT 9 N N COMPLETE [facility] AUTO&AUTO [facility] DIFRNTL WBC CULTURE 06295 [facility] BACTERIAL 9 N N [facility] VE COLONY COUNT URINE LANCETS A4259 M E D M E D PER BOX 9 SUPPLIES SUPPLIES OF 100 BLD GLU A4253 M E D M E D TEST/REAG 9 SUPPLIES SUPPLIES T STRIPS HOME BLD GLU MON-50 URINLS 62448 A Buster MOBLEY DIP 9 LAN ROBBINS C STICK/TAB [place] [address] [facility] INFUSION 9 [facility] THERAPY INC INC PROPHYLAX IS/DX EA HOUR COMPREHEN 40942 [facility] SIVE 9 [facility] METABOLIC INC INC PANEL URNLS DIP 26365 [facility] STICK/TAB INC INC LET REAGENT AUTO MICROSCOP Y CULTURE 93666 [facility] BACTERIAL 9 [facility] INC INC QUANTTATI VE COLONY COUNT URINE BLOOD 55600 [facility] COUNT 9 [facility] COMPLETE INC INC AUTO&[place] [address] [facility] INFUSION 9 [facility] THERAPY/P INC INC ROPHYLAXI S /DX 1ST TO 1 HR IIV3 80336 DHS/CO SHIVANI VACCINE 9 [facility] VIRUS 0.5 BANK ACCT ML DOSAGE IM USE CYSTOURET 80768 BONNY DRAPER, HROSCOPY 9 ZEE ZEE K K EMMANUEL 41587 BONNY DRAPER, POST-VOID 9 ZEE ZEE ING K K RESIDUAL URINE&/BL ADDER CAP COMPLEX 07552 BONNY DRAPER, UROFLOMET 9 ZEE ZEE RY K K BLADDER 42213 BONNY, PRISCILAISCH, PRESSURE 9 ZEE ZEE MEASUREME K K NT DURING FILLING EMG STDS 17196 BONNY DRAPER, ANAL/URTL 9 ZEE ZEE SPHNCTR K K OTH/THN NDL VOIDING 17904 BONNY DRAPER, PRESS 9 ZEE ZEE STDS BLDR K K VOIDING PRESS ANY TQ VOID 80596 BONNY DRAPER, PRESSURE 9 ZEE ZEE STUDIES K K INTRAABDO BRITTANY URNLS DIP 06373 BONYN DRAPER, 9 ZEE ZEE STICK/TAB K K LET RGNT NON-AUTO W/O MICRSCP BLD GLU A4253 M E D [...] T STRIPS HOME BLD GLU MON-50 GLUCOSE 35629 Buster FARIAS QUANTITAT 9 LAN Angel SANDY BLOOD PSC XCPT REAGENT STRIP GLUCOSE 75797 Buster FARIAS QUANTITAT 9 LAN Angel SANDY BLOOD PSC XCPT REAGENT STRIP GLUCOSE 28524 Buster FARIAS POST 9 LAN Angel GLUCOSE PSC DOSE LIPID 71401 Buster FARIAS PANEL 9 LAN Angel PSC TRANSFERA 58306 Buster FARIAS SE 9 LAN Angel ASPARTATE PSC AMINO AST SGOT TRANSFERA 91207 Buster FARIAS SE 9 LAN Angel ALANINE PSC AMINO ALT SGPT GLUCOSE 55199 Buster FARIAS QUANTITAT 9 LAN Angel SANDY BLOOD PSC XCPT REAGENT STRIP BLD GLU A4253 M E D M E D TEST/REAG 9 SUPPLIES SUPPLIES T STRIPS HOME BLD GLU MON-50 LANCETS A4259 M E D M E D PER BOX 9 SUPPLIES SUPPLIES OF 100 EMMANUEL 88876 WINDISCH, PRISCILAISCH, POST-VOID 9 ZEE ZEE ING K K RESIDUAL URINE&/BL ADDER CAP LANCETS A4259 M E D M E D PER BOX 9 SUPPLIES SUPPLIES OF 100 NORMAL A4256 M E D M E D LOW AND 9 SUPPLIES SUPPLIES HIGH CALIBRATO R SOLUTION/ CHIPS BLD GLU A4253 M E D M E D TEST/REAG 9 SUPPLIES SUPPLIES T STRIPS HOME BLD GLU MON-50 CULTURE 38225 [facility] BACTERIAL 9 [facility] INC INC QUANTTATI VE COLONY COUNT URINE URINLS 26905 Buster FARIAS DIP 9 LAN Angel STICK/TAB PSC LET REAGNT NON-AUTO MICRSCPY BLD GLU A4253 M E D M E D TEST/REAG 9 SUPPLIES SUPPLIES T STRIPS HOME BLD GLU MON-50 LANCETS A4259 M E D M E D PER BOX 9 SUPPLIES SUPPLIES OF 100 URINLS 41856 Buster FARIAS DIP 9 LAN Angel STICK/TAB PSC LET REAGNT NON-AUTO MICRSCPY COLLECTIO 95661 Buster FARIAS N VENOUS 9 LAN Angel BLOOD PSC VENIPUNCT URE HEMOGLOBI 38172 LAB DIMAS LAB DIMAS N 9 [employer]ING KYMBERLY A1C BASIC 80008 LAB D[facility] LAB DIMAS METABOLIC 9 AMERIC AMERIC PANEL HOLDING HOLDING CALCIUM TOTAL LIPID 08904 LAB D[facility] LAB DIM[facility] PANEL 9 [employer] TRANSFERA 18398 LAB DIMAS LAB DIMAS SE 9 AMERIC [employer] ASPARTATE HOLDING HOLDING AMINO AST SGOT MEDICAL 06634 [facility] NUTRITION 9 [facility] INC RE-ASSMT& IVNTJ INDIV EA 15 M MEDICAL 23743 [facility] NUTRITION 9 [facility] INC INC ASSMT&IVN TJ INDIV EACH 15 [place] LANCETS A4259 M E D M E D PER BOX 9 SUPPLIES SUPPLIES OF 100 BLD GLU A4253 M E D M E D TEST/REAG 9 SUPPLIES SUPPLIES T STRIPS HOME BLD GLU MON-50 GLUCOSE 38032 Buster FARIAS QUANTITAT 9 LAN Angel SANDY BLOOD PSC XCPT REAGENT STRIP SCREENING 95168 [place] BRITT[place], 9 MEDICAL PHYLLIS MAMMOGRAP IMAGING HY 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 COMPUTER- 87428 [facility], AIDED 9 MEDICAL PHYLLIS DETECTION IMAGING ASSOCIATE SCREENING S MAMMOGRAP HY BLD GLU A4253 M E D M E D TEST/REAG 9 SUPPLIES SUPPLIES T STRIPS HOME BLD GLU MON-50 LANCETS A4259 M E D M E D PER BOX 9 SUPPLIES SUPPLIES OF 100 NORMAL A4256 M E D M E D LOW AND 9 SUPPLIES SUPPLIES HIGH CALIBRATO R SOLUTION/ CHIPS CYTP C/V 00203 PATHOLOGY PATHOLOGY AUTO THIN 9 & & LYR CYTOLOGY CYTOLOGY PREPJ SCR LAB LAB MNL RESCR PHYS URNLS DIP [address] STICK/TAB CLINIC OF LET RGNT NON-AUTO [place] W/O PLLC MICRSCP BLD GLU A4253 M E D M E D TEST/REAG 9 SUPPLIES SUPPLIES T STRIPS HOME BLD GLU MON-50 LANCETS A4259 M E D M E D PER BOX 9 SUPPLIES SUPPLIES OF 100 TRANSFERA 46253 LAB DIMAS LAB DIMAS SE 9 [employer] ASPART[employer]ING HOLDING AMINO AST SGOT BASIC 17047 LAB DIMAS LAB DIMAS METABOLIC 9 AMERIC AMER[employer] PANEL HOLDING HOLDING CALCIUM TOTAL LIPID 24127 LAB DIMAS LAB DIMAS PANEL 9 [employer] COLLECTIO 53681 Buster FARIAS N VENOUS 9 LAN Angel BLOOD PSC VENIPUNCT URE HEMOGLOBI 53326 LAB DIMAS LAB DIMAS N 9 [employer]ING KYMBERLY A1C LANCETS A4259 M E D M E [...] BOX 8 SUPPLIES SUPPLIES OF 100 GLUCOSE 52634 Buster MONTENEGRO, Buster QUANTITAT 8 LAN ROBBINS C SANDY BLOOD PSC XCPT REAGENT STRIP MRI BRAIN 34183 PHYLLIS LUGO, BRAIN 8 BRITT[place] PHYLLIS STEM W/O W/CONTRAS T MATERIAL CREATININ 37282 [facility] E BLOOD 8 [place] [address] [facility] UREA 8 [facility] NITROGEN INC INC QUANTITAT SANDY IIV3 61792 DHS/CO [facility]IVANI VACCINE 8 [facility] VIRUS 0.5 BANK ACCT ML DOSAGE IM USE ECG 32418 SHIVANI GONZALEZ ROUTINE 8 [facility] W/LEAST PROF SERV 12 LDS I&R ONLY RHYTHM 79063 [facility] ECG 1-3 8 [facility] LEADS INC INC TRACING ONLY W/O I&R CREATINE 13563 [facility] KINASE 8 [facility] TOTAL INC INC BASIC 14343 [facility] METABOLIC 8 [facility] PANEL INC INC CALCIUM TOTAL ECG 64216 [facility] ROUTINE 8 [facility] ECG INC INC W/LEAST 12 LDS TRCG ONLY W/O I&R RADIOLOGI 36708 [facility] C 8 [facility] EXAMINATI INC INC ON CHEST SINGLE VIEW FRONTAL CREATINE 22741 [facility] KINASE MB 8 [facility] FRACTION INC INC ONLY BLOOD 48227 [facility] COUNT 8 [facility] COMPLETE INC INC AUTO&[place] [address] SH[facility] AVALOSON TROPONIN 8 [facility] QUANTITAT INC INC SANDY TRANSFERA 30401 LAB DIMAS LAB DIMAS SE 8 [employer] HOLDING AMINO AST SGOT HEMOGLOBI 10542 LAB DIMAS LAB DIMAS N 8 [employer] HOLD[employer] KYMBERLY A1C COLLECTIO 62720 Buster FARIAS N VENOUS 8 LAN Angel BLOOD PSC VENIPUNCT URE BASIC 25841 LAB DIMAS LAB DIMAS METABOLIC 8 AMERIC [employer] PANEL HOLDING HOLDING CALCIUM TOTAL LIPID 76967 LAB DIMAS LAB DIMAS PANEL 8 AMERIC AMER[employer] HOLDING HOLDING [place] 515[address] PHYLLIS C BRITTNEY, SPINAL 8 BRITTNEY PHYLLIS CANAL LUMBAR W/O CONTRAST MATERIAL CULTURE 94548 LAB DIMAS LAB DIMAS BACTERIAL 8 [employer] QUANTTATI VE COLONY COUNT URINE URINLS 43217 A Buster MOBLEY DIP 8 LAN Angel STICK/TAB PSC LET REAGNT NON-AUTO MICRSCPY URINLS 46601 Buster FARIAS DIP 8 LAN Angel STICK/TAB PSC LET REAGNT NON-AUTO MICRSCPY RADIOLOGI 01448 [place] Stanley LUGO EXAM 8 MEDICAL PHYLLIS CHEST 2 IMAGING VIEWS ASSOCIATE FRONTAL&L S ATERAL OPHTH 93857 [facility] 8 KIARRA A KIARRA A XM&EVAL COMPRHNSV ESTAB PT 1/> URINLS 50754 Buster FARIAS DIP 8 LAN Angel STICK/TAB PSC LET REAGNT NON-AUTO MICRSCPY SHAVING 60954 Buster FARIAS SKIN 8 LAN Angel LESION 1 PSC TRUNK/ARM /LEG DIAM 0.5CM/< COLLECTIO 89347 Buster FARIAS N VENOUS 8 LAN Angel BLOOD PSC VENIPUNCT URE TYMPANOME 16837 AIDAN BERMUDEZ, TRY 8 ZAK Da Silva COMPRE 71897 AIDAN BERMUDEZ, AUDIOMETR 8 ZAK Da Silva Y THRESHOLD EVAL SP RECOGNIJ ACOUSTIC 15211 AIDAN BERMUDEZ, REFLEX 8 ZAK Da Silva THRESHOLD 3D 18521 [facility] SMITH, RENDERING 8 MEDICAL SUSHANT P IMAGING W/INTERP& [place]OCI[place] [address] [facility] SMITH, MAXILLOFA 8 MEDICAL SUSHNAT P CIAL W/O IMAGING [place] [address] PATHOLOGY PATHOLOGY SURG 8 & & PATHOLOGY CYTOLOGY CYTOLOGY LAB LAB GROSS&TANMAY ROSCOPIC EXAM THER 64140 [facility] PROPH/DX 8 [facility] NJX EA INC INC SEQL IV PUSH SBST/DRUG IV NFS 82100 [facility] THER 8 [facility] PROPH/DX INC INC 1ST >1 HR IV NFUS 94696 [facility] THER 8 [facility] PROPH/DX INC INC EA HR HYSTEROSC 72691 [facility] ALLEN BX 8 [facility] &/POLYP C W/WO [place] D&C PLLC GLUC BLD 77430 SH[facility] PARRIHS GLUC MNTR 8 [facility] DEV INC INC CLEARED FDA SPEC HOME USE HYSTEROSC 6812 [facility] OPY 8 [facility] INC INC OTHER 6829 [facility] EXCISION 8 [facility] OR INC INC DESTRUCTI ON LESION UTERUS OTHER 6909 [facility] DILATION 8 [facility] AND INC INC CURETTAGE OF UTERUS BASIC 13945 [facility] METABOLIC 8 [facility] PANEL INC INC CALCIUM TOTAL BLOOD 21537 [facility] TYPING 8 [facility] SEROLOGIC INC INC RH (D) BLOOD 68645 [facility] COUNT 8 [facility] COMPLETE INC INC AUTO&AUTO DIFRNTL WBC ANTIBODY 28614 [facility] SCREEN 8 [facility] RBC EACH INC INC SERUM TECHNIQUE BLOOD 15149 [facility] TYPING 8 [facility] SEROLOGIC INC INC ABO IADNA 20241 AMERIPATH ANGELA, HERPES 8 [place] INC HANS E SOMPLX VIRUS AMPLIFIED PROBE TQ Encounters Encounter Start End Date Code Location Performer Type Date HOSPITAL [facility] - [facility] 7 [facility] OUTPATIEN INC T OFFICE 19963 COLLEEN NEAL 7 7 MD KEYANNA, T VISIT PSC 10 MINUTES [facility]OSPITAL [facility] - 7 7 [facility] OUTPATIEN INC T OFFICE 52189 [facility] 7 7 [facility] T VISIT INC 10 MINUTES [facility] - [facility] 7 [facility] OUTPATIEN INC T OFFICE 56211 [facility] OUTPATIEN 7 7 [facility] T VISIT INC 10 MINUTES [facility] - 7 7 [facility] OUTPATIEN INC T [facility] - 7 7 [facility]PATIEN INC T [facility] - 7 7 [facility] - 7 7 [facility] OUTPATIEN INC T OFFICE 76934 Buster SAAVEDRA OUTPATIEN 7 7 LAN ROBBINS T VISIT PSC 15 MINUTES OFFICE 90683 COLLEEN RAIN OUTPATIEN 7 7 MD KEYANNA, T VISIT PSC 15 MINUTES [facility]OSPITAL [facility] - 7 7 [facility] INC T OFFICE 20620 [facility] OUTPATIEN 7 7 [facility] T VISIT INC 10 MINUTES [facility] - 6 6 [facility] OUTPATIEN INC T [facility] - 6 6 [facility] OUTPATIEN INC T OFFICE 03541 COLLEEN SCHWARTZ OUTPATIEN 6 6 MD KEYANNA, T VISIT [facility] 15 MINUTES HOSPITAL [facility] - 6 6 [facility] T [facility] - 6 6 [facility] OUTPATIEN INC T OFFICE 64063 COLLEEN ANALI CRI OUTPATIEN 6 6 MD KEYANNA, T VISIT PSC 15 MINUTES HOSPITAL [facility] - 6 6 [facility] OUTPATIEN INC T OFFICE 65080 COLLEEN BUX ANJ OUTPATIEN 6 6 MD KEYANNA, T VISIT PSC 10 MINUTES OFFICE 49701 A Stanley BOLTON OUTPATIEN 6 6 LAN ROBBINS T VISIT PSC 25 MINUTES OFFICE 17989 COLLEEN BUX ANJ OUTPATIEN 6 6 MD KEYANNA, T VISIT PSC 10 MINUTES [facility]OSP[facility] - 5 5 [facility] - 5 5 [facility] T [facility] - 5 5 [facility] OUTPATIEN INC T OFFICE 18756 A Stanley BOLTON OUTPATIEN 5 5 LAN ROBBINS T VISIT PSC 25 MINUTES HOSPITAL [facility] - 5 5 [facility]PAT[facility]EN INC T [facility] - 5 5 [facility] OUTPATIEN INC T OFFICE 22073 [facility] OUTPATIEN 5 5 [facility] T VISIT INC 10 MINUTES [facility]OSPITAL [facility] - 5 5 [facility] OUTPATIEN INC T OFFICE 23085 [facility] OUTPATIEN 5 5 PHYSICIAN GILBERT T [facility] 30 S GROUP MINUTES OFFICE 38054 Buster REYES 5 5 LAN ROBBINS T VISIT PSC 15 MINUTES HOSPITAL [facility] - 5 5 [facility] OUTPATIEN INC T OFFICE 78596 MADAR BUX BUX ANJ OUTPATIZAN 5 Campos ROBBINS T VISIT 10 MINUTES OFFICE 69050 MADAR BUX BUX ANJ OUTPATIEN 5 5 T VISIT 10 MINUTES HOSPITAL [facility] - 5 5 [facility]PAT[facility]EN INC T [facility] - 5 5 [facility] OUTPATIEN INC T OFFICE 83488 RAMESH BUX BUX ANJ OUTPATIEN 5 5 T NEW 30 MINUTES OFFICE 18835 SH[facility]ANI OUTPATIEN 5 5 [facility] T VISIT 5 INC MINUTES OFFICE 38315 A C KERI CHE OUTPATIEN 5 5 LAN ROBBINS T VISIT PSC 15 MINUTES HOSPITAL [facility] - 5 5 [facility] OUTPATIEN INC T OFFICE 20211 A C FIELD AMB OUTPATIEN 5 5 LAN ROBBINS T VISIT PSC 15 MINUTES OFFICE 99325 A C JANETTPELA OUTPATIEN 5 5 LAN ARCE T VISIT PSC 15 MINUTES OFFICE 98937 A C KERI CHE OUTPATIEN 5 5 LAN ROBBINS T VISIT PSC 15 MINUTES OFFICE 68524 A C FIELD AMB OUTPATIEN 5 5 LAN ROBBINS T VISIT PSC 15 MINUTES OFFICE 50970 A C KERI CHE OUTPATIEN 5 5 LAN ROBBINS T VISIT PSC 15 MINUTES OFFICE 04827 A C KERI CHE OUTPATIEN 4 4 LAN ROBBINS T VISIT PSC 15 MINUTES OFFICE 92668 A C KERI CHE OUTPATIEN 4 4 LAN ROBBINS T VISIT PSC 15 MINUTES OFFICE 09638 [facility] 15 SHRUTHI MINUTES OFFICE 81114 A C KERI CHE OUTPATIEN 4 4 LAN ROBBINS T VISIT PSC 15 MINUTES [facility]OSPITAL [facility] - 4 4 [facility] OUTPATIEN INC T OFFICE 55102 KERI CHE KERI CHE OUTPATIEN 4 4 T VISIT 15 MINUTES OFFICE 88225 GARRETUYAEL FALLUYAEL OUTPATIEN 4 4 EFRAIN ZUNIGA T VISIT 25 MINUTES EMERGENCY 06330 ALFARIS ALFARIS 4 4 [facility] DEPARTMEN T VISIT MODERATE SEVERITY EMERGENCY 18885 [facility]ANI 4 4 [facility] INC T VISIT LOW/MODER SEVERITY HOSPITAL [facility] - 4 4 [facility] OUTPATIEN INC T OFFICE 86731 KERI CELAYA CHE OUTPATIEN 4 4 T VISIT 15 MINUTES OFFICE 01729 KERI CELAYA CHE OUTPATIEN 4 4 T VISIT 15 MINUTES OFFICE 17196 KERI CELAYA CHE OUTPATIEN 4 4 T VISIT 15 MINUTES OFFICE 57484 KERI CELAYA CHE OUTPATIEN 4 4 T VISIT 15 MINUTES OFFICE 82739 KERI CELAYA CHE OUTPATIEN 4 4 T VISIT 15 MINUTES OFFICE 79117 KERI CELAYA CHE OUTPATIEN 3 3 T VISIT 15 MINUTES OFFICE 26056 ROCIO ROCIO OUTPATIEN 3 3 JULIEN JULIEN T VISIT 25 MINUTES OFFICE 02020 KERI CELAYA CHE OUTPATIEN 3 3 T VISIT 15 MINUTES PERIODIC 57724 TIFFANY ALLEN PREVENTIV 3 3 CORRINA CORRINA E MED EST PATIENT 40-64YRS OFFICE 43302 Buster CABEZASES CHE OUTPATIEN 3 3 LAN ROBBINS T VISIT PSC 15 MINUTES [facility]OSPITAL [facility] - 3 3 [facility] T [facility] - 3 3 [facility] - 3 3 [facility] OUTPATIEN INC T OFFICE 67999 A C KILPELA OUTPATIEN 3 3 LAN ROBBINS JEA T VISIT PSC 15 MINUTES OFFICE 61594 A C KILPELA OUTPATIEN 3 3 LAN ROBBINS JEBuster T VISIT PSC 15 MINUTES OFFICE 85831 A C KILPELA OUTPATIEN 3 3 LAN ROBBINS JEA T VISIT PSC 15 MINUTES OFFICE 30914 ROCIO ROCIO OUTPATIEN 3 3 JULIEN JULIEN T VISIT 25 MINUTES [facility]OSPITAL [facility] - 3 3 [facility] T [facility] - 3 3 [facility] OUTPAT[facility]EN INC T OFFICE 05390 KERI CHE KERI CHE OUTPATIEN 3 3 T VISIT 15 MINUTES OFFICE 22400 KERI CHE KERI CHE OUTPATIEN 3 3 T VISIT 15 MINUTES [facility]OSP[facility] - 3 3 [facility] OUTPATIEN INC T OFFICE 58457 KERI CHE KERI CHE OUTPATIEN 3 3 T VISIT 15 MINUTES OFFICE 13687 KILPELA KILPELA OUTPATIEN 3 3 YAZMIN JEA T VISIT 15 MINUTES OFFICE 59413 KERIMATY BOLTON KERI CHE OUTPATIEN 2 2 T VISIT 15 MINUTES [facility]OSPITAL [facility] - 2 2 [facility] OUTPAT[facility]EN INC T EMERGENCY 37965 [facility] 2 2 [facility] MODERATE SEVERITY EMERGENCY 01329 JUAN MAYBERRY DEPT 2 2 EMERGENCY VISIT SERVICES HIGH SEVERITY& THREAT [facility] OFFICE 77558 KILPELA KILPELA OUTPATIEN 2 2 YAZMIN JEA T VISIT 15 MINUTES [facility]OSPITAL [facility] - 2 2 [facility] OUTPATIEN INC T OFFICE 99421 FALLUJI FALLUJI OUTPATIEN 2 2 EFRAIN ZUNIGA T VISIT 25 MINUTES OFFICE 47024 ROCIO ROCIO OUTPATIEN 2 2 JULIEN JULIEN T VISIT 25 MINUTES OFFICE 84633 KERI ECLAYA CHE OUTPATIEN 2 2 T VISIT 15 MINUTES OFFICE 84943 KERI CELAYA CHE OUTPATIEN 2 2 T VISIT 15 MINUTES HOSPITAL [facility] - 2 2 [facility] OUTPATIEN INC T EMERGENCY 58348 [facility] 2 2 [facility] DEPARTMEN INC T VISIT HIGH/URGE NT SEVERITY EMERGENCY 13948 HARLEY SOUZA DEPT 2 2 III PAMELA III PAMELA VISIT HIGH SEVERITY& THREAT [facility] SHIVANI - 2 2 [facility] INC T OFFICE 53228 [facility] CONSULTAT 2 2 ALFREDO EFRAIN ION CARDIOLOG NEW/ESTAB Y CLINIC PATIENT 60 MIN OFFICE 15793 KERI CELAYA CHE OUTPATIEN 2 2 T VISIT 15 MINUTES HOSPITAL [facility] - 2 2 [facility] INC T [facility] - 2 2 [facility] T OFFICE 77416 GLORIA GLORIA OUTPATIEN 2 2 MAGAN MAGAN T VISIT 15 MINUTES OFFICE 26197 ROCIO ROCIO OUTPATIEN 2 2 JULIEN JULIEN T VISIT 25 MINUTES HOSPITAL [facility] - 2 2 [facility] OUTPATIEN INC T EMERGENCY 34733 [facility] 2 2 [facility] DEPARTMEN INC T VISIT MODERATE SEVERITY EMERGENCY 00931 JUAN GRIFFITHS DEPT 2 2 EMERGENCY TANMAY VISIT SERVICES HIGH SEVERITY& THREAT [facility] OFFICE 44663 GLORIA GLORIA OUTPATIEN 2 2 MAGAN MAGAN T VISIT 15 MINUTES OFFICE 64604 [facility] OUT[facility] 2 2 HOSPITAL T VISIT 25 MINUTES [facility] 2 2 HOSPITAL OUTPATIEN T OFFICE 62452 VASCELLO VASCELLO OUTPATIEN 2 2 NATHEN NATHEN T NEW 30 MINUTES OFFICE 67857 GLORIA GLORIA OUTPATIEN 2 2 MAGAN MAGAN T VISIT 15 MINUTES OFFICE 95006 GLORIA GLORIA OUTPATIEN 2 2 MAGAN MAGAN T VISIT 15 MINUTES [facility]OSPITAL [facility] - 2 2 [facility] OUTPATIEN INC T OFFICE 66464 GLORIA GLORIA OUTPATIEN 2 2 MAGAN MAGAN T VISIT 15 MINUTES OFFICE 52827 GLORIA GLORIA OUTPATIEN 2 2 MAGAN MAGAN T VISIT 15 MINUTES [facility]OSPITAL [facility] - 2 2 [facility] OUTPATIEN INC T EMERGENCY 07978 [facility] 2 2 [facility] DEPARTMEN INC T VISIT MODERATE SEVERITY EMERGENCY 96601 JUAN GRIFFITHS 2 2 EMERGENCY TANMAY DEPARTMEN SERVICES T VISIT HIGH/URGE NT SEVERITY OFFICE 24084 GLORIA GLORIA OUTPATIEN 2 2 MAGAN MAGAN T VISIT 15 MINUTES OFFICE 60893 ROCIO ROCIO OUTPATIEN 2 2 JULIEN JULIEN T NEW 60 MINUTES OFFICE 27201 GLORIA GLORIA OUTPATIEN 2 2 MAGAN MAGAN T VISIT 10 MINUTES OFFICE 02468 KERI CHE KERI CHE OUTPATIEN 1 1 T VISIT 15 MINUTES OFFICE 29078 GLORIA GLORIA OUTPATIEN 1 1 MAGAN MAGAN T VISIT 15 MINUTES [facility] [place] [address] 1 N OUTPATIEN COMMUNTIY T HOSPITA OFFICE 23793 WINDISCH WINDISCH OUTPATIEN 1 1 AMB AMB T VISIT 40 MINUTES OFFICE 21769 TIFFANY ALLEN OUTPATIEN 1 1 CORRINA CORRINA T VISIT 15 MINUTES OFFICE 00338 A C GLORIA OUTPATIEN 1 1 LAN ROBBINS MAGAN T VISIT PSC 15 MINUTES OFFICE 14221 A C GLORIA OUTPATIEN 1 1 LAN ROBBINS MAGAN T VISIT PSC 10 MINUTES OFFICE 21248 A C GLORIA OUTPATIEN 1 1 LAN ROBBINS MAGAN T VISIT PSC 15 MINUTES OFFICE 83948 LISANDRA INTERIANOY OUTPATIEN 1 1 DORITA KEVIN T VISIT 25 MINUTES HOSPITAL [facility] - 1 1 N OUTPATIEN [facility] OFF[facility] 77613 LISANDRA FRY OUTPATIEN 1 1 DORITA Silverman NEW 30 MINUTES OFFICE 23974 A C MONTENEGRO A OUTPATIEN 1 1 LAN ROBBINS T VISIT 5 PSC MINUTES OFFICE 85325 A C MONTENEGRO A OUTPATIEN 1 1 LAN ROBBINS T VISIT PSC 15 MINUTES OFFICE 54733 SHIVANI LATHAM OUTPATIEN 1 1 [facility] 25 P MINUTES [facility]OSPITAL [facility]IV[facility] - [address] [facility] OUTPATIEN [facility] T OFFICE 04918 SHIVANI JOSHIKINS OUTPATIEN 1 1 [facility] 40 P MINUTES OFFICE 43148 A C MONTENEGRO A OUTPATIEN 1 1 LAN ROBBINS T VISIT PSC 15 MINUTES OFFICE 51539 GEORGETTE PALOMINO OUTPATIEN 1 1 [facility] T VISIT 15 MINUTES OFFICE 31445 A C MONTENEGRO A OUTPATIEN 1 1 LAN [facility] T VISIT PSC 10 MINUTES PERIODIC 20097 [facility] 1 1 [facility]IN[facility] OF PATIENT DAISHA 40-64YRS OFFICE 19336 A C MONTENEGRO A OUTPATIEN 1 1 LAN ROBIBNS T VISIT PSC 15 MINUTES OFFICE 41795 A C OUTPATIEN 1 1 [facility] T VISIT 5 PSC MINUTES OFFICE 00297 A C MONTENEGRO A OUTPATIEN 1 1 [facility] T VISIT PSC 15 MINUTES [facility] 1 [facility] T EMERGENCY 49282 SHIVANI 1 1 [facility] T VISIT MODERATE SEVERITY EMERGENCY 12356 [facility] DEPT 1 1 EMERGENCY VISIT SERVICES HIGH SEVERITY& THREAT FUN OFFICE 61125 PALOMINO PALOMINO OUTPATIEN 1 1 [facility] T VISIT 25 MINUTES OFFICE 21957 PALOMINO PALOMINO OUTPATIEN 1 1 [facility] T VISIT 25 MINUTES [facility]OSPITAL [facility] - 1 1 [facility] T OFFICE 69900 WINDISCH WINDISCH OUTPATIEN 1 1 [facility] T VISIT 40 MINUTES OFFICE 20381 A C MONTENEGRO A OUTPATIEN 1 1 [facility] T VISIT PSC 15 MINUTES [facility] - 1 1 [facility] T OFFICE 21720 PALOMINO PALOMINO CONSULTAT 1 1 [facility]/ESTAB PATIENT 80 MIN OFFICE 59234 A C MONTENEGRO A OUTPATIEN 1 1 [facility] T VISIT PSC 15 MINUTES [facility] - 1 1 [facility] T OFFICE 43533 A C MONTENEGRO A OUTPATIEN 0 0 [facility] T VISIT PSC 15 MINUTES OFFICE 21033 LISANDRA FRY OUTPATIEN 0 0 DORITA KEVIN T VISIT 25 MINUTES OFFICE 60209 A C MONTENEGRO A OUTPATIEN 0 0 [facility] T VISIT PSC 15 MINUTES OFFICE 93572 A Stanley MONTENEGRO A OUTPATIEN 0 0 [facility]BINS T VISIT PSC 15 MINUTES OFFICE 64749 LISANDRA FRY CONSULTAT 0 0 DORITA LOVING NEW/ESTAB PATIENT 60 MIN OFFICE 37273 A Stanley MONTENEGRO A OUTPATIEN 0 0 LAN ROBBINS T VISIT PSC 15 MINUTES EMERGENCY 13507 JUAN DOROTHYAnupam BAB DEPT 0 0 EMERGENCY VISIT SERVICES HIGH SEVERITY& THREAT FUNJ EMERGENCY 31004 [facility] 0 0 [facility] DEPART[facility] T VISIT HIGH/URGE NT SEVERITY [facility]PITAL [facility] - 0 0 [facility] T OFFICE 13211 A Stanley MONTENEGRO A OUTPATIEN 0 0 [facility] T VISIT PSC 15 MINUTES OFFICE 43862 A Stanley MONTENEGRO A OUTPATIEN 0 0 LAN ROBBINS T VISIT PSC 15 MINUTES OFFICE 86012 [facility] OUTPATIEN 0 0 [facility] OF 15 DAISHA MINUTES OFFICE 82302 A Stanley MONTENEGRO A OUTPATIEN 0 0 LAN ROBBINS T VISIT PSC 15 MINUTES OFFICE 04971 A Stanley MONTENEGRO A OUTPATIEN 0 0 LAN ROBBINS T VISIT PSC 15 MINUTES OFFICE 10321 A Stanley OUTPATIEN 0 0 LAN ROBBINS T VISIT 5 PSC MINUTES OFFICE 54031 A Buster MOBLEY OUTPATIEN 0 0 LAN ROBBINS C T VISIT PSC 15 MINUTES OFFICE 74189 A Buster MOBLEY OUTPATIEN 0 0 LAN ROBBINS C T VISIT PSC 15 MINUTES PERIODIC 62503 WOMEN'S ALLEN, PREVENTIV 0 0 [facility] E MED EST CLINIC OF PATIENT 40-64YRS [facility] OFFICE 01193 Buster FARIAS OUTPATIEN 0 0 LAN Angel T VISIT PSC 15 MINUTES OFFICE 93029 Buster FARIAS OUTPATIEN 0 0 LAN Angel T VISIT 5 PSC MINUTES OFFICE 48277 WINDISCH, WINDISCH, OUTPATIEN 0 0 ZEE KOCH T VISIT K K 25 MINUTES OFFICE 55773 Buster FARIAS OUTPATIEN 0 0 LAN Angel T VISIT PSC 15 MINUTES OFFICE 43009 Buster FARIAS OUTPATIEN 0 0 LAN Angel T VISIT PSC 15 MINUTES OFFICE 72498 Buster FARIAS OUTPATIEN 0 0 LAN Angel T VISIT PSC 15 MINUTES OFFICE 26497 Buster FARIAS OUTPATIEN 0 0 LAN Angel T VISIT PSC 15 MINUTES OFFICE 68475 Buster FARIAS OUTPATIEN 9 9 LAN Angel T VISIT PSC 15 MINUTES OFFICE 27895 Buster FARIAS OUTPATIEN 9 9 LAN Angel T VISIT PSC 15 MINUTES OFFICE 65145 Buster FARIAS OUTPATIEN 9 9 LAN Angel T VISIT PSC 15 MINUTES [facility] [address] OFFICE 77098 Buster FARIAS OUTPATIEN 9 9 LAN Angel T VISIT PSC 15 MINUTES EMERGENCY 16588 SHIVANI 9 9 [facility] T VISIT HIGH/URGE NT SEVERITY EMERGENCY 53874 JUAN GAY, DEPT 9 9 EMERGENCY KALA P VISIT SERVICES HIGH SEVERITY& ASSOCIATE THREAT S [facility] SHIVANI - 9 9 [facility] OUT[facility]IEN INC T OFFICE 14272 BONNY DRAPER OUTPATIZAN 9 9 ZEEJORGE KOCH T VISIT K K 25 MINUTES OFFICE 12194 Buster FARIAS OUTPATIEN 9 9 LAN Angel T VISIT PSC 10 MINUTES OFFICE 37344 Buster FARIAS OUTPATIEN 9 9 LAN Angel T VISIT PSC 10 MINUTES OFFICE 89201 Buster FARIAS OUTPATIEN 9 9 LAN Angel T VISIT 5 PSC MINUTES OFFICE 10682 Buster FARIAS OUTPATIEN 9 9 LAN Angel T VISIT PSC 10 MINUTES OFFICE 28816 Buster FARIAS OUTPATIEN 9 9 LAN Angel T VISIT PSC 15 MINUTES OFFICE 22700 Buster FARIAS OUTPATIEN 9 9 LAN Angel T VISIT PSC 15 MINUTES OFFICE 29177 BONNY DRAPER, CONSULTAT 9 9 ZEE ZEE ION K K NEW/ESTAB PATIENT 40 MIN OFFICE 75293 ÁNGEL WAGNER 9 9 [facility] ROBYN D T VISIT UROLOGY 25 PSC MINUTES OFFICE 98966 PASCUAL LATHAM CONSULTAT 9 9 [facility] ROBYN D ION UROLOGY NEW/ESTAB PSC PATIENT 40 MIN [facility]OSP[facility] SHIVANI - 9 9 [facility]IEN INC T OFFICE 94303 Buster FARIAS OUTPATIEN 9 9 LAN Angel T VISIT PSC 15 MINUTES OFFICE 07388 Buster FARIAS OUTPATIEN 9 9 LAN Angel T VISIT PSC 15 MINUTES OFFICE 87108 Buster FARIAS OUTPATIEN 9 9 [facility] Angel T VISIT 5 PSC MINUTES HOSPITAL SHIVANI - 9 9 [facility] INC T OFFICE 20288 Buster FARIAS OUTPATIEN 9 9 [facility] Angel T VISIT PSC 15 MINUTES [facility]OSP[facility] SHIVANI - 9 9 [facility] T OFFICE 53500 Buster FARIAS OUTPATIZAN 9 9 LAN Angel T VISIT PSC 15 MINUTES HOSPITAL SHIVANI - 9 9 [facility] INC T OFFICE 27764 Buster FARIAS OUTPATIEN 9 9 [facility] Angel T VISIT PSC 15 MINUTES HOSPITAL SHIVANI - 9 9 [facility] OUTPATIEN INC T EMERGENCY 19800 SHIVANI 9 9 [facility] DEPARTMEN INC T VISIT LOW/MODER SEVERITY EMERGENCY 22532 JUAN GRIFFITHS, 9 9 EMERGENCY [facility] SERVICES T VISIT HIGH/URGE ASSOCIATE NT S SEVERITY PERIODIC 99713 [facility] ALLEN 9 9 [facility] EST CLINIC OF PATIENT 40-64YRS [facility] OFFICE 26220 Buster FARIAS OUTPATIEN 9 9 LAN Angel T VISIT PSC 15 MINUTES OFFICE 69396 Buster FARIAS OUTPATIZAN 9 9 LAN Angel T VISIT PSC 15 MINUTES OFFICE 74696 Buster FARIAS OUTPATIZAN 9 9 [facility] Angel T VISIT 5 PSC MINUTES OFFICE 81653 Buster FARIAS OUTPATIEN 8 8 [facility] T VISIT PSC 15 MINUTES [facility]OSP[facility] SH[facility] - 8 8 [facility] T OFFICE 64140 Buster FARIAS OUTPATIZAN 8 8 LAN Angel T VISIT PSC 10 MINUTES OFFICE 95596 Buster FARIAS OUTPATIZAN 8 8 [facility] T VISIT PSC 15 MINUTES [facility]OSPITAL SHIV[facility] - 8 8 [facility] T EMERGENCY [address] SHIV[address] [facility] DEPARTMEN INC T VISIT MODERATE SEVERITY EMERGENCY 73680 RONEL BURR, 8 8 [facility] ON HIGH/URGE NT SEVERITY OFFICE 49708 Buster FARIAS OUTPATIEN 8 8 LAN Angel T VISIT PSC 15 MINUTES OFFICE 14261 Buster FARIAS OUTPATIEN 8 8 LAN Angel T VISIT 5 PSC MINUTES OFFICE 62852 Buster FARIAS OUTPATIEN 8 8 LAN Angel T VISIT PSC 15 MINUTES OFFICE 94381 Buster FARIAS OUTPATIEN 8 8 LAN Angel T VISIT PSC 15 MINUTES OFFICE 20085 Buster FARIAS OUTPATIEN 8 8 LAN Angel T VISIT PSC 15 MINUTES HOSPITAL SHIVANI - 8 8 [facility] INC T OFFICE 38347 Buster FARIAS OUTPATIEN 8 8 LAN Angel T VISIT PSC 15 MINUTES OFFICE 91250 Buster FARIAS OUTPATIZAN 8 8 LAN Angel T VISIT PSC 15 MINUTES OFFICE 07564 Buster FARIAS OUTPATIZAN 8 8 LAN Angel T VISIT 5 PSC MINUTES OFFICE 67668 Buster FARIAS OUTPATIZAN 8 8 LAN Angel T VISIT PSC 15 MINUTES OFFICE 45608 Buster FARIAS OUTPATIEN 8 8 LAN Angel T VISIT PSC 15 MINUTES OFFICE 78497 Buster FARIAS OUTPATIZAN 8 8 LAN Angel T VISIT PSC 15 MINUTES OFFICE 63907 AIDAN BERMUDEZ OUTPATIEN 8 8 ZAK Da Silva T VISIT 15 MINUTES HOSPITAL SHIVANI - 8 8 [facility] INC T OFFICE 78817 AIDAN BERMUDEZ OUTPATIEN 8 8 ZAK Silverman [place] 30 MINUTES OFFICE 56368 Buster FARIAS OUTPATIEN 8 8 LAN Silverman VISIT [facility] 15 MINUTES OFFICE 58245 Buster FARIAS OUTPATIEN 8 8 LAN Silverman VISIT [facility] 15 MINUTES OFFICE 69253 WOMEN'S ÁNGEL ALLEN 8 8 HEALTH KEYSHA Lockett T VISIT CLINIC OF 15 MINUTES [facility] SHIVANI - 8 8 [facility] T OFFICE 13199 WOMEN'S ÁNGEL ALLEN 8 8 [facility]ALTH KEYSHA Lockett T VISIT CLINIC OF 15 MINUTES [facility] SHIVANI - 8 8 [facility] T
--- OUTSIDE RECORDS SUMMARY | 2017-10-11 13:58 | External Medical Summary Rpt | CCD ---
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 ATION SER AREA/OTH SYS URINLS 02166 Buster SAAVEDRA CHE DIP 5 LAN ROBBINS STICK/TAB PSC LET REAGNT NON-AUTO MICRSCPY NONEMERG A0120 FEDERATED FEDERATED TRNSPRT: 5 [facility]SPORT TRANSPORT MTN ATION SER ATION SER AREA/OTH SYS NONEMERG A0120 FEDERATED FEDERATED TRNSPRT: 5 [facility]SPORT TRANSPORT MTN ATION SER ATION SER AREA/OTH SYS ELECTRICA A4595 DominoI [employer] EMPI INC L 5 STIMULATO R SUPPLIES 2 LEAD PER MONTH NONEMERGE A0100 FEDERATED FEDERATED NCY 5 TRANSPORT TRANSPORT TRANSPORT ATION; ATION SER ATION SER TAXI RADIOLOGI 88094 SHIVANI PARRISH C EXAM 5 [facility] CHEST 2 INC INC VIEWS FRONTAL&L ATERAL ELECTRICA A4595 EMPI INC EMPI INC L 5 STIMULATO R SUPPLIES 2 LEAD PER MONTH HEMOGLOBI 52848 A Stanley BOLTON N 5 LAN ROBBINS GLYCOSYLA PSC KYMBERLY A1C BASIC 12535 [facility] METABOLIC 5 DIAGNOSTI DIAGNOSTI PANEL CS CS CALCIUM TOTAL ELECTRICA A4595 EMPI INC EMPI INC L 4 STIMULATO R SUPPLIES 2 LEAD PER MONTH PPSV23 69140 [facility] VACCINE 2 [facility] YRS OR HLTH DEPT HLTH DEPT OLDER FOR JOSÉ JOSÉ SUBQ/IM USE NONEMERG A0120 FEDERATED FEDERATED TRNSPRT: 4 TRANS [facility] TRANSPORT [facility]ARY [facility] SYS IM ADM 96919 A Stanley BOLTON PRQ ID 4 LAN ROBBINS SUBQ/IM PSC NJXS 1 VACCINE IIV3 56450 A Stanley BOLTON VACCINE 4 LAN ROBBINS SPLIT PSC VIRUS 0.5 ML DOSAGE IM USE URINLS 90402 A Stanley BOLTON DIP 4 LAN ROBBINS STICK/TAB PSC LET REAGNT NON-AUTO MICRSCPY ECHO 44109 SHIVANI PARRISH TTHRC R-T 4 [facility] 2D INC INC W/WOM-MOD E COMPL SPEC&COLR D MYOCARDIA 61110 BRITTNEY BRITTNEY L SPECT 4 ALVARADO ALVARADO MULTIPLE STUDIES CV STRS 11763 SHIVANI PARRISH TST 4 [facility] XERS&/OR INC INC RX CONT ECG TRCG ONLY CV STRS 19878 LANNY CA JR TST 4 DWI DWI XERS&/OR RX CONT ECG I&R ONLY NONEMERG A0120 FEDERATED FEDERATED TRNSPRT: 4 TRANS [facility]SPORT [facility]G [facility] S[facility] INJECTION J2785 SHIVANI PARRISH 4 [facility] REGADENOS INC INC ON 0.1 MG ELECTRICA A4595 EMPI INC EMPI INC L 4 STIMULATO R SUPPLIES 2 LEAD PER MONTH INJECTION J1885 KERI CELAYA CHE 4 KETOROLAC TROMETHAM INE PER 15 MG THERAPEUT 08615 KERI BOLTON IC 4 PROPHYLAC TIC/DX INJECTION SUBQ/IM BASIC 41940 [facility] METABOLIC 4 DIAGNOSTI DIAGNOSTI PANEL CS CS CALCIUM TOTAL GLUCOSE 32640 KERI BOLTON QUANTITAT 4 SANDY BLOOD XCPT REAGENT STRIP TRANSFERA 98803 KERI BOLTON SE 4 ALANINE AMINO ALT SGPT TRANSFERA 59386 KERI BOLTON SE 4 ASPARTATE AMINO AST SGOT HEMOGLOBI 17513 KERI BOLTON N 4 GLYCOSYLA KYMBERLY A1C [...] KETOROLAC TROMETHAM INE PER 15 MG THERAPEUT 71278 KERI BOLTON IC 4 PROPHYLAC TIC/DX INJECTION SUBQ/IM ELECTRICA A4595 EMPI INC EMPI INC L 4 STIMULATO R SUPPLIES 2 LEAD PER MONTH GLUCOSE 00945 KERI BOLTON QUANTITAT 4 SANDY BLOOD XCPT REAGENT STRIP ELECTRICA A4595 EMPI INC EMPI INC L 4 STIMULATO R SUPPLIES 2 LEAD PER MONTH HEMOGLOBI 49521 KERI BOLTON N 4 GLYCOSYLA KYMBERLY A1C ELECTRICA A4595 EMPI INC EMPI INC L 3 STIMULATO R SUPPLIES 2 LEAD PER MONTH POTASSIUM 37361 LAB DIMAS LAB DIMAS SERUM 3 OF RONNA PLASMA/WH RONNA HOLDINGS OLE BLOOD HOLDINGS ELECTRICA A4595 EMPI INC EMPI INC L 3 STIMULATO R SUPPLIES 2 LEAD PER MONTH BASIC 22080 [facility] METABOLIC 3 DIAGNOSTI DIAGNOSTI PANEL CS CS CALCIUM TOTAL ELECTRICA A4595 EMPI INC EMPI INC L 3 STIMULATO R SUPPLIES 2 LEAD PER MONTH CYTP C/V 22058 PICKLESIM PICKLESIM AUTO THIN 3 ER JR PANDA ER JR PANDA LYR PREPJ SCR MNL RESCR PHYS URNLS DIP 03041 TIFFANY ALLEN 3 CORRINA CORRINA STICK/TAB LET RGNT NON-AUTO W/O MICRSCP IIV3 96797 SHIVANI PARRISH VACCINE 3 [facility] V[facility] 0.5 ML DOSAGE IM USE ELECTRICA A4595 EMPI INC EMPI INC L 3 STIMULATO R SUPPLIES 2 LEAD PER MONTH TRANSFERA 34439 A Stanley SAAVEDRA CHE SE 3 LAN ROBBINS [place] [address] A Stanley BOLTON TRIGLYCER 3 LAN ROBBINS IDES PSC TRANSFERA 04519 A Stanley BOLTON SE 3 LAN ROBBINS ASPARTATE PSC AMINO AST SGOT LIPOPROTE 51598 A Stanley BOLTON IN DIR 3 LAN ROBBINS EMMANUEL HIGH PSC DENSITY CHOLESTER OL BASIC 31340 A Stanley BOLTON METABOLIC 3 LAN ROBBINS PANEL PSC CALCIUM TOTAL GLUCOSE 77561 A Stanley BOLTON QUANTITAT 3 LAN ROBBINS SANDY BLOOD PSC XCPT REAGENT STRIP CHOLESTER 90425 A Stanley BOLTON OL 3 LAN ROBBINS SERUM/WHO PSC LE BLOOD TOTAL COLLECTIO 42651 A Stanley BOLTON N VENOUS 3 LAN ROBBINS BLOOD PSC VENIPUNCT URE ELECTRICA A4595 EMPI INC EMPI INC L 3 STIMULATO R SUPPLIES 2 LEAD PER MONTH HEMOGLOBI 22368 A Stanley BOLTON N 3 LAN ROBBINS GLYCOSYLA PSC KYMBERLY A1C ALBUMIN 13497 A Stanley BOLTON URINE 3 LAN ROBBINS MICROALBU PSC MIN SEMIQUANT ITATIVE PHYSICAL 54250 SHIVANI PARRISH THERAPY 3 [facility] EVALUATIO INC INC N GLUC BLD 20683 SHIVANI PARRISH GLUC MNTR 3 [facility] DEV INC INC CLEARED FDA SPEC HOME USE POSTERIOR V2632 SHIVANI PARRISH CHAMBER 3 [facility] INTRAOCUL INC INC AR LENS CATARACT 76320 SHIVANI PARRISH REMOVAL 3 [facility] INSERTION INC INC OF LENS CATARACT 52526 SHIVANI PARRISH REMOVAL 3 [facility] INSERTION INC INC OF LENS POSTERIOR V2632 SHIVANI PARRISH CHAMBER 3 [facility] INTRAOCUL INC INC AR LENS GLUC BLD 52964 SHIVANI PARRISH GLUC MNTR 3 [facility] DEV INC INC CLEARED FDA SPEC HOME USE OPH BMTRY 54135 [facility] 3 ULYSSES ULYSSES ECHOGRAPY A-SCAN IO LENS PWR JUAN ELECTRICA A4595 EMPI INC EMPI INC L 3 STIMULATO R SUPPLIES 2 LEAD PER MONTH OPHTH 80915 [facility] MEDICAL 3 ULYSSES ULYSSES XM&EVAL COMPRHNSV ESTAB PT 1/> OPH BMTRY 24770 [facility] [place] 3 ULYSSES ULYSSES ECHOGRAPY A-SCAN IO LENS PWR JUAN ELECTRICA A4595 EMPI INC EMPI INC L 3 STIMULATO R SUPPLIES 2 LEAD PER MONTH URINLS 58699 A C KILPELA DIP 3 LAN ROBBINS JEA STICK/TAB PSC LET REAGNT NON-AUTO MICRSCPY CYANOCOBA 17002 SHIVANI SHIVANI MICHELLE 3 [facility] VITAMIN INC INC B-12 NONEMERG A0120 LKLP LKLP TRNSPRT: 3 [facility] ACTION ACTION [facility] AREA/OTH SYS HEMOGLOBI 72727 SHIVANI SHIVANI N 3 [facility] GLYCOSYLA INC INC KYMBERLY A1C NONEMERG A0120 LKLP LKLP TRNSPRT: 3 [facility] ACTION ACTION [facility] AREA/OTH SYS SCREENING G0202 BRITTNEY BRITTNEY 3 ALVARADO ALVARADO MAMMOGRAP HY RONALD INCL CAD WHEN PERFORMD 16242 BRITTNEY BRITTNEY AIDED 3 ALVARADO ALVARADO DETECTION SCREENING MAMMOGRAP HY THERAPEUT 22317 KERI CALVINES CHE IC 3 PROPHYLAC TIC/DX INJECTION SUBQ/IM INJ J0702 KERI CELAYA CHE BETAMETHA 3 SONE ACETATE & PHOSPHATE 3 MG DUP-SCAN 07653 SHIVANI PARRISH XTR VEINS 3 [facility] INC INC UNILATERA L/LIMITED STUDY LIPID 28027 KILPELA KILPELA PANEL 3 YAZMIN YAZMIN BASIC 98337 LAB DIMAS LAB DIMAS METABOLIC 3 RONNA RONNA PANEL HOLDINGS HOLDINGS CALCIUM TOTAL GLUCOSE 78719 KILPELA KILPELA QUANTITAT 3 YAZMIN ARCE SANDY BLOOD XCPT REAGENT STRIP TRANSFERA 61615 KILPELA KILPELA SE 3 YAZMIN EBONYBuster ALANINE AMINO ALT SGPT TRANSFERA 26685 KILPELA KILPELA SE 3 YAZMIN ARCE ASPARTATE AMINO AST SGOT HEMOGLOBI 04297 KILPELA KILPELA N 3 YAZMIN ARCE GLYCOSYLA KYMBERLY A1C URINLS 24937 KILPELA KILPELA DIP 3 JEBuster JEA STICK/TAB LET REAGNT NON-AUTO MICRSCPY OPH BMTRY 90673 [facility] 2 ULYSSES ULYSSES ECHOGRAPY A-SCAN IO LENS PWR JUAN OPHTH 05991 [facility] 2 ULYSSES ULYSSES XM&EVAL COMPRE NEW PT 1/> VST NONEMERG A0120 LKLP LKLP TRNSPRT: 2 COMMUNITY COMMUNITY [facility] ACTION ACTION [facility] AREA/OT SYS BLOOD 13851 SHIVANI PARRISH COUNT 2 [facility] COMPLETE INC INC AUTO&AUTO DIFRNTL WBC COMPREHEN 77890 SHIVANI PARRISH SIVE 2 [facility] [place] [address] SHIVANI PARRISH INFUSION 2 [facility] THERAPY/P INC INC ROPHYLAXI S /DX 1ST TO 1 HR THERAPEUT 50405 SHIVANI PARRISH IC 2 [facility] INJECTION INC INC IV PUSH EACH NEW DRUG URINLS 95681 KILPELA KILPELA DIP 2 JEBuster JEA STICK/TAB LET REAGNT NON-AUTO MICRSCPY DETERMINA 13441 SCIFRES SCIFRES TION 2 ANG ANG REFRACTIV E STATE OPHTH 95605 SCIFRES SCIFRES MEDICAL 2 ANG ANG XM&EVAL COMPRHNSV ESTAB PT 1/> INDIV 03489 [facility] PSYCTX 2 REG REG MEN OFFICE/OU MH/MR HLTH INC TPATIENT BOARD 20-30 MIN 3D 92212 SHIVANI PARRISH RENDERING 2 [facility] W/INTERP INC INC & POSTPROCE SS SUPERVISI ON MRI 36030 SHIVANI SHIVANI SPINAL 2 [facility] CANAL INC INC THORACIC W/O CONTRAST MATRL APPL 62639 SHIVANI SHIVANI MODALITY 2 [facility] 1/> AREAS INC INC ELEC STIMJ EA 15 MIN MRI 74526 SHIVANI PARRISH SPINAL 2 [facility] CANAL INC INC CERVICAL W/O CONTRAST MATRL NONEMERG A0120 LKLP LKLP TRNSPRT: 2 [facility] [employer] MINI-BUS ACTION ACTION MTN AREA/OTH SYS URINLS 72094 KERI CHE KERI CHE DIP 2 STICK/TAB LET REAGNT NON-AUTO MICRSCPY IIV3 26282 SHIVANI PARRISH VACCINE 2 [facility] VIRUS 0.5 ML DOSAGE IM USE ECG 34606 SHIVANI MCKEMIE ROUTINE 2 [facility] W/LEAST P 12 LDS I&R ONLY CREATINE 23150 SHIVANI PARRISH KINASE 2 [facility] TOTAL INC INC 3D 98232 SHIVANI PARRISH RENDERING 2 [facility] W/INTERP INC INC & POSTPROCE SS SUPERVISI ON ECG 67966 SHIVANI PARRISH ROUTINE 2 [facility] ECG INC INC W/LEAST 12 LDS TRCG ONLY W/O I&[place] [address] SHIVANI PARRISH HEAD/BRAI 2 [facility] N W/[place] [address] [place] BRITTNEY MAXILLOFA 2 MEDICAL ALVAR[facility] CIAL W/O IMAGING CONTRAST ASS MATERIAL THERAPEUT 35299 SHIVANI PARRISH IC 2 [facility] INJECTION INC [place] [address] SHIVANI PARRISH INFUSION 2 [facility] THERAPY/P INC INC ROPHYLAXI S /DX 1ST TO 1 HR CREATINE 73534 SHIVANI PARRISH KINASE MB 2 [facility] FRACTION INC INC ONLY BLOOD 59655 SHIVANI PARRISH COUNT 2 [facility] COMPLETE INC INC AUTO&[place] [address] SHIVANI PARRISH TROPONIN 2 [facility] QUANTITAT INC INC SANDY COMPREHEN 36107 SHIVANI PARRISH SIVE 2 [facility] METABOLIC INC INC PANEL CV STRS 51032 SHIVANI LISA TST 2 [facility] XERS&/OR HOSPITAL RX CONT P ECG I&R ONLY NON-INVAS 97362 MARCOS LUGO 2 MEDICAL [facility] PHYSIOLOG IMAGING IC STD ASS EXTREMITY ART 2 LEVEL TECHNETIU A9500 SHIVANI Nath TC-99M 2 [facility] SESTAMIBI INC INC DX PER STUDY DOSE ECHO 66899 SHIVANI PARRISH TTHRC R-T 2 [facility] 2D INC INC W/WOM-MOD E COMPL SPEC&COLR D N-INVAS 07177 SHIVANI PARRISH PHYSIOLOG 2 [facility] IC STD INC INC LXTR ART COMPL BI CV STRS 42329 SHIVANI PARRISH TST 2 [facility] XERS&/OR INC INC RX CONT ECG TRCG ONLY CV STRS 26289 [facility] TST 2 PHYSICIAN PHYSICIAN XERS&/OR S GROUP S GROUP RX CONT ECG W/O I&R MYOCARDIA 84038 SHIVANI PARRISH L SPECT 2 [facility] MULTIPLE INC INC STUDIES NONEMERG A0120 LKLP LKLP TRNSPRT: 2 COMMUNITY COMMUNITY [facility] ACTION ACTION [facility] AREA/OT SYS NONEMERG A0120 LKLP LKLP TRNSPRT: 2 [facility] COMMUNITY MINI-BUS ACTION ACTION [facility] AREA/OTH SYS INDIV 65946 [facility] PSYCTX 2 REG REG MEN OFFICE/OU MH/MR [facility] INC TPATIENT BOARD 20-30 MIN APPLICATI 62716 SHIVANI PARRISH ON 2 [facility] MODALITY INC INC 1/> AREAS HOT/COLD PACKS APPL 39754 SHIVANI PARRISH MODALITY 2 [facility] 1/> AREAS INC INC ELEC STIMJ UNATTENDE D APPL 23967 SHIVANI PARRISH MODALITY 2 [facility] 1/> AREAS INC INC TRACTION MECHANICA L APPLICATI 99083 SHIVANI PARRISH ON 2 [facility] MODALITY INC INC 1/> AREAS HOT/COLD PACKS THERAPEUT 14963 SHIVANI SHIVANI IC PX 1/> 2 [facility] AREAS INC INC EACH 15 MIN EXERCISES THERAPEUT 03618 SHIVANI SHIVANI IC PX 1/> 2 [facility] AREAS INC INC EACH 15 MIN EXERCISES APPLICATI 48895 SHIVANI PARRISH ON 2 [facility] MODALITY INC INC 1/> AREAS HOT/COLD PACKS APPL 65620 SHIVANI PARRISH MODALITY 2 [facility] 1/> AREAS INC INC ELEC STIMJ UNATTENDE D APPL 50535 SHIVANI PARRISH MODALITY 2 [facility] 1/> AREAS INC INC ELEC STIMJ UNATTENDE D NONEMERG A0120 LKLP LKLP TRNSPRT: 2 COMMUNITY COMMUNITY MINI-BUS ACTION ACTION [facility] AREA/OTH SYS APPL 83238 SHIVANI PARRISH MODALITY 2 [facility] 1/> AREAS INC INC TRACTION MECHANICA L APPLICATI 71603 SHIVANI PARRISH ON 2 [facility] MODALITY INC INC 1/> AREAS HOT/COLD PACKS APPLICATI 69000 SHIVANI PARRISH ON 2 [facility] MODALITY INC INC 1/> AREAS HOT/COLD PACKS THERAPEUT 16556 SHIVANI PARRISH IC PX 1/> 2 [facility] AREAS INC INC EACH 15 MIN EXERCISES APPL 34785 SHIVANI PARRISH MODALITY 2 [facility] 1/> AREAS INC INC TRACTION MECHANICA L APPL 54083 SHIVANI PARRISH MODALITY 2 [facility] 1/> AREAS INC INC ELEC STIMJ UNATTENDE D APPL 63533 SHIVANI PARRISH MODALITY 2 [facility] 1/> AREAS INC INC ELEC STIMJ UNATTENDE D APPL 12477 SHIVANI PARRISH MODALITY 2 [facility] 1/> AREAS INC INC TRACTION MECHANICA L APPLICATI 76002 SHIVANI PARRISH ON 2 [facility] MODALITY INC INC 1/> AREAS HOT/COLD PACKS PHYSICAL 19778 SHIVANI PARRISH THERAPY 2 [facility] EVALUATIO INC INC N NONEMERG A0120 LKLP LKLP TRNSPRT: 2 [facility] COMMUNITY MINI-BUS ACTION ACTION [place]N AREA/OTH SYS RHYTHM 41762 SHIVANI PARRISH ECG 1-3 2 [facility] LEADS INC INC TRACING ONLY W/O I&R RADIOLOGI 71208 SHIVANI PARRISH C 2 [facility] EXAMINATI INC INC ON CHEST SINGLE VIEW FRONTAL ECG 23974 CLEMENTINA MCRAE ROUTINE 2 CHE CHE ECG W/LEAST 12 LDS I&R ONLY ECG 99017 SHIVANIKARAN PARRISH ROUTINE 2 [facility] ECG INC INC W/LEAST 12 LDS TRCG ONLY W/O I&R CREATINE 63664 SHIVANI PARRISH KINASE 2 [facility] TOTAL INC INC CREATINE 18031 SHIVANI SHIVANI KINASE MB 2 [facility] FRACTION INC INC ONLY COMPREHEN 05807 SHIVANI PARRISH SIVE 2 [facility] [place] [address] SHIVANI PARRISH TROPONIN 2 [facility] QUANTITAT INC INC SANDY BLOOD 25776 SHIVANI PARRISH COUNT 2 [facility] COMPLETE INC INC AUTO&AUTO DIFRNTL WBC HEMOGLOBI 71546 [facility] N 2 DIAGNOSTI DIAGNOSTI GLYCOSYLA CS CS KYMBERLY A1C TRANSFERA 03264 [facility] SE 2 DIAGNOSTI DIAGNOSTI ASPARTATE CS CS AMINO AST SGOT LIPID 56153 [facility] PANEL 2 DIAGNOSTI DIAGNOSTI CS CS BASIC 28788 [facility] METABOLIC 2 DIAGNOSTI DIAGNOSTI PANEL CS CS CALCIUM TOTAL COLLECTIO 82604 GLORIA GLORIA N VENOUS 2 MAGAN MAGAN BLOOD VENIPUNCT URE NONEMERG A0120 LKLP LK TRNSPRT: 2 [facility] ACTION ACTION [place] AREA/OTH SYS NONEMERG A0120 LKLP LK TRNSPRT: 2 [facility] ACTION ACTION [facility] AREA/OTH SYS NONEMERG A0120 LKLP LK TRNSPRT: 2 [facility] ACTION ACTION [facility] AREA/OTH SYS NONEMERG A0120 LK LK TRNSPRT: 2 [facility] ACTION ACTION [facility] AREA/OTH SYS MRI 17886 MARCOS LUGO SPINAL 2 MEDICAL [facility] CANAL IMAGING LUMBAR ASS W/O CONTRAST MATERIAL MRI 72537 SHIVANI PARRISH SPINAL 2 [facility] CANAL INC INC LUMBAR W/O & [place] [address] SHIVANI PARRISH UREA 2 [facility] NITROGEN INC INC QUANTITAT SANDY 3D 83057 SHIVANI PARRISH RENDERING 2 [facility] W/INTERP INC INC & POSTPROCE SS SUPERVISI ON CREATININ 67167 SHIVANI PARRISH E BLOOD 2 [facility] INC INC INJECTION A9576 SHIVANI PARRISH 2 [facility] GADOTERID INC INC OL PROHANCE MULTIPACK PER ML THERAPEUT 52077 SHIVANI PARRISH IC 2 [facility] PROPHYLAC INC INC TIC/DX INJECTION SUBQ/IM LIPID 31533 [facility] PANEL 2 DIAGNOSTI DIAGNOSTI CS BASIC 26469 [facility] METABOLIC 2 DIAGNOSTI DIAGNOSTI PANEL CS CALCIUM TOTAL COLLECTIO 34608 GLORIA GLORIA N VENOUS 2 MAGAN MAGAN BLOOD VENIPUNCT URE INJECTION J0595 SHIVANI PARRISH 2 [facility] BUTORPHAN INC INC OL TARTRATE 1 MG HEMOGLOBI 55100 [facility] N 2 DIAGNOSTI DIAGNOSTI GLYCOSYLA CS KYMBERLY A1C TRANSFERA 59627 [facility] SE 2 DIAGNOSTI DIAGNOSTI ASPARTATE CS AMINO AST SGOT URNLS DIP 84299 WINDISCH WINDISCH 1 AMB AMB STICK/TAB LET RGNT NON-AUTO W/O MICRSCP EMMANUEL 47179 WINDISCH WINDISCH POST-VOID 1 AMB AMB ING RESIDUAL URINE&/BL ADDER CAP ANES 82146 [place] ZIEMBROS[facility] INTEG 1 ANESTHESI I JR EDW EXTREMITI A GROUP ES ANT PSC TRUNK & PERINEUM NOS REVJ/RMVL 50832 WINDISCH WINDISCH 1 AMB AMB PERIPHERA L NEUROSTIM [place]RO[place] I 46713 PATHOLOGY PATHOLOGY SURG 1 & & PATHOLOGY CYTOLOGY CYTOLOGY GROSS LAB LAB EXAMINATI ON ONLY RADIOLOGI 46846 [facility] [place] LUTZ C EXAM 1 RADIOLOGY GILLIAN CHEST 2 VIEWS FRONTAL&L ATERAL BLOOD 26089 [facility] COUNT 1 N N COMPLETE COMMUNTIY COMMUNTIY AUTO&AUTO HOSPITA HOSPITA DIFRNTL WBC COLLECTIO 97081 [facility] N VENOUS 1 N N BLOOD COMMUNTIY COMMUNTIY VENIPUNCT HOSPITA HOSPITA URE BASIC 43025 [facility] METABOLIC 1 N N PANEL COMMUNTIY COMMUNTIY CALCIUM HOSPITA HOSPITA TOTAL ECG 67924 [facility] ROUTINE 1 N N ECG COMMUNTIY COMMUNTIY W/LEAST HOSPITA HOSPITA 12 LDS TRCG ONLY W/O I&R EMMANUEL 67376 WINDISCH WINDISCH POST-VOID 1 AMB AMB ING RESIDUAL URINE&/BL ADDER CAP URNLS DIP 37524 WINDISCH WINDISCH 1 AMB AMB STICK/TAB LET RGNT NON-AUTO W/O MICRSCP OPHTH 22491 [facility] 1 VISION XM&EVAL COMPRHNSV ESTAB PT 1/> NONEMERGE A0100 [facility] CAB NCY 1 COMMUNITY TRANSPORT ACTION ATION; TAXI NONEMERGE A0100 [facility] CAB NCY 1 COMMUNITY TRANSPORT ACTION ATION; TAXI GLUC BLD 07479 [facility] GLUC MNTR 1 N N DEV COMMUNITY COMMUNITY CLEARED HOSPITA HOSPITA FDA SPEC HOME USE COLONOSCO 10277 [place] PY FLX DX 1 [place] E[place] W/COLLJ GASTROENT SPEC WHEN PFRMD ANES 23765 [place]ENN ANT LOWER 1 ANESTHESI INTESTINE A GROUP PSC ENDOSCOPY DISTAL DUODENUM ANTIBODY 41556 [facility] HELICOBAC [address] [facility] COMMUNITY [place] HOSPITA HOSPITA EGD 78220 [place] TRANSORAL 1 [place] E[place] BIOPSY GASTROENT SINGLE/MU LTIPLE RINGERS J7120 [facility] LACTATE 1 N N INFUSION [facility] COMMUNITY UP TO HOSPITA HOSPITA 1000 CC TRANSFERA 53231 [facility] SE 1 DIAGNOSTI DIAGNOSTI ASPARTATE CS CS AMINO AST SGOT BASIC 94325 [facility] METABOLIC 1 DIAGNOSTI DIAGNOSTI PANEL CS CS CALCIUM TOTAL LIPID 10997 [facility]ST PANEL 1 DIAGNOSTI DIAGNOSTI CS CS HEMOGLOBI 02026 [facility]ST N 1 DIAGNOSTI DIAGNOSTI GLYCOSYLA CS CS KYMBERLY A1C NONEMERGE A0100 [facility] CAB NCY 1 COMMUNITY TRANSPORT ACTION ATION; TAXI NONEMERGE A0100 [facility] CAB NVY 1 COMMUNITY TRANSPORT ACTION ATION; TAXI NONEMERGE A0100 [facility] CAB NVY 1 COMMUNITY TRANSPORT ACTION ATION; TAXI 3D 83500 [facility] RENDERING 1 [facility] IMAGING W/INTERP& [place] [address] [facility] ABDOMEN & 1 [facility] PELVIS IMAGING W/O ASS CONTRAST MATERIAL URNLS DIP 67338 SHIVANI LATH[facility] 1 [facility] STICK/[facility] LET RGNT P NON-AUTO W/O MICRSCP INSJ 58463 SHIVANI LATHAM NON-NDWEL 1 [facility] BLADDER P CATHETER NONEMERGE A0100 [facility] CAB NVY 1 COMMUNITY TRANSPORT ACTION ATION; TAXI URINLS 30522 A C LAN A DIP 1 LAN ROBBINS STICK/TAB PSC LET REAGNT NON-AUTO MICRSCPY CULTURE 53675 [facility] BCT 1 [facility] ISOL&PRSM PTV ID ISOLATE EA URINE CULTURE 85423 [facility] TYPING 1 [facility] IMMUNOLOG IC OTH/THN IMMUNOFLU ORES CULTURE 80950 [facility] BACTERIAL 1 [facility] QUANTTATI VE COLONY COUNT URINE OVA&JACKSON 51498 [facility] ITES 1 [facility] DIRECT SMEARS CONCENTRA TION & ID NONEMERGE A0100 [facility] CAB NVY 1 COMMUNITY TRANSPORT ACTION ATION; TAXI NONEMERGE A0100 [facility] CAB NVY 1 COMMUNITY TRANSPORT ACTION ATION; TAXI NONEMERGE A0100 [facility] TRANSPORT ACTION ATION; TAXI CYTP C/V 41562 PATHOLOGY PATHOLOGY AUTO THIN 1 & & LYR CYTOLOGY CYTOLOGY PREPJ SCR LAB LAB MNL RESCR PHYS CULTURE 74281 [facility] BACTERIAL 1 [facility] QUANTTATI VE COLONY COUNT URINE CULTURE 62725 [facility] BCT 1 [facility] ISOL&PRSM PTV ID ISOLATE EA URINE CUL BACT 92541 [facility] AEROBIC 1 [facility] ADDL METHS DEFINITIV E EA ISOL URINLS 96998 A C MONTENEGRO A DIP 1 LAN [facility]BINS STICK/TAB PSC LET REAGNT NON-AUTO MICRSCPY SUSCEPTIB 55366 [facility] LTY STDY 1 [facility] ANTIMICRB IAL MICRO/AGA R DILUTJ HEMOGLOBI 07764 [facility] N 1 [facility] GLYCOSYLA KYMBERLY A1C BASIC 72625 [facility] METABOLIC 1 [facility] PANEL CALCIUM TOTAL LIPID 73971 [facility] PANEL 1 [facility] TRANSFERA 02880 [facility] SE 1 [facility] [place] [address] [facility] THYROID 1 [facility] STIMULATI NG HORMONE TSH CREATINE 72397 SHIVANI PARRISH KINASE MB 1 [facility] FRACTION INC INC ONLY BLOOD 75099 [facility] COUNT 1 [facility] COMPLETE INC INC AUTO&[place] [address] SHIVANI PARRISH TROPONIN 1 [facility] QUANTITAT INC INC SANDY IAADI 72162 SHIVANI [facility] INFLUENZA 1 [facility] B VIRUS INC INC IAADI 60345 SHIVANI [facility] INFFLUENZ 1 [facility] A A VIRUS INC INC RADIOLOGI 85069 [facility] C EXAM 1 [facility] CHEST 2 IMAGING VIEWS ASS FRONTAL&L ATERAL CREATINE 72531 SHIVANI PARRISH KINASE 1 [facility] TOTAL INC INC ECG 31150 SHIVANI CLEMENTINA ROUTINE 1 [facility] W/LEAST P 12 LDS I&R ONLY ECG 36585 SHIVANI PARRISH ROUTINE 1 [facility]OS[facility] ECG INC INC W/LEAST 12 LDS TRCG ONLY W/O I&R GLUC BLD 27167 SHIVANI PARRISH GLUC MNTR 1 [facility] DEV INC INC CLEARED FDA SPEC HOME USE COMPREHEN 89655 SHIVANI PARRISH SIVE 1 [facility]OSP METABOLIC INC INC PANEL NONEMERGE A0100 [facility] CAB NCY 1 COMMUNITY TRANSPORT ACTION ATION; [place]AX[place] SALINE 94923 [facility]S [facility]EN INFUS 1 [facility] DA[facility] W/COLOR DOPPLER CATH & 46513 WOMEN'S ALLEN SALINE/CO 1 [facility]HA R/HYSTERO SALPI NONEMERGE A0100 [facility] CAB NCY 1 COMMUNITY TRANSPORT ACTION ATION; [place] [address] MARCOS BRITTNEY THORACIC 1 [facility] SPINE W/O IMAGING CONTRAST ASS MATERIAL 3D 95330 MARCOS BRITTNEY RENDERING 1 [facility] W/INTERP IMAGING & [place] 3D 66529 SHIVANI PARRISH RENDERING 1 [facility] HOS[facility] INC INC W/INTERP& [place] [address] MARCOS BRITTNEY CERVICAL 1 [facility] SPINE W/O IMAGING CONTRAST ASS MATERIAL EMMANUEL 52933 WINDISCH WINDISCH POST-VOID 1 AMB AMB ING RESIDUAL URINE&/BL ADDER CAP URINLS 47962 A C MONTENEGRO A DIP 1 LAN ROBBINS STICK/TAB [place] [address] MARCOS LUGO HEAD/BRAI 1 [facility] N W/O IMAGING CONTRAST ASS MATERIAL 3D 93464 MARCOS LUGO RENDERING 1 [facility] W/INTERP IMAGING & [place] 3D 76314 SHIVANI PARRISH RENDERING 1 [facility] INC INC W/INTERP& POSTPROC DIFF WORK STATION CT LUMBAR 90778 MARCOS BRITTNEY SPINE 1 [facility] W/O IMAGING CONTRAST ASS MATERIAL NDL EMG 4 00867 PALOMINO PALOMINO XTR W/WO 1 GILLIAN GILLIAN RELATED PARASPINA L AREAS NRV CNDJ 55718 PALOMINO PALOMINO AMPLT&LAT 1 GILLIAN GILLIAN ENCY EA NRV MOTOR W/F-WAVE STD NRV CNDJ 05272 PALOMINO PALOMINO AMPLITUDE 1 GILLIAN GILILAN & LATENCY EACH NERVE SENSORY CULTURE 98803 [facility] BCT 1 [employer] ISOL&PRSM PTV ID ISOLATE EA URINE CULTURE 95305 [facility] BACTERIAL 1 [employer] QUANTTATI VE COLONY COUNT URINE URINLS 46798 A C MONTENEGRO A DIP 1 LAN ROBBINS STICK/TAB PSC LET REAGNT NON-AUTO MICRSCPY RADIOLOGI 80602 [facility] YANGBRITTNEY C EXAM 1 [facility] PELVIS IMAGING COMPL ASS MINIMUM 3 VIEWS NONEMERGE A0100 [facility] [place] CAB NCY 1 COMMUNITY TRANSPORT ACTION ATION; [place] URINLS 41388 A C MONTENEGRO A DIP 0 MONTENEGRO STICK/TAB PSC LET REAGNT NON-AUTO MICRSCPY CULTURE 42113 [facility] BACTERIAL 0 [employer] QUANTTATI VE COLONY COUNT URINE CUL BACT 61520 [facility] AEROBIC 0 [facility] ADDL METHS DEFINITIV E EA ISOL CULTURE 17084 [facility] BCT 0 [facility] ISOL&PRSM PTV ID ISOLATE EA URINE SUSCEPTIB 87712 [facility] LTY STDY 0 [facility] ANTIMICRB IAL MICRO/AGA R DILUTJ CANALITH 16374 LISANDRA FRY REPOSITIO 0 DORITA DORITA NURIS PROCEDURE COMPRE 07980 LISANDRA FRY AUDIOMETR 0 DORITA KEVIN Y THRESHOLD EVAL SP RECOGNIJ TYMPANOME 57157 LISANDRA FRY TRY 0 DORITA DORITA DISTORT 47024 LISANDRA FRY PRODUCT 0 DORITA KEVIN EVOKED OTOACOUST IC EMISNS LIMITD CANE E0105 ANNA MARIE THRASHER QUAD/3-FL 0 HOME MED HOME MED NATHALIE ALL EQUIP. L EQUIP. L MATL ADJUSTBL/ FIX W/TIPS NONEMERGE A0100 [facility] [place] CAB NCY 0 COMMUNITY TRANSPORT ACTION ATION; [place] COMPREHEN 49671 SHIVANI PARRISH SIVE 0 [facility] METABOLIC INC INC PANEL ECG 02607 SHIVANI PARRISH ROUTINE 0 [facility] ECG INC INC W/LEAST 12 LDS TRCG ONLY W/O I&R CREATINE 78711 SHIVANI PARRISH KINASE 0 [facility] [place] [address] SHIVANI PARRISH LIPASE 0 [facility] INC INC ECG 32414 SHIVANI BESSON ROUTINE 0 [facility] W/LEAST P 12 LDS I&[place] [address] SHIVANI PARRISH INFUSION 0 [facility] THER INC INC PROPH ADDL SEQUENTIA L TO [address] [place] [address] SHIVANI PARRISH TROPONIN 0 [facility] QUANTITAT INC INC SANDY BLOOD 39961 SHIVANI PARRISH COUNT 0 [facility] COMPLETE INC INC AUTO&AUTO DIFRNTL WBC CREATINE 43362 SHIVANI PARRISH KINASE MB 0 [facility] [place] [address] SHIVANI PARRISH AMYLASE 0 [facility] INC INC IIV3 79171 SHIVANI PARRISH VACCINE 0 [facility] VIRUS 0.5 ML DOSAGE IM USE BLD GLU A4253 M E D M E D TEST/REAG 0 SUPPLIES SUPPLIES T STRIPS HOME BLD GLU MON-50 LANCETS A4259 M E D M E D PER BOX 0 SUPPLIES SUPPLIES OF 100 NONEMERGE A0100 [place] CAB NCY 0 COMMUNITY TRANSPORT ACTION ATION; TAXI URINLS 70127 A C MONTENEGRO A DIP 0 MONTENEGRO MD STICK/TAB PSC LET REAGNT NON-AUTO MICRSCPY CULTURE 84107 [facility] BACTERIAL 0 [employer] [facility] QUANTTATI VE COLONY COUNT URINE CULTURE 65008 [facility] BCT 0 [facility] ISOL&PRSM PTV ID ISOLATE EA URINE LANCETS A4259 M E D M E D PER BOX 0 SUPPLIES SUPPLIES OF 100 BLD GLU A4253 M E D M E D TEST/REAG 0 SUPPLIES SUPPLIES T STRIPS HOME BLD GLU MON-50 URNLS DIP 07044 WINDISCH WINDISCH 0 AMB AMB STICK/TAB LET RGNT AUTO W/O MICROSCOP Y ELEC INGE 90856 WINDISCH WINDISCH NSTIM 0 AMB AMB PLS GEN CPLX SC/PERPH W/PRGRMG EMMANUEL 67892 [facility] AMB AMB ING RESIDUAL URINE&/BL ADDER CAP BASIC 84720 [facility] METABOLIC 0 [email or web address] [facility] PANEL CALCIUM TOTAL LIPID 10048 [facility] PANEL 0 [employer] [facility] HEMOGLOBI 77672 [facility] N 0 [employer] [facility] GLYCOSYLA KYMBERLY A1C TRANSFERA 17170 [facility] SE 0 [facility] ASPARTATE AMINO AST SGOT BLD GLU A4253 [...] 0 COMMUNITY TRANSPORT ACTION ATION; TAXI OPHTH 91083 STELLA SHARP, [facility] 0 VISION KIARRA A XM&EVAL COMPRHNSV ESTAB PT 1/> BLD GLU A4253 M E D M E D TEST/REAG 0 SUPPLIES SUPPLIES T STRIPS HOME BLD GLU TUE-50 LANCETS A4259 M E D M E D PER BOX 0 SUPPLIES SUPPLIES OF 100 CYTP C/V 24954 PATHOLOGY PATHOLOGY AUTO THIN 0 & & LYR CYTOLOGY CYTOLOGY PREPJ SCR LAB LAB MNL RESCR PHYS BLD GLU A4253 M E D M E D TEST/REAG 0 SUPPLIES SUPPLIES T STRIPS HOME BLD GLU MON-50 LANCETS A4259 M E D M E D PER BOX 0 SUPPLIES SUPPLIES OF 100 TRANSFERA 21786 [facility] SE 0 [facility] ASPARTATE AMINO AST SGOT HEMOGLOBI 46288 [facility] N 0 [facility] GLYCOSYLA KYMBERLY A1C LIPID 21877 [facility] PANEL 0 [facility] BASIC 24542 [facility] METABOLIC 0 [facility] PANEL CALCIUM TOTAL LANCETS A4259 M E D M E D PER BOX 0 SUPPLIES SUPPLIES OF 100 BLD GLU A4253 M E D M E D TEST/REAG 0 SUPPLIES SUPPLIES T STRIPS HOME BLD GLU MON-50 CULTURE 78527 LAB DIMAS LAB DIMAS BACTERIAL 0 [employer] QUANTTATI VE COLONY COUNT URINE EMMANUEL 08004 PRISCILAISCH, BONNY, POST-VOID 0 ZEE ZEE ING K K RESIDUAL URINE&/BL ADDER CAP URINLS 99303 Buster FARIAS DIP 0 LAN Angel STICK/TAB PSC LET REAGNT NON-AUTO MICRSCPY URNLS DIP 02410 BONNY DRAPER, 0 ZEE ZEE STICK/TAB K K LET RGNT NON-AUTO W/O MICRSCP CULTURE 09208 LAB [facility] LAB DIMAS BACTERIAL 0 [employer] QUANTTATI VE COLONY COUNT URINE URINLS 99194 A Buster MOBLEY DIP 0 LAN Angel STICK/TAB PSC LET REAGNT NON-AUTO MICRSCPY URINLS 03340 Buster FARIAS DIP 9 LAN Angel STICK/TAB PSC LET REAGNT NON-AUTO MICRSCPY BLD GLU A4253 M E D M E D TEST/REAG 9 SUPPLIES SUPPLIES T STRIPS HOME BLD GLU MON-50 LANCETS A4259 M E D M E D PER BOX 9 SUPPLIES SUPPLIES OF 100 URINLS 16791 Buster FARIAS DIP 9 LAN Angel STICK/TAB PSC LET REAGNT NON-AUTO MICRSCPY URINLS 76148 Buster FARIAS DIP 9 LAN Angel STICK/TAB PSC LET REAGNT NON-AUTO MICRSCPY EMMANUEL 30305 BONNY DRAPER, POST-VOID 9 ZEE ZEE ING K K RESIDUAL URINE&/BL ADDER CAP URNLS DIP 43602 BONNY DRAPER 9 ZEE ZEE STICK/TAB K K LET RGNT NON-AUTO W/O MICRSCP LANCETS A4259 M E D M E D PER BOX 9 SUPPLIES SUPPLIES OF 100 BLD GLU A4253 M E D M E D TEST/REAG 9 SUPPLIES SUPPLIES T STRIPS HOME BLD GLU MON-[address] SALINE SOLUTION STERILE ELEC INGE 64187 BONNY DRAPER NSTIM 9 ZEE ZEE PLS GEN K K CPLX SC/PERPH W/PRGRMG INJECTION J3010 [address] CITRATE 0.1 MG GLUCOSE 58358 [facility] BLOOD [address] [place] [address] REAGENT STRIP INJECTION J0694 [address] CEFOXITIN SODIUM 1 G ELEC INGE 58468 [facility] NS[address] PLS GEN SMPL SC/PERPH W/PRGRMG ANES 22611 ANESTHESI JAGDISH FRAZIER 9 A NAWAF KOHLI & ASSOCIATE NRV HEAD S, PSC NECK&POST ERIOR TRUNK POTASSIUM [address] PLASMA/WH OLE BLOOD INSERTION 32521 BNONY DRAPER, /RPLCMT 9 ZEE ZEE PERIPHERA K K L/GASTRIC NPGR INJECTION J2250 [address] [place] HCL PER 1 MG EMMANUEL 75280 BONNY DRAPER, POST-VOID 9 ZEE ZEE ING K K RESIDUAL URINE&/BL ADDER CAP URNLS DIP 17361 BONNY DRAPER, 9 ZEE ZEE STICK/TAB K K LET RGNT NON-AUTO W/O MICRSCP INJECTION J3[address] CITRATE 0.1 MG INJECTION J0694 [address] CEFOXITIN SODIUM 1 G GLUCOSE [address] REAGENT STRIP INFUSION J7040 [address] SALINE SOLUTION STERILE ECG [address] ECG W/LEAST 12 LDS TRCG ONLY W/O I&R ANESTHESI 82000 ANESTHESI HEMAL, Buster LUMBAR 9 A [facility]RE[facility] NOS S, PSC POTASSIUM [address] PLASMA/WH OLE BLOOD ECG 97586 [place], ROUTINE 9 [place] [facility] ECG CLINIC W/LEAST PSC 12 LDS I&R ONLY INC 74884 BONNY DRAPER, IMPLTJ 9 ZEE ZEE NEUROSTIM K K ULATOR ELTRD SACRAL NERVE PRQ 16566 [facility] IMPLT[address] NEUROSTIM ELTRD SACRAL NRVE W/IMAGING INJECTION J2250 [address] [place] HCL PER 1 MG COLLECTIO 25913 [facility] N VENOUS 9 N N BLOOD [facility] URE BASIC 41487 [facility] METABOLIC 9 N N PANEL [facility] TOTAL ECG 95764 [facility] ROUTINE 9 N N ECG [facility] W/LEAST LDS [facility]OSPITAL HOSPITAL 12 LDS TRCG ONLY W/O I&R RADIOLOGI 31040 CN[facility] Stanley WINN EXAM 9 RADIOLOGY DON G CHEST 2 VIEWS FRONTAL&L ATERAL BLOOD 26766 [facility] COUNT 9 N N [facility]PLETE [facility] AUTO&AUTO F F [facility] DIFRNTL WBC CULTURE 52062 [facility] BACTERIAL 9 N N [facility] VE COLONY COUNT URINE LANCETS A4259 M E D M E D PER BOX 9 SUPPLIES SUPPLIES OF 100 BLD GLU A4253 M E D M E D TEST/REAG 9 SUPPLIES SUPPLIES T STRIPS HOME BLD GLU MON-50 URINLS 06751 A Buster MOBLEY DIP 9 LAN ROBBINS C STICK/TAB [place] [address] SHIVANI PARRISH INFUSION 9 [facility] THERAPY INC INC PROPHYLAX IS/DX EA HOUR COMPREHEN 48594 SHIVANI PARRISH SIVE 9 [facility] METABOLIC INC INC PANEL URNLS DIP 60579 SHIVANI PARRISH 9 [facility] STICK/TAB INC INC LET REAGENT AUTO MICROSCOP Y CULTURE 03224 SHIVANI PARRISH BACTERIAL 9 [facility] INC INC QUANTTATI VE COLONY COUNT URINE BLOOD 74676 SHIVANI PARRISH COUNT 9 [facility] COMPLETE INC INC AUTO&[place] [address] SHIVANI PARRISH INFUSION 9 [facility] THERAPY/P INC INC ROPHYLAXI S /DX 1ST TO 1 HR IIV3 17106 DHS/CO SHIVANI VACCINE 9 [facility] VIRUS 0.5 BANK ACCT ML DOSAGE IM USE CYSTOURET 06737 BONNY DRAPER, HROSCOPY 9 ZEE ZEE K K EMMANUEL 07959 BONNY DRAPER, POST-VOID 9 ZEE ZEE ING K K RESIDUAL URINE&/BL ADDER CAP COMPLEX 20823 BONNY DRAPER, UROFLOMET 9 ZEE ZEE RY K K BLADDER 32056 BONNY, PRISCILAISCH, PRESSURE 9 ZEE ZEE MEASUREME K K NT DURING FILLING EMG STDS 72197 BONNY DRAPER, ANAL/URTL 9 ZEE ZEE SPHNCTR K K OTH/THN NDL VOIDING 69564 BONNY DRAPER, PRESS 9 ZEE ZEE STDS BLDR K K VOIDING PRESS ANY TQ VOID 16833 BONNY DRAPER, PRESSURE 9 ZEE ZEE STUDIES K K INTRAABDO BRITTANY URNLS DIP 67663 BONNY DRAPER, 9 ZEE ZEE STICK/TAB K [...] T STRIPS HOME BLD GLU MON-50 GLUCOSE 36517 Buster FARIAS QUANTITAT 9 LAN Angel SANDY BLOOD PSC XCPT REAGENT STRIP GLUCOSE 88894 Buster FARIAS QUANTITAT 9 LAN Angel SANDY BLOOD PSC XCPT REAGENT STRIP GLUCOSE 27831 Buster FARIAS POST 9 LAN Angel GLUCOSE PSC DOSE LIPID 29875 Buster FARIAS PANEL 9 LAN Angel PSC TRANSFERA 71977 Buster FARIAS SE 9 LAN Angel ASPARTATE PSC AMINO AST SGOT TRANSFERA 81528 Buster FARIAS SE 9 LAN Angel ALANINE PSC AMINO ALT SGPT GLUCOSE 31126 Buster FARIAS QUANTITAT 9 LAN Angel SANDY BLOOD PSC XCPT REAGENT STRIP BLD GLU A4253 M E D M E D TEST/REAG 9 SUPPLIES SUPPLIES T STRIPS HOME BLD GLU MON-50 LANCETS A4259 M E D M E D PER BOX 9 SUPPLIES SUPPLIES OF 100 EMMANUEL 40765 WINDISCH, PRISCILAISCH, POST-VOID 9 ZEE ZEE ING [...] T STRIPS HOME BLD GLU MON-50 CULTURE 89362 SHIVANI PARRISH BACTERIAL 9 [facility] INC INC QUANTTATI VE COLONY COUNT URINE URINLS 14995 Buster FARIAS DIP 9 LAN Angel STICK/TAB PSC LET REAGNT NON-AUTO MICRSCPY BLD GLU A4253 M E D M E D TEST/REAG 9 SUPPLIES SUPPLIES T STRIPS HOME BLD GLU MON-50 LANCETS A4259 M E D M E D PER BOX 9 SUPPLIES SUPPLIES OF 100 URINLS 64712 Bsuter FARIAS DIP 9 LAN Angel STICK/TAB PSC LET REAGNT NON-AUTO MICRSCPY COLLECTIO 40659 Buster FARIAS N VENOUS 9 LAN Angel BLOOD PSC VENIPUNCT URE HEMOGLOBI 67307 LAB DIMAS LAB DIMAS N 9 [employer] GLYCOSYLA [employer] HOLDING KYMBERLY A1C BASIC 05168 LAB DIMAS LAB DIMAS METABOLIC 9 AMERIC AMERIC PANEL HOLDING HOLDING CALCIUM TOTAL LIPID 75771 LAB DIMAS LAB DIMAS PANEL 9 [employer] TRANSFERA 21239 LAB D[facility] LAB DIMAS SE 9 AMERIC AMER[employer] ASPARTATE HOLDING HOLDING AMINO AST SGOT MEDICAL 97064 SHIVANI PARRISH NUTRITION 9 [facility] INC INC RE-ASSMT& IVNTJ INDIV EA 15 M MEDICAL 53587 SHIVANI PARRISH NUTRITION 9 [facility] INC INC ASSMT&IVN TJ INDIV EACH 15 TN LANCETS A4259 M E D M E D PER BOX 9 SUPPLIES SUPPLIES OF 100 BLD GLU A4253 M E D M E D TEST/REAG 9 SUPPLIES SUPPLIES T STRIPS HOME BLD GLU MON-50 GLUCOSE 90314 Buster FARIAS QUANTITAT 9 LAN Angel SANYD BLOOD PSC XCPT REAGENT STRIP SCREENING 97611 IOWA BRITTNEY, 9 MEDICAL PHYLLIS MAMMOGRAP IMAGING HY 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 COMPUTER- 10294 [facility], AIDED 9 MEDICAL PHYLLIS DETECTION IMAGING [...] HIGH CALIBRATO R SOLUTION/ CHIPS CYTP C/V 30331 PATHOLOGY PATHOLOGY AUTO THIN 9 & & LYR CYTOLOGY CYTOLOGY PREPJ SCR LAB LAB MNL RESCR PHYS URNLS DIP [address] STICK/TAB CLINIC OF LET RGNT NON-AUTO [place] W/O PLLC MICRSCP BLD GLU A4253 M E D M E D TEST/REAG 9 SUPPLIES SUPPLIES T STRIPS HOME BLD GLU MON-50 LANCETS A4259 M E D M E D PER BOX 9 SUPPLIES SUPPLIES OF 100 TRANSFERA 60921 LAB DIMAS LAB DIMAS SE 9 [employer]IC AMERIC ASPARTATE HOLDING HOLDING AMINO AST SGOT BASIC 31835 LAB DIMAS LAB DIMAS METABOLIC 9 AMERIC AMER[employer] PANEL HOLDING HOLDING CALCIUM TOTAL LIPID 19375 LAB D[facility]AS LAB DIMAS PANEL 9 [employer]ING COLLECTIO 18802 Buster FARIAS N VENOUS 9 LAN Angel BLOOD PSC VENIPUNCT URE HEMOGLOBI 38555 LAB DIMAS LAB DIMAS N 9 AMERIC [...] BOX 8 SUPPLIES SUPPLIES OF 100 GLUCOSE 24557 Buster MONTENEGRO, Buster QUANTITAT 8 LAN ROBBINS C SANDY BLOOD PSC XCPT REAGENT STRIP MRI BRAIN 31294 PHYLLIS LUGO, BRAIN 8 BRITTNEY PHYLLIS STEM W/O W/CONTRAS T MATERIAL CREATININ 00481 SHIVANI PARRISH E BLOOD 8 [place] [address] SHIVANI PARRISH UREA 8 [facility] NITROGEN INC INC QUANTITAT SANDY IIV3 92894 DHS/CO SHIVANI VACCINE 8 [facility] VIRUS 0.5 BANK ACCT ML DOSAGE IM USE ECG 21360 SHIVANI GONZALEZ ROUTINE 8 [facility] W/LEAST PROF SERV 12 LDS I&R ONLY RHYTHM 06145 SHIVANI PARRISH ECG 1-3 8 [facility] LEADS INC INC TRACING ONLY W/O I&R CREATINE 87997 SHIVANI PARRISH KINASE 8 [facility] TOTAL INC INC BASIC 96540 SHIVANI PARRISH METABOLIC 8 [facility] PANEL INC INC CALCIUM TOTAL ECG 84827 SHIVANI PARRISH ROUTINE 8 [facility] ECG INC INC W/LEAST 12 LDS TRCG ONLY W/O I&R RADIOLOGI 53356 SHIVANI PARRISH C 8 [facility] EXAMINATI INC INC ON CHEST [place] FRONTAL CREATINE 58557 SHIVANI PARRISH KINASE MB 8 [facility] FRACTION INC INC ONLY BLOOD 56461 SHIVANI PARRISH COUNT 8 [facility] COMPLETE INC INC AUTO&[place] [address] SHIVANI AVALOSON TROPONIN 8 [facility] QUANTITAT INC INC SANDY TRANSFERA 93467 LAB DIMAS LAB DIMAS SE 8 [employer] ASPARTATE HOLDING HOLDING AMINO AST SGOT HEMOGLOBI 50084 LAB DIMAS LAB DIMAS N 8 [employer]IC [employer] GLYCOSYLA HOLDING HOLDING KYMBERLY A1C COLLECTIO 69605 Buster FARIAS N VENOUS 8 LAN Angel BLOOD PSC VENIPUNCT URE BASIC 59177 LAB DIMAS LAB DIMAS METABOLIC 8 [employer] PANEL HOLDING HOLDING CALCIUM TOTAL LIPID 13588 LAB DIMAS LAB DIMAS PANEL 8 [employer] HOLDING HOLDING MRI 085[address] PHYLLIS C BRITTNEY, SPINAL 8 BRITTNEY PHYLLIS CANAL LUMBAR W/O CONTRAST MATERIAL CULTURE 91182 LAB DIM[facility] LAB DIMAS BACTERIAL 8 [employer] QUANTTATI VE COLONY COUNT URINE URINLS 79892 A Buster MOBLEY DIP 8 LAN Angel STICK/TAB PSC LET REAGNT NON-AUTO MICRSCPY URINLS 88816 Buster FARIAS DIP 8 LAN Angel STICK/TAB PSC LET REAGNT NON-AUTO MICRSCPY RADIOLOGI 90331 [place] Stanley LUGO EXAM 8 MEDICAL PHYLLIS CHEST 2 IMAGING VIEWS ASSOCIATE FRONTAL&L S ATERAL OPHTH 90808 [facility] 8 KIARRA A KIARRA A XM&EVAL COMPRHNSV ESTAB PT 1/> URINLS 28046 Buster FARIAS DIP 8 LAN Angel STICK/TAB PSC LET REAGNT NON-AUTO MICRSCPY SHAVING 79780 Buster FARIAS SKIN 8 LAN Angel LESION 1 PSC TRUNK/ARM /LEG DIAM 0.5CM/< COLLECTIO 52112 Buster FARIAS N VENOUS 8 LAN Angel BLOOD PSC VENIPUNCT URE TYMPANOME 37946 AIDAN BERMUDEZ, TRY 8 ZAK Da Silva COMPRE 29058 AIDAN BERMUDEZ, AUDIOMETR 8 ZAK Da Silva Y THRESHOLD EVAL SP RECOGNIJ ACOUSTIC 71207 AIDAN BERMUDEZ, REFLEX 8 ZAK Da Silva THRESHOLD 3D 69705 [facility] SMITH, RENDERING 8 MEDICAL SUSHANT P IMAGING W/INTERP& ASSOCI[place] [address] [facility] MSITH, MAXILLOFA 8 MEDICAL SUSHANT P CIAL W/O IMAGING [place] [address] PATHOLOGY PATHOLOGY SURG 8 & & PATHOLOGY CYTOLOGY CYTOLOGY LAB LAB GROSS&TANMAY ROSCOPIC EXAM THER 12541 SHIVANI PARRISH PROPH/DX 8 [facility] NJX EA INC INC SEQL IV PUSH SBST/DRUG IV NFS 09183 SHIVANI PARRIHS THER 8 [facility] PROPH/DX INC INC 1ST >1 HR IV NFUS 43252 SHIVANI PARRISH THER 8 [facility] PROPH/DX INC INC EA HR HYSTEROSC 13120 [facility] BX 8 [facility] OF &/POLYP C W/WO [place] D&C PLLC GLUC BLD 87802 SHIVANI PARRISH GLUC MNTR 8 [facility] DEV INC INC CLEARED FDA SPEC HOME USE HYSTEROSC 6812 SHIVANI PARRISH OPY 8 [facility] INC INC OTHER 6829 SHIVANI PARRISH EXCISION 8 [facility] OR INC INC DESTRUCTI ON LESION UTERUS OTHER 6909 SHIVANI PARRISH DILATION 8 [facility] AND INC INC CURETTAGE OF UTERUS BASIC 34879 SHIVANI PARRISH METABOLIC 8 [facility] PANEL INC INC CALCIUM TOTAL BLOOD 92982 SHIVANI PARRISH TYPING 8 [facility] SEROLOGIC INC INC RH (D) BLOOD 17568 SHIVANI PARRISH COUNT 8 [facility] COMPLETE INC INC AUTO&AUTO DIFRNTL WBC ANTIBODY 25901 SHIVANI PARRISH SCREEN 8 [facility] RBC EACH INC INC SERUM TECHNIQUE BLOOD 75117 SHIVANI PARRISH TYPING 8 [facility] SEROLOGIC INC INC ABO IADNA 43357 AMERIPATH ANGELA, HERPES 8 [place] INC HANS E SOMPLX VIRUS AMPLIFIED PROBE TQ Encounters Encounter Start End Date Code Location Performer Type Date HOSP[facility] - 7 7 [facility] OUTPATIEN INC T OFFICE 53187 COLLEEN NEAL 7 7 MD KEYANNA, T VISIT PSC 10 MINUTES [facility] 7 [facility] T OFFICE 71561 [facility] T OFFICE 38310 [facility] 7 [facility] 10 MIN[facility] 7 7 [facility] 7 7 [facility] T OFFICE 85997 Buster SAAVEDRA OUTPATIEN 7 7 LAN ROBBINS T VISIT PSC 15 MINUTES OFFICE 97631 COLLEEN RAIN OUTPATIEN 7 7 MD KEYANNA, T VISIT PSC 15 MINUTES [facility] T OFFICE 27680 [facility] OUT[facility] 7 7 [facility] T V[facility] 10 MINUTES [facility] 6 6 [facility] 6 6 [facility] T OFFICE 80180 COLLEEN CSHWARTZ OUTPATIEN 6 6 MD KEYANNA, T VISIT [facility] 15 MINUTES [facility] 6 6 [facility] 6 6 [facility] T OFFICE 23763 COLLEEN ANALI CRI OUTPATIEN 6 6 MD KEYANNA, T VISIT PSC 15 MINUTES [facility] 6 6 [facility] T OFFICE 17929 COLLEEN BUX ANJ OUTPATIEN 6 6 MD KEYANNA, T VISIT PSC 10 MINUTES OFFICE 42053 A Stanley BOLTON OUTPATIEN 6 6 LAN ROBBINS T VISIT PSC 25 MINUTES OFFICE 05425 COLLEEN BUX ANJ OUTPATIEN 6 6 MD KEYANNA, T VISIT [facility] 10 MINUTES [facility] 5 [facility] 5 5 [facility] T OFFICE 36122 A Stanley BOLTON OUTPATIEN 5 5 LAN ROBBINS T VISIT PSC 25 MINUTES [facility] 5 5 [facility] 5 5 [facility] T OFFICE 94690 [facility] OUT[facility]IEN 5 5 [facility] 10 MINUTES [facility] 5 5 [facility] INC T OFFICE 71928 [facility] PETTEY OUTPATIEN 5 5 PHYSICIAN GILBERT T [facility] 30 S GROUP MINUTES OFFICE 64222 Buster REYES 5 5 LAN ROBBINS T VISIT PSC 15 MINUTES [facility] 5 5 [facility] T OFFICE 64196 MADAR BUX BUX ANJ OUTPATIZAN 5 Campos ROBBINS T VISIT 10 MINUTES OFFICE 48487 MADAR BUX BUX ANJ OUTPATIEN 5 5 T VISIT 10 MINUTES [facility] 5 5 [facility] 5 5 [facility] T OFFICE 33552 RAMESH BUX BUX ANJ OUTPATIEN 5 5 T NEW 30 MINUTES OFFICE 52335 [facility] OUT[facility]EN 5 5 [facility] T VISIT 5 INC MINUTES OFFICE 53089 A C KERI CHE OUTPATIEN 5 5 LAN ROBBINS T VISIT PSC 15 MINUTES [facility] 5 5 [facility] T OFFICE 13018 A C FIELD AMB OUTPATIEN 5 5 LAN ROBBINS T VISIT PSC 15 MINUTES OFFICE 93315 A C JANETTPELA OUTPATIEN 5 5 LAN ARCE T VISIT PSC 15 MINUTES OFFICE 98439 A C KERI CHE OUTPATIEN 5 5 LAN ROBBINS T VISIT PSC 15 MINUTES OFFICE 23369 A C FIELD AMB OUTPATIEN 5 5 LAN ROBBINS T VISIT PSC 15 MINUTES OFFICE 39355 A C KERI CHE OUTPATIEN 5 5 LAN ROBBINS T VISIT PSC 15 MINUTES OFFICE 37889 A C KERI CHE OUTPATIEN 4 4 LAN ROBBINS T VISIT PSC 15 MINUTES OFFICE 70489 A C KERI CHE OUTPATIEN 4 4 LAN ROBBINS T VISIT PSC 15 MINUTES OFFICE 95361 MOSQUE ROCIO OUTPATIEN 4 4 [facility] 15 SHRUTHI MINUTES OFFICE 96619 A C KERI CHE OUTPATIEN 4 4 LAN ROBBINS T VISIT PSC 15 MINUTES [facility] 4 4 [facility] T OFFICE 12982 KERI CHE KERI CHE OUTPATIEN 4 4 T VISIT 15 MINUTES OFFICE 01636 GARRETUYAEL FALLUYAEL OUTPATIEN 4 4 EFRAIN ZUNIGA T VISIT 25 MINUTES EMERGENCY 52105 ALFARIS ALFARIS 4 4 [facility] VISIT MODERATE SEVERITY EMERGENCY 40826 [facility] 4 4 [facility]IS[facility] LOW/MODER SEVERITY [facility] 4 4 [facility] T OFFICE 78126 KERI CELAYA CHE OUTPATIEN 4 4 T VISIT 15 MINUTES OFFICE 65338 KERI CELAYA CHE OUTPATIEN 4 4 T VISIT 15 MINUTES OFFICE 43185 KERI CELAYA CHE OUTPATIEN 4 4 T VISIT 15 MINUTES OFFICE 47579 KERI CELAYA CHE OUTPATIEN 4 4 T VISIT 15 MINUTES OFFICE 92295 KERI CELAYA CHE OUTPATIEN 4 4 T VISIT 15 MINUTES OFFICE 47996 KERI CELAYA CHE OUTPATIEN 3 3 T VISIT 15 MINUTES OFFICE 44117 ROCIO ROCIO OUTPATIEN 3 3 JULIEN JULIEN T VISIT 25 MINUTES OFFICE 04817 KERI CELAYA CHE OUTPATIEN 3 3 T VISIT 15 MINUTES PERIODIC 97588 TIFFANY ALLEN PREVENTIV 3 3 CORRINA CORRINA E MED EST PATIENT 40-64YRS OFFICE 87887 Buster CABEZASES CHE OUTPATIEN 3 3 LAN ROBBINS T VISIT PSC 15 MINUTES [facility] T OFFICE 36351 A C KILPELA OUTPATIEN 3 3 LAN ROBBINS JEA T VISIT PSC 15 MINUTES OFFICE 95475 A C KILPELA OUTPATIEN 3 3 LAN ROBBINS JEBuster T VISIT PSC 15 MINUTES OFFICE 15950 A C KILPELA OUTPATIEN 3 3 LAN ROBBINS JEA T VISIT PSC 15 MINUTES OFFICE 72815 ROCIO ROCIO OUTPATIEN 3 3 JULIEN JULIEN T VISIT 25 MINUTES [facility] T OFFICE 92641 KERI CHE KERI CHE OUTPATIEN 3 3 T VISIT 15 MINUTES OFFICE 37106 KERI CHE KERI CHE OUTPATIEN 3 3 T VISIT 15 MINUTES [facility] T OFFICE 64238 KERI CHE KERI CHE OUTPATIEN 3 3 T VISIT 15 MINUTES OFFICE 52390 KILPELA KILPELA OUTPATIEN 3 3 YAZMIN JEA T VISIT 15 MINUTES OFFICE 37112 KERIMATY BOLTON KERI CHE OUTPATIEN 2 2 T VISIT 15 MINUTES [facility] T EMERGENCY 55891 [facility] MODERATE SEVERITY EMERGENCY 42008 JUAN MAYBERRY DEPT 2 2 EMERGENCY VISIT SERVICES HIGH SEVERITY& THREAT [facility] OFFICE 88302 KILPELA KILPELA OUTPATIEN 2 2 YAZMIN JEA T VISIT 15 MINUTES [facility] T OFFICE 62034 FALLUJI FALLUJI OUTPATIEN 2 2 EFRAIN ZUNIGA T VISIT 25 MINUTES OFFICE 13453 ROCIO ROCIO OUTPATIEN 2 2 JULIEN JULIEN T VISIT 25 MINUTES OFFICE 07588 KERI CELAYA CHE OUTPATIEN 2 2 T VISIT 15 MINUTES OFFICE 08071 KERI CELAYA CHE OUTPATIEN 2 2 T VISIT 15 MINUTES [facility] INC T EMERGENCY 42643 [facility] 2 2 [facility] DEPARTMEN INC T VISIT HIGH/URGE NT SEVERITY EMERGENCY 36335 HARLEY SOUZA DEPT 2 2 III PAMELA III PAMELA VISIT HIGH SEVERITY& THREAT [facility] - 2 2 [facility] T OFFICE 86572 [facility] CON[facility]ULTAT 2 2 ALFREDO EFRAIN ION CARDIOLOG NEW/ESTAB Y CLINIC PATIENT 60 MIN OFFICE 89327 KERI CELAYA CHE OUTPATIEN 2 2 T VISIT 15 MINUTES [facility] 2 2 [facility] T [facility] - 2 2 [facility] T OFFICE 00419 GLORIA GLORIA OUTPATIEN 2 2 MAGAN MAGAN T VISIT 15 MINUTES OFFICE 84865 ROCIO ROCIO OUTPATIEN 2 2 JULIEN JULIEN T VISIT 25 MINUTES [facility]OSP[facility] 2 [facility] T EMERGENCY 54044 [facility] 2 2 [facility] DEPARTMEN INC T VISIT MODERATE SEVERITY EMERGENCY 24487 JUAN GRIFFITHS DEPT 2 2 EMERGENCY TANMAY VISIT SERVICES HIGH SEVERITY& THREAT [facility] OFFICE 32799 GLORIA GLORIA OUTPATIEN 2 2 MAGAN MAGAN T VISIT 15 MINUTES OFFICE 69413 [facility] OUTPATIEN 2 2 HOSPITAL T VISIT 25 MINUTES HOSPITAL [facility] - 2 2 HOSPITAL OUTPATIEN T OFFICE 94893 VASCELLO VASCELLO OUTPATIEN 2 2 NATHEN NATHEN T NEW 30 MINUTES OFFICE 51571 GLORIA GLORIA OUTPATIEN 2 2 MAGAN MAGAN T VISIT 15 MINUTES OFFICE 77466 GLORIA GLORIA OUTPATIEN 2 2 MAGAN MAGAN T VISIT 15 MINUTES [facility] 2 [facility] T OFFICE 74617 GLORIA GLORIA OUTPATIEN 2 2 MAGAN MAGAN T VISIT 15 MINUTES OFFICE 52192 GLORIA GLORIA OUTPATIEN 2 2 MAGAN MAGAN T VISIT 15 MINUTES [facility] 2 [facility] INC T EMERGENCY 51406 [facility] 2 2 [facility] DEPARTMEN INC T VISIT MODERATE SEVERITY EMERGENCY 51068 JUAN GRIFFITHS 2 2 EMERGENCY TANMAY DEPARTMEN SERVICES T VISIT HIGH/URGE NT SEVERITY OFFICE 29964 GLORIA GLORIA OUTPATIEN 2 2 MAGAN MAGAN T VISIT 15 MINUTES OFFICE 13854 ROCIO ROCIO OUTPATIEN 2 2 JULIEN JULIEN T NEW 60 MINUTES OFFICE 82535 GLORIA GLORIA OUTPATIEN 2 2 MAGAN MAGAN T VISIT 10 MINUTES OFFICE 64763 KERI CHE KERI CHE OUTPATIEN 1 1 T VISIT 15 MINUTES OFFICE 38709 GLORIA GLORIA OUTPATIEN 1 1 MAGAN MAGAN T VISIT 15 MINUTES [facility] [place] [address] 1 N OUTPATIEN COMMUNTIY T HOSPITA OFFICE 31557 WINDISCH WINDISCH OUTPATIEN 1 1 AMB AMB T VISIT 40 MINUTES OFFICE 97417 TIFFANY ALLEN OUTPATIEN 1 1 CORRINA CORRINA T VISIT 15 MINUTES OFFICE 13381 A C GLORIA OUTPATIEN 1 1 LAN ROBBINS MAGAN T VISIT PSC 15 MINUTES OFFICE 06417 A C GLORIA OUTPATIEN 1 1 LAN ROBBINS MAGAN T VISIT PSC 10 MINUTES OFFICE 41048 A C GLORIA OUTPATIEN 1 1 LAN ROBBINS MAGAN T VISIT PSC 15 MINUTES OFFICE 11362 LISANDRA INTERIANOY OUTPATIEN 1 1 DORITA KEVIN T VISIT 25 MINUTES HOSPITAL [facility] - 1 1 N OUTPATIEN [facility] OFFICE 95814 LISANDRA FRY OUTPATIEN 1 1 DORITA Silverman NEW 30 MINUTES OFFICE 61035 A C MONTENEGRO A OUTPATIEN 1 1 LAN ROBBINS T VISIT 5 PSC MINUTES OFFICE 34341 A C MONTENEGRO A OUTPATIEN 1 1 LAN ROBBINS T VISIT PSC 15 MINUTES OFFICE 37199 SHIVANI LATHAM OUTPATIEN 1 1 [facility] VISIT HOSP[facility] 25 P MINUTES HOSPITAL [facility] - 1 1 [facility] OUTPATIEN [facility] T OFFICE 31438 SHIVANI JOSHIKINS OUTPATIEN 1 1 [facility] VISIT HOSP[facility] 40 P MINUTES OFFICE 15484 A C MONTENEGRO A OUTPATIEN 1 1 LAN ROBBINS T VISIT PSC 15 MINUTES OFFICE 46055 GEORGETTE PALOMINO OUTPATIEN 1 1 [facility] T VISIT 15 MINUTES OFFICE 63682 A C MONTENEGRO A OUTPATIEN 1 1 LAN ROBBINS T VISIT PSC 10 MINUTES PERIODIC 46608 [facility] PREVENTIV 1 1 [facility] E MED EST CLINIC OF PATIENT DAISHA 40-64YRS OFFICE 89616 A C MONTENEGRO A OUTPATIEN 1 1 LAN ROBBINS T VISIT PSC 15 MINUTES OFFICE 28674 A C OUTPATIEN 1 1 LAN ROBBINS T VISIT 5 PSC MINUTES OFFICE 78169 A C MONTENEGRO A OUTPATIEN 1 1 LAN ROBBINS T VISIT PSC 15 MINUTES [facility]OSP[facility] 1 [facility] T EMERGENCY 86528 [facility] 1 1 [facility] T VISIT MODERATE SEVERITY EMERGENCY 74733 JUAN RIGGINS [facility] DEPT 1 1 EMERGENCY VISIT SERVICES HIGH SEVERITY& THREAT FUN OFFICE 87103 PALOMINO PALOMINO OUTPATIEN 1 1 [facility] VIS[facility] 25 MINUTES OFFICE 10192 PALOMINO PALOMINO OUTPATIEN 1 1 [facility] T VISIT 25 MINUTES [facility] - 1 1 [facility] INC T OFFICE 35752 WINDISCH WINDISCH OUTPATIEN 1 1 CHINA ATKINSON T VISIT 40 MINUTES OFFICE 32970 A C MONTENEGRO A OUTPATIEN 1 1 LAN ROBBINS T VISIT PSC 15 MINUTES HOSPITAL [facility] - 1 1 [facility] INC T OFFICE 69517 PALOMION PALOMINO CONSULTAT 1 1 [facility]/ESTAB PATIENT 80 MIN OFFICE 11657 A C MONTENEGRO A OUTPATIEN 1 1 LAN ROBBINS T VISIT PSC 15 MINUTES HOSPITAL [facility] - 1 1 [facility] INC T OFFICE 45053 A C MONTENEGRO A OUTPATIEN 0 0 LAN ROBBINS T VISIT PSC 15 MINUTES OFFICE 31972 LISANDRA FRY OUTPATIEN 0 0 DORITA KEVIN T VISIT 25 MINUTES OFFICE 68553 A C MONTENEGRO A OUTPATIEN 0 0 LAN ROBBINS T VISIT PSC 15 MINUTES OFFICE 07451 A Stanley MONTENEGRO A OUTPATIEN 0 0 LAN ROBBINS T VISIT PSC 15 MINUTES OFFICE 23217 LISANDRA FRY CONSULTAT 0 0 DORITA LOVING NEW/ESTAB PATIENT 60 MIN OFFICE 14843 A Stanley MONTENEGRO A OUTPATIEN 0 0 LAN ROBBINS T VISIT PSC 15 MINUTES EMERGENCY 70075 JUAN DOROTHYAnupam BAB DEPT 0 0 EMERGENCY VISIT SERVICES HIGH SEVERITY& THREAT FUNJ EMERGENCY 93810 [facility] 0 0 [facility] DEPARTMEN INC T VISIT HIGH/URGE NT SEVERITY [facility]OSPITAL [facility] - 0 0 [facility] OUTPAT[facility] INC T OFFICE 61498 A Stanley MONTENEGRO A OUTPATIEN 0 0 LAN ROBBINS T VISIT PSC 15 MINUTES OFFICE 62599 A Stanley MONTENEGRO A OUTPATIEN 0 0 LAN ROBBINS T VISIT PSC 15 MINUTES OFFICE 34042 WOMEN'S ALLEN OUTPATIEN 0 0 [facility] T VISIT CLINIC OF 15 DAISHA MINUTES OFFICE 68289 A Stanley MONTENEGRO A OUTPATIEN 0 0 LAN ROBBINS T VISIT PSC 15 MINUTES OFFICE 78053 A Stanley MONTENEGRO A OUTPATIEN 0 0 LAN ROBBINS T VISIT PSC 15 MINUTES OFFICE 04279 A Stanley OUTPATIEN 0 0 LAN ROBBINS T VISIT 5 PSC MINUTES OFFICE 16277 A Buster MOBLEY OUTPATIEN 0 0 LAN ROBBINS C T VISIT PSC 15 MINUTES OFFICE 03865 A Buster MOBLEY OUTPATIEN 0 0 LAN ROBBINS C T VISIT PSC 15 MINUTES PERIODIC 91655 WOMEN'S ALLEN, PREVENTIV 0 0 [facility] J E MED EST CLINIC OF PATIENT 40-64YRS [facility] OFFICE 43831 Buster FARIAS OUTPATIEN 0 0 LAN Angel T VISIT PSC 15 MINUTES OFFICE 80081 Buster FARIAS OUTPATIEN 0 0 LAN Angel T VISIT 5 PSC MINUTES OFFICE 68137 WINDISCH, WINDISCH, OUTPATIEN 0 0 ZEE KOCH T VISIT K K 25 MINUTES OFFICE 24443 Buster FARIAS OUTPATIEN 0 0 LAN Angel T VISIT PSC 15 MINUTES OFFICE 23434 Buster FARIAS OUTPATIEN 0 0 LAN Angel T VISIT PSC 15 MINUTES OFFICE 80988 Buster FARIAS OUTPATIEN 0 0 LAN Angel T VISIT PSC 15 MINUTES OFFICE 08654 Buster FARIAS OUTPATIEN 0 0 LAN Angel T VISIT PSC 15 MINUTES OFFICE 47209 Buster FARIAS OUTPATIEN 9 9 LAN Angel T VISIT PSC 15 MINUTES OFFICE 52078 uBster FARIAS OUTPATIEN 9 9 LAN Angel T VISIT PSC 15 MINUTES OFFICE 94941 Buster FARIAS OUTPATIEN 9 9 LAN Angel T VISIT PSC 15 MINUTES [facility] [address] OFFICE 67085 Buster FARIAS OUTPATIEN 9 9 LAN Angel T VISIT PSC 15 MINUTES EMERGENCY 68318 SH[facility] 9 9 [facility] HIGH/URGE NT SEVERITY EMERGENCY 61493 JUAN GAY, DEPT 9 9 EMERGENCY KALA P VISIT SERVICES HIGH SEVERITY& ASSOCIATE THREAT S [facility] SH[facility]ANI - 9 9 [facility] INC T OFFICE 15454 BONNY DRAPER OUTPATIZAN 9 9 ZEEJORGE KOCH T VISIT K K 25 MINUTES OFFICE 04644 Buster FARIAS OUTPATIEN 9 9 LAN Angel T VISIT PSC 10 MINUTES OFFICE 79572 Buster FARIAS OUTPATIEN 9 9 LAN Angel T VISIT PSC 10 MINUTES OFFICE 63229 Buster FARIAS OUTPATIEN 9 9 LAN Angel T VISIT 5 PSC MINUTES OFFICE 74111 Buster FARIAS OUTPATIEN 9 9 LAN Angel T VISIT PSC 10 MINUTES OFFICE 11442 Buster FARIAS OUTPATIEN 9 9 LAN Angel T VISIT PSC 15 MINUTES OFFICE 73921 Buster FARIAS OUTPATIEN 9 9 LAN Angel T VISIT PSC 15 MINUTES OFFICE 55662 BONNY DRAPER, CONSULTAT 9 9 ZEE ZEE ION K K NEW/ESTAB PATIENT 40 MIN OFFICE 66326 ÁNGEL WAGNER 9 9 [facility] ROBYN D T VISIT UROLOGY 25 PSC MINUTES OFFICE 51259 PACSUAL LATHAM CONSULTAT 9 9 [facility] ROBYN D ION UROLOGY NEW/ESTAB PSC PATIENT 40 MIN [facility] - 9 9 [facility] INC T OFFICE 79742 Buster FARIAS OUTPATIEN 9 9 LAN Angel T VISIT PSC 15 MINUTES OFFICE 83608 Buster FARIAS OUTPATIEN 9 9 LAN Angel T VISIT PSC 15 MINUTES OFFICE 79340 Buster FARIAS OUTPATIEN 9 9 LAN Angel T VISIT 5 PSC MINUTES HOSPITAL [facility] - 9 9 [facility] INC T OFFICE 90230 Buster FARIAS OUTPATIEN 9 9 LAN Angel T VISIT PSC 15 MINUTES HOSPITAL [facility] - 9 9 [facility] INC T OFFICE 12022 Buster FARIAS OUTPATIZAN 9 9 LAN Angel T VISIT PSC 15 MINUTES HOSPITAL [facility] - 9 9 [facility] INC T OFFICE 32659 Buster FARIAS OUTPATIEN 9 9 LAN Angel T VISIT PSC 15 MINUTES HOSPITAL [facility] - 9 9 [facility] OUT[facility]EN INC T EMERGENCY 32704 SH[facility]ANI 9 9 [facility] DEPARTMEN INC T VISIT LOW/MODER SEVERITY EMERGENCY 64957 JUAN GRIFFITHS, 9 9 EMERGENCY [facility] SERVICES T VISIT HIGH/URGE ASSOCIATE NT S SEVERITY PERIODIC 41812 [facility] ALLEN 9 9 [facility] EST CLINIC OF PATIENT 40-64YRS [facility] OFFICE 33716 Buster FARIAS OUTPATIEN 9 9 LAN Angel T VISIT PSC 15 MINUTES OFFICE 07979 Buster FARIAS OUTPATIZAN 9 9 LAN Angel T VISIT PSC 15 MINUTES OFFICE 17113 Buster FARIAS OUTPATIZAN 9 9 LAN Angel T VISIT 5 PSC MINUTES OFFICE 43087 Buster FARIAS OUTPATIEN 8 8 LAN Angel T VISIT PSC 15 MINUTES HOSPITAL [facility] - 8 8 [facility] INC T OFFICE 29647 Buster FARIAS OUTPATIZAN 8 8 LAN Angel T VISIT PSC 10 MINUTES OFFICE 78484 Buster FARIAS OUTPATIZAN 8 8 LAN Angel T VISIT PSC 15 MINUTES HOSPITAL [facility] - 8 8 [facility] OUTPAT[facility] INC T EMERGENCY 16124 SH[facility] 8 8 [facility] DEPARTMEN INC T VISIT MODERATE SEVERITY EMERGENCY 16633 RONEL BURR, 8 8 [facility] ON HIGH/URGE NT SEVERITY OFFICE 56421 Buster FARIAS OUTPATIEN 8 8 LAN Angel T VISIT PSC 15 MINUTES OFFICE 74500 Buster FARIAS OUTPATIEN 8 8 LAN Angel T VISIT 5 PSC MINUTES OFFICE 27251 Buster FARIAS OUTPATIEN 8 8 LAN Angel T VISIT PSC 15 MINUTES OFFICE 49851 Buster FARIAS OUTPATIEN 8 8 LAN Angel T VISIT PSC 15 MINUTES OFFICE 66231 Buster FARIAS OUTPATIEN 8 8 LAN Angel T VISIT PSC 15 MINUTES HOSPITAL [facility] - 8 8 [facility]PAT[facility] INC T OFFICE 75032 Buster FARIAS OUTPATIEN 8 8 LAN Angel T VISIT PSC 15 MINUTES OFFICE 27841 Buster FARIAS OUTPATIZAN 8 8 LAN Angel T VISIT PSC 15 MINUTES OFFICE 90268 Buster FARIAS OUTPATIZAN 8 8 LAN Angel T VISIT 5 PSC MINUTES OFFICE 83670 Buster FARIAS OUTPATIZAN 8 8 LAN Angel T VISIT PSC 15 MINUTES OFFICE 36820 Buster FARIAS OUTPATIEN 8 8 LAN Angel T VISIT PSC 15 MINUTES OFFICE 26884 Buster FARIAS OUTPATIZAN 8 8 LAN Angel T VISIT PSC 15 MINUTES OFFICE 86653 AIDAN BERMUDEZ OUTPATIEN 8 8 ZAK Da Silva T VISIT 15 MINUTES HOSPITAL [facility] - 8 8 [facility] INC T OFFICE 22576 AIDAN BERMUDEZ OUTPATIEN 8 8 ZAK Silverman NEW 30 MINUTES OFFICE 87497 Buster FARIAS OUTPATIEN 8 8 LAN Silverman VISIT [facility] 15 MINUTES OFFICE 66809 Buster FARIAS OUTPATIEN 8 8 LAN Silverman VISIT [facility] 15 MINUTES OFFICE 62426 WOMEN'S ÁNGEL ALLEN 8 8 [facility] T VISIT CLINIC OF 15 MINUTES [facility] SHIVANI - 8 8 [facility]PAT[facility] INC T OFFICE 31917 WOMEN'S ÁNGEL ALLEN 8 8 [facility] T VISIT CLINIC OF 15 MINUTES [facility] - 8 8 [facility] T
--- OUTSIDE RECORDS SUMMARY | 2017-10-11 14:06 | External Medical Summary Rpt | CCD ---
Author Author , HAYLEE HEBERT Address Unknown Phone [email or web address] Immunization Name Date Rout CVX Reac Dose Comm Prov Is Faci e tion ent ider Refu lity Give sed n Infl 10-1 135 999 Hist D203 No D203 uenz 0-20 oric 45 45 a, 16 al High Info rmat Dose ion - Sour ce Unsp ecif ied PPV2 12-0 33 999 Hist H149 No H149 3 9-20 oric 14 al Info rmat ion - Sour ce Unsp ecif ied
--- OUTSIDE RECORDS SUMMARY | 2017-10-11 14:06 | External Medical Summary Rpt ---
Author Author [employer] Mckenzie, [employer] Organization [employer] Address Unknown Phone Unavailable Results Glucose [Mass/volume] in Capillary blood by Glucometer Observa Value Referen Units Interpr Notes Date ti ce etation Range Glucose 70 - 110 mg/dl No No Sep 16 [Mass/vol informati informati 2017 8:45 ume] in on in on in AM Capillary source source blood by data data Glucomete r Opiates and Oxycodone(GC/MS),U Observa Value Referen Units Interpr Notes Date ti ce etation Range Hydroco 690 Cutoff= ng/mL No No Aug 29 done 100 informa informa 2017 GC/MS, tion in tion in 9:29 AM Urine source source data data Oxycodo Negativ Cutoff= No No Test Aug 29 ne/Oxym e 100 informa informa include 2017 orph tion in tion in s 9:29 AM source source Oxycodo data data ne and Oxymorp honePer formed at: [facility] [id number] [place], [place] [id number]Lab Directo r: Paulino Gallego MD, Phone: [phone] Codeine Negativ Cutoff= No No No Aug 29 e 100 informa informa informa 2017 tion in tion in tion in 9:29 AM source source source data data data Morphin Negativ Cutoff= No No No Aug 29 e e 100 informa informa informa 2017 tion in tion in tion in 9:29 AM source source source data data data Hydromo Positiv . No Abnorma No Aug 29 rphone e informa l informa 2017 tion in tion in 9:29 AM source source data data Hydromo 136 Cutoff= ng/mL No No Aug 29 rphone 100 informa informa 2017 GC/MS, tion in tion in 9:29 AM Urine source source data data Hydroco Positiv . No Abnorma No Aug 29 done e informa l informa 2017 tion in tion in 9:29 AM source source data data Opiates Positiv . No Abnorma Opiate Aug 29 e informa l test 2016 tion in include 9:29 AM source s data Codeine , Morphin e, Hydromo rphone, Hydroco done. Drugs identified in Urine by Screen method Observa Value Referen Units Interpr Notes Date tion ce etation Range Positive urine drug screen samples are stored for 7 days. Contact the Lab if confirmation of positives is needed. Ampheta NEGATIV <1000 ng/mL No No Aug 29 mine E informa informa 2016 [Presen tion in tion in 8:29 AM ce] in source source Urine data data by Screen method Barbitura <200 ng/mL No No Aug 29 naomie informati informati 2016 8:29 [Mass/vol on in on in AM ume] in source source Urine by data data Screen method Benzodiaz 200 ng/mL ng/mL High This is Aug 29 epines an 2017 8:29 [Mass/vol UNCONFIRM AM ume] in ED Serum or result. Plasma by This Screen result is method for medicalpu rposes and/or treatment only. Cocaine <300 ng/g No No Aug 29 [Mass/vol informati informati 2016 8:29 ume] in on in on in AM Unspecifi source source ed data data specimen Methadone <300 ng/mL No No Aug 29 informati informati 2016 8:29 [Mass/vol on in on in AM ume] in source source Unspecifi data data ed specimen Opiates <300 ng/mL High This is Aug 29 [Mass/vol an 2016 8:29 ume] in UNCONFIRM AM Unspecifi ED ed result. specimen This result is for medicalpu rposes and/or treatment only. Phencycli <25 ng/mL No No Aug 29 dine informati informati 2016 8:29 [Mass/vol on in on in AM ume] in source source Unspecifi data data ed specimen 11-Hydr NEGATIV <50 ng/mL No No Aug 29 oxy E informa informa 2017 delta-9 tion in tion in 8:29 AM source source tetrahy data data drocann abinol [Presen ce] in Unspeci fied specime n Amylase [Enzymatic activity/volume] in Serum or Plasma Observa Value Referen Units Interpr Notes Date tion ce etation Range Amylase 25 - 115 U/L Normal No Sep 22 [Enzymati informati 2017 8:55 c on in AM activity/ source volume] data in Serum or Plasma Lipase [Enzymatic activity/volume] in Serum or Plasma Observa Value Referen Units Interpr Notes Date tion ce etation Range Lipase 73 - 393 U/L Normal No Sep 22 [Enzymati informati 2017 8:55 c on in AM activity/ source volume] data in Serum or Plasma CBC W Auto Differential panel in Blood Observa Value Referen Units Interpr Notes Date tion ce etation Range Basophils 0 - 0.2 K/MM3 Normal No Sep 22 informati 2017 8:55 [#/volume on in AM ] in source Blood by data Automated count Basophils 0.1 - 2.0 % Normal No Sep 22 /100 informati 2017 8:55 leukocyte on in AM s in source Blood by data Automated count Eosinophi 0.0 - 0.4 K/mm3 High No Sep 22 ls informati 2016 8:55 [#/volume on in AM ] in source Blood by data Automated count Eosinophi 0.1 - % Normal No Sep 22 ls/100 12.0 informati 2017 8:55 leukocyte on in AM s in source Blood by data Automated count Granulocy 1.8 - 7.8 K/mm3 Normal No Sep 22 naomie informati 2017 8:55 [#/volume on in AM ] in source Blood by data Automated count Granulocy 37.0 - % Normal No Sep 22 naomie/100 80.0 informati 2017 8:55 leukocyte on in AM s in source Blood by data Automated count Hematocri 37.0 - % Low No Sep 22 t [Volume 47.0 informati 2017 8:55 on in AM Fraction] source of Blood data Hemoglobi 12.2 - g/dL Low No Sep 22 n 16.2 informati 2017 8:55 [Mass/vol on in AM ume] in source Blood data Lymphocyt 0.7 - 4.5 K/mm3 Normal No Sep 22 es informati 2017 8:55 [#/volume on in AM ] in source Unspecifi data ed specimen by Automated count Lymphocyt 10 - 50.0 % Normal No Sep 22 es informati 2017 8:55 [#/volume on in AM ] in source Unspecifi data ed specimen by Automated count Erythrocy 27 - 31.2 pg Low No Sep 22 te mean informati 2016 8:55 corpuscul on in AM ar source hemoglobi data n [Entitic mass] Erythrocy 31.8 - g/dl Normal No Sep 22 te mean 35.4 informati 2016 8:55 corpuscul on in AM ar source hemoglobi data n concentra tion [Mass/vol ume] by Automated count Erythrocy 82.2 - fl Low No Sep 22 te mean 97.8 informati 2016 8:55 corpuscul on in AM ar volume source [Entitic data volume] by Automated count Monocytes 0.1 - 1.0 K/mm3 Normal No Sep 22 informati 2016 8:55 [#/volume on in AM ] in source Blood by data Automated count Monocytes 1.7 - 9.3 % Normal No Sep 22 /100 informati 2016 8:55 leukocyte on in AM s in source Blood by data Automated count Platelet 7.4 - fl Normal No Sep 22 mean 10.4 informati 2016 8:55 volume on in AM [Entitic source volume] data in Blood by Automated count Platelets 142 - 424 K/mm3 Normal No Sep 22 informati 2016 8:55 [#/volume on in AM ] in source Blood data Erythrocy 4.2 - 5.4 M/mm3 Normal No Sep 22 naomie informati 2016 8:55 [#/volume on in AM ] in source Amniotic data fluid Erythrocy 11.5 - % Normal No Sep 22 te 17.5 informati 2016 8:55 distribut on in AM ion width source [Entitic data volume] by Automated count Leukocyte 4.8 - K/MM3 Normal No Sep 22 s 10.8 informati 2016 8:55 [#/volume on in AM ] in source Blood data Amylase [Enzymatic activity/volume] in Serum or Plasma Observa Value Referen Units Interpr Notes Date tion ce etation Range Amylase 25 - 115 U/L Normal No Jun 11 [Enzymati informati 2016 4:20 c on in PM activity/ source volume] data in Serum or Plasma Comprehensive metabolic 2000 panel in Serum or Plasma Observa Value Referen Units Interpr Notes Date tion ce etation Range Albumin/G 1.1 - 1.8 No Low No Jun 11 lobulin informati informati 2016 4:20 [Mass on in on in PM ratio] in source source Serum or data data Plasma Albumin 3.4 - 5.0 gm/dL Normal No Jun 11 [Mass/vol informati 2016 4:20 ume] in on in PM Serum or source Plasma data Alkaline 46 - 116 U/L Normal No Jun 11 phosphata informati 2017 4:20 se on in PM [Enzymati source c data activity/ volume] in Serum or Plasma Bilirubin 0.2 - 1.0 mg/dL Normal No Jun 11 .total informati 2016 4:20 [Mass/vol on in PM ume] in source Serum or data Plasma Urea 7 - 18 mg/dL Normal No Jun 11 nitrogen informati 2016 4:20 [Mass/vol on in PM ume] in source Serum or data Plasma Calcium 8.5 - mg/dL Normal No Jun 11 [Mass/vol 10.1 informati 2016 4:20 ume] in on in PM Serum or source Plasma data Chloride 98 - 107 mmoL/L Normal No Jun 11 [Moles/vo informati 2016 4:20 lume] in on in PM Serum or source Plasma data Carbon 21.0 - mmoL/L Normal No Jun 11 dioxide, 32.0 informati 2017 4:20 total on in PM [Moles/vo source lume] in data Serum or Plasma Creatinin 0.55 - mg/dL Normal No Jun 11 e 1.02 informati 2016 4:20 [Mass/vol on in PM ume] in source Serum or data Plasma Creatinin 50 - 200 ML/MIN Normal No Jun 11 e renal informati 2016 4:20 clearance on in PM source predicted data by Cockcroft -Gault formula Estimated 59- ML/MIN No REFERENCE Jun 11 informati RANGE: 2017 4:20 glomerula on in >60 PM r source ML/MIN/1. filtratio data 73 SQUARE n rate METERSIf (GF this patient is -A merican, then multiply theresult by 1.210. Globulin 1.3 - 3.2 gm/dL High No Jun 11 [Mass/vol informati 2016 4:20 ume] in on in PM Serum source data Glucose 74 - 106 mg/dL High No Jun 11 [Mass/vol informati 2016 4:20 ume] in on in PM Serum or source Plasma data Potassium 3.5 - 5.1 mmoL/L Normal No Jun 11 informati 2017 4:20 [Moles/vo on in PM lume] in source Serum or data Plasma Sodium 136 - 145 mmoL/L Normal No Jun 11 [Moles/vo informati 2016 4:20 lume] in on in PM Serum or source Plasma data Aspartate 15 - 37 U/L Normal No Jun 11 inform2016 4:20 aminotran on in PM sferase source [Enzymati data c activity/ volume] in Serum or Plasma Alanine 12 - 78 U/L Normal No Jun 11 aminotran informati 2016 4:20 sferase on in PM [Enzymati source c data activity/ volume] in Serum or Plasma Protein 6.4 - 8.2 gm/dL Normal No Jun 11 [Mass/vol informati 2016 4:20 ume] in on in PM Serum or source Plasma data Lipase [Enzymatic activity/volume] in Serum or Plasma Observa Value Referen Units Interpr Notes Date tion ce etation Range Lipase 73 - 393 U/L Normal No Jun 11 [Enzymati informati 2016 4:20 c on in PM activity/ source volume] data in Serum or Plasma CBC W Auto Differential panel in Blood Observa Value Referen Units Interpr Notes Date tion ce etation Range Basophils 0 - 0.2 K/MM3 Normal No Jun 11 inform2016 4:20 [#/volume on in PM ] in source Blood by data Automated count Basophils 0.1 - 2.0 % Normal No Jun 11 inform2016 4:20 leukocyte on in PM s in source Blood by data Automated count Eosinophi 0.0 - 0.4 K/mm3 Normal No Jun 11 ls ati 2016 4:20 [#/volume on in PM ] in source Blood by data Automated count Eosinophi 0.1 - % Normal Jun 11 ls/100 12.0 informati 2016 4:20 leukocyte on in PM s in source Blood by data Automated count Granulocy 1.8 - 7.8 K/mm3 High No Jun 11 naomie informati 2016 4:20 [#/volume on in PM ] in source Blood by data Automated count Granulocy 37.0 - % High Jun 11 naomie100 80.0 informati 2016 4:20 leukocyte on in PM s in source Blood by data Automated count Hematocri 37.0 - % Normal Jun 11 t [Volume 47.0 informati 2016 4:20 on in PM Fraction] source of Blood data Hemoglobi 12.2 - g/dL Normal No Jun 11 n 16.2 informati 2016 4:20 [Mass/vol on in PM ume] in source Blood data Lymphocyt 0.7 - 4.5 K/mm3 Normal No Jun 11 es informati 2016 4:20 [#/volume on in PM ] in source Unspecifi data ed specimen by Automated count Lymphocyt 10 - 50.0 % Normal No Jun 11 es inform2016 4:20 [#/volume on in PM ] in source Unspecifi data ed specimen by Automated count Erythrocy 27 - 31.2 pg Low No Jun 11 te mean informati 2016 4:20 corpuscul on in PM ar source hemoglobi data n [Entitic mass] Erythrocy 31.8 - g/dl Low No Jun 11 te mean 35.4 informati 2016 4:20 corpuscul on in PM ar source hemoglobi data n concentra tion [Mass/vol ume] by Automated count Erythrocy 82.2 - fl Low No Jun 11 te mean 97.8 informati 2016 4:20 corpuscul on in PM ar volume source [Entitic data volume] by Automated count Monocytes 0.1 - 1.0 K/mm3 Normal No Jun 11 informati 2016 4:20 [#/volume on in PM ] in source Blood by data Automated count Monocytes 1.7 - 9.3 % Normal No Jun 11 /100 informati 2017 4:20 leukocyte on in PM s in source Blood by data Automated count Platelet 7.4 - fl Normal No Jun 11 mean 10.4 informati 2016 4:20 volume on in PM [Entitic source volume] data in Blood by Automated count Platelets 142 - 424 K/mm3 Normal No Jun 11 informati 2016 4:20 [#/volume on in PM ] in source Blood data Erythrocy 4.2 - 5.4 M/mm3 Normal No Jun 11 naomie informati 2017 4:20 [#/volume on in PM ] in source Amniotic data fluid Erythrocy 11.5 - % Normal No Jun 11 te 17.5 informati 2016 4:20 distribut on in PM ion width source [Entitic data volume] by Automated count Leukocyte 4.8 - K/MM3 High No Jun 11 s 10.8 informati 2016 4:20 [#/volume on in PM ] in source Blood data Urinalysis macro (dipstick) panel in Urine Observa Value Referen Units Interpr Notes Date tion ce etation Range Appeara CLEAR CLEAR No No No Jun 11 nce of informa informa informa 2016 Urine tion in tion in tion in 4:08 PM source source source data data data Bilirub NEGATIV NEG No No No Jun 11 in E informa informa informa 2016 [Presen tion in tion in tion in 4:08 PM ce] in source source source Urine data data data by Test strip Erythro SMALL NEG No No No Jun 11 cytes informa informa informa 2016 [Presen tion in tion in tion in 4:08 PM ce] in source source source Urine data data data Color YELLOW YELLOW No No No Jun 11 of informa informa informa 2016 Urine tion in tion in tion in 4:08 PM source source source data data data Glucose NEG No No No Jun 11 [Mass/vol informati informati informati 2017 4:08 ume] in on in on in on in PM Urine by source source source Test data data data strip Ketones NEGATIV NEG mg/dL No No Jun 11 E informa informa 2016 [Presen tion in tion in 4:08 PM ce] in source source Urine data data by Automat ed test strip pH of 5.0 - 8.5 No Normal No Jun 11 Urine informati informati 2017 4:08 on in on in PM source source data data Protein NEG mg/dL No No Jun 11 [Mass/vol informati informati 2017 4:08 ume] in on in on in PM Urine by source source Automated data data test strip Specific 1.005 - No Normal No Jun 11 gravity 1.030 informati informati 2016 4:08 of Urine on in on in PM source source data data Leukocy TRACE NEG No Abnorma No Jun 11 te informa l informa 2017 esteras tion in tion in 4:08 PM e source source [Presen data data ce] in Urine by Automat ed test strip Nitrite NEGATIV NEG No No No Jun 11 E informa informa informa 2016 [Presen tion in tion in tion in 4:08 PM ce] in source source source Urine data data data by Test strip Urobili 0.2 NEG E.U./dL No No Jun 11 nogen informa informa 2016 [Presen tion in tion in 4:08 PM ce] in source source Urine data data by Test strip Opiates and Oxycodone(GC/MS),U Observa Value Referen Units Interpr Notes Date tion ce etation Range Oxycodo Negativ Cutoff= No No Test Tristan 20 ne/Oxym e 100 informa informa include 2017 orph tion in tion in s 8:36 AM source source Oxycodo data data ne and Oxymorp honePer formed at: [facility] [id number] [facility], [place], [place] [id number]Lab Directo r: Paulino Gallego MD, Phone: [phone] Opiates Negativ Cutoff= No No Opiate Apr 19 e 100 informa informa test 2017 tion in tion in include 8:36 AM source source s data data Codeine , Morphin e, Hydromo rphone, Hydroco done. Drugs identified in Urine by Screen method Observa Value Referen Units Interpr Notes Date tion ce etation Range Positive urine drug screen samples are stored for 7 days. Contact the Lab if confirmation of positives is needed. Ampheta NEGATIV <1000 ng/mL No No Apr 19 mine E informa informa 2017 [Presen tion in tion in 8:36 AM ce] in source source Urine data data by Screen method Barbitura <200 ng/mL No No Apr 19 naomie informati informati 2017 8:36 [Mass/vol on in on in AM ume] in source source Urine by data data Screen method Benzodiaz 200 ng/mL ng/mL No No Apr 19 epines informati informati 2017 8:36 [Mass/vol on in on in AM ume] in source source Serum or data data Plasma by Screen method Cocaine <300 ng/g No No Apr 19 [Mass/vol informati informati 2017 8:36 ume] in on in on in AM Unspecifi source source ed data data specimen Methadone <300 ng/mL No No Apr 19 informati informati 2017 8:36 [Mass/vol on in on in AM ume] in source source Unspecifi data data ed specimen Opiates <300 ng/mL No No Mar 20 [Mass/vol informati informati 2017 8:36 ume] in on in on in AM Unspecifi source source ed data data specimen Phencycli <25 ng/mL No No Mar 20 dine informati informati 2017 8:36 [Mass/vol on in on in AM ume] in source source Unspecifi data data ed specimen 11-Hydr NEGATIV <50 ng/mL No No Apr 19 oxy E informa informa 2017 delta-9 tion in tion in 8:36 AM source source tetrahy data data drocann abinol [Presen ce] in Unspeci fied specime n
--- OUTSIDE RECORDS SUMMARY | 2017-10-11 14:06 | External Medical Summary Rpt | CCD ---
Author Author , HAYLEE HEBERT Address Unknown Phone [email or web address] [facility] Immunization Name Date Rout CVX Reac Dose [...]
--- OUTSIDE RECORDS SUMMARY | 2017-10-11 14:06 | External Medical Summary Rpt ---
[...] [employer] honePer formed at: [facility] [id number] [place], [place] [id number]Lab Directo r: Paulino Gallego MD, Phone: [phone] Codeine Negativ Cutoff= No No No Aug [...] [employer] honePer formed at: [facility] [id number] [facility], [place], [place] [id number]Lab Directo r: Paulino Gallego MD, Phone: [phone] Opiates Negativ Cutoff= No No Opiate Apr [...]
--- NOTE | 2017-10-11 14:33 | RADIOLOGY REPORT PS360 ---
CHEST-AP VIEW ONLY HISTORY: Weakness and cough pain ORDERING PHYSICIAN: Crispin Moore MD PATIENT AGE: 67 years COMPARISON: 07/22/2017 FINDINGS: The cardiomediastinal silhouette and pulmonary vascularity are within normal limits. The lungs are clear without infiltrates, suspicious nodules, or pleural effusions. No acute bony abnormalities. IMPRESSION: Negative chest, no acute finding
[2017-10-11 14:56] VITALS: BP 140/85
[2017-10-28] MEDS ORDERED: LYRICA75 MG PO (08:46)
[2017-10-28] MEDS ORDERED: POTASSIUM CHLO20 ME2 PO (08:47)
== END 2017-10-11 14:56 | disposition home or self-care (01) ==
LOC: ER 12:48
PROVIDERS: Emergency Medicine
DX: R07.1 Chest pain on breathing (principal); G89.4 Chronic pain syndrome; Z86.79 Personal history of other diseases of the circulatory system; Z79.899 Other long term (current) drug therapy
CPT/HCPCS: J2405